=== PATIENT | male | born 1975 | race Caucasian/White ===

== ENCOUNTER → 2016-05-25 | Outpatient (CLI) | payer OTHER ==
[~2016-05-25] MED LIST: ACET500T37 PO; ALBU17IN INH; ALBU17IN2 INH; ALBU83IN INH; AMLO25TA PO; Acetaminophen/Hydrocodone PO; CALC500T36 PO; IBUP200C PO; LOPR1TAB6 PO; MULTCAP PO; PRED20TAB PO; PROBCAP4 PO; SENO8.6T10 PO
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
== END ==
LOC: M PAIN 11:20
PROVIDERS: ATTEND Nurse Practitioner Family
DX: Z09 Encounter for follow-up examination after completed treatment for conditions other than malignant neoplasm (principal); G89.29 Other chronic pain; M51.36 Other intervertebral disc degeneration, lumbar region; M54.42 Lumbago with sciatica, left side; M25.551 Pain in right hip; N18.6 End stage renal disease; J45.909 Unspecified asthma, uncomplicated; Z88.5 Allergy status to narcotic agent; Z88.8 Allergy status to other drugs, medicaments and biological substances; Z79.899 Other long term (current) drug therapy

== ENCOUNTER → 2016-05-27 | Outpatient (REF) | payer OTHER ==
[~2016-05-27] MED LIST changes: -LOPR1TAB6 PO; +LOPR50TA PO
== END ==
LOC: M LAB REF 16:53
PROVIDERS: ATTEND Internal Medicine Nephrology
DX: N18.5 Chronic kidney disease, stage 5 (principal)

== ENCOUNTER → 2016-08-01 | Outpatient (CLI) | payer OTHER ==
[~2016-08-01] MED LIST changes: +LOPR1TAB6 PO; -LOPR50TA PO
--- NOTE | 2016-08-01 12:48 | REP ---
Right hip series: Two views. History: Sciatica. Right hip pain. Findings: AP and frog-leg views of the right hip show smooth rounded femoral head and intact hip joint space. Periarticular soft tissues are unremarkable. The right hemipelvis is intact. Impression: Negative right hip series. Signed by Brendan Shah MD 08/01/2016 01:45 P
--- NOTE | 2016-08-03 09:24 | REP ---
MRI LUMBAR SPINE WITHOUT CONTRAST: HISTORY: Back pain. Decreased signal intensity on T2-weighted images is present in the L2-3 and L4-5 intervertebral discs. The discs are decreased in height. These findings are consistent with disc degeneration. There is no disc bulge or herniation at the L1-2 and L3-4 levels. The nerves exit the neural foramina without compression. A diffuse disc bulge is present at the L2-3 level. There is minimal compression of the thecal sac. The L2 nerves exit the neural foramina without compression. A diffuse disc bulge is present at the L4-5 level. There is hypertrophy of the ligamenta flava and posterior articulating facets. There are 3 mm of grade 1 spondylolisthesis of L4 on L5. These findings produce moderate central canal stenosis. The L4 nerves exit the neural foramina without compression. A diffuse disc bulge is present at the L5-S1 level. There is minimal compression of the thecal sac. There is hypertrophy of the posterior articulating facets. The L5 nerves exit the neural foramina without compression. The conus medullaris is normal in appearance terminating at the level of the L1-2 intervertebral disc. Increased signal intensity on T2-weighted images is present in the superior endplate of the L5 vertebral body. This represents degenerative change. IMPRESSION: 1. Diffuse disc bulges at the L2-3 and L5-S1 levels with minimal thecal sac compression. 2. Moderate central canal stenosis at the L4-5 level secondary to disc bulge ligamentous and facet hypertrophy and grade 1 spondylolisthesis. Signed by Lico Ellis MD 08/03/2016 09:28 A
== END ==
LOC: M RAD 11:03
PROVIDERS: ATTEND Nurse Practitioner Family
DX: M51.26 Other intervertebral disc displacement, lumbar region (principal); M51.27 Other intervertebral disc displacement, lumbosacral region; M48.06 Spinal stenosis, lumbar region; M43.16 Spondylolisthesis, lumbar region; M54.42 Lumbago with sciatica, left side; M25.551 Pain in right hip

== ENCOUNTER → 2016-08-31 | Outpatient (CLI) | payer OTHER ==
--- NOTE | 2016-09-12 00:20 | ECWPNPC ---
PATIENT NAME: MICHAEL PISANO : 1975 GENDER: MALE VISIT DATE: 08/31/2016 DISCHARGE DATE: 08/31/16 1443 VISIT LOCKED DATE TIME: PHYSICIAN: SHEYLA CUNNINGHAM RESOURCE: SHEYLA CUNNINGHAM HISTORY OF PRESENT ILLNESS HISTORY OF PRESENT ILLNESS: PAIN THE PATIENT DESCRIBES THE PAIN... FALL RISK SCREENING: SCREENING :NO FALLS IN THE PAST YEAR TODAY'S VISIT: NOTES: NOT A GOOD DAY BECAUSE OF DIALYSIS. STATES PAIN IS MUCH MORE MANAGBLE WITH COMBINATION OF TIZANIDINE AND OXYCODONE. ABLE TO WALK WITH COMBINATION OF MEDS. DENIES ANY ADVERSE EFFECTS. RATES PAIN TODAY 7-8/10. LOW BACK PAIN IS ACHING, THROBBING AND SORE.. CURRENT MEDICATIONS TAKING ALBUTEROL SULFATE (2.5 MG/3ML) 0.083% NEBULIZATION SOLUTION 3 ML INHALATION THREE TIMES A DAY TAKING ALBUTEROL SULFATE HFA 108 (90 BASE) MCG/ACT AEROSOL SOLUTION 2 PUFFS NEEDED INHALATION EVERY 4 HRS TAKING AEROCHAMBER PLUS _ 1 DIRECTED INHALATION BID AND WITH ALBUTEROL Q 4HRS PRN SOB TAKING AMLODIPINE BESYLATE 10 MG TABLET 1 TABLET ORALLY ONCE A DAY TAKING ALLOPURINOL 100 MG TABLET 1 1/2 TABLET ORALLY ONCE A DAY TAKING BUMETANIDE 2 MG TABLET 1 TABLET ORALLY ONCE A DAY TAKING NASAL SALINE 0.65 % SOLUTION 2 DROPS IN EACH NOSTRIL NEEDED NASALLY EVERY 2 HRS TAKING TYLENOL 325 MG TABLET 2 TABLET NEEDED ORALLY EVERY 4 HRS TAKING TIZANIDINE HCL 2 MG TABLET 1 TABLET NEEDED ORALLY BID TAKING OXYCODONE HCL 5 MG CAPSULE 1 CAPSULE NEEDED ORALLY EVERY 6 HRS PRN PAIN MDD=2 NOT-TAKING CALCITRIOL 0.25 MCG CAPSULE 1 CAPSULE ORALLY DAILY NOT-TAKING VITAMIN B COMPLEX-C - CAPSULE ORALLY NOT-TAKING ACIDOPHILUS PROBIOTIC COMPLEX 1 TABLET DIRECTED ORALLY WITH MEALS AND BEFORE BED NOT-TAKING NEPHRO-DANICA 0.8 MG TABLET 1 TABLET ORALLY ONCE A DAY (NEPHRO) NOT-TAKING CARAFATE 1 GM TABLET 1 TABLET ON AN EMPTY STOMACH ORALLY TWICE A DAY NOT-TAKING OMEPRAZOLE 40 MG CAPSULE DELAYED RELEASE 1 CAPSULE ORALLY TWICE DAILY NOT-TAKING CLARITIN 10 MG TABLET 1 TABLET ORALLY ONCE A DAY MEDICATION LIST REVIEWED AND RECONCILED WITH THE PATIENT PAST MEDICAL HISTORY ESRD RENAL FAILURE, ON DIALYSIS, 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 REVIEW OF SYSTEMS CONSTITUTIONAL: ANY CHANGE IN YOUR MEDICAL CONDITION? NO . CHILLS NO . FEVER NO . INFECTION: DO YOU HAVE NEW INFECTIONS? NO . DO YOU HAVE HISTORY OF MRSA? NO . MUSCULOSKELETAL: ANY NEW PATTERNS OF PAIN OR NUMBNESS? NO . GASTROENTEROLOGY: ANY NEW CHANGE IN BOWEL CONTROL? NO NO . GENITOURINARY: ANY NEW CHANGE IN BLADDER CONTROL? NO . IS THERE A CHANCE YOU COULD BE ? NO . HEMATOLOGY/LYMPH: DO YOU TAKE ANY BLOOD THINNERS? (FOR EXAMPLE- COUMADIN, PLAVIX, AGGRENOX, PLATEL, PRADAXA, OR XARELTO) HEPARIN DURING DIALYSIS . WHEN WAS YOUR LAST DOSE? DATE: TIME: 08/31/16 0800 . NEUROLOGY: HAVE YOU FALLEN IN THE PAST 6 MONTHS? YES, APPROX. 1 MONTH AGO X 2 DUE TO INTENSE PAIN--NO INJURIES . ANY NEW EXTREMITY NUMBNESS OR WEAKNESS? NO . CARDIOLOGY: DO YOU HAVE A PACEMAKER OR DEFIBRILLATOR? NO . RESPIRATORY: HAVE YOU BEEN SICK IN THE PAST WEEK? NO . FEVER NO . FLU LIKE SYMPTOMS? NO . COUGH NO . INTEGUMENTARY: DO YOU HAVE ANY RASHES OR OPEN SORES? NO . ALLERGIC/IMMUNO: ARE YOU ALLERGIC TO SHELLFISH OR IV DYE? NO . ANY NEW ALLERGIES? NO . PSYCHIATRIC: DO YOU HAVE THOUGHTS OF HURTING YOURSELF OR SOMEONE ELSE? NO . ARE YOU ABUSED, NEGLECTED, OR IN AN UNSAFE ENVIRONMENT? NO . ENDOCRINOLOGY: ARE YOU DIABETIC? NO . OTHER: DO YOU NEED ANY PRESCRIPTIONS? YES . IF YES, PLEASE LIST: OXYCODONE, TIZANIDINE . ANY NEW PROBLEMS WITH YOUR MEDICATIONS? NO . WHEN DID YOU LAST EAT? ____ . WHEN DID YOU LAST DRINK? ____ . WHAT DID YOU LAST DRINK? ____ . NAME OF PERSON DRIVING YOU HOME? ____ . DO YOU HAVE ANY OTHER QUESTIONS OR CONCERNS NO . UROLOGY: GENERAL HAS NOW BEEN PLACED ON THE TRANSPLANT LIST FOR KIDNEY. ON DIALYSIS 3 TIMES PER WEEK - QUITE NAUSEATED ON DIALYSIS DYS . REVIEWED BY: PROVIDER: SHEYLA BARNES . VITAL SIGNS WT 203 LBS, HT 67", BMI 31.79 INDEX, BP 144/82 MM HG, HR 95 /MIN, RR 18 /MIN, TEMP 99.4 F, OXYGEN SAT % 96%, NA INITIALS AW 1401, REVIEWED BY: AD. EXAMINATION GENERAL EXAMINATION: PSYCHALERT , ORIENTED X 3 , TALKATIVE, APPROPRIATE MOOD AND AFFECT . HEENT:NORMOCEPHALIC, NO LYMPADENOPATHY, NO THYROMEGLY. LUNGS:CLEAR TO AUSCULTATION BILATERALLY, NO WHEEZES, RALES OR RHONCHI. HEART:NORMAL S1S2, NO MURMURS, CLICK OR RUBS. MUSCULOSKELETAL:GENERALIZED TENDERNESS OVER LUMBAR SPINOUS PROCESSES AND ACROSS SACRUM. ALL MUSCLES ARE HYPERSENSITIVE TODAY TO LIGHT TOUCH. NEUROLOGIC EXAM:DECREASED SENSATION LEFT LAT THIGH, CALF AND FOOT. STUTTER/VERBAL TIC WHEN STRESSED.. ASSESSMENTS LUMBAGO WITH SCIATICA, LEFT SIDE - M54.42 (PRIMARY) OTHER CHRONIC PAIN - G89.29 DEGENERATIVE DISC DISEASE AT L5-S1 LEVEL - M51.36 RIGHT HIP PAIN - M25.551 TREATMENT LUMBAGO WITH SCIATICA, LEFT SIDE REFILL TIZANIDINE HCL TABLET, 2 MG, 1 TABLET NEEDED, ORALLY, BID, 30 DAY(S), 60 TABLET, REFILLS 1 REFILL OXYCODONE HCL CAPSULE, 5 MG, 1 CAPSULE NEEDED, ORALLY, EVERY 6 HRS PRN PAIN MDD=2, 30 DAY(S), 60, REFILLS 0 NOTES: EXERCISES, WALK AND SWIM TOLERATED. PROCEDURE CODES FA211 ESTABILISHED PATIENT [facility] FACILITY CHARGE DISPOSITION & COMMUNICATION FOLLOW UP ON WED OR ONLY. 26-28 DAYS ELECTRONICALLY SIGNED BY PIERRE COLEY ON 09/11/2016 AT 04:45 PM EDT DISCLAIMER : THIS IS A VISIT SUMMARY EXTRACTED FROM THE [employer] CHART. IT IS NOT A COPY OF THE [facility] PROGRESS NOTE. DAVIDE
== END ==
LOC: M PAIN 13:40
PROVIDERS: ATTEND Nurse Practitioner Family
DX: M54.42 Lumbago with sciatica, left side (principal); G89.29 Other chronic pain; M51.36 Other intervertebral disc degeneration, lumbar region; M25.551 Pain in right hip; I15.0 Renovascular hypertension; N18.6 End stage renal disease; J45.909 Unspecified asthma, uncomplicated; Z88.5 Allergy status to narcotic agent; Z88.6 Allergy status to analgesic agent; Z79.899 Other long term (current) drug therapy; Z99.2 Dependence on renal dialysis

== ENCOUNTER → 2016-09-24 | Outpatient (CLI) | payer OTHER ==
--- NOTE | 2016-10-07 02:40 | ECWPNPC ---
PATIENT NAME: MICHAEL PISANO : 1975 GENDER: MALE VISIT DATE: 09/24/2016 DISCHARGE DATE: 09/24/16 1409 VISIT LOCKED DATE TIME: PHYSICIAN: SHEYLA CUNNINGHAM RESOURCE: SHEYLA CUNNINGHAM REASON FOR APPOINTMENT 1. CHRONIC PAIN HISTORY OF PRESENT ILLNESS HISTORY OF PRESENT ILLNESS: PAIN THE PATIENT DESCRIBES THE PAIN... FALL RISK SCREENING: SCREENING :NO FALLS IN THE PAST YEAR TODAY'S VISIT: NOTES: RATES PAIN TODAY 6/10. NOTES WORST AREA PAIN IN LOW BACK WITH PAIN RADIATING TO BOTH SCIATIC REGIONS. IS BEING PLACED ON [employer] TRANSPLANT LIST. NOTES OXYCODONE CAUSES SEVERE FATIGUE. NAUSEA AND HEAACHES ARE PROBLEMATICIS LOOKING INTO MEDICAL MARIJUANA PROGRAM. CURRENT MEDICATIONS TAKING ALBUTEROL SULFATE (2.5 MG/3ML) 0.083% NEBULIZATION SOLUTION 3 ML INHALATION THREE TIMES A DAY TAKING ALBUTEROL SULFATE HFA 108 (90 BASE) MCG/ACT AEROSOL SOLUTION 2 PUFFS NEEDED INHALATION EVERY 4 HRS TAKING AEROCHAMBER PLUS _ 1 DIRECTED INHALATION BID AND WITH ALBUTEROL Q 4HRS PRN SOB TAKING AMLODIPINE BESYLATE 10 MG TABLET 1 TABLET ORALLY ONCE A DAY TAKING ALLOPURINOL 100 MG TABLET 1 1/2 TABLET ORALLY ONCE A DAY TAKING BUMETANIDE 2 MG TABLET 1 TABLET ORALLY ONCE A DAY TAKING NASAL SALINE 0.65 % SOLUTION 2 DROPS IN EACH NOSTRIL NEEDED NASALLY EVERY 2 HRS TAKING TYLENOL 325 MG TABLET 2 TABLET NEEDED ORALLY EVERY 4 HRS TAKING TIZANIDINE HCL 2 MG TABLET 1 TABLET NEEDED ORALLY BID TAKING OXYCODONE HCL 5 MG CAPSULE 1 CAPSULE NEEDED ORALLY EVERY 6 HRS PRN PAIN MDD=2 NOT-TAKING CALCITRIOL 0.25 MCG CAPSULE 1 CAPSULE ORALLY DAILY NOT-TAKING VITAMIN B COMPLEX-C - CAPSULE ORALLY NOT-TAKING ACIDOPHILUS PROBIOTIC COMPLEX 1 TABLET DIRECTED ORALLY WITH MEALS AND BEFORE BED NOT-TAKING NEPHRO-DANICA 0.8 MG TABLET 1 TABLET ORALLY ONCE A DAY (NEPHRO) NOT-TAKING CARAFATE 1 GM TABLET 1 TABLET ON AN EMPTY STOMACH ORALLY TWICE A DAY NOT-TAKING OMEPRAZOLE 40 MG CAPSULE DELAYED RELEASE 1 CAPSULE ORALLY TWICE DAILY NOT-TAKING CLARITIN 10 MG TABLET 1 TABLET ORALLY ONCE A DAY MEDICATION LIST REVIEWED AND RECONCILED WITH THE PATIENT PAST MEDICAL HISTORY ESRD RENAL FAILURE, ON DIALYSIS, 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 NO . CHILLS NO . FEVER NO . INFECTION: DO YOU HAVE NEW INFECTIONS? NO . DO YOU HAVE HISTORY OF MRSA? NO . MUSCULOSKELETAL: ANY NEW PATTERNS OF PAIN OR NUMBNESS? NO . GASTROENTEROLOGY: ANY NEW CHANGE IN BOWEL CONTROL? NO . GENITOURINARY: ANY NEW CHANGE IN BLADDER CONTROL? NO . IS THERE A CHANCE YOU COULD BE ? NO . HEMATOLOGY/LYMPH: DO YOU TAKE ANY BLOOD THINNERS? (FOR EXAMPLE- COUMADIN, PLAVIX, AGGRENOX, PLATEL, PRADAXA, OR XARELTO) NO . WHEN WAS YOUR LAST DOSE? DATE: TIME: . NEUROLOGY: HAVE YOU FALLEN IN THE PAST 6 MONTHS? NO . ANY NEW EXTREMITY NUMBNESS OR WEAKNESS? NO . CARDIOLOGY: DO YOU HAVE A PACEMAKER OR DEFIBRILLATOR? NO . RESPIRATORY: HAVE YOU BEEN SICK IN THE PAST WEEK? NO . FEVER NO . FLU LIKE SYMPTOMS? NO . COUGH NO . INTEGUMENTARY: DO YOU HAVE ANY RASHES OR OPEN SORES? NO . ALLERGIC/IMMUNO: ARE YOU ALLERGIC TO SHELLFISH OR IV DYE? NO . ANY NEW ALLERGIES? NO . PSYCHIATRIC: DO YOU HAVE THOUGHTS OF HURTING YOURSELF OR SOMEONE ELSE? NO . ARE YOU ABUSED, NEGLECTED, OR IN AN UNSAFE ENVIRONMENT? NO . ENDOCRINOLOGY: ARE YOU DIABETIC? NO . OTHER: DO YOU NEED ANY PRESCRIPTIONS? YES . IF YES, PLEASE LIST: ____OXYCODONE . ANY NEW PROBLEMS WITH YOUR MEDICATIONS? NO . WHEN DID YOU LAST EAT? ____ . WHEN DID YOU LAST DRINK? ____ . WHAT DID YOU LAST DRINK? ____ . NAME OF PERSON DRIVING YOU HOME? ____ . DO YOU HAVE ANY OTHER QUESTIONS OR CONCERNS NO . PSYCHOLOGY: SLEEP DISTURBANCES INSOMNIA X SEVERAL MONTHS - SINCE DIALYSIS STARTED . REVIEWED BY: PROVIDER: SHEYLA BARNES . VITAL SIGNS WT 207.8 LBS, HT 67", BMI 32.54 INDEX, BP 137/74 MM HG, HR 93 /MIN, RR 18 /MIN, TEMP 97.8 F, OXYGEN SAT % 99%, NA INITIALS SC 13:32, REVIEWED BY: VD. EXAMINATION GENERAL EXAMINATION: PSYCHALERT , ORIENTED X 3 , TALKATIVE, APPROPRIATE MOOD AND AFFECT . HEENT:NORMOCEPHALIC, NO LYMPADENOPATHY, NO THYROMEGLY. LUNGS:CLEAR TO AUSCULTATION BILATERALLY, NO WHEEZES, RALES OR RHONCHI. HEART:NORMAL S1S2, NO MURMURS, CLICK OR RUBS. MUSCULOSKELETAL:GENERALIZED TENDERNESS OVER LUMBAR SPINOUS PROCESSES AND ACROSS SACRUM.ABLE TO RISE EASILY TO STANDING POSITION. POSTURE UPRIGHT. GAIT WIDEBASED, MILDLY ANTALGIC. NEUROLOGIC EXAM:DECREASED SENSATION LEFT LATERAL THIGH, CALF AND FOOT. STUTTER/VERBAL TIC WHEN STRESSED.. ASSESSMENTS LUMBAGO WITH SCIATICA, LEFT SIDE - M54.42 (PRIMARY) OTHER CHRONIC PAIN - G89.29 DEGENERATIVE DISC DISEASE AT L5-S1 LEVEL - M51.36 RIGHT HIP PAIN - M25.551 TREATMENT LUMBAGO WITH SCIATICA, LEFT SIDE START MARINOL CAPSULE, 5 MG, 1 CAPSULE BEFORE LUNCH AND SUPPER, ORALLY, TWICE A DAY MDD=2, 30 DAY(S), 60, REFILLS 0 NOTES: CONTINUE EXERCISES AND SWIMMING. USE OXYCODONE LITTLE POSSIBLE AFTER STARTING MARINOL. CLINICAL NOTES: ISTOP REGISTRY REVIEWED AND DEMNOSTRATES COMPLLIANCE. BRINGS IN MEDICATIONS WHICH IS APPROPRIATE FOR WHAT WAS DISPENSED. RECENT URINE TOXICOLOGY REVIEWED. NO UNAUTHORIZED MEDICATIONS. NO ILLICIT SUBSTANCES AND PRESCRIBED MEDICATIONS WERE PRESENT. PROCEDURE CODES FA211 ESTABILISHED PATIENT MERGED WITH [facility] CHARGE DISPOSITION & COMMUNICATION FOLLOW UP 1 MONTH ELECTRONICALLY SIGNED BY PIERRE COLEY ON 10/06/2016 AT 08:53 AM EDT DISCLAIMER : THIS IS A VISIT SUMMARY EXTRACTED FROM THE [email or web address] CHART. IT IS NOT A COPY OF THE [email or web address] PROGRESS NOTE. DAVIDE
== END ==
LOC: M PAIN 14:00
PROVIDERS: ATTEND Nurse Practitioner Family
DX: G89.29 Other chronic pain (principal); M54.42 Lumbago with sciatica, left side; M51.36 Other intervertebral disc degeneration, lumbar region; M25.551 Pain in right hip; I15.0 Renovascular hypertension; N18.6 End stage renal disease; J45.909 Unspecified asthma, uncomplicated; Z99.2 Dependence on renal dialysis; Z88.5 Allergy status to narcotic agent; Z88.6 Allergy status to analgesic agent; Z79.899 Other long term (current) drug therapy

== ENCOUNTER → 2016-11-06 | Outpatient (CLI) | payer OTHER ==
[~2016-11-06] MED LIST changes: +ACET-683 PO; -ACET500T37 PO; +ALLO100T; +AMLO10TA2; +BUME2TAB; +CALC1CAP; +FEBU40TA; -IBUP200C PO; +IBUP200C10 PO; +OXYC-517; +RENV2TAB; +TIZA2TA; +VITA1CAP40
--- NOTE | 2016-11-25 00:56 | ECWPNPC ---
PATIENT NAME: MICHAEL PISANO : 1975 GENDER: MALE VISIT DATE: 11/06/2016 DISCHARGE DATE: 11/06/16 1509 VISIT LOCKED DATE TIME: PHYSICIAN: SHEYLA CUNNINGHAM RESOURCE: SHEYLA CUNNINGHAM HISTORY OF PRESENT ILLNESS HISTORY OF PRESENT ILLNESS: PAIN THE PATIENT DESCRIBES THE PAIN... FALL RISK SCREENING: SCREENING :NO FALLS IN THE PAST YEAR TODAY'S VISIT: NOTES: RATES PAIN TODAY 6/1O. HAD RECENT ACTIVITY WHCH PRODUCED SOME INCREASED DISCOMFORT HAS HAD TRANSPLANT TEAM EVAL AND IS WAITING FOR APPROVAL. . CURRENT MEDICATIONS TAKING ALBUTEROL SULFATE (2.5 MG/3ML) 0.083% NEBULIZATION SOLUTION 3 ML INHALATION THREE TIMES A DAY TAKING ALBUTEROL SULFATE HFA 108 (90 BASE) MCG/ACT AEROSOL SOLUTION 2 PUFFS NEEDED INHALATION EVERY 4 HRS TAKING AEROCHAMBER PLUS _ 1 DIRECTED INHALATION BID AND WITH ALBUTEROL Q 4HRS PRN SOB TAKING AMLODIPINE BESYLATE 10 MG TABLET 1 TABLET ORALLY ONCE A DAY TAKING ALLOPURINOL 100 MG TABLET 1 1/2 TABLET ORALLY ONCE A DAY TAKING BUMETANIDE 2 MG TABLET 1 TABLET ORALLY ONCE A DAY TAKING NASAL SALINE 0.65 % SOLUTION 2 DROPS IN EACH NOSTRIL NEEDED NASALLY EVERY 2 HRS TAKING TYLENOL 325 MG TABLET 2 TABLET NEEDED ORALLY EVERY 4 HRS TAKING OXYCODONE HCL 5 MG TABLET 1 CAPSULE NEEDED ORALLY EVERY 6 HRS PRN PAIN MDD=2 TAKING TIZANIDINE HCL 2 MG TABLET 1 TABLET NEEDED ORALLY BID NOT-TAKING MARINOL 5 MG CAPSULE 1 CAPSULE BEFORE LUNCH AND SUPPER ORALLY TWICE A DAY MDD=2, NOTES: INSURANCE WONT COVER NOT-TAKING CALCITRIOL 0.25 MCG CAPSULE 1 CAPSULE ORALLY DAILY NOT-TAKING VITAMIN B COMPLEX-C - CAPSULE ORALLY NOT-TAKING ACIDOPHILUS PROBIOTIC COMPLEX 1 TABLET DIRECTED ORALLY WITH MEALS AND BEFORE BED NOT-TAKING NEPHRO-DANICA 0.8 MG TABLET 1 TABLET ORALLY ONCE A DAY (NEPHRO) NOT-TAKING CARAFATE 1 GM TABLET 1 TABLET ON AN EMPTY STOMACH ORALLY TWICE A DAY NOT-TAKING OMEPRAZOLE 40 MG CAPSULE DELAYED RELEASE 1 CAPSULE ORALLY TWICE DAILY NOT-TAKING CLARITIN 10 MG TABLET 1 TABLET ORALLY ONCE A DAY MEDICATION LIST REVIEWED AND RECONCILED WITH THE PATIENT PAST MEDICAL HISTORY ESRD RENAL FAILURE, ON DIALYSIS, 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 CONSTITUTIONAL: ANY CHANGE IN YOUR MEDICAL CONDITION? NO . CHILLS NO . FEVER NO . INFECTION: DO YOU HAVE NEW INFECTIONS? NO . DO YOU HAVE HISTORY OF MRSA? NO . MUSCULOSKELETAL: ANY NEW PATTERNS OF PAIN OR NUMBNESS? NO . GASTROENTEROLOGY: ANY NEW CHANGE IN BOWEL CONTROL? NO . GENITOURINARY: ANY NEW CHANGE IN BLADDER CONTROL? NO . IS THERE A CHANCE YOU COULD BE ? NO . HEMATOLOGY/LYMPH: DO YOU TAKE ANY BLOOD THINNERS? (FOR EXAMPLE- COUMADIN, PLAVIX, AGGRENOX, PLATEL, PRADAXA, OR XARELTO) NO . WHEN WAS YOUR LAST DOSE? DATE: TIME: . NEUROLOGY: HAVE YOU FALLEN IN THE PAST 6 MONTHS? NO . ANY NEW EXTREMITY NUMBNESS OR WEAKNESS? NO . CARDIOLOGY: DO YOU HAVE A PACEMAKER OR DEFIBRILLATOR? NO . RESPIRATORY: HAVE YOU BEEN SICK IN THE PAST WEEK? NO . FEVER NO . FLU LIKE SYMPTOMS? NO . COUGH NO . INTEGUMENTARY: DO YOU HAVE ANY RASHES OR OPEN SORES? NO . ALLERGIC/IMMUNO: ARE YOU ALLERGIC TO SHELLFISH OR IV DYE? NO . ANY NEW ALLERGIES? NO . PSYCHIATRIC: DO YOU HAVE THOUGHTS OF HURTING YOURSELF OR SOMEONE ELSE? NO . ARE YOU ABUSED, NEGLECTED, OR IN AN UNSAFE ENVIRONMENT? NO . ENDOCRINOLOGY: ARE YOU DIABETIC? NO . OTHER: DO YOU NEED ANY PRESCRIPTIONS? NO . IF YES, PLEASE LIST: ____ . ANY NEW PROBLEMS WITH YOUR MEDICATIONS? NO . WHEN DID YOU LAST EAT? ____ . WHEN DID YOU LAST DRINK? ____ . WHAT DID YOU LAST DRINK? ____ . NAME OF PERSON DRIVING YOU HOME? ____ . DO YOU HAVE ANY OTHER QUESTIONS OR CONCERNS NO . VITAL SIGNS WT 208.4 LBS, HT 67", BMI 32.64 INDEX, BP 133/88 MM HG, HR 83 /MIN, RR 18 /MIN, TEMP 99.1 F, OXYGEN SAT % 97%, NA INITIALS TR 1446, REVIEWED BY: NL. EXAMINATION GENERAL EXAMINATION: PSYCHALERT , ORIENTED X 3 , TALKATIVE, APPROPRIATE MOOD AND AFFECT . LUNGS:CLEAR TO AUSCULTATION BILATERALLY, NO WHEEZES, RALES OR RHONCHI. HEART:NORMAL S1S2, NO MURMURS, CLICK OR RUBS. MUSCULOSKELETAL:GENERALIZED TENDERNESS OVER LUMBAR SPINOUS PROCESSES AND ACROSS SACRUM.ABLE TO RISE EASILY TO STANDING POSITION. POSTURE UPRIGHT. GAIT WIDEBASED, MILDLY ANTALGIC. NEUROLOGIC EXAM:DECREASED SENSATION LEFT LATERAL THIGH, CALF AND FOOT. STUTTER/VERBAL TIC WHEN STRESSED.. ASSESSMENTS LUMBAGO WITH SCIATICA, LEFT SIDE - M54.42 (PRIMARY) OTHER CHRONIC PAIN - G89.29 DEGENERATIVE DISC DISEASE AT L5-S1 LEVEL - M51.36 RIGHT HIP PAIN - M25.551 TREATMENT LUMBAGO WITH SCIATICA, LEFT SIDE NOTES: CALL WHEN SCRIPTS DUE. CONTINUE EXERCISES AND STRETCHES. CLINICAL NOTES: ISTOP REGISTRY REVIEWED AND DEMNOSTRATES COMPLLIANCE. BRINGS IN MEDICATIONS WHICH IS APPROPRIATE FOR WHAT WAS DISPENSED. RECENT URINE TOXICOLOGY REVIEWED. NO UNAUTHORIZED MEDICATIONS. NO ILLICIT SUBSTANCES AND PRESCRIBED MEDICATIONS WERE PRESENT. IS EXPLORING OPTION OF MEDICAL MARIJUANA CARD. PROCEDURE CODES FA211 ESTABILISHED PATIENT [facility] CHARGE DISPOSITION & COMMUNICATION FOLLOW UP ABOUT 12/24 (REASON: BACK PAIN) ELECTRONICALLY SIGNED BY PIERRE COLEY ON 11/24/2016 AT 07:05 PM EDT DISCLAIMER : THIS IS A VISIT SUMMARY EXTRACTED FROM THE [employer] CHART. IT IS NOT A COPY OF THE [employer] PROGRESS NOTE. DAVIDE
== END ==
LOC: M PAIN 14:20
PROVIDERS: ATTEND Nurse Practitioner Family
DX: M54.42 Lumbago with sciatica, left side (principal); G89.29 Other chronic pain; M51.36 Other intervertebral disc degeneration, lumbar region; M25.551 Pain in right hip; Z79.891 Long term (current) use of opiate analgesic; Z79.899 Other long term (current) drug therapy; Z88.5 Allergy status to narcotic agent; Z88.8 Allergy status to other drugs, medicaments and biological substances; N18.4 Chronic kidney disease, stage 4 (severe); J45.41 Moderate persistent asthma with (acute) exacerbation; I15.0 Renovascular hypertension

== ENCOUNTER → 2016-12-24 | Outpatient (CLI) | payer OTHER ==
--- NOTE | 2017-01-13 01:34 | ECWPNPC ---
PATIENT NAME: MICHAEL PISANO : 1975 GENDER: MALE VISIT DATE: 12/24/2016 DISCHARGE DATE: 12/24/16 1442 VISIT LOCKED DATE TIME: PHYSICIAN: SHEYLA CUNNINGHAM RESOURCE: SHEYLA CUNNINGHAM REASON FOR APPOINTMENT 1. BACK PAIN HISTORY OF PRESENT ILLNESS HISTORY OF PRESENT ILLNESS: PAIN THE PATIENT DESCRIBES THE PAIN... FALL RISK SCREENING: SCREENING :NO FALLS IN THE PAST YEAR TODAY'S VISIT: NOTES: RATES PAIN TODAY 5/10. DESCRIBES PAIN CONSTANT, ACHING, SHARP AND THROBBING. IS WORKING ON GETTING TO APPOINTMENT FOR MEDICAL MARIJUANA. CURRENT MEDICATIONS TAKING ALBUTEROL SULFATE (2.5 MG/3ML) 0.083% NEBULIZATION SOLUTION 3 ML INHALATION THREE TIMES A DAY TAKING ALBUTEROL SULFATE HFA 108 (90 BASE) MCG/ACT AEROSOL SOLUTION 2 PUFFS NEEDED INHALATION EVERY 4 HRS TAKING AEROCHAMBER PLUS _ 1 DIRECTED INHALATION BID AND WITH ALBUTEROL Q 4HRS PRN SOB TAKING AMLODIPINE BESYLATE 10 MG TABLET 1 TABLET ORALLY ONCE A DAY TAKING ALLOPURINOL 100 MG TABLET 1 1/2 TABLET ORALLY ONCE A DAY TAKING BUMETANIDE 2 MG TABLET 1 TABLET ORALLY ONCE A DAY TAKING NASAL SALINE 0.65 % SOLUTION 2 DROPS IN EACH NOSTRIL NEEDED NASALLY EVERY 2 HRS TAKING TYLENOL 325 MG TABLET 2 TABLET NEEDED ORALLY EVERY 4 HRS TAKING OXYCODONE HCL 5 MG TABLET 1 CAPSULE NEEDED ORALLY EVERY 6 HRS PRN PAIN MDD=2 TAKING TIZANIDINE HCL 2 MG TABLET 1 TABLET NEEDED ORALLY BID TAKING RENVELA 800 MG TABLET 1 TABLET WITH MEALS ORALLY DAILY TAKING ULORIC 40 MG TABLET 1 TABLET ORALLY ONCE A DAY NOT-TAKING MARINOL 5 MG CAPSULE 1 CAPSULE BEFORE LUNCH AND SUPPER ORALLY TWICE A DAY MDD=2, NOTES: INSURANCE WONT COVER NOT-TAKING CALCITRIOL 0.25 MCG CAPSULE 1 CAPSULE ORALLY DAILY NOT-TAKING VITAMIN B COMPLEX-C - CAPSULE ORALLY NOT-TAKING ACIDOPHILUS PROBIOTIC COMPLEX 1 TABLET DIRECTED ORALLY WITH MEALS AND BEFORE BED NOT-TAKING NEPHRO-DANICA 0.8 MG TABLET 1 TABLET ORALLY ONCE A DAY (NEPHRO) NOT-TAKING CARAFATE 1 GM TABLET 1 TABLET ON AN EMPTY STOMACH ORALLY TWICE A DAY NOT-TAKING OMEPRAZOLE 40 MG CAPSULE DELAYED RELEASE 1 CAPSULE ORALLY TWICE DAILY NOT-TAKING CLARITIN 10 MG TABLET 1 TABLET ORALLY ONCE A DAY MEDICATION LIST REVIEWED AND RECONCILED WITH THE PATIENT PAST MEDICAL HISTORY ESRD RENAL FAILURE, ON DIALYSIS, 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 OCCASIONAL USE OF MARIJUANA ANABAPTISM [id number] NONE LANGUAGE LANGUAGES SPOKEN:MALAYSIAN LEARNING BARRIERS / SPECIAL NEEDS CHANGE FROM LAST VISIT?NO BARRIERS TO LEARNING?NO HEARING IMPAIRED?NO VISION IMPAIRED?YES :CORRECTIVE LENSES COGNITIVELY IMPAIRED?NO READINESS TO LEARN?YES LEARNING PREFERENCES?NO LEARNING CAPABILITIES PRESENT?YES EMOTIONAL BARRIERS?NO SPECIAL DEVICES?NO POLICE SUPERINTENDENT NEEDED?NO PAIN CLINIC PFS, CLERGY, PUBLIC HEALTH REFERRALS PFS REFERRAL NEEDED?NO CLERGY REFERRAL NEEDED?NO PUBLIC HEALTH REFERRAL NEEDED?NO WAS THE PROVIDER NOTIFIED OF ANY PERTINENT INFO?NO HAS THE PATIENT BEEN EDUCATED REGARDING HIS/HER PLAN OF CARE?YES HAS THE PATIENT BEEN EDUCATED REGARDING PAIN, THE RISK FOR PAIN, THE IMPORTANCE OF EFFECTIVE PAIN MANAGEMENT, AND THE PAIN ASSESSMENT PROCESS?YES PATIENT: ____. ADVANCE DIRECTIVES HEALTH CARE PROXY?NO WOULD YOU LIKE MORE INFORMATION?NO DO YOU HAVE A DNR?NO WOULD YOU LIKE MORE INFORMATION?NO LIVING WILL?NO WOULD YOU LIKE MORE INFORMATION?NO POWER OF FEED MILLER?NO WOULD YOU LIKE MORE INFORMATION?NO REVIEW OF SYSTEMS REVIEWED BY: PROVIDER: SHEYLA BARNES . CONSTITUTIONAL: ANY CHANGE IN YOUR MEDICAL CONDITION? NO . CHILLS NO . FEVER NO . INFECTION: DO YOU HAVE NEW INFECTIONS? NO . DO YOU HAVE HISTORY OF MRSA? NO . MUSCULOSKELETAL: ANY NEW PATTERNS OF PAIN OR NUMBNESS? NO . GASTROENTEROLOGY: ANY NEW CHANGE IN BOWEL CONTROL? NO . GENITOURINARY: ANY NEW CHANGE IN BLADDER CONTROL? NO . IS THERE A CHANCE YOU COULD BE ? NO . HEMATOLOGY/LYMPH: DO YOU TAKE ANY BLOOD THINNERS? (FOR EXAMPLE- COUMADIN, PLAVIX, AGGRENOX, PLATEL, PRADAXA, OR XARELTO) NO . WHEN WAS YOUR LAST DOSE? DATE: TIME: . NEUROLOGY: HAVE YOU FALLEN IN THE PAST 6 MONTHS? NO . ANY NEW EXTREMITY NUMBNESS OR WEAKNESS? NO . CARDIOLOGY: DO YOU HAVE A PACEMAKER OR DEFIBRILLATOR? NO . RESPIRATORY: HAVE YOU BEEN SICK IN THE PAST WEEK? NO . FEVER NO . FLU LIKE SYMPTOMS? NO . COUGH NO . INTEGUMENTARY: DO YOU HAVE ANY RASHES OR OPEN SORES? NO . ALLERGIC/IMMUNO: ARE YOU ALLERGIC TO SHELLFISH OR IV DYE? NO . ANY NEW ALLERGIES? NO . PSYCHIATRIC: DO YOU HAVE THOUGHTS OF HURTING YOURSELF OR SOMEONE ELSE? NO . ARE YOU ABUSED, NEGLECTED, OR IN AN UNSAFE ENVIRONMENT? NO . ENDOCRINOLOGY: ARE YOU DIABETIC? NO . OTHER: DO YOU NEED ANY PRESCRIPTIONS? YES . IF YES, PLEASE LIST: OXYCODONE AND TIZANIDINE . ANY NEW PROBLEMS WITH YOUR MEDICATIONS? NO . WHEN DID YOU LAST EAT? ____ . WHEN DID YOU LAST DRINK? ____ . WHAT DID YOU LAST DRINK? ____ . NAME OF PERSON DRIVING YOU HOME? ____ . DO YOU HAVE ANY OTHER QUESTIONS OR CONCERNS NO . VITAL SIGNS WT 200 LBS, HT 67", BMI 31.32 INDEX, BP 142/79 MM HG, HR 86 /MIN, RR 18 /MIN, TEMP 98.6 F, OXYGEN SAT % 97%, NA INITIALS [id number], REVIEWED BY: CS. EXAMINATION GENERAL EXAMINATION: PSYCHALERT , ORIENTED X 3 , TALKATIVE, APPROPRIATE MOOD AND AFFECT . LUNGS:CLEAR TO AUSCULTATION BILATERALLY, NO WHEEZES, RALES OR RHONCHI. HEART:NORMAL S1S2, NO MURMURS, CLICK OR RUBS. MUSCULOSKELETAL:GENERALIZED TENDERNESS OVER LUMBAR SPINOUS PROCESSES AND ACROSS SACRUM.ABLE TO RISE EASILY TO STANDING POSITION. POSTURE UPRIGHT. GAIT WIDEBASED, MILDLY ANTALGIC. NEUROLOGIC EXAM: STUTTER/VERBAL TIC WHEN STRESSED.. ASSESSMENTS LUMBAGO WITH SCIATICA, LEFT SIDE - M54.42 (PRIMARY) OTHER CHRONIC PAIN - G89.29 DEGENERATIVE DISC DISEASE AT L5-S1 LEVEL - M51.36 RIGHT HIP PAIN - M25.551 TREATMENT LUMBAGO WITH SCIATICA, LEFT SIDE REFILL OXYCODONE HCL TABLET, 5 MG, 1 CAPSULE NEEDED, ORALLY, EVERY 6 HRS PRN PAIN MDD=2, 30 DAY(S), 60, REFILLS 0 REFILL TIZANIDINE HCL TABLET, 2 MG, 1 TABLET NEEDED, ORALLY, BID, 30 DAY(S), 60 TABLET, REFILLS 1 NOTES: CONTINUE CURRENT MEDS. ALT/ICE AND HEAT. PROCEDURE CODES FA211 ESTABILISHED PATIENT [facility] CHARGE DISPOSITION & COMMUNICATION FOLLOW UP 2 MONTHS (REASON: BACK PAIN) ELECTRONICALLY SIGNED BY PIERRE COLEY ON 01/11/2017 AT 08:38 AM EDT DISCLAIMER : THIS IS A VISIT SUMMARY EXTRACTED FROM THE [employer] CHART. IT IS NOT A COPY OF THE [employer] PROGRESS NOTE. DAVIDE
== END ==
LOC: M PAIN 14:00
PROVIDERS: ATTEND Nurse Practitioner Family
DX: G89.29 Other chronic pain (principal); M54.42 Lumbago with sciatica, left side; M51.36 Other intervertebral disc degeneration, lumbar region; M25.551 Pain in right hip; N18.9 Chronic kidney disease, unspecified; Z88.5 Allergy status to narcotic agent; Z88.6 Allergy status to analgesic agent; Z79.899 Other long term (current) drug therapy

== ENCOUNTER → 2017-03-02 | Outpatient (CLI) | payer OTHER ==
--- NOTE | 2017-03-05 18:07 | ECHO ---
DATE OF PROCEDURE: 03/02/2017 REFERRING PHYSICIAN: Alva Diaz NP INDICATION: Kidney transplant. HEIGHT: 173 cm WEIGHT: 95.3 kg 2D MEASUREMENTS: Left atrium: 3.7 cm Aortic root: 3.1 cm Ventricular septum: 1.29 cm Posterior wall: 1.29 cm Left ventricle diastole: 4.1 cm Aortic annulus 2.5 cm Inferior vena cava: 1.8 cm DOPPLER MEASUREMENTS: Aortic valve velocity: 132 cm/s LVOT velocity: 69.9 cm/s Very mild mitral regurgitation. Mitral E velocity: 77.0 cm/s Mitral A velocity: 56.8 cm/s Mitral deceleration time: 229 ms Pulmonary artery systolic pressure 24 mmHg by pulmonary acceleration time method. MITRAL ANNULAR TISSUE DOPPLER: E prime septal: 9.2 cm/s E prime lateral: 11.8 cm/s DESCRIPTION: Rhythm was sinus. This was a moderately technically difficult echocardiogram. This is a 2D, M-mode, color flow Doppler and pulse wave Doppler examination that included mitral annular tissue Doppler. CONCLUSIONS: 1. Mild concentric left ventricle hypertrophy. Normal regional left ventricle (LV) wall motion and wall thickening. Normal LV systolic function. Left ventricular ejection fraction (LVEF) 65% by visual estimate. Normal LV diastolic function. 2. No pericardial effusion. 3. Moderately technically difficult echocardiogram. 4. Otherwise normal appearing echocardiogram Doppler.
== END ==
LOC: M CARPUL 09:00 → M LAB 09:00
PROVIDERS: ATTEND Nurse Practitioner Family
DX: Z01.818 Encounter for other preprocedural examination (principal)

== ENCOUNTER 2017-03-07 12:25 | Emergency (ER) | payer OTHER ==
[~2017-03-07] VITALS: Ht 172.7 cm; Wt 93.2 kg
[~2017-03-07 12:25] MED LIST changes: -ALLO100T; -AMLO10TA2; -BUME2TAB; -CALC1CAP; -FEBU40TA; -OXYC-517; -RENV2TAB; -TIZA2TA; -VITA1CAP40
[2017-03-07] MEDS ORDERED: BUME2TAB (12:36)
[2017-03-07] MEDS ORDERED: VITA1CAP40 (12:36)
[2017-03-07] MEDS ORDERED: FEBU40TA (12:36)
[2017-03-07] MEDS ORDERED: AMLO10TA2 (12:36)
[2017-03-07] MEDS ORDERED: ALLO100T (12:36)
[2017-03-07] MEDS ORDERED: RENV2TAB (12:36)
[2017-03-07] MEDS ORDERED: OXYC-517 (12:36)
[2017-03-07] MEDS ORDERED: TIZA2TA (12:36)
[2017-03-07] MEDS ORDERED: CALC1CAP (12:36)
[2017-03-07] MEDS ORDERED: SUCRALFATE SUSP 1GM/10ML UD PO ONE (13:15)
[2017-03-07 13:26] LABS: BASO % 0.5 % (0.0-1.0); EOS # 0.5 10^3/uL (0.0-0.50); EOS % 5.9 % (0.0-3.0); IMMATURE GRANULOCYTE % 0.3 % (0-0); LYMPH # 1.3 10^3/uL (1.5-4.5); LYMPH % 17.2 % (24.0-44.0); MEAN CORPUSCULAR HEMOGLOBIN 30.9 pg (27.0-33.0); MEAN CORPUSCULAR HGB CONC 32.8 g/dl (32.0-36.5); MEAN CORPUSCULAR VOLUME 94.1 fl (80.0-96.0); MONO # 0.7 10^3/uL (0.0-0.8); MONO % 8.7 % (0.0-5.0); NEUTROPHILS # 5.1 10^3/uL (1.8-7.7); NEUTROPHILS % 67.4 % (36.0-66.0); PLATELET COUNT, AUTOMATED 231 10^3/uL (150-450); RED CELL DISTRIBUTION WIDTH 13.3 % (11.5-14.5); WHITE BLOOD COUNT 7.6 10^3/uL (4.0-10.0)
[2017-03-07 13:49] LABS: ALBUMIN 3.7 GM/DL (3.2-5.2); ALBUMIN/GLOBULIN RATIO 1.23 (1.00-1.93); ALKALINE PHOSPHATASE 89 U/L (45-117); ANION GAP 11 MEQ/L (8-16); AST/SGOT 12 U/L (15-37); BILIRUBIN,DIRECT < 0.1 MG/DL (0.0-0.2); BILIRUBIN,TOTAL 0.4 MG/DL (0.2-1.0); BLOOD UREA NITROGEN 73 MG/DL (7-18); CALCIUM LEVEL 8.5 MG/DL (8.5-10.1); CARBON DIOXIDE LEVEL 25 MEQ/L (21-32); CHLORIDE LEVEL 105 MEQ/L (98-107); CREATININE FOR GFR 7.63 MG/DL (0.70-1.30); GLOMERULAR FILTRATION RATE 8.4 (>60); GLUCOSE, FASTING 112 MG/DL (70-105); POTASSIUM SERUM 3.6 MEQ/L (3.5-5.1); SODIUM LEVEL 141 MEQ/L (136-145); TOTAL PROTEIN 6.7 GM/DL (6.4-8.2)
[2017-03-07 13:54] LABS: ALT/SGPT 30 U/L (12-78)
[2017-03-07] MEDS ORDERED: ISOVUE-370 76% 100ML VIAL (Q9967) As Ordered ONE (14:21)
--- NOTE | 2017-03-07 14:49 | REP ---
Portable chest, 01:17 p.m., single AP view the patient semi upright: Comparison 01/27/2014. Cardiac size is upper normal, unchanged. There is mild interstitial coarsening, artifact from portable technique verses vascular engorgement. No pleural effusions. The krystian, mediastinum, and bony thorax are unremarkable. Impression: Interstitial infiltrates versus artifact from portable technique. Signed by Godwin Ames MD 03/07/2017 01:38 P
--- NOTE | 2017-03-07 14:54 | REP ---
CT of the chest with IV contrast, CT pulmonary angiography: There are no emboli in the pulmonary trunk or central pulmonary arteries. There are no emboli in the pulmonary lobe or segment branches. There are no infiltrates or effusions. No masses. There is no mediastinal, hilar or axillary adenopathy. Thoracic aorta is unremarkable. Cardiac size normal. The visualized upper abdominal contents are unremarkable. Impression: There are no pulmonary emboli. Otherwise, negative CT study of the chest. Signed by Godwin Ames MD 03/07/2017 02:45 P
[2017-03-07] MEDS ORDERED: PERCOCET 5MG/325MG TAB PO ONE (15:00)
[2017-03-07 16:05] VITALS: BP 124/67
--- NOTE | 2017-03-08 20:56 | ECGEPIP ---
Stationary ECG Study [facility] - ED Test Date: 2017-03-07 Pat Name: MICHAEL PISANO Department: Room: - Gender: M Director Print: : 1975 Requested By: Flor Huntley Order Number: [id number] Reading MD: Flor Huntley Measurements Intervals [place] Rate: 78 P: 57 SD: 156 QRS: -1 QRSD: 116 T: 14 QT: 398 QTc: 453 Interpretive Statements SINUS RHYTHM POSSIBLE RIGHT VENTRICULAR CONDUCTION DELAY VOLTAGE CRITERIA FOR LVH DECREASED RATE 04/30/14 Electronically Signed On 03-08-2017 20:56:44 EDT by Flor Huntley
== END 2017-03-07 16:19 | disposition home or self-care (01) ==
LOC: M ED 12:25
DX: R07.9 Chest pain, unspecified (principal); F12.10 Cannabis abuse, uncomplicated
CPT/HCPCS: 71010; 71275; 80048; 80076; 82550; 82553; 83690; 84443; 85025; 93000; 93041; 94760; 99285; Q9967

== ENCOUNTER → 2017-03-11 | Outpatient (CLI) | payer OTHER ==
[~2017-03-11] MED LIST changes: +ALLO100T; +AMLO10TA2; +BUME2TAB; +CALC1CAP; +FEBU40TA; +OXYC-517; +RENV2TAB; +TIZA2TA; +VITA1CAP40
--- NOTE | 2017-04-12 00:44 | ECWPNPC ---
PATIENT NAME: MICHAEL PISANO : 1975 GENDER: MALE VISIT DATE: 03/11/2017 DISCHARGE DATE: 03/11/17 1203 VISIT LOCKED DATE TIME: PHYSICIAN: SHEYLA CUNNINGHAM RESOURCE: SHEYLA CUNNINGHAM REASON FOR APPOINTMENT 1. MEDS HISTORY OF PRESENT ILLNESS HISTORY OF PRESENT ILLNESS: PAIN THE PATIENT DESCRIBES THE PAIN... FALL RISK SCREENING: SCREENING :NO FALLS IN THE PAST YEAR TODAY'S VISIT: NOTES: RATES PAIN TODAY 6/10. DESCRIBES PAIN INTERMITTANT AND ACHING. PAIN CENTERED ACROSS THE LOW BACK AND INTO RIGHT LEG. CURRENT MEDICATIONS TAKING ALBUTEROL SULFATE (2.5 MG/3ML) 0.083% NEBULIZATION SOLUTION 3 ML INHALATION THREE TIMES A DAY TAKING ALBUTEROL SULFATE HFA 108 (90 BASE) MCG/ACT AEROSOL SOLUTION 2 PUFFS NEEDED INHALATION EVERY 4 HRS TAKING AEROCHAMBER PLUS _ 1 DIRECTED INHALATION BID AND WITH ALBUTEROL Q 4HRS PRN SOB TAKING AMLODIPINE BESYLATE 10 MG TABLET 1 TABLET ORALLY ONCE A DAY TAKING ALLOPURINOL 100 MG TABLET 1 1/2 TABLET ORALLY ONCE A DAY TAKING BUMETANIDE 2 MG TABLET 1 TABLET ORALLY ONCE A DAY TAKING NASAL SALINE 0.65 % SOLUTION 2 DROPS IN EACH NOSTRIL NEEDED NASALLY EVERY 2 HRS TAKING TYLENOL 325 MG TABLET 2 TABLET NEEDED ORALLY EVERY 4 HRS TAKING RENVELA 800 MG TABLET 1 TABLET WITH MEALS ORALLY DAILY TAKING ULORIC 40 MG TABLET 1 TABLET ORALLY ONCE A DAY TAKING TIZANIDINE HCL 2 MG TABLET 1 TABLET NEEDED ORALLY BID TAKING OXYCODONE HCL 5 MG TABLET 1 CAPSULE NEEDED ORALLY EVERY 6 HRS PRN PAIN MDD=2 TAKING VITAMIN B COMPLEX-C - CAPSULE 1 TAB ORALLY ONCE A WEEK TAKING NEPHRO-DANICA 0.8 MG TABLET 1 TABLET ORALLY ONCE A DAY (NEPHRO) TAKING CLARITIN 10 MG TABLET 1 TABLET ORALLY ONCE A DAY NEEDED NOT-TAKING MARINOL 5 MG CAPSULE 1 CAPSULE BEFORE LUNCH AND SUPPER ORALLY TWICE A DAY MDD=2, NOTES: INSURANCE WONT COVER NOT-TAKING CALCITRIOL 0.25 MCG CAPSULE 1 CAPSULE ORALLY DAILY NOT-TAKING ACIDOPHILUS PROBIOTIC COMPLEX 1 TABLET DIRECTED ORALLY WITH MEALS AND BEFORE BED NOT-TAKING CARAFATE 1 GM TABLET 1 TABLET ON AN EMPTY STOMACH ORALLY TWICE A DAY NOT-TAKING OMEPRAZOLE 40 MG CAPSULE DELAYED RELEASE 1 CAPSULE ORALLY TWICE DAILY MEDICATION LIST REVIEWED AND RECONCILED WITH THE PATIENT PAST MEDICAL HISTORY ESRD RENAL FAILURE, ON DIALYSIS, 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 OCCASIONAL USE OF MARIJUANA ALEVISM [id number] NONE LANGUAGE LANGUAGES SPOKEN:CZECH LEARNING BARRIERS / SPECIAL NEEDS CHANGE FROM LAST VISIT?NO BARRIERS TO LEARNING?NO HEARING IMPAIRED?NO VISION IMPAIRED?YES :CORRECTIVE LENSES COGNITIVELY IMPAIRED?NO READINESS TO LEARN?YES LEARNING PREFERENCES?NO LEARNING CAPABILITIES PRESENT?YES EMOTIONAL BARRIERS?NO SPECIAL DEVICES?NO LIBRARY CLERK TALKING BOOKS NEEDED?NO PAIN CLINIC PFS, CLERGY, PUBLIC HEALTH REFERRALS PFS REFERRAL NEEDED?NO CLERGY REFERRAL NEEDED?NO PUBLIC HEALTH REFERRAL NEEDED?NO WAS THE PROVIDER NOTIFIED OF ANY PERTINENT INFO?NO HAS THE PATIENT BEEN EDUCATED REGARDING HIS/HER PLAN OF CARE?YES HAS THE PATIENT BEEN EDUCATED REGARDING PAIN, THE RISK FOR PAIN, THE IMPORTANCE OF EFFECTIVE PAIN MANAGEMENT, AND THE PAIN ASSESSMENT PROCESS?YES PATIENT: ____. ADVANCE DIRECTIVES HEALTH CARE PROXY?NO WOULD YOU LIKE MORE INFORMATION?NO DO YOU HAVE A DNR?NO WOULD YOU LIKE MORE INFORMATION?NO LIVING WILL?NO WOULD YOU LIKE MORE INFORMATION?NO POWER OF DIVISION COMMANDER?NO WOULD YOU LIKE MORE INFORMATION?NO REVIEW OF SYSTEMS REVIEWED BY: PROVIDER: SHEYLA BARNES . CONSTITUTIONAL: ANY CHANGE IN YOUR MEDICAL CONDITION? NO . CHILLS NO . FEVER NO . INFECTION: DO YOU HAVE NEW INFECTIONS? NO . DO YOU HAVE HISTORY OF MRSA? NO . MUSCULOSKELETAL: ANY NEW PATTERNS OF PAIN OR NUMBNESS? NO . GASTROENTEROLOGY: ANY NEW CHANGE IN BOWEL CONTROL? NO . GENITOURINARY: ANY NEW CHANGE IN BLADDER CONTROL? NO . IS THERE A CHANCE YOU COULD BE ? NO . HEMATOLOGY/LYMPH: DO YOU TAKE ANY BLOOD THINNERS? (FOR EXAMPLE- COUMADIN, PLAVIX, AGGRENOX, PLATEL, PRADAXA, OR XARELTO) NO . WHEN WAS YOUR LAST DOSE? DATE: TIME: . NEUROLOGY: HAVE YOU FALLEN IN THE PAST 6 MONTHS? NO . ANY NEW EXTREMITY NUMBNESS OR WEAKNESS? NO . CARDIOLOGY: DO YOU HAVE A PACEMAKER OR DEFIBRILLATOR? NO . RESPIRATORY: HAVE YOU BEEN SICK IN THE PAST WEEK? YES, DIAGNOSED WITH PLEURISY ON WEDNESDAY AT THE ER, PAIN IS BETTER SINCE WEDNESDAY IN LEFT CHEST WALL . FEVER NO . FLU LIKE SYMPTOMS? NO . COUGH YES . INTEGUMENTARY: DO YOU HAVE ANY RASHES OR OPEN SORES? NO . ALLERGIC/IMMUNO: ARE YOU ALLERGIC TO SHELLFISH OR IV DYE? NO . ANY NEW ALLERGIES? NO . PSYCHIATRIC: DO YOU HAVE THOUGHTS OF HURTING YOURSELF OR SOMEONE ELSE? NO . ARE YOU ABUSED, NEGLECTED, OR IN AN UNSAFE ENVIRONMENT? NO . ENDOCRINOLOGY: ARE YOU DIABETIC? NO . OTHER: DO YOU NEED ANY PRESCRIPTIONS? NO . IF YES, PLEASE LIST: ____ . ANY NEW PROBLEMS WITH YOUR MEDICATIONS? NO . WHEN DID YOU LAST EAT? ____ . WHEN DID YOU LAST DRINK? ____ . WHAT DID YOU LAST DRINK? ____ . NAME OF PERSON DRIVING YOU HOME? ____ . DO YOU HAVE ANY OTHER QUESTIONS OR CONCERNS NO . VITAL SIGNS WT 205 LBS, HT 67", BMI 32.10 INDEX, BP 132/93 MM HG, HR 105 /MIN, RR 20 /MIN, TEMP 98.7 F, OXYGEN SAT % 97%, SAFE IN ENV? (Y/N) YES, NA INITIALS SC 11:39, REVIEWED BY: DANE. EXAMINATION GENERAL EXAMINATION: PSYCHALERT , ORIENTED X 3 , TALKATIVE, APPROPRIATE MOOD AND AFFECT . LUNGS:CLEAR TO AUSCULTATION BILATERALLY, NO WHEEZES, RALES OR RHONCHI. HEART:NORMAL S1S2, NO MURMURS, CLICK OR RUBS. MUSCULOSKELETAL:GENERALIZED TENDERNESS OVER LUMBAR SPINOUS PROCESSES AND ACROSS SACRUM.ABLE TO RISE EASILY TO STANDING POSITION. POSTURE UPRIGHT. GAIT WIDEBASED, MILDLY ANTALGIC. NEUROLOGIC EXAM: STUTTER/VERBAL TIC WHEN STRESSED.. ASSESSMENTS LUMBAGO WITH SCIATICA, LEFT SIDE - M54.42 (PRIMARY) OTHER CHRONIC PAIN - G89.29 DEGENERATIVE DISC DISEASE AT L5-S1 LEVEL - M51.36 RIGHT HIP PAIN - M25.551 TREATMENT LUMBAGO WITH SCIATICA, LEFT SIDE NOTES: CONTINUE CURRENT MEDS. WALK AND BE ACTIVE POSSIBLECALL WHEN SCRIPTS DUE. PROCEDURE CODES FA211 ESTABILISHED PATIENT [facility] CHARGE DISPOSITION & COMMUNICATION FOLLOW UP 7 WEEKS (REASON: BACK PAIN) ELECTRONICALLY SIGNED BY PIERRE COLEY ON 04/11/2017 AT 12:04 PM EST DISCLAIMER : THIS IS A VISIT SUMMARY EXTRACTED FROM THE [employer] CHART. IT IS NOT A COPY OF THE [employer] PROGRESS NOTE. DAVIDE
== END ==
LOC: M PAIN 10:45
PROVIDERS: ATTEND Nurse Practitioner Family
DX: M54.42 Lumbago with sciatica, left side (principal); G89.29 Other chronic pain; M51.36 Other intervertebral disc degeneration, lumbar region; M25.551 Pain in right hip; N18.6 End stage renal disease; Z99.2 Dependence on renal dialysis; J45.909 Unspecified asthma, uncomplicated; Z79.891 Long term (current) use of opiate analgesic; Z79.899 Other long term (current) drug therapy; Z88.5 Allergy status to narcotic agent; Z88.8 Allergy status to other drugs, medicaments and biological substances

== ENCOUNTER → 2017-06-08 | Outpatient (CLI) | payer OTHER | LOC: M PAIN 15:00 | DX: M54.42 Lumbago with sciatica, left side (principal); G89.29 Other chronic pain; M51.36 Other intervertebral disc degeneration, lumbar region; M25.551 Pain in right hip; Z79.891 Long term (current) use of opiate analgesic; Z79.899 Other long term (current) drug therapy; Z88.5 Allergy status to narcotic agent; Z88.8 Allergy status to other drugs, medicaments and biological substances | CPT/HCPCS: G0463 ==

== ENCOUNTER → 2017-08-10 | Outpatient (CLI) | payer OTHER | LOC: M PAIN 13:30 | DX: M54.42 Lumbago with sciatica, left side (principal); G89.29 Other chronic pain; M51.36 Other intervertebral disc degeneration, lumbar region; M25.551 Pain in right hip; N18.6 End stage renal disease; J45.909 Unspecified asthma, uncomplicated; Z79.891 Long term (current) use of opiate analgesic; Z79.899 Other long term (current) drug therapy; Z88.8 Allergy status to other drugs, medicaments and biological substances | CPT/HCPCS: G0463 ==

== ENCOUNTER 2017-11-03 10:52 | Emergency (ER) | payer OTHER ==
[2017-11-03] MEDS: ONDANSETRON 4MG/2ML VIAL (J2405) IV (11:48)
[2017-11-03 11:58] LABS: BASO # 0.1 10^3/uL (0.0-0.2); BASO % 0.4 % (0.0-1.0); EOS # 0.2 10^3/uL (0.0-0.50); EOS % 1.5 % (0.0-3.0); HEMATOCRIT 46.8 % (42.0-52.0); IMMATURE GRANULOCYTE % 0.4 % (0-3.0); MEAN CORPUSCULAR HEMOGLOBIN 30.7 pg (27.0-33.0); MEAN CORPUSCULAR HGB CONC 34.2 g/dl (32.0-36.5); MEAN CORPUSCULAR VOLUME 89.8 fl (80.0-96.0); MONO # 0.7 10^3/uL (0.0-0.8); MONO % 6.6 % (0.0-5.0); NEUTROPHILS # 9.3 10^3/uL (1.8-7.7); NEUTROPHILS % 82.1 % (36.0-66.0); PLATELET COUNT, AUTOMATED 280 10^3/uL (150-450); RED BLOOD COUNT 5.21 10^6/uL (4.30-6.10); RED CELL DISTRIBUTION WIDTH 13.8 % (11.5-14.5); WHITE BLOOD COUNT 11.3 10^3/uL (4.0-10.0)
[2017-11-03 12:12] LABS: ALBUMIN 4.8 GM/DL (3.2-5.2); ALKALINE PHOSPHATASE 108 U/L (45-117); ALT/SGPT 29 U/L (12-78); ANION GAP 10 MEQ/L (8-16); AST/SGOT 16 U/L (7-37); BILIRUBIN,DIRECT 0.2 MG/DL (0.0-0.2); BILIRUBIN,TOTAL 0.8 MG/DL (0.2-1.0); BLOOD UREA NITROGEN 31 MG/DL (7-18); CALCIUM LEVEL 9.4 MG/DL (8.5-10.1); CARBON DIOXIDE LEVEL 29 MEQ/L (21-32); CHLORIDE LEVEL 97 MEQ/L (98-107); CREATININE FOR GFR 4.52 MG/DL (0.70-1.30); GLOMERULAR FILTRATION RATE 15.3 (>60); GLUCOSE, FASTING 101 MG/DL (70-100); LIPASE 334 U/L (73-393); MAGNESIUM LEVEL 2.2 MG/DL (1.8-2.4); PHOSPHORUS LEVEL 3.1 MG/DL (2.5-4.9); POTASSIUM SERUM 3.8 MEQ/L (3.5-5.1); SODIUM LEVEL 136 MEQ/L (136-145); TOTAL PROTEIN 9.6 GM/DL (6.4-8.2)
[2017-11-03] MEDS: IPRATROPIUM 0.5MG/ALBUTEROL 2.5MG INH SOL UD 3ML (DUONEB)(J7620) NEB (12:31)
[2017-11-03 12:40] LABS: CK-MB VALUE MASS 1.4 NG/ML (<3.6); CPK CREATINE PHOSPHOKINASE 125 U/L (39-308); MB/CK RELATIVE INDEX 1.12 (< OR =4); TROPONIN I < 0.02 NG/ML (< 0.10)
== END 2017-11-03 14:14 | disposition home or self-care (01) ==
LOC: M ED 10:52
DX: J45.909 Unspecified asthma, uncomplicated (principal); R11.10 Vomiting, unspecified; R06.02 Shortness of breath; N18.6 End stage renal disease; Z99.2 Dependence on renal dialysis; N05.9 Unspecified nephritic syndrome with unspecified morphologic changes; Z88.0 Allergy status to penicillin; Z79.899 Other long term (current) drug therapy
CPT/HCPCS: 71046

== ENCOUNTER → 2017-11-04 | Outpatient (CLI) | payer OTHER | LOC: M PAIN 14:00 | DX: M54.42 Lumbago with sciatica, left side (principal); J45.909 Unspecified asthma, uncomplicated; Z79.899 Other long term (current) drug therapy; Z88.5 Allergy status to narcotic agent; Z88.6 Allergy status to analgesic agent; Z88.8 Allergy status to other drugs, medicaments and biological substances; Z87.448 Personal history of other diseases of urinary system | CPT/HCPCS: G0463 ==

== ENCOUNTER 2018-01-11 09:00 | Emergency (ER) | payer OTHER ==
[2018-01-11 09:55] LABS: BEDSIDE GLUCOSE 114 MG/DL (70-105)
[2018-01-11] MEDS: LORazepam 1 MG TAB PO (09:55)
[2018-01-11 10:02] LABS: BASO % 0.3 % (0.0-1.0); EOS # 0.1 10^3/uL (0.0-0.50); EOS % 1.5 % (0.0-3.0); HEMATOCRIT 45.6 % (42.0-52.0); HEMOGLOBIN 15.4 g/dl (13.5-17.5); IMMATURE GRANULOCYTE % 0.3 % (0-3.0); LYMPH # 1.1 10^3/uL (1.5-4.5); LYMPH % 12.5 % (24.0-44.0); MEAN CORPUSCULAR HEMOGLOBIN 30.8 pg (27.0-33.0); MEAN CORPUSCULAR HGB CONC 33.8 g/dl (32.0-36.5); MEAN CORPUSCULAR VOLUME 91.2 fl (80.0-96.0); MONO # 0.7 10^3/uL (0.0-0.8); NEUTROPHILS % 77.4 % (36.0-66.0); PLATELET COUNT, AUTOMATED 266 10^3/uL (150-450); RED CELL DISTRIBUTION WIDTH 13.9 % (11.5-14.5); WHITE BLOOD COUNT 9.1 10^3/uL (4.0-10.0)
[2018-01-11 10:37] LABS: ANION GAP 10 MEQ/L (8-16); BLOOD UREA NITROGEN 40 MG/DL (7-18); CALCIUM LEVEL 9.4 MG/DL (8.5-10.1); CARBON DIOXIDE LEVEL 29 MEQ/L (21-32); CHLORIDE LEVEL 102 MEQ/L (98-107); CREATININE FOR GFR 6.26 MG/DL (0.70-1.30); GLOMERULAR FILTRATION RATE 10.5 (>60); GLUCOSE, FASTING 104 MG/DL (70-100); MAGNESIUM LEVEL 2.6 MG/DL (1.8-2.4); SODIUM LEVEL 141 MEQ/L (136-145)
== END 2018-01-11 12:21 | disposition home or self-care (01) ==
LOC: M ED 09:00
DX: R11.2 Nausea with vomiting, unspecified (principal); I45.19 Other right bundle-branch block; I10 Essential (primary) hypertension; J45.909 Unspecified asthma, uncomplicated; F90.9 Attention-deficit hyperactivity disorder, unspecified type; G89.29 Other chronic pain; Z79.899 Other long term (current) drug therapy; Z88.0 Allergy status to penicillin
CPT/HCPCS: 93005

== ENCOUNTER 2018-01-12 13:23 | Emergency (ER) | payer OTHER ==
[2018-01-12 14:23] LABS: BASO # 0.1 10^3/uL (0.0-0.2); BASO % 0.6 % (0.0-1.0); EOS # 0.2 10^3/uL (0.0-0.50); EOS % 2.8 % (0.0-3.0); HEMATOCRIT 44.9 % (42.0-52.0); HEMOGLOBIN 15.1 g/dl (13.5-17.5); IMMATURE GRANULOCYTE % 0.3 % (0-3.0); LYMPH # 1.4 10^3/uL (1.5-4.5); LYMPH % 15.6 % (24.0-44.0); MEAN CORPUSCULAR HEMOGLOBIN 30.5 pg (27.0-33.0); MEAN CORPUSCULAR HGB CONC 33.6 g/dl (32.0-36.5); MEAN CORPUSCULAR VOLUME 90.7 fl (80.0-96.0); MONO # 0.9 10^3/uL (0.0-0.8); MONO % 10.3 % (0.0-5.0); NEUTROPHILS # 6.1 10^3/uL (1.8-7.7); NEUTROPHILS % 70.4 % (36.0-66.0); PLATELET COUNT, AUTOMATED 249 10^3/uL (150-450); RED BLOOD COUNT 4.95 10^6/uL (4.30-6.10); WHITE BLOOD COUNT 8.6 10^3/uL (4.0-10.0)
[2018-01-12] MEDS: LORazepam 2 MG/ML VIAL (J2060) IV (14:23)
[2018-01-12 14:42] LABS: ALBUMIN/GLOBULIN RATIO 0.91 (1.00-1.93); ALKALINE PHOSPHATASE 109 U/L (45-117); ALT/SGPT 30 U/L (12-78); ANION GAP 10 MEQ/L (8-16); AST/SGOT 18 U/L (7-37); BILIRUBIN,DIRECT 0.1 MG/DL (0.0-0.2); BILIRUBIN,TOTAL 0.7 MG/DL (0.2-1.0); BLOOD UREA NITROGEN 22 MG/DL (7-18); CALCIUM LEVEL 9.8 MG/DL (8.5-10.1); CARBON DIOXIDE LEVEL 27 MEQ/L (21-32); CHLORIDE LEVEL 103 MEQ/L (98-107); CREATININE FOR GFR 4.28 MG/DL (0.70-1.30); ETHYL ALCOHOL (ETHANOL) 0.003 % (0.000-0.010); GLOMERULAR FILTRATION RATE 16.3 (>60); GLUCOSE, FASTING 89 MG/DL (70-100); POTASSIUM SERUM 3.6 MEQ/L (3.5-5.1); SALICYLATE LEVEL < 1.7 MG/DL (5.0-30.0); SODIUM LEVEL 140 MEQ/L (136-145); TOTAL PROTEIN 8.4 GM/DL (6.4-8.2)
[2018-01-12 14:43] LABS: ACETAMINOPHEN LEVEL < 2.0 UG/ML (10.0-30.0)
[2018-01-12 17:10] LABS: AMPHETAMINES LEVEL URINE NEGATIVE (NEGATIVE); BARBITURATES URINE NEGATIVE (NEGATIVE); BENZODIAZEPINES URINE NEGATIVE (NEGATIVE); CANNABINOIDS URINE POSITIVE (NEGATIVE); COCAINE METABOLITE URINE NEGATIVE (NEGATIVE); METHADONE URINE NEGATIVE (NEGATIVE); OPIATES URINE NEGATIVE (NEGATIVE); PHENCYCLIDINE URINE NEGATIVE (NEGATIVE)
[2018-01-12] MEDS: ONDANSETRON 4 MG ORAL DISINTEGRATING TAB (Q0162 PER 1MG) PO (17:38)
== END 2018-01-12 17:46 | disposition home or self-care (01) ==
LOC: M ED 13:23
DX: F41.0 Panic disorder [episodic paroxysmal anxiety] (principal); F12.10 Cannabis abuse, uncomplicated; N18.6 End stage renal disease; F32.9 Major depressive disorder, single episode, unspecified; Z88.0 Allergy status to penicillin; Z99.2 Dependence on renal dialysis; Z79.899 Other long term (current) drug therapy
CPT/HCPCS: Q0162

== ENCOUNTER 2018-01-13 07:37 | Emergency (ER) | payer OTHER ==
[2018-01-13 09:08] LABS: BASO % 0.4 % (0.0-1.0); EOS # 0.2 10^3/uL (0.0-0.50); EOS % 2.1 % (0.0-3.0); HEMATOCRIT 44.3 % (42.0-52.0); HEMOGLOBIN 14.9 g/dl (13.5-17.5); IMMATURE GRANULOCYTE % 0.2 % (0-3.0); LYMPH # 1.3 10^3/uL (1.5-4.5); LYMPH % 14.8 % (24.0-44.0); MEAN CORPUSCULAR HEMOGLOBIN 30.5 pg (27.0-33.0); MEAN CORPUSCULAR HGB CONC 33.6 g/dl (32.0-36.5); MEAN CORPUSCULAR VOLUME 90.8 fl (80.0-96.0); MONO # 0.7 10^3/uL (0.0-0.8); MONO % 7.8 % (0.0-5.0); NEUTROPHILS # 6.8 10^3/uL (1.8-7.7); NEUTROPHILS % 74.7 % (36.0-66.0); PLATELET COUNT, AUTOMATED 251 10^3/uL (150-450); RED BLOOD COUNT 4.88 10^6/uL (4.30-6.10); RED CELL DISTRIBUTION WIDTH 13.8 % (11.5-14.5); WHITE BLOOD COUNT 9.1 10^3/uL (4.0-10.0)
[2018-01-13] MEDS: LORazepam 1 MG TAB PO (09:20)
[2018-01-13 09:35] LABS: ANION GAP 9 MEQ/L (8-16); BLOOD UREA NITROGEN 34 MG/DL (7-18); CARBON DIOXIDE LEVEL 30 MEQ/L (21-32); CHLORIDE LEVEL 103 MEQ/L (98-107); CPK CREATINE PHOSPHOKINASE 153 U/L (39-308); CREATININE FOR GFR 6.11 MG/DL (0.70-1.30); FREE T4 1.02 NG/DL (0.76-1.46); GLOMERULAR FILTRATION RATE 10.8 (>60); GLUCOSE, FASTING 97 MG/DL (70-100); POTASSIUM SERUM 3.8 MEQ/L (3.5-5.1); SODIUM LEVEL 142 MEQ/L (136-145); TROPONIN I < 0.02 NG/ML (< 0.10)
[2018-01-13 09:41] LABS: CK-MB VALUE MASS < 1.0 NG/ML (<3.6); MB/CK RELATIVE INDEX 0.65 (< OR =4)
== END 2018-01-13 11:00 | disposition home or self-care (01) ==
LOC: M ED 07:37
DX: F41.1 Generalized anxiety disorder (principal); N18.6 End stage renal disease; M10.9 Gout, unspecified; F90.9 Attention-deficit hyperactivity disorder, unspecified type; M54.30 Sciatica, unspecified side; Z91.5 Personal history of self-harm; Z79.899 Other long term (current) drug therapy; Z88.0 Allergy status to penicillin
CPT/HCPCS: 71046

== ENCOUNTER 2018-01-24 13:11 | Outpatient (CLI) | payer MEDICARE, OTHER ==
[2018-01-25] MEDS ORDERED: ISOVUE-370 76% 100ML VIAL (Q9967) As Ordered ×2 (16:52)
== END 2018-01-25 ==
LOC: M RAD 01-25 16:40
DX: H90.5 Unspecified sensorineural hearing loss (principal)
CPT/HCPCS: Q9967

== ENCOUNTER 2018-02-09 18:14 | Emergency (ER) | payer MEDICARE, OTHER ==
[2018-02-09] MEDS: AZITHROMYCIN 250 MG TAB PO ×2 (21:24)
[2018-02-09] MEDS: predniSONE 20 MG TAB PO ×2 (21:24)
[2018-02-09] MEDS: BENZONATATE 100 MG CAP PO ×2 (21:24)
== END 2018-02-09 21:37 | disposition home or self-care (01) ==
LOC: M ED 18:14
DX: J06.9 Acute upper respiratory infection, unspecified (principal); N17.9 Acute kidney failure, unspecified; Z99.2 Dependence on renal dialysis; R05 Cough; I10 Essential (primary) hypertension; E78.5 Hyperlipidemia, unspecified; J45.909 Unspecified asthma, uncomplicated; R51 Headache; Z88.0 Allergy status to penicillin; Z79.899 Other long term (current) drug therapy
CPT/HCPCS: 71046

== ENCOUNTER → 2018-03-11 | Outpatient (CLI) | payer MEDICARE | LOC: M PAIN 11:15 | DX: M54.42 Lumbago with sciatica, left side (principal); M51.36 Other intervertebral disc degeneration, lumbar region; N18.5 Chronic kidney disease, stage 5; J45.909 Unspecified asthma, uncomplicated; Z79.891 Long term (current) use of opiate analgesic; Z79.899 Other long term (current) drug therapy; Z88.5 Allergy status to narcotic agent; Z88.6 Allergy status to analgesic agent | CPT/HCPCS: G0463 ==

== ENCOUNTER 2018-06-30 11:00 | Emergency (ER) | payer MEDICARE ==
[~2018-06-30] VITALS: Ht 170.2 cm; Wt 98.6 kg
[~2018-06-30 11:00] MED LIST changes: +ALBU2TA PO; -ALLO100T; +ALLO100T PO; -AMLO10TA2; +AMLO10TA5 PO; +ATIV1TAB7; +AZIT-12 PO; -BUME2TAB; +BUME2TAB3 PO; -IBUP200C10 PO; +IBUP200C25 PO; +LORA1TAB12; -OXYC-517; +OXYC-517 PO; +PRED20TA PO; +TESS100C PO; -TIZA2TA; +TIZA2TA PO; -VITA1CAP40; +VITA50005; +ZOFR4TAB14 PO
[2018-06-30] MEDS ORDERED: VELP5CHW PO (11:09)
[2018-06-30] MEDS ORDERED: RENV2TAB PO (11:09)
[2018-06-30] MEDS ORDERED: LORazepam 2 MG TAB PO STA (11:18)
[2018-06-30] MEDS ORDERED: ATIV1TAB7 PO (13:03)
[2018-06-30 13:27] VITALS: BP 127/78
== END 2018-06-30 13:29 | disposition home or self-care (01) ==
LOC: M ED 11:00
DX: F41.9 Anxiety disorder, unspecified (principal); Z79.899 Other long term (current) drug therapy

== ENCOUNTER 2018-07-04 09:53 | Emergency (ER) | payer MEDICARE ==
[~2018-07-04] VITALS: Ht 170.2 cm; Wt 96.3 kg
[~2018-07-04 09:53] MED LIST changes: +ATIV1TAB7 PO; +RENV2TAB PO; +VELP5CHW PO
[2018-07-04] MEDS ORDERED: LORazepam 2 MG/ML VIAL (J2060) IV STA (10:09)
[2018-07-04] MEDS ORDERED: ONDANSETRON 4MG/2ML VIAL (J2405) IV ONE (10:15)
[2018-07-04 10:24] LABS: BASO # 0.1 10^3/uL (0.0-0.2); BASO % 0.7 % (0.0-1.0); EOS # 0.5 10^3/uL (0.0-0.50); HEMATOCRIT 41.9 % (42.0-52.0); HEMOGLOBIN 14.3 g/dl (13.5-17.5); LYMPH # 1.1 10^3/uL (1.5-4.5); LYMPH % 13.4 % (24.0-44.0); MEAN CORPUSCULAR HEMOGLOBIN 31.1 pg (27.0-33.0); MEAN CORPUSCULAR HGB CONC 34.1 g/dl (32.0-36.5); MEAN CORPUSCULAR VOLUME 91.1 fl (80.0-96.0); MONO # 0.7 10^3/uL (0.0-0.8); MONO % 8.9 % (0.0-5.0); NEUTROPHILS # 5.9 10^3/uL (1.8-7.7); NEUTROPHILS % 70.8 % (36.0-66.0); PLATELET COUNT, AUTOMATED 247 10^3/uL (150-450); WHITE BLOOD COUNT 8.3 10^3/uL (4.0-10.0)
[2018-07-04] MEDS ORDERED: ZOFR4TAB16 PO (10:24)
[2018-07-04] MEDS ORDERED: ATIV1TAB7 PO (10:24)
[2018-07-04] MEDS ORDERED: ATIV1TAB10 PO (10:24)
--- NOTE | 2018-07-04 10:38 | REP ---
Chest one-view HISTORY: Chest pain Comparison: 02/09/2018 The lungs are clear. There is blunting of the left costophrenic angle due to pleural thickening or small pleural effusion. The heart is normal in size. The pulmonary vasculature is normal in appearance. Impression: There is blunting of the left costophrenic angle due to pleural thickening or small pleural effusion. Electronically Signed by Lico Ellis MD 07/04/2018 10:30 A
[2018-07-04] MEDS ORDERED: METAL LOCK LOOP XX ONE (10:42)
[2018-07-04 11:04] LABS: ALBUMIN 3.7 GM/DL (3.2-5.2); ALT/SGPT 27 U/L (12-78); BILIRUBIN,DIRECT 0.2 MG/DL (0.0-0.2); BILIRUBIN,TOTAL 0.7 MG/DL (0.2-1.0); BLOOD UREA NITROGEN 23 MG/DL (7-18); CALCIUM LEVEL 9.4 MG/DL (8.5-10.1); CARBON DIOXIDE LEVEL 32 MEQ/L (21-32); CHLORIDE LEVEL 100 MEQ/L (98-107); CPK CREATINE PHOSPHOKINASE 147 U/L (39-308); CREATININE FOR GFR 4.73 MG/DL (0.70-1.30); GLOMERULAR FILTRATION RATE 14.5 (>60); GLUCOSE, FASTING 95 MG/DL (70-100); LIPASE 410 U/L (73-393); MB/CK RELATIVE INDEX 0.75 (< OR =4); POTASSIUM SERUM 3.5 MEQ/L (3.5-5.1); SODIUM LEVEL 140 MEQ/L (136-145); TOTAL PROTEIN 7.9 GM/DL (6.4-8.2); TROPONIN I < 0.02 NG/ML (< 0.10)
[2018-07-04 13:09] LABS: CPK CREATINE PHOSPHOKINASE 132 U/L (39-308); MB/CK RELATIVE INDEX 0.91 (< OR =4); TROPONIN I < 0.02 NG/ML (< 0.10)
[2018-07-04] MEDS ORDERED: HYDR-3363 PO (13:28)
[2018-07-04] MEDS ORDERED: LORazepam 1 MG TAB PO STA (13:41)
[2018-07-04 13:44] VITALS: BP 115/80
--- NOTE | 2018-07-04 20:58 | ECGEPIP ---
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
[2018-07-05] MEDS ORDERED: HYDR-3363 PO (20:10)
[2018-07-05] MEDS ORDERED: CITA-230 PO (20:10)
== END 2018-07-04 14:04 | disposition home or self-care (01) ==
LOC: M ED 09:53 → EDBD 09:53 → M ED 14:04
DX: F41.0 Panic disorder [episodic paroxysmal anxiety] (principal); N18.6 End stage renal disease; Z99.2 Dependence on renal dialysis; I12.0 Hypertensive chronic kidney disease with stage 5 chronic kidney disease or end stage renal disease; F32.9 Major depressive disorder, single episode, unspecified; J45.909 Unspecified asthma, uncomplicated; Z88.5 Allergy status to narcotic agent; Z88.8 Allergy status to other drugs, medicaments and biological substances; Z88.0 Allergy status to penicillin; Z79.899 Other long term (current) drug therapy
CPT/HCPCS: 96374; 96375; 99285; J2060; J2405

== ENCOUNTER 2018-07-05 16:49 | Inpatient (IN) | payer MEDICARE ==
[~2018-07-05] VITALS: Ht 170.2 cm; Wt 96.2 kg
[~2018-07-05 16:49] MED LIST changes: +ATIV1TAB10 PO; +HYDR-3363 PO; +ZOFR4TAB16 PO
[2018-07-05 19:24] LABS: HEMATOCRIT 42.8 % (42.0-52.0); MEAN CORPUSCULAR HEMOGLOBIN 30.4 pg (27.0-33.0); MEAN CORPUSCULAR HGB CONC 32.7 g/dl (32.0-36.5); MEAN CORPUSCULAR VOLUME 92.8 fl (80.0-96.0); PLATELET COUNT, AUTOMATED 252 10^3/uL (150-450); RED BLOOD COUNT 4.61 10^6/uL (4.30-6.10); WHITE BLOOD COUNT 9.8 10^3/uL (4.0-10.0)
[2018-07-05 19:40] LABS: AMPHETAMINES LEVEL URINE NEGATIVE (NEGATIVE); BARBITURATES URINE NEGATIVE (NEGATIVE); BENZODIAZEPINES URINE NEGATIVE (NEGATIVE); CANNABINOIDS URINE POSITIVE (NEGATIVE); COCAINE METABOLITE URINE NEGATIVE (NEGATIVE); METHADONE URINE NEGATIVE (NEGATIVE); OPIATES URINE NEGATIVE (NEGATIVE); PHENCYCLIDINE URINE NEGATIVE (NEGATIVE)
[2018-07-05] MEDS ORDERED: ONDANSETRON 4 MG TAB (S0181) As Ordered ONE (19:41)
[2018-07-05 19:59] LABS: ACETAMINOPHEN LEVEL < 2.0 UG/ML (10.0-30.0); ALBUMIN 3.9 GM/DL (3.2-5.2); ALT/SGPT 26 U/L (12-78); BILIRUBIN,DIRECT 0.1 MG/DL (0.0-0.2); BILIRUBIN,TOTAL 0.5 MG/DL (0.2-1.0); BLOOD UREA NITROGEN 39 MG/DL (7-18); CALCIUM LEVEL 8.5 MG/DL (8.5-10.1); CARBON DIOXIDE LEVEL 27 MEQ/L (21-32); CHLORIDE LEVEL 102 MEQ/L (98-107); CREATININE FOR GFR 8.07 MG/DL (0.70-1.30); ETHYL ALCOHOL (ETHANOL) < 0.003 % (0.000-0.010); GLOMERULAR FILTRATION RATE 7.8 (>60); GLUCOSE, FASTING 116 MG/DL (70-100); POTASSIUM SERUM 3.7 MEQ/L (3.5-5.1); SALICYLATE LEVEL < 1.7 MG/DL (5.0-30.0); SODIUM LEVEL 139 MEQ/L (136-145); TOTAL PROTEIN 7.3 GM/DL (6.4-8.2)
[2018-07-05] MEDS ORDERED: ONDANSETRON 4 MG TAB (S0181) PO ONE (20:00)
[2018-07-05] MEDS ORDERED: HYDR-3363 PO (20:10)
[2018-07-05] MEDS ORDERED: CITA-230 PO (20:10)
[2018-07-05] MEDS ORDERED: chlorproMAZINE INJ 50MG/2ML AMP (J3230) IM STA (22:18)
[2018-07-05] MEDS ORDERED: MOM 30ML SUSPENSION UDC PO PRN (22:45)
[2018-07-05] MEDS ORDERED: MAALOX 30 ML SUSP *UDC PO PRN (22:45)
[2018-07-05 23:41] VITALS: BP 140/90
[2018-07-06] MEDS ORDERED: LORazepam 1 MG TAB PO PRN (01:00)
[2018-07-06] MEDS ORDERED: ALBUTEROL SULFATE 2.5 MG/0.5 ML INH NEB SOLN INH PRN (01:00)
[2018-07-06 06:00] VITALS: BP 140/80
[2018-07-06] MEDS ORDERED: (RENVELA) SEVELAMER **CARBONate** 800 MG TAB PO SCH (08:00)
[2018-07-06 08:09] VITALS: BP 152/98
[2018-07-06] MEDS ORDERED: ONDANSETRON 4 MG TAB (S0181) PO STA (08:35)
[2018-07-06] MEDS ORDERED: LORazepam 1 MG TAB PO STA (08:35)
[2018-07-06] MEDS ORDERED: SUCROFERRIC OXYHYDROXIDE 500MG CHEW TAB (VELPHORO) PO SCH (09:00)
[2018-07-06] MEDS: MULTIVITAMINS/MINERALS THERAP 1 TAB PO SCH ×2 (09:00→13:35)
[2018-07-06] MEDS ORDERED: CitaloPRAM (CeleXA) 20 MG TAB PO SCH (09:00)
[2018-07-06] MEDS ORDERED: ONDANSETRON 4 MG TAB (S0181) PO SCH (09:00)
[2018-07-06] MEDS: NICOTINE 21MG/24HR 1 EA TRANSDERMAL TD SCH (09:00)
[2018-07-06] MEDS: BUMETANIDE 1 MG TAB PO SCH ×2 (09:00→13:35)
[2018-07-06] MEDS ORDERED: hydrOXYzine 25 MG TAB PO SCH (09:00)
[2018-07-06] MEDS: ALLOPURINOL 100 MG TAB PO SCH ×2 (09:00→13:36)
[2018-07-06] MEDS: amLODIPine 10 MG TAB PO SCH ×2 (09:00→13:34)
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
[2018-07-06] MEDS ORDERED: HEPARIN 1,000 UNITS/ML 10ML VIAL (FOR RADIOLOGY& DIALYSIS ONLY) IV ONE (11:30)
[2018-07-06] MEDS ORDERED: LIDOCAINE 1% SDV 5 ML VIAL SQ ONE (11:30)
[2018-07-06] MEDS ORDERED: VENLAFAXINE **XR** 37.5 MG CAPSULE PO ONE (12:00)
[2018-07-06] MEDS: (RENVELA) SEVELAMER **CARBONate** 800 MG TAB PO SCH ×2 (13:39→17:30)
[2018-07-06 18:00] VITALS: BP 140/79
[2018-07-06 22:15] VITALS: BP 135/96
[2018-07-06] MEDS: diphenhydrAMINE 25 MG CAP PO PRN (22:24)
[2018-07-06] MEDS: traZODone 50 MG TAB PO PRN (22:24)
[2018-07-07 06:37] VITALS: BP 138/82
[2018-07-07] MEDS ORDERED: ONDANSETRON 4 MG ORAL DISINTEGRATING TAB (Q0162 PER 1MG) PO PRN (07:15)
[2018-07-07] MEDS: (RENVELA) SEVELAMER **CARBONate** 800 MG TAB PO SCH ×4 (08:00→17:31)
[2018-07-07] MEDS: NICOTINE 21MG/24HR 1 EA TRANSDERMAL TD SCH (09:00)
--- NOTE | 2018-07-07 09:53 | CR ---
DATE OF CONSULTATION: 07/06/2018 CONSULTATION FOR : Dr. Afua Mojica REASON FOR CONSULTATION: To assist in the management of end-stage renal disease. HISTORY OF PRESENT ILLNESS: Mr. Tracy is a 42-year-old gentleman with history of hypertension, end-stage renal disease, anxiety and depression and Post-traumatic stress disorder (PTSD). He is regularly dialyzed on Wednesday, Wednesday and Wednesday schedule. He was last dialyzed on Wednesday and is due for dialysis today. He is admitted to inpatient mental health due to worsening depressive disorder. He has long history of anxiety and depression and has been going through some stressful domestic and social issues. He is due for dialysis today and nephrology consultation was requested. The patient is seen this morning. PAST MEDICAL AND SURGICAL HISTORY: Significant for: 1. Longstanding history of hypertension. 2. History of substance abuse in the past and most recently using marijuana and cannabis. 3. History of Post-traumatic stress disorder (PTSD), history of depression and anxiety. 4. History of secondary hyperparathyroidism. 5. History of gout. 6. Past surgical history is significant for left forearm AV fistula creation. PERSONAL AND SOCIAL HISTORY: The patient is disabled and denies any alcohol or tobacco use. He does use marijuana and cannabis. FAMILY HISTORY: Is negative for end-stage renal disease. This father is and mother is alive. REVIEW OF SYSTEMS: He denies any fever or chills. He does get frequent vomiting and nausea, particularly when he is stressed and anxious. Denies any ears, nose and throat problems. Cardiovascular system is significant for history of hypertension. Respiratory system is negative for cough or hemoptysis. GI system is significant for recurrent nausea and vomiting. There is no history of diarrhea or abdominal pain. system negative for dysuria or hematuria. Hematological system significant for anemia of chronic kidney disease. Endocrine system negative for diabetes or thyroid problems. Psychosocial system is as per history of present illness. Skin is negative for rash or ulcers. Musculoskeletal system negative for leg edema or arthritis. Neurological system is negative for seizures or stroke. MEDICATIONS: His home medications include allopurinol 100 mg daily, amlodipine 10 mg daily, bumetanide 2 mg daily, citalopram 20 mg daily, hydroxyzine 25 mg three times a day, Zofran 4 mg as needed for nausea and Velphoro 500 mg three times a day with meals. ALLERGIES: The patient has allergy to AMOXICILLIN and OXYCODONE. PHYSICAL EXAMINATION: Temperature 99.7 degrees Fahrenheit, heart rate 88 per minute and respiratory rate 18 per minute. Blood pressure 140/80 mmHg and oxygen saturation 98% on room air. Head is atraumatic. Neck is supple and without jugular venous distention (JVD) or thyroid enlargement. Nose and throat are unremarkable. Heart sounds are regular and lungs clear to auscultation. Abdomen soft and nontender and without any palpable organomegaly. Bowel sounds are normal. Extremities have no cyanosis or clubbing. Left forearm AV fistula is patent. Neurologically he is without a focal deficit. LABORATORY DATA: His WBC count is 9.8, hemoglobin 14.0, hematocrit 42.8. Sodium 139, potassium 3.7, CO2 27, BUN 39 and creatinine 8.07. Glucose 116 and calcium 8.5. LFTs are all within normal range. Salicylate level was less than 1.7 and acetaminophen level less than 2.0. Ethyl alcohol less than 0.003. Cannabinoids screen was positive and all other toxicology screen was negative. PROBLEMS: 1. End-stage renal disease. The patient is due for dialysis today as he is regularly dialyzed for Wednesday, Wednesday and Wednesday schedule. He is going to be dialyzed this morning. 2. Hypertension. Blood pressure seems very well controlled and I would suggest to continue with his chronic antihypertensive medications. His volume status is well-compensated as he has not been eating or drinking well for last several days and also reports recurrent nausea and vomiting. 3. Anemia. His anemia is mild and stable and does not need any intervention at this point. 4. Depression. The patient is admitted to inpatient mental [facility] and his meds will be adjusted there. Thank you for involving me in the care of Mr. Tracy. We will continue to follow him and provide dialysis care during his stay here at [facility].
[2018-07-07] MEDS: ALLOPURINOL 100 MG TAB PO SCH (10:03)
[2018-07-07] MEDS: amLODIPine 10 MG TAB PO SCH (10:04)
[2018-07-07] MEDS: VENLAFAXINE **XR** 37.5 MG CAPSULE PO SCH (10:04)
[2018-07-07] MEDS: MULTIVITAMINS/MINERALS THERAP 1 TAB PO SCH (10:05)
[2018-07-07] MEDS: BUMETANIDE 1 MG TAB PO SCH (10:05)
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
[2018-07-07] MEDS: ONDANSETRON 4 MG ORAL DISINTEGRATING TAB (Q0162 PER 1MG) PO PRN ×2 (12:44→17:31)
[2018-07-07 14:31] VITALS: BP 136/90
[2018-07-07 18:00] VITALS: BP 158/96
[2018-07-07] MEDS: diphenhydrAMINE 25 MG CAP PO PRN (18:25)
[2018-07-07 19:42] VITALS: BP 160/110
[2018-07-07] MEDS: LORazepam 2 MG TAB PO PRN (20:00)
[2018-07-07] MEDS: traZODone 50 MG TAB PO PRN (21:50)
[2018-07-08 00:36] VITALS: BP 134/80
[2018-07-08 06:47] VITALS: BP 144/78
[2018-07-08 07:33] VITALS: BP 140/90
[2018-07-08] MEDS: LORazepam 2 MG TAB PO PRN (07:41)
[2018-07-08] MEDS: NICOTINE 21MG/24HR 1 EA TRANSDERMAL TD SCH (07:43)
[2018-07-08] MEDS: (RENVELA) SEVELAMER **CARBONate** 800 MG TAB PO SCH (07:44)
[2018-07-08] MEDS: BUMETANIDE 1 MG TAB PO SCH ×2 (08:35→13:15)
[2018-07-08] MEDS: amLODIPine 10 MG TAB PO SCH ×2 (08:35→13:18)
[2018-07-08] MEDS: VENLAFAXINE **XR** 37.5 MG CAPSULE PO SCH ×2 (08:35→13:15)
[2018-07-08] MEDS: ALLOPURINOL 100 MG TAB PO SCH ×2 (08:35→13:15)
[2018-07-08] MEDS: MULTIVITAMINS/MINERALS THERAP 1 TAB PO SCH ×2 (08:35→13:15)
[2018-07-08 09:40] LABS: ALBUMIN 3.9 GM/DL (3.2-5.2); CALCIUM LEVEL 8.8 MG/DL (8.5-10.1); CREATININE FOR GFR 8.07 MG/DL (0.70-1.30); GLOMERULAR FILTRATION RATE 7.8 (>60); PHOSPHORUS LEVEL 3.4 MG/DL (2.5-4.9); POTASSIUM SERUM 3.7 MEQ/L (3.5-5.1)
[2018-07-08 09:51] LABS: HEMATOCRIT 42.1 % (42.0-52.0); HEMOGLOBIN 14.1 g/dl (13.5-17.5); MEAN CORPUSCULAR HEMOGLOBIN 30.8 pg (27.0-33.0); MEAN CORPUSCULAR HGB CONC 33.5 g/dl (32.0-36.5); MEAN CORPUSCULAR VOLUME 91.9 fl (80.0-96.0); PLATELET COUNT, AUTOMATED 275 10^3/uL (150-450); RED BLOOD COUNT 4.58 10^6/uL (4.30-6.10); WHITE BLOOD COUNT 8.4 10^3/uL (4.0-10.0)
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
[2018-07-08] MEDS ORDERED: HEPARIN 1,000 UNITS/ML 10ML VIAL (FOR RADIOLOGY& DIALYSIS ONLY) IV ONE (12:00)
[2018-07-08] MEDS ORDERED: LIDOCAINE 1% SDV 5 ML VIAL SQ ONE (12:00)
--- NOTE | 2018-07-08 15:10 | IPN ---
DATE: 07/08/2018 Mr. Tracy is seen this morning during hemodialysis. He is feeling better and reports that his anxiety is improving. He has history of severe depression, anxiety and posttraumatic stress disorder (PTSD). He denies any chest pain or shortness of breath but does report nausea and vomiting. He is able to keep some of his food down now. PHYSICAL EXAMINATION: Temperature 98.3 degrees Fahrenheit, heart rate 87 per minute and respiratory rate 18 per minute. Blood pressure 140/90 mmHg and oxygen saturation 100%. His head is atraumatic. Neck is supple and without jugular venous distention (JVD) or thyroid enlargement. Heart sounds are regular and lungs clear to auscultation. Abdomen is soft and nontender and bowel sounds are normal. Extremities have no cyanosis or clubbing. His left arm AV fistula is working very well. Neurologically, he is awake, alert and oriented times three. LABORATORIES: Today's labs show WBC count 8.4, hemoglobin 14.1 and hematocrit 42.1. Sodium 139, potassium 3.7, BUN 42 and creatinine 8.07. PROBLEMS: 1. End-stage renal disease. The patient is being dialyzed again today and he is tolerating dialysis treatment very well. His electrolytes are within normal range and volume status is well-compensated. We are removing minimal amount of fluid, as he has not been eating or drinking much. 2. Hypertension. Blood pressure is reasonably well-controlled and no changes are needed at this point. 3. Hyperparathyroidism. The patient has been on Renvela 800 mg with meals. His phosphorus level is low normal at 3.4. I am going to stop his Renvela for now and we will resume when needed.
[2018-07-08] MEDS ORDERED: hydrOXYzine 50 MG TAB PO PRN (16:15)
[2018-07-08 18:00] VITALS: BP 136/87
[2018-07-08] MEDS: ONDANSETRON 4 MG ORAL DISINTEGRATING TAB (Q0162 PER 1MG) PO PRN (20:34)
[2018-07-08] MEDS: traZODone 50 MG TAB PO PRN (21:07)
[2018-07-08 21:12] VITALS: BP 134/84
[2018-07-09] MEDS: ONDANSETRON 4 MG ORAL DISINTEGRATING TAB (Q0162 PER 1MG) PO PRN (06:31)
[2018-07-09 06:38] VITALS: BP 106/60
[2018-07-09] MEDS: VENLAFAXINE **XR** 37.5 MG CAPSULE PO SCH ×2 (09:00→13:11)
[2018-07-09] MEDS: ALLOPURINOL 100 MG TAB PO SCH ×2 (09:00→13:11)
[2018-07-09] MEDS: BUMETANIDE 1 MG TAB PO SCH ×2 (09:00→13:11)
[2018-07-09] MEDS: MULTIVITAMINS/MINERALS THERAP 1 TAB PO SCH ×2 (09:00→13:10)
[2018-07-09] MEDS: amLODIPine 10 MG TAB PO SCH ×2 (09:00→13:11)
[2018-07-09 09:35] VITALS: BP 106/60
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
[2018-07-09] MEDS ORDERED: OLANZapine ORAL DISINTEGRATING TAB 5MG PO PRN (10:00)
[2018-07-09] MEDS: OLANZapine ORAL DISINTEGRATING TAB 5MG PO SCH ×2 (10:13→20:54)
[2018-07-09 18:11] VITALS: BP 123/68
[2018-07-09] MEDS ORDERED: ACETAMINOPHEN TAB 650MG DOSE (2X325MG) PO PRN (20:30)
[2018-07-09] MEDS: tiZANidine 4 MG TAB PO PRN (20:53)
[2018-07-10 06:08] VITALS: BP 92/64
[2018-07-10] MEDS: OLANZapine ORAL DISINTEGRATING TAB 5MG PO SCH ×2 (08:45→22:05)
[2018-07-10] MEDS: tiZANidine 4 MG TAB PO PRN ×2 (08:46→18:22)
[2018-07-10] MEDS: MULTIVITAMINS/MINERALS THERAP 1 TAB PO SCH (12:04)
[2018-07-10] MEDS: VENLAFAXINE **XR** 37.5 MG CAPSULE PO SCH (12:04)
[2018-07-10] MEDS: BUMETANIDE 1 MG TAB PO SCH (12:05)
[2018-07-10] MEDS: ALLOPURINOL 100 MG TAB PO SCH (12:05)
[2018-07-10] MEDS: amLODIPine 10 MG TAB PO SCH (12:10)
[2018-07-10 18:00] VITALS: BP 130/69
[2018-07-10] MEDS: traZODone 50 MG TAB PO PRN (22:06)
[2018-07-11 06:48] VITALS: BP 118/62
[2018-07-11] MEDS: OLANZapine ORAL DISINTEGRATING TAB 5MG PO SCH ×2 (08:10→21:34)
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
[2018-07-11 09:57] LABS: BASO % 0.5 % (0.0-1.0); EOS # 0.6 10^3/uL (0.0-0.50); EOS % 7.1 % (0.0-3.0); HEMATOCRIT 40.9 % (42.0-52.0); HEMOGLOBIN 13.9 g/dl (13.5-17.5); LYMPH # 1.2 10^3/uL (1.5-4.5); LYMPH % 15.1 % (24.0-44.0); MEAN CORPUSCULAR HEMOGLOBIN 30.9 pg (27.0-33.0); MEAN CORPUSCULAR VOLUME 90.9 fl (80.0-96.0); MONO # 0.5 10^3/uL (0.0-0.8); MONO % 6.1 % (0.0-5.0); NEUTROPHILS # 5.6 10^3/uL (1.8-7.7); NEUTROPHILS % 70.9 % (36.0-66.0); PLATELET COUNT, AUTOMATED 258 10^3/uL (150-450); WHITE BLOOD COUNT 7.9 10^3/uL (4.0-10.0)
[2018-07-11 10:43] LABS: ALBUMIN 3.8 GM/DL (3.2-5.2); CALCIUM LEVEL 8.7 MG/DL (8.5-10.1); CREATININE FOR GFR 8.95 MG/DL (0.70-1.30); PHOSPHORUS LEVEL 3.8 MG/DL (2.5-4.9); POTASSIUM SERUM 3.4 MEQ/L (3.5-5.1)
[2018-07-11] MEDS ORDERED: HEPARIN 1,000 UNITS/ML 10ML VIAL (FOR RADIOLOGY& DIALYSIS ONLY) IV ONE (11:00)
[2018-07-11] MEDS ORDERED: LIDOCAINE 1% SDV 5 ML VIAL SQ ONE (11:00)
[2018-07-11] MEDS: ALLOPURINOL 100 MG TAB PO SCH (12:43)
[2018-07-11] MEDS: MULTIVITAMINS/MINERALS THERAP 1 TAB PO SCH (12:43)
[2018-07-11] MEDS: BUMETANIDE 1 MG TAB PO SCH (12:44)
[2018-07-11] MEDS: VENLAFAXINE **XR** 37.5 MG CAPSULE PO SCH (12:44)
[2018-07-11 12:50] VITALS: BP 128/86
[2018-07-11] MEDS: amLODIPine 10 MG TAB PO SCH (12:50)
[2018-07-11 18:04] VITALS: BP 134/84
[2018-07-11] MEDS: tiZANidine 4 MG TAB PO PRN (20:12)
[2018-07-11] MEDS: traZODone 50 MG TAB PO PRN (21:34)
--- NOTE | 2018-07-12 07:30 | IPN ---
DATE OF SERVICE: 07/11/2018 SUBJECTIVE: The patient was seen and examined at the bedside today morning during hemodialysis. He was tolerating the hemodialysis procedure well. He reports that he is feeling better and he will probably be discharged tomorrow morning. OBJECTIVE: Vital Signs: Temperature 98.2 degrees Fahrenheit. Blood pressure 128/86. Pulse 92. Respiratory rate 12. Saturating 99% on room air. Intake and Output: Urine output is not recorded. Weight on the bed scale is 96.2 kg. PHYSICAL EXAMINATION: General: Patient is awake, alert and oriented times three, laying in bed getting hemodialysis done in no apparent distress. Head and Neck Exam: Extraocular muscles intact. Pupils equally round and reactive to light. Mucous membranes are moist. Neck is supple. There is no jugular venous distention (JVD). Cardiovascular: S1 and S2, regular rate. No murmur, rub or gallop. No edema of the bilateral lower extremities. Respiratory: Chest is clear to auscultation bilaterally. Bilateral equal air entry. No rales or rhonchi. Abdomen soft. Positive bowel sounds. Nontender. No organomegaly. Musculoskeletal: No clubbing or cyanosis. Pulses are 2+. Central Nervous System (LINE DANCER): No focal deficit. Power is 5/5 in all extremities. AV Access: He has a left forearm AV fistula which is being used for dialysis. LAB REVIEW: CBC showed a WBC of 7.9, hemoglobin 13.9 and platelets are 258. BMP showed sodium 138, potassium 3.4, chloride 102, bicarbonate 23, BUN 64, creatinine 8.9, calcium 8.7, phosphorus 3.8. CURRENT INPATIENT MEDICATIONS: Patient's medications were all reviewed by me. There is no change in the medications today as compared with yesterday. ASSESSMENT AND PLAN: 1. End stage renal disease with hemodialysis. Patient is being dialyzed today according to his regular Wednesday, Wednesday, Wednesday schedule. Ultrafiltration goal will be about 2 liters as tolerated by his blood pressure. 2. Hypertension with end stage renal disease. Blood pressure is optimized at this time. Continue current dose of amlodipine 10 mg daily. 3. Chronic gout secondary to end stage renal disease. Continue current dose of allopurinol 100 mg by mouth daily. 4. Hypokalemia. The patient is being dialyzed with a 3 K bath. Potassium level is expected to improve. His diet has been liberalized.
[2018-07-12] MEDS: OLANZapine ORAL DISINTEGRATING TAB 5MG PO SCH (08:50)
[2018-07-12] MEDS ORDERED: ZYPR10TA PO ×2 (08:58)
[2018-07-12] MEDS ORDERED: TRAZO50TA PO (08:58)
[2018-07-12] MEDS ORDERED: VENL37.598 PO (08:58)
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
== END 2018-07-12 09:50 | disposition home or self-care (01) | DRG 881 ==
LOC: M ED 16:49 → M ED INP 22:36 → M PSY 23:10
PROVIDERS: ADMIT Psychiatry & Neurology Psychiatry; ATTEND Psychiatry & Neurology Psychiatry
PROC: 5A1D70Z Performance of Urinary Filtration, Intermittent, Less than 6 Hours Per Day (ICD-10-PCS; principal; 2018-07-06)
DX: F32.9 Major depressive disorder, single episode, unspecified (principal); N18.6 End stage renal disease; R45.851 Suicidal ideations; N25.81 Secondary hyperparathyroidism of renal origin; I12.0 Hypertensive chronic kidney disease with stage 5 chronic kidney disease or end stage renal disease; F40.01 Agoraphobia with panic disorder; F43.10 Post-traumatic stress disorder, unspecified; F12.90 Cannabis use, unspecified, uncomplicated; Z62.810 Personal history of physical and sexual abuse in childhood; Z79.899 Other long term (current) drug therapy; Z88.5 Allergy status to narcotic agent; Z88.0 Allergy status to penicillin; Z88.6 Allergy status to analgesic agent; M10.9 Gout, unspecified; J45.909 Unspecified asthma, uncomplicated; M54.5 Low back pain

== ENCOUNTER 2018-08-07 13:08 | Emergency (ER) | payer MEDICARE ==
[~2018-08-07] VITALS: Ht 170.2 cm; Wt 106.6 kg
[~2018-08-07 13:08] MED LIST changes: +CALC12504 PO; -CALC500T36 PO; +CITA20TA7 PO; +TRAZO50TA PO; +VENL37.598 PO; +ZYPR10TA PO
[2018-08-07] MEDS ORDERED: NS 500 ML IV ONE (13:30)
[2018-08-07 13:48] LABS: BASO % 0.4 % (0.0-1.0); EOS # 0.8 10^3/uL (0.0-0.50); EOS % 9.6 % (0.0-3.0); HEMATOCRIT 35.2 % (42.0-52.0); HEMOGLOBIN 11.5 g/dl (13.5-17.5); LYMPH # 1.4 10^3/uL (1.5-4.5); LYMPH % 17.2 % (24.0-44.0); MEAN CORPUSCULAR HEMOGLOBIN 31.3 pg (27.0-33.0); MEAN CORPUSCULAR HGB CONC 32.7 g/dl (32.0-36.5); MEAN CORPUSCULAR VOLUME 95.7 fl (80.0-96.0); MONO # 0.6 10^3/uL (0.0-0.8); MONO % 7.2 % (0.0-5.0); NEUTROPHILS # 5.4 10^3/uL (1.8-7.7); NEUTROPHILS % 65.2 % (36.0-66.0); PLATELET COUNT, AUTOMATED 230 10^3/uL (150-450); RED BLOOD COUNT 3.68 10^6/uL (4.30-6.10); WHITE BLOOD COUNT 8.3 10^3/uL (4.0-10.0)
[2018-08-07 14:18] LABS: INFLUENZA A AMPLIFICATION NEGATIVE (NEGATIVE); INFLUENZA B AMPLIFICATION NEGATIVE (NEGATIVE)
[2018-08-07 14:32] LABS: BLOOD UREA NITROGEN 67 MG/DL (7-18); CALCIUM LEVEL 8.4 MG/DL (8.5-10.1); CARBON DIOXIDE LEVEL 24 MEQ/L (21-32); CHLORIDE LEVEL 107 MEQ/L (98-107); CPK CREATINE PHOSPHOKINASE 274 U/L (39-308); FREE T4 0.66 NG/DL (0.76-1.46); GLOMERULAR FILTRATION RATE 8.5 (>60); GLUCOSE, FASTING 121 MG/DL (70-100); MAGNESIUM LEVEL 2.3 MG/DL (1.8-2.4); MB/CK RELATIVE INDEX 0.91 (< OR =4); POTASSIUM SERUM 4.1 MEQ/L (3.5-5.1); SODIUM LEVEL 143 MEQ/L (136-145); TROPONIN I < 0.02 NG/ML (< 0.10)
--- NOTE | 2018-08-07 14:49 | REP ---
CHEST, TWO VIEWS: There is no evidence of acute infiltrate. No pleural effusion is seen. The heart is normal in size. The mediastinal silhouette is unremarkable. The visualized osseous structures are intact. IMPRESSION: No acute pulmonary disease. Electronically Signed by Godwin Tipton MD 08/07/2018 06:18 P
--- NOTE | 2018-08-07 14:50 | REP ---
Left upper extremity duplex Doppler venous ultrasound. Real time compression and duplex Doppler evaluation of the left upper extremity deep venous system is performed. The left subclavian, jugular, axillary, brachial, basilic and cephalic veins are fully compressible where accessible with transducer pressure, and demonstrate no intraluminal thrombus and normal venous waveforms. There is no evidence of deep venous thrombosis. Impression: No evidence of deep venous thrombosis of the left upper extremity deep vein system. Electronically Signed by Godwin Tipton MD 08/07/2018 02:42 P
[2018-08-07 15:39] VITALS: BP 137/68
--- NOTE | 2018-08-07 20:06 | ECGEPIP ---
Stationary ECG Study [facility] - ED Test Date: 2018-08-07 Pat Name: MICHAEL PISANO Department: Room: - Gender: M Bobj Developer: JT : 1975 Requested By: WILIAM Rodrigues Order Number: [id number] Reading MD: Adiel Scott Measurements Intervals [place] Rate: 87 P: 72 AL: 146 QRS: 24 QRSD: 114 T: 49 QT: 388 QTc: 468 Interpretive Statements SINUS RHYTHM INCOMPLETE RIGHT BUNDLE BRANCH BLOCK SIMILAR TO 07/04/18 Electronically Signed On 08-07-2018 20:06:29 EDT by Adiel Scott
== END 2018-08-07 15:44 | disposition home or self-care (01) ==
LOC: M ED 13:08
DX: R42 Dizziness and giddiness (principal); R53.81 Other malaise; R53.83 Other fatigue; J45.909 Unspecified asthma, uncomplicated; N18.6 End stage renal disease; Z99.2 Dependence on renal dialysis; M51.36 Other intervertebral disc degeneration, lumbar region; Z79.899 Other long term (current) drug therapy; Z88.5 Allergy status to narcotic agent; Z88.0 Allergy status to penicillin

== ENCOUNTER 2018-08-18 16:34 | Emergency (ER) | payer MEDICARE ==
[~2018-08-18] VITALS: Ht 162.6 cm; Wt 101.5 kg
[2018-08-18] MEDS ORDERED: ONDANSETRON 4MG/2ML VIAL (J2405) IV ONE (17:15)
[2018-08-18] MEDS ORDERED: NS 1,000 ML IV ONE (17:15)
[2018-08-18 17:33] LABS: BASO # 0.1 10^3/uL (0.0-0.2); BASO % 0.5 % (0.0-1.0); EOS # 0.5 10^3/uL (0.0-0.50); EOS % 4.5 % (0.0-3.0); HEMATOCRIT 41.7 % (42.0-52.0); HEMOGLOBIN 14.1 g/dl (13.5-17.5); LYMPH # 1.2 10^3/uL (1.5-4.5); LYMPH % 10.5 % (24.0-44.0); MEAN CORPUSCULAR HEMOGLOBIN 31.5 pg (27.0-33.0); MEAN CORPUSCULAR HGB CONC 33.8 g/dl (32.0-36.5); MEAN CORPUSCULAR VOLUME 93.3 fl (80.0-96.0); MONO # 0.8 10^3/uL (0.0-0.8); MONO % 6.9 % (0.0-5.0); NEUTROPHILS # 8.6 10^3/uL (1.8-7.7); PLATELET COUNT, AUTOMATED 305 10^3/uL (150-450); RED BLOOD COUNT 4.47 10^6/uL (4.30-6.10); WHITE BLOOD COUNT 11.2 10^3/uL (4.0-10.0)
[2018-08-18 18:00] LABS: ALBUMIN 4.3 GM/DL (3.2-5.2); ALT/SGPT 28 U/L (12-78); BILIRUBIN,TOTAL 0.4 MG/DL (0.2-1.0); BLOOD UREA NITROGEN 39 MG/DL (7-18); CALCIUM LEVEL 8.6 MG/DL (8.5-10.1); CARBON DIOXIDE LEVEL 29 MEQ/L (21-32); CHLORIDE LEVEL 101 MEQ/L (98-107); CPK CREATINE PHOSPHOKINASE 202 U/L (39-308); CREATININE FOR GFR 5.41 MG/DL (0.70-1.30); GLOMERULAR FILTRATION RATE 12.4 (>60); GLUCOSE, FASTING 108 MG/DL (70-100); MAGNESIUM LEVEL 2.4 MG/DL (1.8-2.4); MB/CK RELATIVE INDEX 1.14 (< OR =4); POTASSIUM SERUM 4.1 MEQ/L (3.5-5.1); SODIUM LEVEL 138 MEQ/L (136-145); TROPONIN I < 0.02 NG/ML (< 0.10)
[2018-08-18] MEDS ORDERED: ACETAMINOPHEN 500 MG TAB PO ONE (18:45)
[2018-08-18] MEDS ORDERED: diphenhydrAMINE 25 MG CAP PO ONE (18:45)
[2018-08-18 19:10] VITALS: BP 135/86
[2018-08-18] MEDS ORDERED: IBUPROFEN 600 MG TAB PO ONE (19:15)
--- NOTE | 2018-08-19 20:11 | ECGEPIP ---
Stationary ECG Study [facility] - ED Test Date: 2018-08-18 Pat Name: MICHAEL PISANO Department: Room: - Gender: M Hospitality Associate: : 1975 Requested By: ALANIS Santiago PA-C Order Number: [id number] Reading MD: Reji Ford Measurements Intervals [place] Rate: 80 P: 63 [place]: 149 QRS: 6 QRSD: 115 T: 33 QT: 404 QTc: 469 Interpretive Statements SINUS RHYTHM INCOMPLETE RIGHT BUNDLE BRANCH BLOCK Left ventricular hypertrophy by aVL criteria - new since tracing done 08-07-18 Electronically Signed On 08-19-2018 20:11:04 EDT by Reji Ford
== END 2018-08-18 19:20 | disposition home or self-care (01) ==
LOC: M ED 16:34
DX: R11.2 Nausea with vomiting, unspecified (principal); Z99.2 Dependence on renal dialysis; I12.9 Hypertensive chronic kidney disease with stage 1 through stage 4 chronic kidney disease, or unspecified chronic kidney disease; J45.909 Unspecified asthma, uncomplicated; N18.9 Chronic kidney disease, unspecified; K21.9 Gastro-esophageal reflux disease without esophagitis; F90.9 Attention-deficit hyperactivity disorder, unspecified type; F33.9 Major depressive disorder, recurrent, unspecified; F41.9 Anxiety disorder, unspecified; Z79.899 Other long term (current) drug therapy; Z88.0 Allergy status to penicillin; Z88.5 Allergy status to narcotic agent
CPT/HCPCS: 80053; 82550; 82553; 83735; 84484; 85025; 93005; 93041; 96374; 99284; J2405

== ENCOUNTER 2018-10-26 18:31 | Emergency (ER) | payer MEDICAID, MEDICARE ==
[~2018-10-26] VITALS: Ht 170.2 cm; Wt 100.5 kg
[~2018-10-26 18:31] MED LIST changes: +TRAZ1TAB10 PO; -TRAZO50TA PO
[2018-10-26 18:32] VITALS: BP 170/100
[2018-10-26] MEDS ORDERED: ONDANSETRON 4 MG ORAL DISINTEGRATING TAB (Q0162 PER 1MG) As Ordered ONE (18:54)
[2018-10-26] MEDS ORDERED: ONDANSETRON 4 MG ORAL DISINTEGRATING TAB (Q0162 PER 1MG) PO ONE (19:00)
[2018-10-26] MEDS ORDERED: CLEO300C2 PO (19:54)
[2018-10-26] MEDS ORDERED: LIDO1SOL8 PO (19:55)
[2018-10-26] MEDS ORDERED: LIDOCAINE VISCOUS 2% SOLN 15ML UDC TOP ONE (20:00)
[2018-10-26] MEDS ORDERED: CLINDAMYCIN 150 MG CAP PO ONE (20:00)
== END 2018-10-26 20:34 | disposition home or self-care (01) ==
LOC: M ED 18:31
DX: S02.5XXA Fracture of tooth (traumatic), initial encounter for closed fracture (principal); K04.7 Periapical abscess without sinus; X58.XXXA Exposure to other specified factors, initial encounter; Y92.9 Unspecified place or not applicable; Y93.9 Activity, unspecified; Y99.9 Unspecified external cause status; N18.6 End stage renal disease; Z99.2 Dependence on renal dialysis; I10 Essential (primary) hypertension; E78.5 Hyperlipidemia, unspecified; F41.9 Anxiety disorder, unspecified; F32.9 Major depressive disorder, single episode, unspecified; M54.9 Dorsalgia, unspecified; R51 Headache; J45.909 Unspecified asthma, uncomplicated; K21.9 Gastro-esophageal reflux disease without esophagitis; Z86.59 Personal history of other mental and behavioral disorders; Z79.899 Other long term (current) drug therapy; Z88.0 Allergy status to penicillin; Z88.5 Allergy status to narcotic agent
CPT/HCPCS: 99283; Q0162

== ENCOUNTER 2018-10-27 06:52 | Emergency (ER) | payer MEDICARE ==
[~2018-10-27] VITALS: Ht 170.2 cm; Wt 103.6 kg
[~2018-10-27 06:52] MED LIST changes: +CLEO300C2 PO; +LIDO1SOL8 PO
[2018-10-27] MEDS ORDERED: PERCOCET 5MG/325MG TAB PO ONE (07:30)
[2018-10-27] MEDS ORDERED: ONDANSETRON 4 MG ORAL DISINTEGRATING TAB (Q0162 PER 1MG) PO ONE (07:30)
[2018-10-27 09:59] VITALS: BP 150/90
== END 2018-10-27 10:00 | disposition home or self-care (01) ==
LOC: M ED 06:52
DX: K02.9 Dental caries, unspecified (principal); I10 Essential (primary) hypertension; J45.909 Unspecified asthma, uncomplicated; E78.9 Disorder of lipoprotein metabolism, unspecified; G47.30 Sleep apnea, unspecified; Z79.899 Other long term (current) drug therapy; Z88.0 Allergy status to penicillin; F12.20 Cannabis dependence, uncomplicated
CPT/HCPCS: 99283; Q0162

== ENCOUNTER 2019-03-21 20:46 | Emergency (ER) | payer MEDICARE, MEDICAID ==
[~2019-03-21] VITALS: Ht 175.3 cm; Wt 95.5 kg
[~2019-03-21 20:46] MED LIST changes: -CALC12504 PO; +CALC500T61 PO; -FEBU40TA; +FEBU40TA4
[2019-03-21] MEDS ORDERED: FEBU40TA2 PO (20:56)
[2019-03-21] MEDS ORDERED: LORazepam 2 MG/ML VIAL (J2060) IM STA (21:32)
[2019-03-21] MEDS ORDERED: LORazepam 2 MG/ML VIAL (J2060) As Ordered ONE (21:33)
[2019-03-21 22:26] LABS: BASO # 0.1 10^3/uL (0.0-0.2); BASO % 0.6 % (0.0-1.0); EOS # 0.6 10^3/uL (0.0-0.5); EOS % 5.9 % (0.0-3.0); HEMATOCRIT 39.7 % (42.0-52.0); HEMOGLOBIN 13.2 g/dl (13.5-17.5); LYMPH # 1.5 10^3/uL (1.5-5.0); MEAN CORPUSCULAR HEMOGLOBIN 31.4 pg (27.0-33.0); MEAN CORPUSCULAR HGB CONC 33.2 g/dl (32.0-36.5); MEAN CORPUSCULAR VOLUME 94.3 fl (80.0-96.0); MONO # 1.2 10^3/uL (0.0-0.8); MONO % 12.5 % (0.0-5.0); NEUTROPHILS # 6.3 10^3/uL (1.5-8.5); NEUTROPHILS % 65.5 % (36.0-66.0); PLATELET COUNT, AUTOMATED 247 10^3/uL (150-450); RED BLOOD COUNT 4.21 10^6/uL (4.30-6.10); WHITE BLOOD COUNT 9.7 10^3/uL (4.0-10.0)
[2019-03-21] MEDS ORDERED: ONDANSETRON 4MG/2ML VIAL (J2405) IV ONE (22:30)
[2019-03-21 22:41] LABS: INR 1.01
[2019-03-21 22:48] LABS: ALBUMIN 3.8 GM/DL (3.2-5.2); ALT/SGPT 32 U/L (12-78); BILIRUBIN,DIRECT < 0.1 MG/DL (0.0-0.2); BILIRUBIN,TOTAL 0.4 MG/DL (0.2-1.0); BLOOD UREA NITROGEN 60 MG/DL (7-18); CALCIUM LEVEL 9.2 MG/DL (8.5-10.1); CARBON DIOXIDE LEVEL 27 MEQ/L (21-32); CHLORIDE LEVEL 103 MEQ/L (98-107); CK-MB VALUE MASS 2.4 NG/ML (<3.6); CPK CREATINE PHOSPHOKINASE 600 U/L (39-308); CREATININE FOR GFR 8.14 MG/DL (0.70-1.30); GLOMERULAR FILTRATION RATE 7.7 (>60); GLUCOSE, FASTING 101 MG/DL (70-100); NT-PRO BNP 350 PG/ML (<125); POTASSIUM SERUM 3.4 MEQ/L (3.5-5.1); SODIUM LEVEL 142 MEQ/L (136-145); THYROXINE (T4) 7.2 UG/DL (4.5-12.0); TOTAL PROTEIN 7.4 GM/DL (6.4-8.2); TROPONIN I 0.02 NG/ML (< 0.10)
[2019-03-21] MEDS ORDERED: PRED20TA PO (23:40)
[2019-03-21] MEDS ORDERED: dexameTHASONE 20 MG/5 ML VIAL (J1100) IV ONE (23:45)
[2019-03-21 23:56] VITALS: BP 132/72
--- NOTE | 2019-03-22 07:50 | REP ---
Single view chest: 03/21/2019. Indication: Dyspnea. Cough. Comparison: 08/07/2018. Findings: The lungs are clear. There is no significant pleural effusion or pneumothorax. The cardiac silhouette is at the upper limits of normal. Impression: Clear lungs. Electronically Signed by Mello De Luna DO 03/22/2019 07:41 A
--- NOTE | 2019-03-22 20:14 | ECGEPIP ---
[facility] - ED Test Date: 2019-03-21 Pat Name: MICHAEL PISANO Department: Room: - Gender: Male Tanning Consultant: sb : 1975 Requested By: LORIE Jay Order Number: [id number] Reading MD: Adiel Scott Measurements Intervals [place] Rate: 95 P: 61 [place]: 145 QRS: 2 QRSD: 117 T: 18 QT: 386 QTc: 487 Interpretive Statements SINUS RHYTHM INCOMPLETE RIGHT BUNDLE BRANCH BLOCK MODERATE VOLTAGE CRITERIA FOR LVH, CONSIDER NORMAL VARIANT SIMILAR TO 08/18/18 Electronically Signed on 03-22-2019 20:14:08 EST by Adiel Scott
== END 2019-03-22 00:06 | disposition home or self-care (01) ==
LOC: M ED 20:46
DX: J06.9 Acute upper respiratory infection, unspecified (principal); I45.19 Other right bundle-branch block; F41.0 Panic disorder [episodic paroxysmal anxiety]; B34.8 Other viral infections of unspecified site; I10 Essential (primary) hypertension; J45.909 Unspecified asthma, uncomplicated; M10.9 Gout, unspecified; N18.6 End stage renal disease; Z99.2 Dependence on renal dialysis; Z79.899 Other long term (current) drug therapy; Z88.0 Allergy status to penicillin
CPT/HCPCS: 71045; 80048; 80076; 82550; 82553; 83605; 83880; 84436; 84443; 84484; 85025; 85610; 87040; 87486; 87581; 87633; 87798; 93005; 93041; 94760; 96372; 96374; 96375; 99284; J1100; J2060; J2405

== ENCOUNTER 2019-10-15 08:52 | Emergency (ER) | payer MEDICARE, MEDICAID ==
[~2019-10-15] VITALS: Ht 172.7 cm; Wt 106.6 kg
[~2019-10-15 08:52] MED LIST changes: -AMLO10TA5 PO; +AMLO1TAB25 PO; +FEBU40TA2 PO; -LIDO1SOL8 PO; +LIDO2SOL17 PO; -LORA1TAB12; +LORA1TAB4
[2019-10-15] MEDS ORDERED: FLUO10CA16 (09:00)
[2019-10-15] MEDS ORDERED: HYDR-643 PO (09:00)
[2019-10-15] MEDS ORDERED: FLUO10CA16 PO (09:00)
[2019-10-15] MEDS ORDERED: ONDA4TAB6 (09:00)
[2019-10-15 09:30] LABS: BASO # 0.1 10^3/uL (0.0-0.2); BASO % 0.6 % (0.0-1.0); EOS # 0.7 10^3/uL (0.0-0.5); EOS % 7.7 % (0.0-3.0); HEMATOCRIT 41.1 % (42.0-52.0); HEMOGLOBIN 13.6 g/dl (13.5-17.5); LYMPH # 1.4 10^3/uL (1.5-5.0); LYMPH % 14.9 % (24.0-44.0); MEAN CORPUSCULAR HEMOGLOBIN 30.3 pg (27.0-33.0); MEAN CORPUSCULAR HGB CONC 33.1 g/dl (32.0-36.5); MEAN CORPUSCULAR VOLUME 91.5 fl (80.0-96.0); MONO # 0.8 10^3/uL (0.0-0.8); MONO % 7.9 % (0.0-5.0); NEUTROPHILS # 6.5 10^3/uL (1.5-8.5); NEUTROPHILS % 68.4 % (36.0-66.0); PLATELET COUNT, AUTOMATED 266 10^3/uL (150-450); RED BLOOD COUNT 4.49 10^6/uL (4.30-6.10); WHITE BLOOD COUNT 9.5 10^3/uL (4.0-10.0)
[2019-10-15] MEDS ORDERED: NS 1,000 ML IV ONE (09:45)
[2019-10-15 09:55] LABS: ALBUMIN 3.9 GM/DL (3.2-5.2); ALT/SGPT 32 U/L (12-78); BILIRUBIN,DIRECT < 0.1 MG/DL (0.0-0.2); BILIRUBIN,TOTAL 0.4 MG/DL (0.2-1.0); BLOOD UREA NITROGEN 61 MG/DL (7-18); CALCIUM LEVEL 8.7 MG/DL (8.5-10.1); CARBON DIOXIDE LEVEL 24 MEQ/L (21-32); CHLORIDE LEVEL 104 MEQ/L (98-107); CREATININE FOR GFR 8.36 MG/DL (0.70-1.30); GLOMERULAR FILTRATION RATE 7.5 (>60); GLUCOSE, FASTING 104 MG/DL (70-100); LIPASE 324 U/L (73-393); POTASSIUM SERUM 4.1 MEQ/L (3.5-5.1); SODIUM LEVEL 141 MEQ/L (136-145); TOTAL PROTEIN 7.6 GM/DL (6.4-8.2)
--- NOTE | 2019-10-15 10:25 | REP ---
CT ABDOMEN/PELVIS WITHOUT CONTRAST: CT abdomen/pelvis performed without oral or IV contrast. Sagittal and coronal reconstruction images are performed. Visualized lung bases are clear. Liver, spleen, adrenals, and pancreas are grossly unremarkable. There is moderate bilateral renal atrophy. There is no evidence of renal, ureteral, or bladder calculus and no hydroureteronephrosis. There is no abdominal aortic aneurysm. There is no adenopathy, free air or free fluid. No bowel thickening is seen. The appendix is normal. There are multiple diverticula of the sigmoid and left colon with no acute diverticulitis. Urinary bladder is mildly distended and grossly unremarkable. There are small bilateral inguinal hernias containing noninflamed fat. IMPRESSION: Moderate bilateral renal atrophy. No renal, ureteral, or bladder calculus and no hydroureteronephrosis. Sigmoid and left colonic diverticulosis without acute diverticulitis. Small bilateral inguinal hernias contain noninflamed fat. Electronically Signed by Godwin Tipton MD 10/15/2019 11:16 A
[2019-10-15] MEDS ORDERED: CYCLOBENZAPRINE 10MG TABLET PO ONE (11:15)
[2019-10-15] MEDS ORDERED: LIDOCAINE 5% (LIDODERM) PATCH TD ONE (11:15)
[2019-10-15] MEDS ORDERED: BACL10TA2 PO (12:20)
[2019-10-15] MEDS ORDERED: LIDO5DIS41 TOP (12:21)
[2019-10-15 12:29] VITALS: BP 127/81
[2019-10-15] MEDS ORDERED: ACETAMINOPH W/CODEINE #3 TAB UD PO ONE (12:30)
[2019-10-15] MEDS ORDERED: **NOTE PATIENT COMMENT** MISC XX SCH (21:00)
[2019-11-13] MEDS ORDERED: CLIN150C15 PO (00:44)
== END 2019-10-15 12:30 | disposition home or self-care (01) ==
LOC: M ED 08:52
DX: N18.6 End stage renal disease (principal); M62.830 Muscle spasm of back; I10 Essential (primary) hypertension; J45.909 Unspecified asthma, uncomplicated; Z99.2 Dependence on renal dialysis; F33.9 Major depressive disorder, recurrent, unspecified; F41.9 Anxiety disorder, unspecified; F90.9 Attention-deficit hyperactivity disorder, unspecified type; Z79.899 Other long term (current) drug therapy; Z88.0 Allergy status to penicillin

== ENCOUNTER 2019-11-12 22:24 | Emergency (ER) | payer MEDICARE, MEDICAID ==
[~2019-11-12] VITALS: Ht 170.2 cm; Wt 100.0 kg
[~2019-11-12 22:24] MED LIST changes: +AMLO10TA5 PO; -AMLO1TAB25 PO; +BACL10TA2 PO; +FLUO10CA15; +FLUO10CA15 PO; +HYDR-643; +LIDO5DIS41 TOP; +ONDA4TAB6
[2019-11-12] MEDS ORDERED: MORPHINE 4 MG/ML 1ML VIAL/SYRINGE (J2270) IV ONE (23:30)
[2019-11-12] MEDS ORDERED: CLINDAMYCIN 600 MG in IV 1 EA IV ONE (23:30)
[2019-11-12 23:34] LABS: BASO # 0.1 10^3/uL (0.0-0.2); BASO % 0.5 % (0.0-1.0); EOS # 0.9 10^3/uL (0.0-0.5); EOS % 8.3 % (0.0-3.0); HEMOGLOBIN 11.9 g/dl (13.5-17.5); LYMPH % 18.7 % (24.0-44.0); MEAN CORPUSCULAR HEMOGLOBIN 30.6 pg (27.0-33.0); MEAN CORPUSCULAR HGB CONC 33.1 g/dl (32.0-36.5); MEAN CORPUSCULAR VOLUME 92.5 fl (80.0-96.0); MONO # 0.9 10^3/uL (0.0-0.8); MONO % 8.1 % (0.0-5.0); NEUTROPHILS # 6.7 10^3/uL (1.5-8.5); NEUTROPHILS % 63.9 % (36.0-66.0); PLATELET COUNT, AUTOMATED 258 10^3/uL (150-450); RED BLOOD COUNT 3.89 10^6/uL (4.30-6.10); WHITE BLOOD COUNT 10.5 10^3/uL (4.0-10.0)
[2019-11-12] MEDS ORDERED: ISOVUE-370 76% 100ML VIAL As Ordered ONE (23:37)
[2019-11-12] MEDS ORDERED: ONDANSETRON 4MG/2ML VIAL IV ONE (23:45)
[2019-11-12 23:53] LABS: ERYTHROCYTE SEDIMENTATION RATE 52 mm/hr (0-15)
--- NOTE | 2019-11-13 | REPVR ---
PROCEDURE INFORMATION: Exam: CT Maxillofacial With Contrast Exam date and time: 11/12/2019 11:48 PM Age: 44 years old Clinical indication: Maxilla pain; Additional info: Swelling to L face R/O abscess TECHNIQUE: Imaging protocol: Computed tomography images of the face with intravenous contrast. Radiation optimization: All CT scans at this facility use at least one of these dose optimization techniques: automated exposure control; mA and/or kV adjustment per patient size (includes targeted exams where dose is matched to clinical indication); or iterative reconstruction. Contrast material: ISO 370; Contrast volume: 75 ml; Contrast route: INTRAVENOUS (IV); COMPARISON: No relevant prior studies available. FINDINGS: Orbits: Orbits are normal. Globes are unremarkable. Bones/joints: No acute fracture. Sinuses: Mild mucosal thickening of the left maxillary sinus. Soft tissues: Approximately 2.1 x 0.7 cm periodontal phlegmon anterior to the left maxillary sinus, suspected to be secondary to a periapical lucency surrounding the left maxillary premolar root. Prominent subcutaneous fat stranding within the left face and nasal labial fold, likely cellulitis. IMPRESSION: Findings concerning for approximately 2.1 cm periodontal phlegmon and adjacent cellulitic changes along the anterior left maxilla, suspected to be secondary to a periapical lucency surrounding the left maxillary premolar root. Electronically signed by: Michael Hilliard On 11/12/2019 23:59:31 PM
[2019-11-13 00:34] VITALS: BP 114/72
[2019-11-13] MEDS ORDERED: CLIN150C14 PO (00:44)
== END 2019-11-13 00:53 | disposition home or self-care (01) ==
LOC: M ED 22:24
DX: K04.7 Periapical abscess without sinus (principal); S02.5XXA Fracture of tooth (traumatic), initial encounter for closed fracture; X58.XXXA Exposure to other specified factors, initial encounter; Y92.9 Unspecified place or not applicable; Y93.9 Activity, unspecified; Y99.9 Unspecified external cause status; I12.0 Hypertensive chronic kidney disease with stage 5 chronic kidney disease or end stage renal disease; N18.6 End stage renal disease; Z99.2 Dependence on renal dialysis; Z79.899 Other long term (current) drug therapy; Z88.0 Allergy status to penicillin
CPT/HCPCS: 70487; 80047; 85025; 85652; 86140; 96365; 96375; 99283; J2270; J2405; Q9967

== ENCOUNTER 2019-11-13 16:22 | Emergency (ER) | payer MEDICARE, MEDICAID ==
[~2019-11-13] VITALS: Ht 170.2 cm; Wt 105.7 kg
[~2019-11-13 16:22] MED LIST changes: +CLIN150C14 PO
[2019-11-13] MEDS ORDERED: NS 1,000 ML IV ONE (17:00)
[2019-11-13] MEDS ORDERED: PROMETHAZINE INJ 25 MG/ML VIAL (J2550) IV ONE (17:00)
[2019-11-13 17:26] LABS: BASO % 0.4 % (0.0-1.0); EOS # 0.4 10^3/uL (0.0-0.5); EOS % 3.2 % (0.0-3.0); HEMATOCRIT 40.5 % (42.0-52.0); HEMOGLOBIN 13.5 g/dl (13.5-17.5); LYMPH % 8.9 % (24.0-44.0); MEAN CORPUSCULAR HEMOGLOBIN 30.4 pg (27.0-33.0); MEAN CORPUSCULAR HGB CONC 33.3 g/dl (32.0-36.5); MEAN CORPUSCULAR VOLUME 91.2 fl (80.0-96.0); MONO # 0.9 10^3/uL (0.0-0.8); NEUTROPHILS # 8.9 10^3/uL (1.5-8.5); NEUTROPHILS % 79.1 % (36.0-66.0); PLATELET COUNT, AUTOMATED 271 10^3/uL (150-450); RED BLOOD COUNT 4.44 10^6/uL (4.30-6.10); WHITE BLOOD COUNT 11.2 10^3/uL (4.0-10.0)
[2019-11-13] MEDS ORDERED: CLINDAMYCIN 900 MG in IV 1 EA IV ONE (18:00)
[2019-11-13] MEDS ORDERED: dexameTHASONE 20MG/5ML VIAL (J1100 PER 1MG) IV ONE (18:00)
[2019-11-13 18:18] LABS: ERYTHROCYTE SEDIMENTATION RATE 43 mm/hr (0-15)
[2019-11-13 19:12] VITALS: BP 135/79
[2019-11-13] MEDS ORDERED: PERCOCET 5MG/325MG TAB PO ONE (19:45)
[2019-11-13] MEDS ORDERED: OXYCODONE/APAP 5MG/325MG(BULK FOR ED) 1 TABLET PO ONE (19:45)
== END 2019-11-13 19:52 | disposition home or self-care (01) ==
LOC: M ED 16:22
DX: K04.7 Periapical abscess without sinus (principal); R11.2 Nausea with vomiting, unspecified; S02.5XXA Fracture of tooth (traumatic), initial encounter for closed fracture; X58.XXXA Exposure to other specified factors, initial encounter; Y92.9 Unspecified place or not applicable; Y93.9 Activity, unspecified; Y99.9 Unspecified external cause status; J45.909 Unspecified asthma, uncomplicated; G47.30 Sleep apnea, unspecified; I10 Essential (primary) hypertension; E78.5 Hyperlipidemia, unspecified; F41.9 Anxiety disorder, unspecified; F32.9 Major depressive disorder, single episode, unspecified; N18.6 End stage renal disease; Z99.2 Dependence on renal dialysis; Z79.899 Other long term (current) drug therapy; Z88.0 Allergy status to penicillin
CPT/HCPCS: 85025; 85652; 86140; 87040; 96365; 96374; 96375; 99284; J1100

== ENCOUNTER 2020-02-05 10:44 | Emergency (ER) | payer MEDICARE, MEDICAID ==
[~2020-02-05] VITALS: Ht 170.2 cm; Wt 106.4 kg
[~2020-02-05 10:44] MED LIST changes: -AMLO10TA5 PO; +AMLO1TAB25 PO; -FLUO10CA15; -FLUO10CA15 PO; +FLUO10CA16; +FLUO10CA16 PO; -HYDR-643; +HYDR-643 PO
[2020-02-05] MEDS ORDERED: methylPREDNISolone 125MG 2ML VIAL IV ONE (12:15)
[2020-02-05] MEDS ORDERED: ALBUTEROL SULFATE 2.5 MG/0.5 ML INH NEB SOLN INH ONE (12:15)
[2020-02-05] MEDS ORDERED: IPRATROPIUM 0.5MG/ALBUTEROL 2.5MG INH SOL UD 3ML (DUONEB) NEB ONE (12:15)
[2020-02-05 13:10] LABS: BASO % 0.3 % (0.0-1.0); EOS # 0.2 10^3/uL (0.0-0.5); EOS % 2.6 % (0.0-3.0); HEMOGLOBIN 13.5 g/dl (13.5-17.5); LYMPH % 23.2 % (24.0-44.0); MEAN CORPUSCULAR HEMOGLOBIN 30.6 pg (27.0-33.0); MEAN CORPUSCULAR HGB CONC 32.9 g/dl (32.0-36.5); MONO # 0.7 10^3/uL (0.0-0.8); MONO % 8.1 % (0.0-5.0); NEUTROPHILS # 5.7 10^3/uL (1.5-8.5); NEUTROPHILS % 64.8 % (36.0-66.0); PLATELET COUNT, AUTOMATED 275 10^3/uL (150-450); RED BLOOD COUNT 4.41 10^6/uL (4.30-6.10); WHITE BLOOD COUNT 8.8 10^3/uL (4.0-10.0)
--- NOTE | 2020-02-05 13:41 | REPVR ---
PROCEDURE INFORMATION: Exam: XR Chest, 1 View Exam date and time: 02/05/2020 11:48 AM Age: 44 years old Clinical indication: Shortness of breath; Additional info: Dyspnea/cough TECHNIQUE: Imaging protocol: XR of the chest Views: 1 view. COMPARISON: DC PORTABLE CHEST X-RAY 03/21/2019 9:45 PM FINDINGS: Lungs: Unremarkable. No consolidation. Pleural space: Unremarkable. No pleural effusion. No pneumothorax. Heart/Mediastinum: Cardiac silhouette is upper normal in size. Bones/joints: Unremarkable. IMPRESSION: No acute cardiopulmonary abnormality. Electronically signed by: Angelita Deluca On 02/05/2020 13:41:03 PM
[2020-02-05 13:49] LABS: CK-MB VALUE MASS 4.7 NG/ML (<3.6); MB/CK RELATIVE INDEX 0.87 (< OR =4); THYROID STIMULATING HORMONE 6.24 uIU/ML (0.358-3.740); THYROXINE (T4) 8.7 UG/DL (4.5-12.0); TROPONIN I 0.03 NG/ML (< 0.10)
[2020-02-05] MEDS ORDERED: ONDANSETRON 4MG/2ML VIAL As Ordered ONE (14:34)
[2020-02-05] MEDS ORDERED: ONDANSETRON 4MG/2ML VIAL IV ONE (14:45)
[2020-02-05 14:47] LABS: ALBUMIN 4.1 GM/DL (3.2-5.2); BILIRUBIN,DIRECT 0.2 MG/DL (0.0-0.2); BILIRUBIN,TOTAL 0.7 MG/DL (0.2-1.0); CALCIUM LEVEL 9.8 MG/DL (8.5-10.1); CREATININE FOR GFR 6.07 MG/DL (0.70-1.30); GLOMERULAR FILTRATION RATE 10.8 (>60); POTASSIUM SERUM 3.9 MEQ/L (3.5-5.1); TOTAL PROTEIN 7.8 GM/DL (6.4-8.2)
[2020-02-05 16:14] VITALS: BP 144/87
[2020-02-05] MEDS ORDERED: NS 250 ML IV SCH (16:30)
[2020-02-05] MEDS ORDERED: PRED20TA PO (17:08)
--- NOTE | 2020-02-05 20:30 | ECGEPIP ---
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
[2020-02-06] MEDS ORDERED: VITMTA PO (11:49)
[2020-02-06] MEDS ORDERED: ONDA4TAB6 SL (11:49)
[2020-02-06] MEDS ORDERED: LIDO2.5C15 TOP (11:49)
== END 2020-02-05 17:45 | disposition home or self-care (01) ==
LOC: M ED 10:44
DX: B34.8 Other viral infections of unspecified site (principal); I45.10 Unspecified right bundle-branch block; J45.901 Unspecified asthma with (acute) exacerbation; I10 Essential (primary) hypertension; N18.6 End stage renal disease; Z99.2 Dependence on renal dialysis; Z86.73 Personal history of transient ischemic attack (TIA), and cerebral infarction without residual deficits; F41.9 Anxiety disorder, unspecified; Z79.899 Other long term (current) drug therapy; Z88.0 Allergy status to penicillin
CPT/HCPCS: 36415; 71045; 80048; 80076; 82550; 82553; 83605; 84436; 84443; 84484; 85025; 87040; 87486; 87581; 87633; 87798; 93005; 93041; 94640; 94760; 96361; 96374; 96375; 99285; J2405; J2930

== ENCOUNTER 2020-02-06 06:49 | Observation (INO) | payer MEDICARE, MEDICAID ==
[~2020-02-06] VITALS: Ht 170.2 cm; Wt 105.5 kg
[2020-02-06] MEDS ORDERED: ONDANSETRON 4MG/2ML VIAL IV ONE (07:30)
[2020-02-06] MEDS ORDERED: MORPHINE 4 MG/ML 1ML VIAL/SYRINGE (J2270) IV PRN (07:30)
[2020-02-06 07:57] LABS: BASO % 0.1 % (0.0-1.0); HEMATOCRIT 38.5 % (42.0-52.0); HEMOGLOBIN 12.8 g/dl (13.5-17.5); LYMPH # 0.9 10^3/uL (1.5-5.0); LYMPH % 4.3 % (24.0-44.0); MEAN CORPUSCULAR HGB CONC 33.2 g/dl (32.0-36.5); MEAN CORPUSCULAR VOLUME 93.2 fl (80.0-96.0); MONO # 1.2 10^3/uL (0.0-0.8); MONO % 5.8 % (0.0-5.0); NEUTROPHILS # 18.1 10^3/uL (1.5-8.5); NEUTROPHILS % 88.6 % (36.0-66.0); PLATELET COUNT, AUTOMATED 304 10^3/uL (150-450); RED BLOOD COUNT 4.13 10^6/uL (4.30-6.10); WHITE BLOOD COUNT 20.5 10^3/uL (4.0-10.0)
[2020-02-06 08:09] LABS: INR 0.91; PROTHROMBIN TIME 12.5 SECONDS (12.5-14.3)
[2020-02-06 08:38] LABS: ALBUMIN 3.7 GM/DL (3.2-5.2); ALT/SGPT 57 U/L (12-78); BILIRUBIN,DIRECT 0.2 MG/DL (0.0-0.2); BILIRUBIN,TOTAL 0.5 MG/DL (0.2-1.0); CK-MB VALUE MASS 3.3 NG/ML (<3.6); CPK CREATINE PHOSPHOKINASE 358 U/L (39-308); LIPASE 181 U/L (73-393); MB/CK RELATIVE INDEX 0.92 (< OR =4); TROPONIN I < 0.02 NG/ML (< 0.10)
[2020-02-06] MEDS ORDERED: METOCLOPRAMIDE INJ 10MG/2ML VIAL (J2765 PER 1) IV ONE (09:00)
[2020-02-06] MEDS ORDERED: ISOVUE-370 76% 100ML VIAL As Ordered ONE (09:23)
--- NOTE | 2020-02-06 10:08 | REPVR ---
PROCEDURE INFORMATION: Exam: CT Abdomen and Pelvis with Contrast Exam date and time: 02/06/20 (9:32am) Age: 44 years old Clinical indication: Generalized abdominal pain. Dialysis will be done. TECHNIQUE: Imaging protocol: Computed tomography of the abdomen and pelvis with intravenous contrast. Radiation optimization: All CT scans at this facility use at least one of these dose optimization techniques: automated exposure control; mA and/or kV adjustment per patient size (includes targeted exams where dose is matched to clinical indication); or iterative reconstruction. Contrast material: Isovue 370 Contrast volume: 100 ml Contrast route: IV COMPARISON: CT ABDOMEN PELVIS of 10/15/19 FINDINGS: Lower lung nguyen: Mild bibasilar atelectatic changes. No pleural effusions. Liver: No solid mass. Mild diffuse fatty infiltration. Gallbladder and bile ducts: Normal. No calcified stones. No ductal dilatation. Pancreas: Normal. No ductal dilatation. Spleen: Normal. No splenomegaly. Adrenals: Normal. No mass. Kidneys and ureters: No hydronephrosis. Bilateral renal atrophy again seen. A few small renal cysts. Stomach and bowel: No bowel obstruction. No mucosal thickening. Left colon and sigmoid diverticulosis changes. Appendix: A normal appendix is visualized. Intraperitoneal space: Unremarkable. No free air. No significant fluid collection. Vasculature: Unremarkable. No abdominal aortic aneurysm. Lymph nodes: Unremarkable. No enlarged lymph nodes. Bladder: Unremarkable as visualized. Reproductive: Unremarkable as visualized. Other findings: Bilateral uncomplicated fat-containing inguinal hernias. Bones/joints: Unremarkable. No acute fracture. Soft tissues: Unremarkable. IMPRESSION: No acute findings. Bilateral renal atrophy again seen. Sigmoid and left colon diverticuli, without acute inflammation. Electronically signed by: Annalee Fleming On 02/06/2020 10:08:05 AM
[2020-02-06] MEDS ORDERED: traMADol 50 MG TAB PO PRN (11:30)
[2020-02-06] MEDS ORDERED: PILL CUTTER 1 EACH XX PRN (11:45)
[2020-02-06] MEDS ORDERED: LIDO2.5C15 TOP (11:49)
[2020-02-06] MEDS ORDERED: ONDA4TAB6 SL (11:49)
[2020-02-06] MEDS ORDERED: VITMTA PO (11:49)
[2020-02-06] MEDS ORDERED: EMLA CREAM 5GM TUBE (LIDOCAINE/PRILOCAINE) TOP PRN (12:30)
[2020-02-06] MEDS ORDERED: hydrOXYzine 10 MG TAB PO PRN (12:30)
[2020-02-06] MEDS ORDERED: ONDANSETRON 4 MG ORAL DISINTEGRATING TAB SL PRN (12:30)
--- NOTE | 2020-02-06 12:52 | ECGEPIP ---
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
--- NOTE | 2020-02-06 13:23 | REPVR ---
PROCEDURE INFORMATION: Exam: XR Chest, 2 Views Exam date and time: 02/06/2020 1:17 PM Age: 44 years old Clinical indication: Other: Abdominal pain, leukocytosis; Additional info: Leukocytosis, vomiting earlier in the day TECHNIQUE: Imaging protocol: XR of the chest Views: 2 views. COMPARISON: CR PORTABLE CHEST X-RAY 02/05/2020 1:21 PM FINDINGS: Lungs: There is mild bibasilar atelectasis. The lungs are otherwise clear. Pleural space: Unremarkable. No pleural effusion. No pneumothorax. Heart/Mediastinum: The cardiomediastinal silhouette is fairly stable in appearance. Bones/joints: Unremarkable. IMPRESSION: No evidence for acute pulmonary disease. Electronically signed by: Kvng Sethi On 02/06/2020 13:22:54 PM
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
[2020-02-06 16:21] VITALS: BP 139/88
[2020-02-06] MEDS: BENZONATATE 100 MG CAP PO SCH ×3 (16:36→20:47)
[2020-02-06] MEDS: ACETAMINOPHEN 500 MG TAB PO SCH ×3 (16:36→20:46)
[2020-02-06] MEDS: ALBUTEROL SULFATE 2.5 MG/0.5 ML INH NEB SOLN INH PRN (16:58)
[2020-02-06] MEDS: oxyCODONE 5MG TAB PO PRN (17:26)
[2020-02-06] MEDS: FEBUXOSTAT 40 MG TABLET (ULORIC) PO SCH (20:46)
[2020-02-06] MEDS: amLODIPine 10 MG TAB PO SCH (20:47)
[2020-02-06] MEDS: BUMETANIDE 1 MG TAB PO SCH (20:47)
[2020-02-06 22:00] VITALS: BP 128/86
[2020-02-07] MEDS: oxyCODONE 5MG TAB PO PRN ×3 (00:39→20:24)
[2020-02-07 06:00] VITALS: BP 142/90
[2020-02-07] MEDS: BENZONATATE 100 MG CAP PO SCH ×3 (06:52→20:25)
[2020-02-07] MEDS: ACETAMINOPHEN 500 MG TAB PO SCH ×3 (06:52→21:40)
[2020-02-07 07:08] LABS: BASO % 0.2 % (0.0-1.0); EOS # 0.2 10^3/uL (0.0-0.5); EOS % 1.7 % (0.0-3.0); HEMATOCRIT 40.4 % (42.0-52.0); LYMPH # 2.7 10^3/uL (1.5-5.0); LYMPH % 20.7 % (24.0-44.0); MEAN CORPUSCULAR HEMOGLOBIN 30.8 pg (27.0-33.0); MEAN CORPUSCULAR HGB CONC 32.2 g/dl (32.0-36.5); MEAN CORPUSCULAR VOLUME 95.7 fl (80.0-96.0); MONO # 0.8 10^3/uL (0.0-0.8); MONO % 6.2 % (0.0-5.0); NEUTROPHILS # 9.1 10^3/uL (1.5-8.5); NEUTROPHILS % 69.9 % (36.0-66.0); PLATELET COUNT, AUTOMATED 281 10^3/uL (150-450); RED BLOOD COUNT 4.22 10^6/uL (4.30-6.10)
[2020-02-07 07:41] LABS: CREATININE FOR GFR 10.1 MG/DL (0.70-1.30); POTASSIUM SERUM 4.9 MEQ/L (3.5-5.1)
[2020-02-07] MEDS: MULTIVITAMINS/MINERALS THERAP 1 TAB PO SCH (08:30)
[2020-02-07] MEDS ORDERED: ACET-683 PO (09:17)
[2020-02-07] MEDS ORDERED: BENZ-18 PO (09:17)
[2020-02-07 12:30] VITALS: BP 121/79
[2020-02-07] MEDS ORDERED: methylPREDNISolone 40MG 1ML VIAL IV ONE (12:45)
[2020-02-07] MEDS ORDERED: oxyCODONE 5MG TAB PO ONE (12:45)
[2020-02-07 14:00] VITALS: BP 150/97
[2020-02-07] MEDS: LIDOCAINE 5% (LIDODERM) PATCH TD SCH (18:02)
--- NOTE | 2020-02-07 20:13 | IPNPDOC ---
Subjective Date Seen The patient was seen on 02/07/20. Subjective Chief Complaint/HPI Mr. Tracy is a 44 year old male with anxiety, PTSD, ESRD on dialysis MWF, and gout here with cough, nausea, vomiting, abdominal pain. He was seen in the morning. Pain was more controlled, and he felt that he could function at home. He was going to be discharged after dialysis. During dialysis, he fell asleep for the first part of it. Close to the end of dialysis (1 hour left), he woke up feeling short of breath. They gave him oxygen and a nebulizer treatment. Then he started having severe abdominal pain and dry heaves. They gave him an oxyIR and zofran. I came up to evaluate. He was having severe abdominal pain, but no more dry heaving. Abdomen tender, but soft with normal bowel sounds. His lungs were wheezy. He was returned to the room. I gave him a dose of IV steroids for the wheezing. Increased his pain medication and added lidocaine patch for abdominal wall tenderness. Constitutional: Denies: Chills, Fever Eyes: Denies: Vision change ENT: Denies: Head Aches Pulmonary: Reports: Dyspnea, Cough Cardiovascular: Denies: Chest Pain Gastrointestinal: Reports: Abdominal Pain Genitourinary: Denies: Dysuria Objective Physical Examination General Exam: Positive: Alert, Cooperative, Mild Distress Eye Exam: Positive: EOMI; Negative: Sclera icteric ENT Exam: Positive: Atraumatic, Mucous membr. moist/pink Neck Exam: Positive: Supple Chest Exam: Positive: Clear to auscultation Heart Exam: Positive: Tachycardic, Regular Rhythm Abdomen Exam: Positive: Normal bowel sounds, Soft, Tenderness Extremity Exam: Negative: Edema Neuro Exam: Positive: Normal Speech, Cranial Nerves 3-12 NL Psych Exam: Positive: Mental status NL, Mood NL Assessment /Plan Assessment Mr. Tracy is a 44 year old male with anxiety, PTSD, and recent rhinovirus/enterovirus infection here with leukocytosis and abdominal pain. Leukocytosis improved today. Most-likely a leukomoid reaction. During dialysis he had severe pain, most likely from his coughing and dyspnea. He was wheezy, thus added a dose of IV steroid today. Will convert to PO steroid tomorrow. Increased pain regimen as well. Plan/VTE VTE Prophylaxis Ordered?: Yes Plan 1. Leukocytosis - Viral respiratory infection vs leukomoid reaction from emesis vs aspiration PNA - CXR unremarkable. Most likely leukomoid reaction 2. Rhinovirus/enterovirus respiratory infection - Supportive care - Tessalon Perles to control pain - Wheezy today, will give IV steroid today and convert to PO tomorrow 3. Abdominal pain - Negative CT abd/pelvis - Observe and pain control with scheduled Tylenol and PRN oxyIR - Added lidocaine patch 4. Anxiety - History of anxiety and IMHU admission - Continue with PRN hydroxyzine 5. Hypertension - Blood pressure stable - Continue amlodipine 6. Gout - No flare - Continue Uloric 7. ESRD on dialysis - Continue dialysis MWF - Nephrology following 8. DVT ppx - SCD and TEDs VS, I&O, 24H, Fishbone Vital Signs/I&O Vital Signs Date Time Temp Pulse Resp B/P (MAP) Pulse Ox O2 Delivery O2 Flow Rate FiO2 02/07/20 14:05 18 02/07/20 14:00 98.4 97 150/97 (114) 94 Room Air 02/07/20 11:55 2.0 I&O- Last 24 Hours up to 6 AM 02/07/20 06:00 Intake Total 760 ml Output Total 1250 ml Balance -490 ml Laboratory Data 24H LABS Laboratory Tests 2 02/07/20 06:46: Immature Granulocyte % (Auto) 1.3, Neutrophils (%) (Auto) 69.9H, Lymphocytes (%) (Auto) 20.7L, Monocytes (%) (Auto) 6.2H, Eosinophils (%) (Auto) 1.7, Basophils (%) (Auto) 0.2, Neutrophils # (Auto) 9.1H, Lymphocytes # (Auto) 2.7, Monocytes # (Auto) 0.8, Eosinophils # (Auto) 0.2, Basophils # (Auto) 0.0, Nucleated Red Blood Cells % (auto) 0.0, Anion Gap 11, Glomerular Filtration Rate 6.0L, Calcium Level 9.0 02/07/20 15:29: Lab Scanned Report Miscellaneous Lab CBC/BMP Laboratory Tests 02/07/20 06:46 BORIS BAILEY DO Feb 07, 2020 20:13
[2020-02-07] MEDS: FEBUXOSTAT 40 MG TABLET (ULORIC) PO SCH (20:24)
[2020-02-07] MEDS: BUMETANIDE 1 MG TAB PO SCH (20:25)
[2020-02-07 20:26] VITALS: BP 139/85
[2020-02-07] MEDS: amLODIPine 10 MG TAB PO SCH (20:26)
[2020-02-07] MEDS ORDERED: **NOTE PATIENT COMMENT** MISC XX SCH (21:00)
[2020-02-07 22:00] VITALS: BP 139/85
[2020-02-08] MEDS: ALBUTEROL SULFATE 2.5 MG/0.5 ML INH NEB SOLN INH PRN (00:28)
[2020-02-08] MEDS: oxyCODONE 5MG TAB PO PRN ×2 (05:49→11:15)
[2020-02-08 06:00] VITALS: BP 165/100
[2020-02-08 06:56] LABS: BASO % 0.1 % (0.0-1.0); EOS % 0.1 % (0.0-3.0); HEMATOCRIT 39.5 % (42.0-52.0); HEMOGLOBIN 12.8 g/dl (13.5-17.5); LYMPH # 1.1 10^3/uL (1.5-5.0); LYMPH % 7.4 % (24.0-44.0); MEAN CORPUSCULAR HEMOGLOBIN 30.5 pg (27.0-33.0); MEAN CORPUSCULAR HGB CONC 32.4 g/dl (32.0-36.5); MEAN CORPUSCULAR VOLUME 94.3 fl (80.0-96.0); MONO # 0.7 10^3/uL (0.0-0.8); MONO % 4.9 % (0.0-5.0); NEUTROPHILS # 12.7 10^3/uL (1.5-8.5); NEUTROPHILS % 85.3 % (36.0-66.0); PLATELET COUNT, AUTOMATED 277 10^3/uL (150-450); RED BLOOD COUNT 4.19 10^6/uL (4.30-6.10); WHITE BLOOD COUNT 14.9 10^3/uL (4.0-10.0)
[2020-02-08 07:21] LABS: CALCIUM LEVEL 9.3 MG/DL (8.5-10.1); CREATININE FOR GFR 8.53 MG/DL (0.70-1.30); GLOMERULAR FILTRATION RATE 7.3 (>60); POTASSIUM SERUM 4.7 MEQ/L (3.5-5.1)
[2020-02-08] MEDS: MULTIVITAMINS/MINERALS THERAP 1 TAB PO SCH (08:41)
[2020-02-08] MEDS: ACETAMINOPHEN 500 MG TAB PO SCH (08:42)
[2020-02-08] MEDS: BENZONATATE 100 MG CAP PO SCH (08:42)
[2020-02-08] MEDS: LIDOCAINE 5% (LIDODERM) PATCH TD SCH (08:43)
[2020-02-08] MEDS ORDERED: OXYC-517 PO (10:02)
[2020-02-08] MEDS ORDERED: Pill Cutter XX (10:02)
[2020-02-08] MEDS ORDERED: LIDO5TD TD (10:02)
[2020-02-08] MEDS ORDERED: PRED20TA PO (10:07)
[2020-02-08] MEDS ORDERED: predniSONE 20 MG TAB PO ONE (10:15)
--- NOTE | 2020-02-08 19:59 | DS.PDOC ---
Discharge Summary General Date of Admission Feb 06, 2020 at 11:19 Date of Discharge 02/08/2020 Attending Physician: BORIS BAILEY DO Specialist/Consultants [facility] Nephrology Discharge Summary PROCEDURES PERFORMED DURING STAY: None. ADMITTING DIAGNOSES: 1. Leukocytosis 2. Rhinovirus/enterovirus respiratory infection 3. Muscle skeletal abdominal wall pain secondary to coughing 4. Anxiety. 5. Hypertension 6. Gout 7. End-stage renal disease on dialysis DISCHARGE DIAGNOSES: 1. Leukocytosis 2. Rhinovirus/enterovirus respiratory infection 3. Muscle skeletal abdominal wall pain (muscle strain/sprain) secondary to coughing 4. Anxiety. 5. Hypertension 6. Gout 7. End-stage renal disease on dialysis COMPLICATIONS/CHIEF COMPLAINT: Abdominal Pain, Leukocytosis, Rhinovirus Infection. HISTORY OF PRESENT ILLNESS: Mr. Tracy is a 44-year-old male with anxiety, PTSD, end-stage renal disease on dialysis Wednesday, Wednesday, Wednesday, and gout who comes to [facility] for cough, nausea, vomiting, abdominal pain. For the past 2 weeks, he's been having dyspnea and cough. He feels that he has chest congestion, but that time he had not been able to cough anything up. Since it was not getting any better,liana tai came into the ED yesterday. Chest x-ray was ne gative for any acute processes. No leukocytosis. Respiratory panel was negative for COVID 19, but was positive for rhinovirus/enterovirus. This morning he ate breakfast, but while showering, he had a coughing spell and then vomited. He suddenly had abdominal pain and collapsed to the ground. His taken to the ED, where they did a CT of his abdomen and pelvis. Imaging was negative, but his white blood count went up to 20. The call for admission for leukocytosis. HOSPITAL COURSE: The following day the leukocytosis dropped. Chest x-ray was unremarkable. It is felt that his leukocytosis was secondary to leukemoid reaction from vomiting. He is planned to be discharged today. During dialysis, initially slept. But then he woke up feeling short of breath around the 3 hours. He was given a breathing treatment. Then his abdominal wall muscle spasm causing great pain. It also caused him to dry heave and have cramps in his legs. Examination at that time showed that he is wheezing. Started IV steroids that day, and increased the pain regimen. I added on a lidocaine patch and increased his OxyIR from 2.5 to 5. Also continued his Tessalon Perles to reduce the coughing. The following day he is feeling better. He understands that he will need to rest. Denies any fever or chills, lightheadedness, chest pain, dyspnea, diarrhea, or dysuria. His abdomen was batch or continuous still operator but it will take time for it to heal. DISCHARGE MEDICATIONS: Please see below. ALLERGIES: Please see below. PHYSICAL EXAMINATION ON DISCHARGE: VITAL SIGNS: Please see below. GENERAL: Comfortable, in no apparent distress. HEENT: Head normocephalic/atraumatic, EOMI, sclera clear. NECK: Supple, no JVD. RESPIRATORY: Lungs clear to auscultation bilaterally, no rales, wheeze or rhonchi. CARDIOVASCULAR: Regular rate and rhythm. ABDOMEN: Obese, but tender. Normal bowel sounds MUSCLE SKELETAL: Muscle strength 5/5 in all extremities. NEUROLOGICAL: CN 312 grossly intact, no focal deficits noted. PSYCHOLOGICAL: Normal mood and affect LABORATORY DATA: Please see below. IMAGING: CT abdomen and pelvis:No acute findings. Bilateral renal atrophy again seen. Sigmoid and left colon diverticuli, without acute inflammation PROGNOSIS: Stable ACTIVITY: As tolerated. DIET: As tolerated DISCHARGE PLAN: Home DISPOSITION: 01 Home, Self-Care. DISCHARGE INSTRUCTIONS: 1. Follow-up with the PCP within a week. DISCHARGE CONDITION: Stable. Total time spent on discharge planning, discharge summary, and med reconciliation 35 minutes. Vital Signs/I&Os Vital Signs Date Time Temp Pulse Resp B/P (MAP) Pulse Ox O2 Delivery O2 Flow Rate FiO2 02/08/20 11:15 18 02/08/20 06:00 97.9 126 165/100 (121) 98 Room Air 02/07/20 11:55 2.0 I&O- Last 24 Hours up to 6 AM 02/08/20 06:00 Intake Total 1230 ml Output Total 1000 ml Balance 230 ml Laboratory Data Labs 24H Laboratory Tests 2 02/08/20 06:18: Immature Granulocyte % (Auto) 2.2, Neutrophils (%) (Auto) 85.3H, Lymphocytes (%) (Auto) 7.4L, Monocytes (%) (Auto) 4.9, Eosinophils (%) (Auto) 0.1, Basophils (%) (Auto) 0.1, Neutrophils # (Auto) 12.7H, Lymphocytes # (Auto) 1.1L, Monocytes # (Auto) 0.7, Eosinophils # (Auto) 0.0, Basophils # (Auto) 0.0, Nucleated Red Blood Cells % (auto) 0.0, Anion Gap 12, Glomerular Filtration Rate 7.3L, Calcium Level 9.3 CBC/BMP Laboratory Tests 02/08/20 06:18 Discharge Medications Scheduled Acetaminophen (Acetaminophen) 500 Mg Tablet, 1,000 MG PO TID Amlodipine Besylate (Amlodipine Besylate) 10 Mg Tab, 10 MG PO QHS, (Reported) Benzonatate (Benzonatate) 100 Mg Capsule, 100 MG PO TID Bumetanide (Bumetanide) 2 Mg Tab, 2 MG PO QHS, (Reported) Febuxostat (Febuxostat) 40 Mg Tablet, 40 MG PO QHS, (Reported) Lidocaine (Lidocaine) 5% Adh..patch, 1 PATCH TD DAILY Lidocaine/Prilocaine (Lidocaine-Prilocaine Cream) 2.5%/2.5% Cream..g., 1 DOSE TOP 3XW, (Reported) APPLY TO PORT PRIOR TO DIALYSIS ON MON, WED, WED Multivitamins (Thera M Plus Tablet) 1 Each Tablet, 1 TAB PO DAILY, (Reported) Prednisone (Prednisone) 20 Mg Tablet, 20 MG PO ASDIRECTED Take 3 tab by mouth days 1-3, then 2 tab by mouth days 4-7, then 1 tab by mouth days 8-10 Scheduled PRN Albuterol Sulf (Albuterol Sulfate) 2.5 Mg/3 Ml Nebu, 3 ML INH Q6H PRN for S HORTNESS OF BREATH, (Reported) Hydroxyzine HCl (Hydroxyzine HCl) 10 Mg Tablet, 10 MG PO BID PRN for ANXIETY, (Reported) Ondansetron (Ondansetron Odt) 4 Mg Tab.rapdis, 4 MG SL TID PRN for NAUSEA OR VOMITING, (Reported) Oxycodone HCl (Oxycodone HCl) 5 Mg Tablet, 5 MG PO Q6HP PRN for Severe pain [Pill Cutter] 1 EACH EA, 1 EACH XX ASDIRECTED PRN for TO SPLIT MEDICATION Allergies Coded Allergies: amoxicillin (Verified Adverse Reaction, Mild, Nausea, diarrhea, 10/27/18) BORIS BAILEY DO Feb 08, 2020 19:59
[2020-02-09] MEDS ORDERED: RENV2TAB PO (09:08)
[2020-02-09] MEDS ORDERED: VELP5CHW PO (09:08)
--- NOTE | 2020-02-15 16:45 | IPN ---
DATE: 02/07/2020 SUBJECTIVE: Mr. Tracy is seen this morning during hemodialysis. He is feeling better, though still has some abdominal pain. He denies any vomiting and did eat his breakfast. He denies any dyspnea or chest pain. PHYSICAL EXAMINATION: VITAL SIGNS: Temperature 97.6 degrees Fahrenheit, heart rate 102 per minute, respiratory rate 20 per minute, blood pressure 142/90 mmHg, and oxygen saturation 95% on room air. HEENT: Head is atraumatic. NECK: Supple without JVD or thyroid enlargement. LUNGS: Clear to auscultation. HEART: Heart sounds are tachycardic. ABDOMEN: Generalized mild tenderness. Bowel sounds are normal. EXTREMITIES: Without any cyanosis or clubbing. NEUROLOGIC: He is awake, alert and oriented x3. LABORATORY DATA: Todays labs show WBC down to 13.0, hemoglobin 13.0, hematocrit 40.4. Sodium 137, potassium 4.9, CO2 24, BUN 82 and creatinine 10.1. PROBLEMS: 1. End-stage renal disease: Patient is due for dialysis today and is currently being dialyzed. He will complete his full treatment today. 2. Hypertension: Blood pressure is very well controlled on current antihypertensive medications. No changes are being made today. 3. Abdominal pain: Most likely he has abdominal wall issue due to recurrent cough. He has sore abdominal wall muscles. CAT scan of abdomen and pelvis was unremarkable. DISPOSITION: From a renal standpoint, patient can be discharged to home after dialysis today. [facility]
--- NOTE | 2020-02-16 10:01 | CR ---
DATE OF CONSULTATION: CONSULTATION REQUESTED BY: Aydin Rawls D.O. REASON FOR CONSULTATION: To assist in the management of end-stage renal disease. HISTORY OF PRESENT ILLNESS: Mr. Tracy is a 44-year-old gentleman with known history of longstanding diabetes, hypertension, PTSD and end-stage renal disease. Apparently he was recently diagnosed with rhinovirus respiratory infection about a week ago when he was in the Emergency Room. He reports that he had a severe episode of cough today and then he developed abdominal pain, due to which he presented to the Emergency Room. He was found to have leukocytosis with white blood cell count up to 20,000 and there was a concern about possible intraabdominal problem. He underwent a CAT scan of the abdomen and pelvis with I.V. contrast, which was reported negative for any acute pathology. Due to persistent abdominal pain and tenderness, he is admitted. Patient received only partial dialysis yesterday due to abdominal pain and could not complete his dialysis treatment. He will be due for next dialysis tomorrow, due to which a nephrology consultation is requested and patient is seen in the Emergency Room. Note; I also discussed the case with the Emergency Room physician earlier and gave permission to perform CAT scan of the abdomen and pelvis with I.V. contrast. PAST MEDICAL HISTORY: Significant for: 1. History of hypertension. 2. History of end-stage renal disease. 3. History of PTSD. 4. History of anxiety and depression. 5. History of gout. 6. History of asthma. SURGICAL HISTORY: Significant for AV fistula in left forearm. FAMILY HISTORY: Negative for end-stage renal disease. His father is and had history of alcoholism. Mother is alive with history of diabetes and obesity. PERSONAL AND SOCIAL HISTORY: Patient has no history of alcohol, drug or tobacco use. REVIEW OF SYSTEMS: Denies any headache or fever at present. Eyes, ears, nose and throat are unremarkable. CARDIOVASCULAR: Negative for dyspnea and chest pain. He denies any leg edema. RESPIRATORY: Negative for cough or hemoptysis. GI: Significant for abdominal pain. He denies any vomiting or diarrhea. He does have a history of chronic recurrent nausea. : Negative for dysuria or hematuria. ENDOCRINE: Negative for diabetes or thyroid problems. HEMATOLOGIC: Significant for anemia of chronic kidney disease. NEUROLOGIC: Negative for seizures. PSYCHOSOCIAL: Significant for PTSD, panic attacks, depression and anxiety. PHYSICAL EXAMINATION: Temperature 97.7 degrees Fahrenheit, heart rate 110 per minute, respiratory rate 16 per minute, blood pressure 140/88 mmHg and oxygen saturation 96% on room air. Head is atraumatic. Pupils equal and reactive to light and sclerae anicteric. Neck is supple and without JVD or thyroid enlargement. Heart sounds are tachycardic and lungs sound clear to auscultation. Abdomen is tender and bowel sounds are present. I could not feel any organomegaly. Extremities without any cyanosis or clubbing. Left arm AV fistula is patent. Neurologically, he is awake, alert and at his baseline mentation. IMAGING STUDIES: CAT scan of abdomen and pelvis done in the Emergency Room today showed no acute findings, bilateral renal atrophy and sigmoid and left colon diverticulosis without any acute inflammation. LABORATORY DATA: WBC 20.5, hemoglobin 12.8, hematocrit 38.5. Troponin less than 0.02. Lactic acid 1.4, total bilirubin 0.5, total protein 7.0 and albumin 3.7. Sodium 140, potassium 5.1, chloride 101, CO2 24, BUN 64, creatinine 9.0. PROBLEMS: 1. End-stage renal disease: Patient received partial dialysis treatment yesterday. He will be due for dialysis tomorrow and we can dialyze him tomorrow if he is still here in the hospital. At present, there is no emergent indication for dialysis today. 2. Abdominal pain and tenderness: Etiology is uncertain. Probably musculoskeletal discomfort due to recurrent cough. He already had a CAT scan of the abdomen and pelvis done with I.V. contrast, which did not show any acute intraabdominal pathology. At present, we will continue to monitor him closely. 3. Hypertension and blood pressure: Very well controlled, however, he is slightly tachycardic. I will recommend to resume his chronic medications including Metoprolol. Thank you for involving me in the care of Mr. Tracy. I will follow him along with you. DAVIDE
== END 2020-02-08 11:37 | disposition home or self-care (01) ==
LOC: M ED 06:49 → M ED INP 11:19 → ENRESERV 14:52 → M MSPAV 16:15
PROVIDERS: ADMIT Internal Medicine; ATTEND Internal Medicine
DX: D72.829 Elevated white blood cell count, unspecified (principal); B34.1 Enterovirus infection, unspecified; J06.9 Acute upper respiratory infection, unspecified; R10.9 Unspecified abdominal pain; R05 Cough; F32.9 Major depressive disorder, single episode, unspecified; F41.9 Anxiety disorder, unspecified; I12.0 Hypertensive chronic kidney disease with stage 5 chronic kidney disease or end stage renal disease; M10.9 Gout, unspecified; N18.6 End stage renal disease; Z79.899 Other long term (current) drug therapy; F43.10 Post-traumatic stress disorder, unspecified; Z79.52 Long term (current) use of systemic steroids; Z88.0 Allergy status to penicillin; Z62.810 Personal history of physical and sexual abuse in childhood
CPT/HCPCS: 36415; 71046; 74177; 80047; 80048; 80076; 82550; 82553; 83605; 83690; 84484; 85025; 85610; 86850; 86900; 86901; 93005; 93041; 94640; 96374; 96375; 99285; G0257; G0378; J2270; J2405; J2765; J2920; Q0162; Q9967

== ENCOUNTER 2020-02-09 08:35 | Emergency (ER) | payer MEDICARE, MEDICAID ==
[~2020-02-09] VITALS: Ht 170.2 cm; Wt 107.7 kg
[~2020-02-09 08:35] MED LIST changes: +BENZ-18 PO; +LIDO2.5C15 TOP; +LIDO5TD TD; +ONDA4TAB6 SL; +Pill Cutter XX; +VITMTA PO
[2020-02-09] MEDS ORDERED: RENV2TAB PO (09:08)
[2020-02-09] MEDS ORDERED: VELP5CHW PO (09:08)
[2020-02-09] MEDS ORDERED: NS 250 ML IV ONE (09:15)
--- NOTE | 2020-02-09 09:32 | REPVR ---
PROCEDURE INFORMATION: Exam: XR Chest, 1 View Exam date and time: 02/09/2020 9:12 AM Age: 44 years old Clinical indication: Other: Abdominal pain TECHNIQUE: Imaging protocol: XR of the chest Views: 1 view. COMPARISON: 1. CR Chest, 2 view PA, Lat 02/06/2020 1:[address] ABD/PEL W/IV CONTRAST ONLY 02/06/2020 9:29:22 AM FINDINGS: Lungs: Improved aeration of the lung bases. No consolidation. Pleural space: No significant pleural effusions. No pneumothorax. Heart/Mediastinum: Cardiac size is normal and mediastinal contour stable. Bones/joints: Unremarkable. IMPRESSION: No acute abnormalities are identified. Electronically signed by: Ace Jamil On 02/09/2020 09:32:03 AM
[2020-02-09 09:49] LABS: BASO % 0.2 % (0.0-1.0); EOS % 0.2 % (0.0-3.0); HEMATOCRIT 38.4 % (42.0-52.0); HEMOGLOBIN 12.6 g/dl (13.5-17.5); LYMPH % 11.7 % (24.0-44.0); MEAN CORPUSCULAR HEMOGLOBIN 30.5 pg (27.0-33.0); MEAN CORPUSCULAR HGB CONC 32.8 g/dl (32.0-36.5); MONO # 1.3 10^3/uL (0.0-0.8); MONO % 7.7 % (0.0-5.0); NEUTROPHILS # 13.5 10^3/uL (1.5-8.5); NEUTROPHILS % 77.7 % (36.0-66.0); PLATELET COUNT, AUTOMATED 286 10^3/uL (150-450); RED BLOOD COUNT 4.13 10^6/uL (4.30-6.10); WHITE BLOOD COUNT 17.4 10^3/uL (4.0-10.0)
[2020-02-09 10:04] LABS: INR 0.9; PROTHROMBIN TIME 12.3 SECONDS (12.5-14.3)
[2020-02-09 10:15] LABS: ALBUMIN 3.7 GM/DL (3.2-5.2); BILIRUBIN,DIRECT 0.1 MG/DL (0.0-0.2); BILIRUBIN,TOTAL 0.4 MG/DL (0.2-1.0); TOTAL PROTEIN 6.9 GM/DL (6.4-8.2)
[2020-02-09 10:19] LABS: CK-MB VALUE MASS 3.3 NG/ML (<3.6); MB/CK RELATIVE INDEX 1.61 (< OR =4); TROPONIN I 0.04 NG/ML (< 0.10)
[2020-02-09] MEDS ORDERED: ISOVUE-370 76% 100ML VIAL As Ordered ONE (12:34)
[2020-02-09] MEDS ORDERED: PERCOCET 5MG/325MG TAB PO ONE (13:15)
--- NOTE | 2020-02-09 13:35 | REPVR ---
PROCEDURE INFORMATION: Exam: CT Abdomen And Pelvis With Contrast Exam date and time: 02/09/2020 12:57 PM Age: 44 years old Clinical indication: Abdominal pain; Additional info: Abdl pain w elev wbc TECHNIQUE: Imaging protocol: Computed tomography of the abdomen and pelvis with intravenous contrast. Radiation optimization: All CT scans at this facility use at least one of these dose optimization techniques: automated exposure control; mA and/or kV adjustment per patient size (includes targeted exams where dose is matched to clinical indication); or iterative reconstruction. Contrast material: ISOVUE 370; Contrast volume: 100 ml; Contrast route: INTRAVENOUS (IV); COMPARISON: CT ABD/PEL W/IV CONTRAST ONLY 02/06/2020 9:29 AM FINDINGS: Lungs: Bibasilar mild pulmonary subsegmental atelectasis is present. Liver: Mild diffuse hypoattenuation of the liver is present consistent with hepatic steatosis. Gallbladder and bile ducts: Dependent intraluminal mild density is present in the nondistended gallbladder. No biliary ductal dilatation or ductal calculus identified. Pancreas: Normal. No ductal dilation. Spleen: Normal. No splenomegaly. Adrenals: Normal. No mass. Kidneys and ureters: Bilateral renal atrophy. Left renal 12.2 mm benign simple cyst. Stomach and bowel: Sigmoid and distal descending colonic diverticula are present without evidence of diverticulitis. Appendix: The vermiform appendix is normal. Intraperitoneal space: Unremarkable. No free air. No significant fluid collection. Vasculature: Calcified phleboliths are present in the lower pelvis bilaterally. The iliac arteries show mild bilateral atherosclerotic calcifications without evidence of aneurysm. Lymph nodes: Portacaval lymph node measuring 7.4 mm short axis. Urinary bladder: Unremarkable as visualized. Reproductive: Unremarkable as visualized. Bones/joints: Bilateral lower lumbar facet primary osteoarthritis. Severe L4-L5 spinal stenosis. Grade 1 L4-5 degenerative type anterolisthesis. Soft tissues: Bilateral inguinal hernias are present containing only intra-abdominal fat. IMPRESSION: 1. Mild fatty infiltration of the liver. 2. Gallbladder sludge. 3. Bilateral renal atrophy. 4. Diverticulosis. 5. Left renal benign simple cyst. COMMENTS: Consistent with the [employer]'s Incidental Findings Committee white paper (J Am Bakari Radiol 2018): Any incidental renal lesion less than 1 cm or classified as too small to characterize, or any incidental cystic renal lesion characterized as simple-appearing, is likely benign. No follow-up imaging is recommended for these lesions per consensus recommendations based on imaging criteria. Electronically signed by: Haroon Page On 02/09/2020 13:35:24 PM
[2020-02-09 15:14] VITALS: BP 172/98
--- NOTE | 2020-02-09 18:06 | ECGEPIP ---
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
== END 2020-02-09 15:24 | disposition home or self-care (01) ==
LOC: M ED 08:35
DX: R10.9 Unspecified abdominal pain (principal); N18.6 End stage renal disease; D72.829 Elevated white blood cell count, unspecified; R00.0 Tachycardia, unspecified; K76.0 Fatty (change of) liver, not elsewhere classified; K57.30 Diverticulosis of large intestine without perforation or abscess without bleeding; I10 Essential (primary) hypertension; Z79.899 Other long term (current) drug therapy; Z79.51 Long term (current) use of inhaled steroids; Z79.52 Long term (current) use of systemic steroids; Z88.1 Allergy status to other antibiotic agents; Z99.2 Dependence on renal dialysis
CPT/HCPCS: 36415; 71045; 74177; 80047; 80076; 81001; 82550; 82553; 83605; 83690; 84484; 85025; 85610; 85730; 86850; 86900; 86901; 87040; 93005; 93041; 96360; 96361; 99285; Q9967

== ENCOUNTER 2020-09-13 13:33 | Emergency (ER) | payer MEDICARE, MEDICAID ==
[~2020-09-13] VITALS: Ht 175.3 cm; Wt 112.0 kg
[~2020-09-13 13:33] MED LIST changes: -CLIN150C14 PO; +CLIN150C15 PO
[2020-09-13] MEDS ORDERED: METO1TAB7 (13:51)
[2020-09-13] MEDS ORDERED: ATOR1TAB19 (13:51)
[2020-09-13] MEDS ORDERED: LIDOCAINE VISCOUS 2% SOLN 15ML UDC SSP ONE (14:15)
[2020-09-13] MEDS ORDERED: ZITHTAB PO (14:40)
[2020-09-13] MEDS ORDERED: LIDO2SOL17 PO (14:45)
[2020-09-13 14:52] VITALS: BP 156/96
== END 2020-09-13 14:54 | disposition home or self-care (01) ==
LOC: M ED 13:33
DX: S02.5XXA Fracture of tooth (traumatic), initial encounter for closed fracture (principal); K04.7 Periapical abscess without sinus; K02.9 Dental caries, unspecified; K05.30 Chronic periodontitis, unspecified; X58.XXXA Exposure to other specified factors, initial encounter; Y92.89 Other specified places as the place of occurrence of the external cause; Y93.9 Activity, unspecified; Y99.9 Unspecified external cause status; K21.9 Gastro-esophageal reflux disease without esophagitis; I10 Essential (primary) hypertension; E78.5 Hyperlipidemia, unspecified; G89.29 Other chronic pain; M54.9 Dorsalgia, unspecified; F17.200 Nicotine dependence, unspecified, uncomplicated; F12.10 Cannabis abuse, uncomplicated; F41.9 Anxiety disorder, unspecified; F32.9 Major depressive disorder, single episode, unspecified; Z79.899 Other long term (current) drug therapy; Z88.0 Allergy status to penicillin

== ENCOUNTER 2020-11-25 14:28 | Emergency (ER) | payer MEDICAID, MEDICARE ==
[~2020-11-25] VITALS: Ht 170.2 cm; Wt 107.5 kg
[2020-11-25 14:28] VITALS: BP 147/83
[~2020-11-25 14:28] MED LIST changes: +ATOR1TAB19 PO; -CLIN150C15 PO; +CLIN150C17 PO; +LIDO1CRE42 TOP; -LIDO2.5C15 TOP; +METO1TAB7; +ZITHTAB PO
== END 2020-11-25 15:00 | disposition left against medical advice (07) ==
LOC: M ED 14:28
DX: Z53.21 Procedure and treatment not carried out due to patient leaving prior to being seen by health care provider (principal)

== ENCOUNTER 2020-12-11 06:33 | Inpatient (IN) | payer MEDICARE, MEDICAID ==
[~2020-12-11] VITALS: Ht 172.7 cm; Wt 105.5 kg
[~2020-12-11 06:33] MED LIST changes: -FLUO10CA16; -FLUO10CA16 PO; +FLUO10CA18; +FLUO10CA18 PO
[2020-12-11] MEDS ORDERED: DOCU100C16 PO (06:44)
[2020-12-11 07:47] LABS: BASO # 0.1 10^3/uL (0.0-0.2); BASO % 0.4 % (0.0-1.0); EOS % 7.4 % (0.0-3.0); HEMATOCRIT 37.6 % (42.0-52.0); HEMOGLOBIN 11.9 g/dl (13.5-17.5); LYMPH # 1.4 10^3/uL (1.5-5.0); LYMPH % 10.2 % (24.0-44.0); MEAN CORPUSCULAR HEMOGLOBIN 30.7 pg (27.0-33.0); MEAN CORPUSCULAR HGB CONC 31.6 g/dl (32.0-36.5); MEAN CORPUSCULAR VOLUME 96.9 fl (80.0-96.0); MONO # 1.1 10^3/uL (0.0-0.8); MONO % 8.1 % (2.0-8.0); NEUTROPHILS # 9.9 10^3/uL (1.5-8.5); NEUTROPHILS % 73.5 % (36.0-66.0); PLATELET COUNT, AUTOMATED 258 10^3/uL (150-450); RED BLOOD COUNT 3.88 10^6/uL (4.30-6.10); WHITE BLOOD COUNT 13.4 10^3/uL (4.0-10.0)
[2020-12-11] MEDS ORDERED: PERCOCET 5MG/325MG TAB PO ONE (07:55)
[2020-12-11 08:28] LABS: ALBUMIN 3.8 GM/DL (3.2-5.2); BILIRUBIN,DIRECT 0.1 MG/DL (0.0-0.2); BILIRUBIN,TOTAL 0.3 MG/DL (0.2-1.0); CALCIUM LEVEL 9.6 MG/DL (8.5-10.1); CREATININE FOR GFR 9.47 MG/DL (0.70-1.30); GLOMERULAR FILTRATION RATE 6.4 (>60); POTASSIUM SERUM 4.3 MEQ/L (3.5-5.1); TOTAL PROTEIN 6.9 GM/DL (6.4-8.2)
[2020-12-11] MEDS ORDERED: ISOVUE-370 76% 100ML VIAL As Ordered ONE (09:05)
[2020-12-11] MEDS ORDERED: HYDROMORPHONE HCL 0.5 MG/ 0.5 ML SYRINGE (J1170 PER 1) IV ONE (09:10)
[2020-12-11] MEDS ORDERED: ONDANSETRON 4MG/2ML VIAL IV ONE (09:10)
[2020-12-11] MEDS ORDERED: LIDO2SOL17 SSP (11:49)
[2020-12-11] MEDS ORDERED: TESS100C PO (11:49)
[2020-12-11 11:58] LABS: RSV AMPLIFICATION NEGATIVE (NEGATIVE)
[2020-12-11] MEDS ORDERED: ACETAMINOPHEN TAB 650MG DOSE (2X325MG) PO PRN (12:00)
[2020-12-11] MEDS ORDERED: MEROPENEM INJ 1 GM in IV 1 EA IV SCH ×4 (12:00)
[2020-12-11] MEDS ORDERED: METO1TAB7 PO (12:01)
[2020-12-11] MEDS ORDERED: hydrOXYzine 10 MG TAB PO PRN (12:05)
[2020-12-11] MEDS ORDERED: HOME MED LIST COMPLETE! XX SCH (12:05)
[2020-12-11] MEDS ORDERED: EMLA CREAM 5GM TUBE (LIDOCAINE/PRILOCAINE) TOP SCH (12:05)
[2020-12-11] MEDS ORDERED: BENZONATATE 100MG CAPSULE PO PRN (12:05)
[2020-12-11] MEDS ORDERED: ALBUTEROL SULFATE 2.5 MG/0.5 ML INH NEB SOLN INH PRN (12:05)
[2020-12-11] MEDS ORDERED: hydrALAZINE 20MG/ML 1ML VIAL (J0360 PER 20MG) IV PRN (12:05)
[2020-12-11] MEDS ORDERED: MORPHINE 2 MG/ML 1ML VIAL (J2270) IV PRN (12:10)
[2020-12-11] MEDS ORDERED: SODIUM CHLORIDE 0.9% 1000ML IV PRN (12:15)
[2020-12-11] MEDS ORDERED: LIDOCAINE 1% SDV 5ML VIAL SC PRN (12:15)
[2020-12-11] MEDS: (RENVELA) SEVELAMER **CARBONate** 800 MG TAB PO SCH ×2 (12:30→18:00)
[2020-12-11] MEDS: SUCROFERRIC OXYHYDROXIDE 500MG CHEW TAB (VELPHORO) PO SCH ×2 (12:30→18:00)
[2020-12-11] MEDS ORDERED: LIDOCAINE VISCOUS 2% SOLN 15ML UDC SSP PRN (13:00)
[2020-12-11] MEDS: ONDANSETRON 4 MG ORAL DISINTEGRATING TAB SL PRN ×2 (13:53→20:34)
[2020-12-11] MEDS ORDERED: MEROPENEM INJ 500 MG in IV 1 EA IV SCH ×2 (16:00→20:00)
[2020-12-11] MEDS: DOCUSATE SODIUM 100MG CAPSULE PO SCH (17:44)
[2020-12-11] MEDS: FEBUXOSTAT 40 MG TABLET (ULORIC) PO SCH (17:44)
[2020-12-11] MEDS: ATORVASTATIN 10 MG TAB PO SCH (17:45)
[2020-12-11 18:00] VITALS: BP 131/70
[2020-12-11] MEDS: HYDROmorphone 2 MG TAB PO PRN (18:21)
[2020-12-11] MEDS ORDERED: HYDROMORPHONE HCL 0.5 MG/ 0.5 ML SYRINGE (J1170 PER 1) IV PRN (19:45)
[2020-12-11] MEDS: BUMETANIDE 1 MG TAB PO SCH (20:29)
[2020-12-11] MEDS: HEPARIN SOD (PORCINE) 5000UNITS/ML 1ML VIAL/SYRINGE SC SCH (20:34)
[2020-12-12] MEDS: HYDROmorphone 2 MG TAB PO PRN ×5 (02:15→20:03)
[2020-12-12 05:50] LABS: HEMATOCRIT 38.6 % (42.0-52.0); HEMOGLOBIN 12.4 g/dl (13.5-17.5); MEAN CORPUSCULAR HEMOGLOBIN 30.5 pg (27.0-33.0); MEAN CORPUSCULAR HGB CONC 32.1 g/dl (32.0-36.5); MEAN CORPUSCULAR VOLUME 95.1 fl (80.0-96.0); PLATELET COUNT, AUTOMATED 231 10^3/uL (150-450); RED BLOOD COUNT 4.06 10^6/uL (4.30-6.10); WHITE BLOOD COUNT 17.2 10^3/uL (4.0-10.0)
[2020-12-12 06:00] VITALS: BP 140/89
[2020-12-12 06:13] LABS: ALBUMIN 3.7 GM/DL (3.2-5.2); BILIRUBIN,TOTAL 0.5 MG/DL (0.2-1.0); CALCIUM LEVEL 9.9 MG/DL (8.5-10.1); CREATININE FOR GFR 6.69 MG/DL (0.70-1.30); GLOMERULAR FILTRATION RATE 9.6 (>60); MAGNESIUM LEVEL 2.2 MG/DL (1.8-2.4); TOTAL PROTEIN 7.7 GM/DL (6.4-8.2)
[2020-12-12] MEDS: ONDANSETRON 4 MG ORAL DISINTEGRATING TAB SL PRN (06:23)
[2020-12-12] MEDS ORDERED: CIPROFLOXACIN 400 MG in IV 1 EA IV SCH (07:55)
[2020-12-12] MEDS ORDERED: metroNIDAZOLE 500 MG in IV 1 EA IV SCH (07:55)
[2020-12-12] MEDS: SUCROFERRIC OXYHYDROXIDE 500MG CHEW TAB (VELPHORO) PO SCH ×2 (08:00→11:56)
[2020-12-12] MEDS: (RENVELA) SEVELAMER **CARBONate** 800 MG TAB PO SCH ×2 (08:00→11:56)
[2020-12-12] MEDS: ATORVASTATIN 10 MG TAB PO SCH (09:34)
[2020-12-12] MEDS: DOCUSATE SODIUM 100MG CAPSULE PO SCH (09:34)
[2020-12-12] MEDS: HEPARIN SOD (PORCINE) 5000UNITS/ML 1ML VIAL/SYRINGE SC SCH ×2 (09:35→20:02)
[2020-12-12] MEDS: FEBUXOSTAT 40 MG TABLET (ULORIC) PO SCH (09:35)
[2020-12-12] MEDS: BUMETANIDE 1 MG TAB PO SCH (09:35)
[2020-12-12] MEDS: PIPERACILLIN/TAZOBACTAM SOD 2.25 GM in D5W MINI-BAG PLUS 50 ML IV SCH ×2 (10:23→18:18)
[2020-12-12 14:00] VITALS: BP 143/93
[2020-12-12] MEDS: NS 1,000 ML IV SCH (17:34)
[2020-12-12 19:31] VITALS: BP 90/46
[2020-12-12] MEDS: METOCLOPRAMIDE INJ 10MG/2ML VIAL (J2765 PER 1) IV PRN (20:02)
[2020-12-12 22:00] VITALS: BP 139/90
[2020-12-13] MEDS: HYDROmorphone 2 MG TAB PO PRN ×5 (01:29→19:28)
[2020-12-13] MEDS: PIPERACILLIN/TAZOBACTAM SOD 2.25 GM in D5W MINI-BAG PLUS 50 ML IV SCH ×3 (01:31→17:24)
[2020-12-13 06:00] VITALS: BP 138/98
[2020-12-13] MEDS: ATORVASTATIN 10 MG TAB PO SCH (06:16)
[2020-12-13] MEDS: DOCUSATE SODIUM 100MG CAPSULE PO SCH (06:16)
[2020-12-13] MEDS: FEBUXOSTAT 40 MG TABLET (ULORIC) PO SCH (06:17)
[2020-12-13] MEDS: HEPARIN SOD (PORCINE) 5000UNITS/ML 1ML VIAL/SYRINGE SC SCH ×2 (06:18→20:12)
[2020-12-13] MEDS: BUMETANIDE 1 MG TAB PO SCH (06:20)
[2020-12-13] MEDS ORDERED: SODIUM CHLORIDE 0.9% 1000ML IV PRN (08:40)
[2020-12-13] MEDS ORDERED: LIDOCAINE 1% SDV 5ML VIAL SC PRN (08:40)
[2020-12-13 08:55] LABS: BASO % 0.2 % (0.0-1.0); EOS # 0.4 10^3/uL (0.0-0.5); EOS % 2.2 % (0.0-3.0); HEMATOCRIT 37.5 % (42.0-52.0); HEMOGLOBIN 12.2 g/dl (13.5-17.5); LYMPH % 11.3 % (24.0-44.0); MEAN CORPUSCULAR HEMOGLOBIN 30.5 pg (27.0-33.0); MEAN CORPUSCULAR HGB CONC 32.5 g/dl (32.0-36.5); MEAN CORPUSCULAR VOLUME 93.8 fl (80.0-96.0); MONO # 1.6 10^3/uL (0.0-0.8); MONO % 9.2 % (2.0-8.0); NEUTROPHILS # 13.5 10^3/uL (1.5-8.5); NEUTROPHILS % 76.6 % (36.0-66.0); PLATELET COUNT, AUTOMATED 260 10^3/uL (150-450); WHITE BLOOD COUNT 17.7 10^3/uL (4.0-10.0)
[2020-12-13 09:41] LABS: ALBUMIN 3.5 GM/DL (3.2-5.2); BILIRUBIN,TOTAL 0.7 MG/DL (0.2-1.0); CREATININE FOR GFR 9.64 MG/DL (0.70-1.30); GLOMERULAR FILTRATION RATE 6.3 (>60); MAGNESIUM LEVEL 2.2 MG/DL (1.8-2.4)
[2020-12-13 14:00] VITALS: BP 130/76
[2020-12-13] MEDS: NS 1,000 ML IV SCH (14:18)
[2020-12-13] MEDS: NS 0.45% 1,000 ML IV SCH (17:25)
[2020-12-13] MEDS: METOCLOPRAMIDE INJ 10MG/2ML VIAL (J2765 PER 1) IV PRN (17:30)
[2020-12-13 22:00] VITALS: BP 154/84
[2020-12-14] MEDS: PIPERACILLIN/TAZOBACTAM SOD 2.25 GM in D5W MINI-BAG PLUS 50 ML IV SCH ×3 (02:46→18:00)
[2020-12-14] MEDS: HYDROmorphone 2 MG TAB PO PRN (02:49)
[2020-12-14 06:00] VITALS: BP 152/84
[2020-12-14 07:00] LABS: BASO # 0.1 10^3/uL (0.0-0.2); BASO % 0.4 % (0.0-1.0); EOS # 0.7 10^3/uL (0.0-0.5); EOS % 4.9 % (0.0-3.0); HEMATOCRIT 34.6 % (42.0-52.0); HEMOGLOBIN 11.5 g/dl (13.5-17.5); LYMPH # 1.4 10^3/uL (1.5-5.0); LYMPH % 10.7 % (24.0-44.0); MEAN CORPUSCULAR HEMOGLOBIN 30.8 pg (27.0-33.0); MEAN CORPUSCULAR HGB CONC 33.2 g/dl (32.0-36.5); MEAN CORPUSCULAR VOLUME 92.8 fl (80.0-96.0); MONO # 1.3 10^3/uL (0.0-0.8); MONO % 9.7 % (2.0-8.0); NEUTROPHILS # 9.9 10^3/uL (1.5-8.5); NEUTROPHILS % 73.8 % (36.0-66.0); PLATELET COUNT, AUTOMATED 229 10^3/uL (150-450); RED BLOOD COUNT 3.73 10^6/uL (4.30-6.10); WHITE BLOOD COUNT 13.4 10^3/uL (4.0-10.0)
[2020-12-14 07:32] LABS: ALBUMIN 3.3 GM/DL (3.2-5.2); BILIRUBIN,TOTAL 0.8 MG/DL (0.2-1.0); CALCIUM LEVEL 9.9 MG/DL (8.5-10.1); CREATININE FOR GFR 7.48 MG/DL (0.70-1.30); GLOMERULAR FILTRATION RATE 8.4 (>60); MAGNESIUM LEVEL 2.3 MG/DL (1.8-2.4); POTASSIUM SERUM 3.6 MEQ/L (3.5-5.1); TOTAL PROTEIN 6.8 GM/DL (6.4-8.2)
[2020-12-14] MEDS: ATORVASTATIN 10 MG TAB PO SCH (09:17)
[2020-12-14] MEDS: FEBUXOSTAT 40 MG TABLET (ULORIC) PO SCH (09:17)
[2020-12-14] MEDS: DOCUSATE SODIUM 100MG CAPSULE PO SCH (09:21)
[2020-12-14] MEDS: HEPARIN SOD (PORCINE) 5000UNITS/ML 1ML VIAL/SYRINGE SC SCH ×2 (09:21→20:34)
[2020-12-14] MEDS: BUMETANIDE 1 MG TAB PO SCH (09:29)
[2020-12-14] MEDS: METOCLOPRAMIDE INJ 10MG/2ML VIAL (J2765 PER 1) IV PRN (10:05)
[2020-12-14] MEDS: METOPROLOL SUCC (TopROL XL) 50MG **XL** TAB PO SCH (13:16)
[2020-12-14 14:00] VITALS: BP 126/80
[2020-12-14] MEDS: NS 0.45% 1,000 ML IV SCH (17:53)
[2020-12-14 22:00] VITALS: BP 149/96
[2020-12-15] MEDS: PIPERACILLIN/TAZOBACTAM SOD 2.25 GM in D5W MINI-BAG PLUS 50 ML IV SCH ×2 (01:15→09:30)
[2020-12-15 06:00] VITALS: BP 152/84
[2020-12-15 06:54] LABS: BASO # 0.1 10^3/uL (0.0-0.2); BASO % 0.6 % (0.0-1.0); EOS % 9.8 % (0.0-3.0); HEMATOCRIT 34.9 % (42.0-52.0); HEMOGLOBIN 11.5 g/dl (13.5-17.5); LYMPH # 1.1 10^3/uL (1.5-5.0); LYMPH % 10.9 % (24.0-44.0); MEAN CORPUSCULAR HEMOGLOBIN 30.5 pg (27.0-33.0); MEAN CORPUSCULAR VOLUME 92.6 fl (80.0-96.0); MONO % 9.7 % (2.0-8.0); NEUTROPHILS % 68.6 % (36.0-66.0); PLATELET COUNT, AUTOMATED 252 10^3/uL (150-450); RED BLOOD COUNT 3.77 10^6/uL (4.30-6.10); WHITE BLOOD COUNT 10.2 10^3/uL (4.0-10.0)
[2020-12-15 07:27] LABS: ALBUMIN 3.3 GM/DL (3.2-5.2); BILIRUBIN,TOTAL 0.7 MG/DL (0.2-1.0); CALCIUM LEVEL 9.6 MG/DL (8.5-10.1); CREATININE FOR GFR 9.86 MG/DL (0.70-1.30); GLOMERULAR FILTRATION RATE 6.1 (>60); MAGNESIUM LEVEL 2.6 MG/DL (1.8-2.4); POTASSIUM SERUM 4.1 MEQ/L (3.5-5.1); TOTAL PROTEIN 6.7 GM/DL (6.4-8.2)
[2020-12-15] MEDS: DOCUSATE SODIUM 100MG CAPSULE PO SCH (09:00)
[2020-12-15] MEDS: BUMETANIDE 1 MG TAB PO SCH (09:28)
[2020-12-15] MEDS: FEBUXOSTAT 40 MG TABLET (ULORIC) PO SCH (09:28)
[2020-12-15] MEDS: ATORVASTATIN 10 MG TAB PO SCH (09:29)
[2020-12-15] MEDS: METOPROLOL SUCC (TopROL XL) 50MG **XL** TAB PO SCH (09:30)
[2020-12-15] MEDS: HEPARIN SOD (PORCINE) 5000UNITS/ML 1ML VIAL/SYRINGE SC SCH ×2 (09:30→20:25)
[2020-12-15] MEDS: (RENVELA) SEVELAMER **CARBONate** 800 MG TAB PO SCH ×2 (12:28→17:37)
[2020-12-15 14:00] VITALS: BP 123/82
[2020-12-15] MEDS: SUCROFERRIC OXYHYDROXIDE 500MG CHEW TAB (VELPHORO) PO SCH ×2 (15:05→17:38)
[2020-12-15] MEDS: CIPROFLOXACIN 500MG TABLET PO SCH (17:38)
[2020-12-15] MEDS: METOCLOPRAMIDE INJ 10MG/2ML VIAL (J2765 PER 1) IV PRN (20:25)
[2020-12-15 22:00] VITALS: BP 126/77
[2020-12-16 06:00] VITALS: BP 126/89
[2020-12-16 06:05] LABS: BASO # 0.1 10^3/uL (0.0-0.2); BASO % 0.6 % (0.0-1.0); EOS # 1.1 10^3/uL (0.0-0.5); EOS % 10.5 % (0.0-3.0); HEMATOCRIT 36.9 % (42.0-52.0); HEMOGLOBIN 12.4 g/dl (13.5-17.5); LYMPH # 1.5 10^3/uL (1.5-5.0); MEAN CORPUSCULAR HGB CONC 33.6 g/dl (32.0-36.5); MEAN CORPUSCULAR VOLUME 92.3 fl (80.0-96.0); MONO % 9.9 % (2.0-8.0); NEUTROPHILS # 6.5 10^3/uL (1.5-8.5); NEUTROPHILS % 63.6 % (36.0-66.0); PLATELET COUNT, AUTOMATED 293 10^3/uL (150-450); WHITE BLOOD COUNT 10.3 10^3/uL (4.0-10.0)
[2020-12-16] MEDS: FEBUXOSTAT 40 MG TABLET (ULORIC) PO SCH (06:21)
[2020-12-16] MEDS: ATORVASTATIN 10 MG TAB PO SCH (06:21)
[2020-12-16 06:22] VITALS: BP 172/118
[2020-12-16] MEDS: METOPROLOL SUCC (TopROL XL) 50MG **XL** TAB PO SCH (06:22)
[2020-12-16] MEDS: DOCUSATE SODIUM 100MG CAPSULE PO SCH (06:22)
[2020-12-16] MEDS: CIPROFLOXACIN 500MG TABLET PO SCH (06:22)
[2020-12-16] MEDS: BUMETANIDE 1 MG TAB PO SCH (06:22)
[2020-12-16] MEDS: HEPARIN SOD (PORCINE) 5000UNITS/ML 1ML VIAL/SYRINGE SC SCH (06:23)
[2020-12-16 06:30] LABS: ALBUMIN 3.1 GM/DL (3.2-5.2); BILIRUBIN,TOTAL 0.4 MG/DL (0.2-1.0); CALCIUM LEVEL 9.8 MG/DL (8.5-10.1); CREATININE FOR GFR 11.4 MG/DL (0.70-1.30); GLOMERULAR FILTRATION RATE 5.2 (>60); MAGNESIUM LEVEL 2.5 MG/DL (1.8-2.4); POTASSIUM SERUM 3.8 MEQ/L (3.5-5.1); TOTAL PROTEIN 7.6 GM/DL (6.4-8.2)
[2020-12-16] MEDS: SUCROFERRIC OXYHYDROXIDE 500MG CHEW TAB (VELPHORO) PO SCH (07:54)
[2020-12-16] MEDS: (RENVELA) SEVELAMER **CARBONate** 800 MG TAB PO SCH (07:54)
[2020-12-16] MEDS ORDERED: CIPR-249 PO (08:14)
== END 2020-12-16 10:59 | disposition home or self-care (01) | DRG 391 ==
LOC: M ED 06:33 → M ED INP 12:02 → ENRESERV 12:25 → M MSPAV 17:33
PROVIDERS: ADMIT Internal Medicine; ATTEND Neuromusculoskeletal Medicine & OMM
PROC: 5A1D70Z Performance of Urinary Filtration, Intermittent, Less than 6 Hours Per Day (ICD-10-PCS; principal; 2020-12-11)
DX: K57.92 Diverticulitis of intestine, part unspecified, without perforation or abscess without bleeding (principal); N18.6 End stage renal disease; I12.0 Hypertensive chronic kidney disease with stage 5 chronic kidney disease or end stage renal disease; N25.81 Secondary hyperparathyroidism of renal origin; Z99.2 Dependence on renal dialysis; E78.5 Hyperlipidemia, unspecified; Z79.899 Other long term (current) drug therapy; Z20.822 Contact with and (suspected) exposure to COVID-19; Z88.1 Allergy status to other antibiotic agents; F41.9 Anxiety disorder, unspecified; F32.9 Major depressive disorder, single episode, unspecified; F43.10 Post-traumatic stress disorder, unspecified; M54.9 Dorsalgia, unspecified; M10.9 Gout, unspecified; J45.909 Unspecified asthma, uncomplicated; Z62.810 Personal history of physical and sexual abuse in childhood; D63.1 Anemia in chronic kidney disease; R11.2 Nausea with vomiting, unspecified; M51.36 Other intervertebral disc degeneration, lumbar region

== ENCOUNTER 2021-01-06 17:53 | Emergency (ER) | payer MEDICARE, MEDICAID ==
[~2021-01-06] VITALS: Ht 170.2 cm; Wt 104.0 kg
[~2021-01-06 17:53] MED LIST changes: +CIPR-249 PO; +DOCU100C16 PO; +FLUO10CA16; +FLUO10CA16 PO; -FLUO10CA18; -FLUO10CA18 PO; +LIDO2SOL17 SSP; +METO1TAB7 PO
[2021-01-06 17:54] VITALS: BP 140/76
== END 2021-01-06 21:09 | disposition left against medical advice (07) ==
LOC: M ED 17:53
DX: R10.32 Left lower quadrant pain (principal); Z53.9 Procedure and treatment not carried out, unspecified reason; I10 Essential (primary) hypertension; K21.9 Gastro-esophageal reflux disease without esophagitis; F41.9 Anxiety disorder, unspecified; F32.9 Major depressive disorder, single episode, unspecified; F90.9 Attention-deficit hyperactivity disorder, unspecified type; F43.10 Post-traumatic stress disorder, unspecified; Z87.19 Personal history of other diseases of the digestive system; N18.6 End stage renal disease; Z99.2 Dependence on renal dialysis; R51.9 Headache, unspecified; J45.909 Unspecified asthma, uncomplicated; M54.9 Dorsalgia, unspecified; F12.10 Cannabis abuse, uncomplicated; Z79.899 Other long term (current) drug therapy; Z88.0 Allergy status to penicillin

== ENCOUNTER → 2021-02-11 | Outpatient (CLI) | payer MEDICARE, MEDICAID ==
[2021-02-11 13:39] LABS: HEMATOCRIT 33.3 % (42.0-52.0); HEMOGLOBIN 10.7 g/dl (13.5-17.5); MEAN CORPUSCULAR HEMOGLOBIN 30.9 pg (27.0-33.0); MEAN CORPUSCULAR HGB CONC 32.1 g/dl (32.0-36.5); MEAN CORPUSCULAR VOLUME 96.2 fl (80.0-96.0); PLATELET COUNT, AUTOMATED 219 10^3/uL (150-450); RED BLOOD COUNT 3.46 10^6/uL (4.30-6.10)
[2021-02-11 14:29] LABS: ALBUMIN 3.8 GM/DL (3.2-5.2); BILIRUBIN,DIRECT 0.1 MG/DL (0.0-0.2); BILIRUBIN,TOTAL 0.4 MG/DL (0.2-1.0); CALCIUM LEVEL 9.2 MG/DL (8.5-10.1); CREATININE FOR GFR 8.88 MG/DL (0.70-1.30); GLOMERULAR FILTRATION RATE 6.9 (>60); TOTAL PROTEIN 7.1 GM/DL (6.4-8.2)
== END ==
LOC: M LAB 12:25
PROVIDERS: ATTEND Student in an Organized Health Care Education/Training Program
DX: R10.32 Left lower quadrant pain (principal)

== ENCOUNTER → 2021-03-06 | Outpatient (REF) | payer MEDICARE, MEDICAID | LOC: M SFHCPLAZ 10:06 | PROVIDERS: ATTEND Student in an Organized Health Care Education/Training Program | DX: J02.9 Acute pharyngitis, unspecified (principal); R05.9 Cough, unspecified | CPT/HCPCS: 87081; U0003 ==

== ENCOUNTER → 2021-03-07 | Outpatient (CLI) | payer MEDICARE, MEDICAID ==
--- NOTE | 2021-03-07 14:08 | REP ---
INDICATION: LLQ PAIN. COMPARISON: Multiple the latest 12/11/2020 contrast enhanced exam TECHNIQUE: Standard helical technique without contrast FINDINGS: The lung bases are clear and unchanged. There are tiny choleliths. The liver, spleen, pancreas, adrenal glands, and kidneys are essentially unchanged. Once again, the kidneys are tiny. The abdominal aorta and para-aortic regions are unchanged. The bowel loops and the mesenteries are unchanged. No mass or adenopathy has developed. There is no evidence of free fluid or free air. There are bilateral pelvic phleboliths status quo. There is sigmoid colon diverticulosis status quo. There is no change in the osseous structures. IMPRESSION: 1. Significant renal atrophy status quo. 2. Evidence of tiny choleliths which appear to have developed since the last exam. 3. 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 4. Other findings as described above. <Electronically signed by Gary Francis > 03/07/21 [id number]
== END ==
LOC: M RAD 13:32
PROVIDERS: ATTEND Student in an Organized Health Care Education/Training Program
DX: R10.32 Left lower quadrant pain (principal); K57.30 Diverticulosis of large intestine without perforation or abscess without bleeding; K80.20 Calculus of gallbladder without cholecystitis without obstruction

== ENCOUNTER 2021-04-30 11:57 | Emergency (ER) | payer MEDICARE, MEDICAID ==
[~2021-04-30] VITALS: Ht 177.8 cm; Wt 106.5 kg
[2021-04-30 11:58] VITALS: BP 174/92
== END 2021-04-30 15:55 | disposition left against medical advice (07) ==
LOC: M ED 11:57
DX: Z53.21 Procedure and treatment not carried out due to patient leaving prior to being seen by health care provider (principal)

== ENCOUNTER 2021-09-05 16:52 | Emergency (ER) | payer MEDICARE, MEDICAID ==
[~2021-09-05] VITALS: Ht 172.7 cm; Wt 97.0 kg
[~2021-09-05 16:52] MED LIST changes: -FLUO10CA16; -FLUO10CA16 PO; +FLUO10CA18; +FLUO10CA18 PO
[2021-09-05] MEDS ORDERED: LIDOCAINE VISCOUS 2% SOLN 15ML UDC SSP ONE (18:30)
[2021-09-05] MEDS ORDERED: CLINDAMYCIN 150MG CAPSULE PO ONE ×2 (20:10→20:15)
[2021-09-05] MEDS ORDERED: CLEO300C2 PO (20:11)
[2021-09-05] MEDS ORDERED: LIDO2SOL17 PO (20:12)
[2021-09-05 20:24] VITALS: BP 155/102
== END 2021-09-05 20:35 | disposition home or self-care (01) ==
LOC: M ED 16:52
DX: K08.89 Other specified disorders of teeth and supporting structures (principal); K02.9 Dental caries, unspecified; N18.6 End stage renal disease; Z99.2 Dependence on renal dialysis; Z79.899 Other long term (current) drug therapy; Z88.0 Allergy status to penicillin

== ENCOUNTER 2021-10-03 07:21 | Emergency (ER) | payer MEDICARE, MEDICAID ==
[~2021-10-03] VITALS: Ht 175.3 cm; Wt 96.0 kg
[2021-10-03] MEDS ORDERED: TRAZ-252 (07:34)
[2021-10-03] MEDS ORDERED: BUSP5TA (07:34)
[2021-10-03] MEDS ORDERED: LORA1TAB4 (07:34)
[2021-10-03] MEDS ORDERED: COMBIVENT RESPIMAT 100-20MCG INHALER 4GM INH SCH (08:05)
[2021-10-03] MEDS ORDERED: methylPREDNISolone 125MG 2ML VIAL IV ONE (08:05)
[2021-10-03 08:42] LABS: BASO % 0.4 % (0.0-1.0); EOS # 0.6 10^3/uL (0.0-0.5); EOS % 11.5 % (0.0-3.0); HEMATOCRIT 29.7 % (42.0-52.0); HEMOGLOBIN 9.4 g/dl (13.5-17.5); LYMPH % 20.8 % (24.0-44.0); MEAN CORPUSCULAR HEMOGLOBIN 30.6 pg (27.0-33.0); MEAN CORPUSCULAR HGB CONC 31.6 g/dl (32.0-36.5); MEAN CORPUSCULAR VOLUME 96.7 fl (80.0-96.0); MONO # 0.6 10^3/uL (0.0-0.8); MONO % 11.5 % (2.0-8.0); NEUTROPHILS # 2.7 10^3/uL (1.5-8.5); NEUTROPHILS % 55.6 % (36.0-66.0); PLATELET COUNT, AUTOMATED 173 10^3/uL (150-450); RED BLOOD COUNT 3.07 10^6/uL (4.30-6.10); WHITE BLOOD COUNT 4.8 10^3/uL (4.0-10.0)
[2021-10-03 09:02] LABS: CALCIUM LEVEL 8.7 MG/DL (8.5-10.1); CREATININE FOR GFR 10.2 MG/DL (0.70-1.30); GLOMERULAR FILTRATION RATE 5.9 (>60); POTASSIUM SERUM 3.7 MEQ/L (3.5-5.1)
[2021-10-03] MEDS ORDERED: PRED20TA PO (09:51)
[2021-10-03 09:56] VITALS: BP 156/96
== END 2021-10-03 10:02 | disposition home or self-care (01) ==
LOC: M ED 07:21
DX: J09.X2 Influenza due to identified novel influenza A virus with other respiratory manifestations (principal); N18.6 End stage renal disease; Z99.2 Dependence on renal dialysis; I10 Essential (primary) hypertension; J45.909 Unspecified asthma, uncomplicated; Z79.899 Other long term (current) drug therapy; Z88.0 Allergy status to penicillin
CPT/HCPCS: 71045; 80048; 85025; 87486; 87581; 87633; 87798; 94640; 96374; 99284; J2930

== ENCOUNTER 2021-10-07 08:35 | Emergency (ER) | payer MEDICARE, MEDICAID ==
[~2021-10-07] VITALS: Ht 172.7 cm; Wt 96.9 kg
[~2021-10-07 08:35] MED LIST changes: +BUSP5TA; +TRAZ-252
[2021-10-07 08:36] VITALS: BP 165/94
== END 2021-10-07 14:55 | disposition left against medical advice (07) ==
LOC: M ED 08:35
DX: Z53.21 Procedure and treatment not carried out due to patient leaving prior to being seen by health care provider (principal)

== ENCOUNTER 2021-11-29 18:59 | Inpatient (IN) | payer MEDICARE, MEDICAID ==
[~2021-11-29] VITALS: Ht 175.3 cm; Wt 92.0 kg
[~2021-11-29 18:59] MED LIST changes: +ALBU2.5V10 INH; -ALBU83IN INH; -BUSP5TA; +BUSP5TA PO; +LORA1TAB4 PO
[2021-11-29] MEDS ORDERED: ONDANSETRON 4MG ORAL DISINTEGRATING TAB PO ONE (20:50)
[2021-11-29] MEDS ORDERED: ALPRAZolam 0.5 MG TAB PO ONE (20:50)
[2021-11-29] MEDS ORDERED: ACETAMINOPHEN TAB 650MG DOSE (2X325MG) PO ONE (20:50)
[2021-11-29 21:37] LABS: HEMATOCRIT 32.5 % (42.0-52.0); HEMOGLOBIN 10.4 g/dl (13.5-17.5); MEAN CORPUSCULAR HEMOGLOBIN 30.7 pg (27.0-33.0); MEAN CORPUSCULAR VOLUME 95.9 fl (80.0-96.0); PLATELET COUNT, AUTOMATED 188 10^3/uL (150-450); RED BLOOD COUNT 3.39 10^6/uL (4.30-6.10); WHITE BLOOD COUNT 11.3 10^3/uL (4.0-10.0)
[2021-11-29 22:00] LABS: CK-MB VALUE MASS 1.3 NG/ML (<3.6); MB/CK RELATIVE INDEX 1.03 (< OR =4)
[2021-11-29 22:13] LABS: RSV AMPLIFICATION NEGATIVE (NEGATIVE)
[2021-11-29 22:15] LABS: ACETAMINOPHEN LEVEL < 2.0 UG/ML (10.0-30.0); ALT/SGPT 27 U/L (12-78); BILIRUBIN,DIRECT 0.1 MG/DL (0.0-0.2); BILIRUBIN,TOTAL 0.6 MG/DL (0.2-1.0); BLOOD UREA NITROGEN 63 MG/DL (7-18); CALCIUM LEVEL 8.6 MG/DL (8.5-10.1); CARBON DIOXIDE LEVEL 24 MEQ/L (21-32); CHLORIDE LEVEL 103 MEQ/L (98-107); ETHYL ALCOHOL (ETHANOL) < 0.003 % (0.000-0.010); GLOMERULAR FILTRATION RATE 5.9 (>60); GLUCOSE, FASTING 117 MG/DL (70-100); POTASSIUM SERUM 4.9 MEQ/L (3.5-5.1); SALICYLATE LEVEL < 1.7 MG/DL (5.0-30.0); SODIUM LEVEL 140 MEQ/L (136-145); TOTAL PROTEIN 7.1 GM/DL (6.4-8.2)
[2021-11-29] MEDS ORDERED: hydrALAZINE 20MG/ML 1ML VIAL (J0360 PER 20MG) IV ONE (22:35)
[2021-11-29 22:49] LABS: AMPHETAMINES LEVEL URINE NEGATIVE (NEGATIVE); BARBITURATES URINE NEGATIVE (NEGATIVE); BENZODIAZEPINES URINE NEGATIVE (NEGATIVE); CANNABINOIDS URINE POSITIVE (NEGATIVE); COCAINE METABOLITE URINE NEGATIVE (NEGATIVE); METHADONE URINE NEGATIVE (NEGATIVE); OPIATES URINE NEGATIVE (NEGATIVE); PHENCYCLIDINE URINE NEGATIVE (NEGATIVE)
[2021-11-30] VITALS (9 sets, daily range): BP systolic 145–170; BP diastolic 80–95
[2021-11-30] MEDS ORDERED: hydrALAZINE 20MG/ML 1ML VIAL (J0360 PER 20MG) IV ONE (00:15)
[2021-11-30] MEDS ORDERED: HOME MED LIST COMPLETE! XX SCH (00:45)
[2021-11-30] MEDS ORDERED: cloNIDine 0.1MG TABLET PO ONE (03:00)
[2021-11-30] MEDS ORDERED: ALBUTEROL SULFATE 2.5 MG/0.5 ML INH NEB SOLN NEB PRN (03:45)
[2021-11-30] MEDS ORDERED: LIDOCAINE 5% (LIDODERM) PATCH TD ONE (04:00)
[2021-11-30] MEDS ORDERED: ACETAMINOPHEN 1000MG 100ML IV BTL (OFIRMEV) (J0131 PER 10MG) IV ONE (04:00)
[2021-11-30] MEDS: hydrALAZINE 20MG/ML 1ML VIAL (J0360 PER 20MG) IV PRN ×2 (06:13→11:20)
[2021-11-30] MEDS ORDERED: ATORVASTATIN 10 MG TAB PO SCH (09:00)
[2021-11-30] MEDS ORDERED: FEBUXOSTAT 40 MG TABLET (ULORIC) PO SCH (09:00)
[2021-11-30] MEDS ORDERED: LIDOCAINE VISCOUS 2% SOLN 15ML UDC SSP PRN (10:35)
[2021-11-30] MEDS ORDERED: LORazepam 1 MG TAB PO PRN ×2 (10:40→11:05)
[2021-11-30] MEDS ORDERED: LOSA50TA28 PO (11:10)
[2021-11-30 11:12] LABS: HEMATOCRIT 31.9 % (42.0-52.0); HEMOGLOBIN 10.2 g/dl (13.5-17.5); MEAN CORPUSCULAR HEMOGLOBIN 31.4 pg (27.0-33.0); MEAN CORPUSCULAR VOLUME 98.2 fl (80.0-96.0); PLATELET COUNT, AUTOMATED 180 10^3/uL (150-450); RED BLOOD COUNT 3.25 10^6/uL (4.30-6.10); WHITE BLOOD COUNT 11.1 10^3/uL (4.0-10.0)
[2021-11-30] MEDS: FEBUXOSTAT 40 MG TABLET (ULORIC) PO SCH (11:21)
[2021-11-30] MEDS: DOCUSATE SODIUM 100MG CAPSULE PO SCH (11:21)
[2021-11-30] MEDS: ONDANSETRON 4MG ORAL DISINTEGRATING TAB SL PRN (11:21)
[2021-11-30] MEDS: BUMETANIDE 1 MG TAB PO SCH (11:21)
[2021-11-30] MEDS: ATORVASTATIN 10 MG TAB PO SCH (11:21)
[2021-11-30] MEDS: busPIRone 5 MG TAB PO SCH ×2 (11:21→20:08)
[2021-11-30] MEDS: MULTIVITAMINS/MINERALS THERAP 1 TAB PO SCH (11:21)
[2021-11-30] MEDS: ACETAMINOPHEN TAB 650MG DOSE (2X325MG) PO PRN (11:35)
[2021-11-30 11:46] LABS: CALCIUM LEVEL 8.4 MG/DL (8.5-10.1); CREATININE FOR GFR 11.4 MG/DL (0.70-1.30); GLOMERULAR FILTRATION RATE 5.2 (>60); MAGNESIUM LEVEL 2.2 MG/DL (1.8-2.4); POTASSIUM SERUM 5.2 MEQ/L (3.5-5.1)
[2021-11-30] MEDS: (RENVELA) SEVELAMER **CARBONate** 800 MG TAB PO SCH ×2 (14:05→17:46)
[2021-11-30] MEDS: SUCROFERRIC OXYHYDROXIDE 500MG CHEW TAB (VELPHORO) PO SCH ×2 (14:06→17:46)
[2021-11-30] MEDS ORDERED: LORazepam 0.5 MG TAB PO PRN (14:50)
[2021-11-30] MEDS ORDERED: **NOTE PATIENT COMMENT** MISC XX ONE (16:00)
[2021-11-30] MEDS ORDERED: ANALGESIC BALM CRM 3OZ TOP PRN (17:00)
[2021-11-30] MEDS ORDERED: PATIROMER SORBITEX CALCIUM 8.4 GM POWDER PACKET (VELTASSA) PO ONE (18:00)
[2021-11-30] MEDS ORDERED: ISOVUE-370 76% 100ML VIAL As Ordered ONE (18:01)
[2021-11-30] MEDS: BENZONATATE 100MG CAPSULE PO SCH (20:08)
[2021-11-30] MEDS: PARoxetine 10MG TABLET PO SCH (20:08)
[2021-12-01] VITALS: BP 152/83
[2021-12-01 04:00] VITALS: BP_SYST 172; BP_SYST 180; BP_DIAS 102; BP_DIAS 84
[2021-12-01] MEDS: hydrALAZINE 20MG/ML 1ML VIAL (J0360 PER 20MG) IV PRN (04:42)
[2021-12-01] MEDS ORDERED: LIDOCAINE 1% SDV 5ML VIAL SC PRN (05:50)
[2021-12-01] MEDS ORDERED: SODIUM CHLORIDE 0.9% 1000ML IV PRN (05:50)
[2021-12-01 06:12] LABS: HEMATOCRIT 32.3 % (42.0-52.0); HEMOGLOBIN 10.6 g/dl (13.5-17.5); MEAN CORPUSCULAR HEMOGLOBIN 30.9 pg (27.0-33.0); MEAN CORPUSCULAR HGB CONC 32.8 g/dl (32.0-36.5); MEAN CORPUSCULAR VOLUME 94.2 fl (80.0-96.0); PLATELET COUNT, AUTOMATED 174 10^3/uL (150-450); RED BLOOD COUNT 3.43 10^6/uL (4.30-6.10); WHITE BLOOD COUNT 12.7 10^3/uL (4.0-10.0)
[2021-12-01 06:42] LABS: BLOOD UREA NITROGEN 81 MG/DL (7-18); CALCIUM LEVEL 9.3 MG/DL (8.5-10.1); CARBON DIOXIDE LEVEL 20 MEQ/L (21-32); CHLORIDE LEVEL 102 MEQ/L (98-107); GLOMERULAR FILTRATION RATE 4.6 (>60); GLUCOSE, FASTING 108 MG/DL (70-100); POTASSIUM SERUM 5.3 MEQ/L (3.5-5.1); SODIUM LEVEL 132 MEQ/L (136-145)
[2021-12-01 07:34] VITALS: BP 172/88
[2021-12-01] MEDS: LOSARTAN 50MG TABLET PO SCH (08:00)
[2021-12-01] MEDS: SUCROFERRIC OXYHYDROXIDE 500MG CHEW TAB (VELPHORO) PO SCH ×3 (08:00→17:48)
[2021-12-01] MEDS: ONDANSETRON 4MG ORAL DISINTEGRATING TAB SL PRN ×2 (08:00→23:22)
[2021-12-01] MEDS: LORazepam 0.5 MG TAB PO PRN ×3 (08:00→23:13)
[2021-12-01] MEDS: (RENVELA) SEVELAMER **CARBONate** 800 MG TAB PO SCH (08:00)
[2021-12-01] MEDS: ACETAMINOPHEN TAB 650MG DOSE (2X325MG) PO PRN ×2 (08:01→15:28)
[2021-12-01] MEDS ORDERED: GENTAMICIN 120 MG in D5W 50 ML IV ONE ×2 (08:35→13:00)
[2021-12-01] MEDS ORDERED: LORazepam 1 MG TAB PO SCH (09:00)
[2021-12-01 09:54] LABS: ERYTHROCYTE SEDIMENTATION RATE 47 mm/hr (0-15)
[2021-12-01 10:03] LABS: RHEUMATOID FACTOR QUANT < 10.0 IU/ML (<15.0)
[2021-12-01] MEDS: METOPROLOL SUCC (TopROL XL) 50MG **XL** TAB PO SCH (10:28)
[2021-12-01] MEDS: busPIRone 5 MG TAB PO SCH ×2 (10:28→21:02)
[2021-12-01] MEDS: BENZONATATE 100MG CAPSULE PO SCH ×3 (10:28→21:02)
[2021-12-01] MEDS: PIPERACILLIN/TAZOBACTAM SOD 2.25 GM in D5W MINI-BAG PLUS 50 ML IV SCH ×2 (10:29→18:39)
[2021-12-01 11:53] VITALS: BP 138/74
[2021-12-01] MEDS: MULTIVITAMINS/MINERALS THERAP 1 TAB PO SCH (11:53)
[2021-12-01] MEDS: BUMETANIDE 1 MG TAB PO SCH (11:53)
[2021-12-01] MEDS: DOCUSATE SODIUM 100MG CAPSULE PO SCH (11:53)
[2021-12-01] MEDS: FEBUXOSTAT 40 MG TABLET (ULORIC) PO SCH (11:53)
[2021-12-01] MEDS: ATORVASTATIN 10 MG TAB PO SCH (11:53)
[2021-12-01] MEDS ORDERED: VANCOMYCIN HCL 1,000 MG, VIAL MATE ADAPTER 1 EACH in NS 250 ML IV ONE (12:00)
[2021-12-01] MEDS ORDERED: VANCOMYCIN HCL 1,000 MG, VIAL MATE ADAPTER 1 EACH in NS 250 ML IV SCH (16:00)
[2021-12-01 17:00] VITALS: BP 140/80
[2021-12-01 20:00] VITALS: BP 169/89
[2021-12-01] MEDS: PARoxetine 10MG TABLET PO SCH (21:02)
[2021-12-02] VITALS: BP 153/86
[2021-12-02] MEDS: PIPERACILLIN/TAZOBACTAM SOD 2.25 GM in D5W MINI-BAG PLUS 50 ML IV SCH ×2 (01:24→12:55)
[2021-12-02 04:00] VITALS: BP 149/81
[2021-12-02 05:36] LABS: BASO % 0.2 % (0.0-1.0); EOS # 0.2 10^3/uL (0.0-0.5); EOS % 1.4 % (0.0-3.0); HEMATOCRIT 31.9 % (42.0-52.0); HEMOGLOBIN 10.3 g/dl (13.5-17.5); LYMPH # 0.9 10^3/uL (1.5-5.0); LYMPH % 7.5 % (24.0-44.0); MEAN CORPUSCULAR HGB CONC 32.3 g/dl (32.0-36.5); MEAN CORPUSCULAR VOLUME 96.1 fl (80.0-96.0); MONO # 1.4 10^3/uL (0.0-0.8); MONO % 11.5 % (2.0-8.0); NEUTROPHILS # 9.9 10^3/uL (1.5-8.5); NEUTROPHILS % 78.9 % (36.0-66.0); PLATELET COUNT, AUTOMATED 182 10^3/uL (150-450); RED BLOOD COUNT 3.32 10^6/uL (4.30-6.10); WHITE BLOOD COUNT 12.6 10^3/uL (4.0-10.0)
[2021-12-02 05:59] LABS: CALCIUM LEVEL 9.1 MG/DL (8.5-10.1); CREATININE FOR GFR 8.85 MG/DL (0.70-1.30); GLOMERULAR FILTRATION RATE 6.9 (>60); POTASSIUM SERUM 4.9 MEQ/L (3.5-5.1); VANCOMYCIN RANDOM 10.1 UG/ML
[2021-12-02 07:47] VITALS: BP 129/69
[2021-12-02] MEDS ORDERED: VANCOMYCIN HCL 1,000 MG, VIAL MATE ADAPTER 1 EACH in D5W 250 ML IV ONE (08:00)
[2021-12-02] MEDS: busPIRone 5 MG TAB PO SCH ×2 (08:55→21:36)
[2021-12-02] MEDS: BENZONATATE 100MG CAPSULE PO SCH ×3 (08:55→21:35)
[2021-12-02] MEDS: SUCROFERRIC OXYHYDROXIDE 500MG CHEW TAB (VELPHORO) PO SCH ×4 (08:55→17:53)
[2021-12-02] MEDS: LOSARTAN 50MG TABLET PO SCH (08:56)
[2021-12-02] MEDS: METOPROLOL SUCC (TopROL XL) 50MG **XL** TAB PO SCH (08:56)
[2021-12-02 12:09] LABS: ANTINUCLEAR ANTIBODIES DIRECT Negative (Negative)
[2021-12-02 12:13] VITALS: BP 130/90
[2021-12-02] MEDS: ACETAMINOPHEN TAB 650MG DOSE (2X325MG) PO PRN (12:52)
[2021-12-02] MEDS: MULTIVITAMINS/MINERALS THERAP 1 TAB PO SCH (12:53)
[2021-12-02] MEDS: FEBUXOSTAT 40 MG TABLET (ULORIC) PO SCH (12:54)
[2021-12-02] MEDS: BUMETANIDE 1 MG TAB PO SCH (12:54)
[2021-12-02] MEDS: DOCUSATE SODIUM 100MG CAPSULE PO SCH (12:54)
[2021-12-02] MEDS: ATORVASTATIN 10 MG TAB PO SCH (12:55)
[2021-12-02] MEDS: HEPARIN SOD (PORCINE) 5000UNITS/ML 1ML VIAL/SYRINGE SQ SCH ×2 (15:09→21:36)
[2021-12-02 20:00] VITALS: BP 140/71
[2021-12-02] MEDS: PARoxetine 10MG TABLET PO SCH (21:36)
[2021-12-03 04:00] VITALS: BP 134/72
[2021-12-03] MEDS ORDERED: LIDOCAINE 1% SDV 5ML VIAL SC PRN (05:30)
[2021-12-03] MEDS ORDERED: SODIUM CHLORIDE 0.9% 1000ML IV PRN (05:30)
[2021-12-03 05:59] LABS: HEMATOCRIT 32.2 % (42.0-52.0); HEMOGLOBIN 10.5 g/dl (13.5-17.5); MEAN CORPUSCULAR HEMOGLOBIN 31.3 pg (27.0-33.0); MEAN CORPUSCULAR HGB CONC 32.6 g/dl (32.0-36.5); MEAN CORPUSCULAR VOLUME 96.1 fl (80.0-96.0); PLATELET COUNT, AUTOMATED 205 10^3/uL (150-450); RED BLOOD COUNT 3.35 10^6/uL (4.30-6.10); WHITE BLOOD COUNT 10.1 10^3/uL (4.0-10.0)
[2021-12-03] MEDS: HEPARIN SOD (PORCINE) 5000UNITS/ML 1ML VIAL/SYRINGE SQ SCH ×3 (06:03→21:28)
[2021-12-03] MEDS: busPIRone 5 MG TAB PO SCH ×2 (06:06→21:11)
[2021-12-03] MEDS: SUCROFERRIC OXYHYDROXIDE 500MG CHEW TAB (VELPHORO) PO SCH ×4 (06:06→17:39)
[2021-12-03] MEDS: BENZONATATE 100MG CAPSULE PO SCH ×3 (06:06→21:11)
[2021-12-03 06:55] LABS: CALCIUM LEVEL 9.5 MG/DL (8.5-10.1); CREATININE FOR GFR 11.3 MG/DL (0.70-1.30); GLOMERULAR FILTRATION RATE 5.2 (>60); POTASSIUM SERUM 4.9 MEQ/L (3.5-5.1); VANCOMYCIN RANDOM 22.9 UG/ML
[2021-12-03] MEDS: LORazepam 0.5 MG TAB PO PRN ×2 (07:45→17:39)
[2021-12-03 08:00] VITALS: BP 147/81
[2021-12-03] MEDS: LOSARTAN 50MG TABLET PO SCH (08:52)
[2021-12-03] MEDS: METOPROLOL SUCC (TopROL XL) 50MG **XL** TAB PO SCH (08:52)
[2021-12-03 12:00] VITALS: BP 138/77
[2021-12-03] MEDS: DOCUSATE SODIUM 100MG CAPSULE PO SCH (12:00)
[2021-12-03] MEDS: ATORVASTATIN 10 MG TAB PO SCH (12:55)
[2021-12-03] MEDS: MULTIVITAMINS/MINERALS THERAP 1 TAB PO SCH (12:55)
[2021-12-03] MEDS: FEBUXOSTAT 40 MG TABLET (ULORIC) PO SCH (12:56)
[2021-12-03] MEDS: BUMETANIDE 1 MG TAB PO SCH (12:56)
[2021-12-03 16:00] VITALS: BP 137/75
[2021-12-03] MEDS ORDERED: VANCOMYCIN HCL 750 MG, VIAL MATE ADAPTER 1 EACH in D5W 250 ML IV SCH (16:00)
[2021-12-03] MEDS: ONDANSETRON 4MG 2ML VIAL IV SCH ×2 (17:38→21:11)
[2021-12-03 20:00] VITALS: BP 155/84
[2021-12-03] MEDS: PARoxetine 10MG TABLET PO SCH (21:11)
[2021-12-04 04:00] VITALS: BP 137/74
[2021-12-04] MEDS: ONDANSETRON 4MG 2ML VIAL IV SCH ×4 (04:00→11:08)
[2021-12-04] MEDS: HEPARIN SOD (PORCINE) 5000UNITS/ML 1ML VIAL/SYRINGE SQ SCH ×3 (05:28→21:07)
[2021-12-04 05:55] LABS: HEMATOCRIT 35.6 % (42.0-52.0); HEMOGLOBIN 11.5 g/dl (13.5-17.5); MEAN CORPUSCULAR HEMOGLOBIN 31.1 pg (27.0-33.0); MEAN CORPUSCULAR HGB CONC 32.3 g/dl (32.0-36.5); MEAN CORPUSCULAR VOLUME 96.2 fl (80.0-96.0); PLATELET COUNT, AUTOMATED 245 10^3/uL (150-450); WHITE BLOOD COUNT 9.3 10^3/uL (4.0-10.0)
[2021-12-04 06:31] LABS: CALCIUM LEVEL 9.8 MG/DL (8.5-10.1); CREATININE FOR GFR 7.97 MG/DL (0.70-1.30); GLOMERULAR FILTRATION RATE 7.8 (>60); POTASSIUM SERUM 4.4 MEQ/L (3.5-5.1); VANCOMYCIN RANDOM 27.6 UG/ML
[2021-12-04 07:33] VITALS: BP 159/88
[2021-12-04] MEDS: SUCROFERRIC OXYHYDROXIDE 500MG CHEW TAB (VELPHORO) PO SCH ×4 (08:00→17:26)
[2021-12-04] MEDS: LOSARTAN 50MG TABLET PO SCH (09:02)
[2021-12-04] MEDS: BENZONATATE 100MG CAPSULE PO SCH ×3 (09:02→21:00)
[2021-12-04] MEDS: METOPROLOL SUCC (TopROL XL) 50MG **XL** TAB PO SCH (09:03)
[2021-12-04] MEDS: busPIRone 5 MG TAB PO SCH ×2 (09:03→21:00)
[2021-12-04] MEDS: LORazepam 0.5 MG TAB PO PRN ×2 (09:11→23:46)
[2021-12-04] MEDS: DOCUSATE SODIUM 100MG CAPSULE PO SCH (11:08)
[2021-12-04] MEDS: MULTIVITAMINS/MINERALS THERAP 1 TAB PO SCH (11:11)
[2021-12-04] MEDS: FEBUXOSTAT 40 MG TABLET (ULORIC) PO SCH (11:12)
[2021-12-04] MEDS: BUMETANIDE 1 MG TAB PO SCH (11:12)
[2021-12-04] MEDS: ATORVASTATIN 10 MG TAB PO SCH (11:12)
[2021-12-04] MEDS ORDERED: ONDANSETRON 4MG 2ML VIAL IV PRN (16:00)
[2021-12-04 16:20] VITALS: BP 138/81
[2021-12-04 20:00] VITALS: BP 135/83
[2021-12-04] MEDS: PARoxetine 10MG TABLET PO SCH (21:00)
[2021-12-05 04:00] VITALS: BP 166/103
[2021-12-05] MEDS ORDERED: SODIUM CHLORIDE 0.9% 1000ML IV PRN (05:25)
[2021-12-05] MEDS ORDERED: LIDOCAINE 1% SDV 5ML VIAL SC PRN (05:25)
[2021-12-05 05:43] LABS: HEMATOCRIT 34.2 % (42.0-52.0); MEAN CORPUSCULAR HEMOGLOBIN 30.6 pg (27.0-33.0); MEAN CORPUSCULAR HGB CONC 32.2 g/dl (32.0-36.5); MEAN CORPUSCULAR VOLUME 95.3 fl (80.0-96.0); PLATELET COUNT, AUTOMATED 281 10^3/uL (150-450); RED BLOOD COUNT 3.59 10^6/uL (4.30-6.10); WHITE BLOOD COUNT 9.6 10^3/uL (4.0-10.0)
[2021-12-05] MEDS: HEPARIN SOD (PORCINE) 5000UNITS/ML 1ML VIAL/SYRINGE SQ SCH ×2 (06:07→14:00)
[2021-12-05 06:37] LABS: C REACTIVE PROTEIN QUANTITATIV 5.37 MG/DL (0.00-0.30); CALCIUM LEVEL 9.7 MG/DL (8.5-10.1); CREATININE FOR GFR 10.7 MG/DL (0.70-1.30); GLOMERULAR FILTRATION RATE 5.6 (>60); POTASSIUM SERUM 5.1 MEQ/L (3.5-5.1)
[2021-12-05] MEDS: LORazepam 0.5 MG TAB PO PRN (07:23)
[2021-12-05] MEDS: SUCROFERRIC OXYHYDROXIDE 500MG CHEW TAB (VELPHORO) PO SCH ×2 (08:00→12:30)
[2021-12-05] MEDS: LOSARTAN 50MG TABLET PO SCH (08:44)
[2021-12-05] MEDS: busPIRone 5 MG TAB PO SCH (08:44)
[2021-12-05] MEDS: BENZONATATE 100MG CAPSULE PO SCH ×2 (08:45→16:00)
[2021-12-05] MEDS: METOPROLOL SUCC (TopROL XL) 50MG **XL** TAB PO SCH (08:45)
[2021-12-05] MEDS ORDERED: LIDOCAINE VISCOUS 2% SOLN 15ML UDC As Ordered ONE (11:20)
[2021-12-05] MEDS ORDERED: CETACAINE SPRAY 5GM As Ordered ONE (11:20)
[2021-12-05] MEDS ORDERED: LIDOCAINE 2% 100MG/5ML SDV (FOR ANES.) As Ordered ONE (11:22)
[2021-12-05] MEDS ORDERED: propofoL 200 MG/20 ML VIAL As Ordered ONE (11:22)
[2021-12-05] MEDS ORDERED: MIDAZOLAM INJ 2MG/2ML VIAL (J2250 PER 1MG) As Ordered ONE (11:22)
[2021-12-05] MEDS ORDERED: fentaNYL 100 MCG/2 ML INJECTION As Ordered ONE (11:22)
[2021-12-05 12:00] VITALS: BP 121/73
[2021-12-05] MEDS: BUMETANIDE 1 MG TAB PO SCH (12:00)
[2021-12-05] MEDS: FEBUXOSTAT 40 MG TABLET (ULORIC) PO SCH (12:00)
[2021-12-05] MEDS: ATORVASTATIN 10 MG TAB PO SCH (12:00)
[2021-12-05] MEDS: DOCUSATE SODIUM 100MG CAPSULE PO SCH (12:00)
[2021-12-05] MEDS: MULTIVITAMINS/MINERALS THERAP 1 TAB PO SCH (12:00)
[2021-12-05] MEDS ORDERED: NS 1,000 ML IV SCH (12:10)
[2021-12-05] MEDS ORDERED: ONDANSETRON 4MG 2ML VIAL IV PRN (12:10)
[2021-12-05 12:53] VITALS: BP 121/73
[2021-12-05 13:23] VITALS: BP 133/83
[2021-12-05 14:32] VITALS: BP 149/88
[2021-12-05] MEDS ORDERED: Vancomycin Hcl IV (16:19)
== END 2021-12-05 17:16 | disposition home or self-care (01) | DRG 871 ==
LOC: M ED 18:59 → EDBD 18:59 → M ED INP 11-30 01:50 → ENRESERV 11-30 03:00 → M PCU 11-30 03:40
PROVIDERS: ADMIT Internal Medicine; ATTEND Student in an Organized Health Care Education/Training Program
PROC: B246ZZZ Ultrasonography of Right and Left Heart (ICD-10-PCS; principal; 2021-12-02)
DX: R78.81 Bacteremia (principal); N18.6 End stage renal disease; G92.8 Other toxic encephalopathy; I16.1 Hypertensive emergency; I67.4 Hypertensive encephalopathy; I12.0 Hypertensive chronic kidney disease with stage 5 chronic kidney disease or end stage renal disease; Z99.2 Dependence on renal dialysis; E78.5 Hyperlipidemia, unspecified; F32.A Depression, unspecified; F43.10 Post-traumatic stress disorder, unspecified; M10.9 Gout, unspecified; J45.909 Unspecified asthma, uncomplicated; F41.0 Panic disorder [episodic paroxysmal anxiety]; R78.89 Finding of other specified substances, not normally found in blood; Z20.822 Contact with and (suspected) exposure to COVID-19; Z79.899 Other long term (current) drug therapy; Z88.1 Allergy status to other antibiotic agents; R07.89 Other chest pain

== ENCOUNTER 2022-01-07 13:24 | Emergency (ER) | payer MEDICARE, MEDICAID ==
[~2022-01-07] VITALS: Ht 172.7 cm; Wt 95.7 kg
[~2022-01-07 13:24] MED LIST changes: +LOSA50TA28 PO; +Vancomycin Hcl IV
[2022-01-07 14:22] LABS: BASO % 0.7 % (0.0-1.0); EOS # 0.9 10^3/uL (0.0-0.5); EOS % 16.5 % (0.0-3.0); HEMATOCRIT 31.5 % (42.0-52.0); HEMOGLOBIN 9.8 g/dl (13.5-17.5); LYMPH # 0.7 10^3/uL (1.5-5.0); LYMPH % 12.1 % (24.0-44.0); MEAN CORPUSCULAR HGB CONC 31.1 g/dl (32.0-36.5); MEAN CORPUSCULAR VOLUME 96.3 fl (80.0-96.0); MONO # 0.6 10^3/uL (0.0-0.8); MONO % 10.5 % (2.0-8.0); NEUTROPHILS # 3.4 10^3/uL (1.5-8.5); NEUTROPHILS % 59.8 % (36.0-66.0); PLATELET COUNT, AUTOMATED 200 10^3/uL (150-450); RED BLOOD COUNT 3.27 10^6/uL (4.30-6.10); WHITE BLOOD COUNT 5.7 10^3/uL (4.0-10.0)
[2022-01-07 15:00] LABS: CK-MB VALUE MASS 1.8 NG/ML (<3.6); MB/CK RELATIVE INDEX 1.86 (< OR =4)
[2022-01-07 15:01] LABS: ACETAMINOPHEN LEVEL 2.3 UG/ML (10.0-30.0); ALBUMIN 3.6 GM/DL (3.2-5.2); ALT/SGPT 19 U/L (12-78); BILIRUBIN,DIRECT 0.2 MG/DL (0.0-0.2); BILIRUBIN,TOTAL 0.5 MG/DL (0.2-1.0); BLOOD UREA NITROGEN 15 MG/DL (7-18); CALCIUM LEVEL 8.8 MG/DL (8.5-10.1); CARBON DIOXIDE LEVEL 27 MEQ/L (21-32); CHLORIDE LEVEL 106 MEQ/L (98-107); CREATININE FOR GFR 4.03 MG/DL (0.70-1.30); ETHYL ALCOHOL (ETHANOL) < 0.003 % (0.000-0.010); GLOMERULAR FILTRATION RATE 17.1 (>60); GLUCOSE, FASTING 93 MG/DL (70-100); LIPASE 166 U/L (73-393); POTASSIUM SERUM 4.1 MEQ/L (3.5-5.1); SALICYLATE LEVEL < 1.7 MG/DL (5.0-30.0); SODIUM LEVEL 141 MEQ/L (136-145); TOTAL PROTEIN 6.1 GM/DL (6.4-8.2)
[2022-01-07 15:53] LABS: RSV AMPLIFICATION NEGATIVE (NEGATIVE)
[2022-01-07 17:05] LABS: AMPHETAMINES LEVEL URINE NEGATIVE (NEGATIVE); BARBITURATES URINE NEGATIVE (NEGATIVE); BENZODIAZEPINES URINE NEGATIVE (NEGATIVE); CANNABINOIDS URINE POSITIVE (NEGATIVE); COCAINE METABOLITE URINE NEGATIVE (NEGATIVE); METHADONE URINE NEGATIVE (NEGATIVE); OPIATES URINE NEGATIVE (NEGATIVE); PHENCYCLIDINE URINE NEGATIVE (NEGATIVE)
[2022-01-07] MEDS ORDERED: ATIV1TAB7 PO (18:53)
[2022-01-07] MEDS ORDERED: BUSP5TA PO (18:53)
[2022-01-07 20:18] VITALS: BP 165/89
== END 2022-01-07 20:20 | disposition home or self-care (01) ==
LOC: EDBD 13:24 → M ED 13:24
DX: F41.9 Anxiety disorder, unspecified (principal); T36.95XA Adverse effect of unspecified systemic antibiotic, initial encounter; Z86.14 Personal history of Methicillin resistant Staphylococcus aureus infection; I10 Essential (primary) hypertension; K21.9 Gastro-esophageal reflux disease without esophagitis; E78.5 Hyperlipidemia, unspecified; F32.9 Major depressive disorder, single episode, unspecified; F43.10 Post-traumatic stress disorder, unspecified; F12.10 Cannabis abuse, uncomplicated; Z79.899 Other long term (current) drug therapy; Z88.0 Allergy status to penicillin

== ENCOUNTER 2022-01-14 10:59 | Emergency (ER) | payer MEDICARE, MEDICAID ==
[2022-01-14] MEDS ORDERED: ACETAMINOPHEN 500 MG TAB PO ONE (11:20)
[2022-01-14] MEDS ORDERED: ONDANSETRON 4MG ORAL DISINTEGRATING TAB PO ONE (11:20)
[2022-01-14 11:44] LABS: BASO % 0.5 % (0.0-1.0); EOS # 0.7 10^3/uL (0.0-0.5); EOS % 11.3 % (0.0-3.0); HEMOGLOBIN 9.7 g/dl (13.5-17.5); LYMPH % 14.9 % (24.0-44.0); MEAN CORPUSCULAR HEMOGLOBIN 30.4 pg (27.0-33.0); MEAN CORPUSCULAR HGB CONC 33.4 g/dl (32.0-36.5); MEAN CORPUSCULAR VOLUME 90.9 fl (80.0-96.0); MONO # 0.5 10^3/uL (0.0-0.8); MONO % 8.5 % (2.0-8.0); NEUTROPHILS # 4.1 10^3/uL (1.5-8.5); NEUTROPHILS % 64.5 % (36.0-66.0); PLATELET COUNT, AUTOMATED 187 10^3/uL (150-450); RED BLOOD COUNT 3.19 10^6/uL (4.30-6.10); WHITE BLOOD COUNT 6.4 10^3/uL (4.0-10.0)
[2022-01-14 12:16] LABS: ALBUMIN 3.7 GM/DL (3.2-5.2); BILIRUBIN,TOTAL 0.6 MG/DL (0.2-1.0); CALCIUM LEVEL 9.3 MG/DL (8.5-10.1); CREATININE FOR GFR 6.24 MG/DL (0.70-1.30); GLOMERULAR FILTRATION RATE 10.4 (>60); POTASSIUM SERUM 3.2 MEQ/L (3.5-5.1); TOTAL PROTEIN 6.3 GM/DL (6.4-8.2)
[2022-01-14 12:19] LABS: RSV AMPLIFICATION NEGATIVE (NEGATIVE)
[2022-01-14 13:17] LABS: AMPHETAMINES LEVEL URINE NEGATIVE (NEGATIVE); BARBITURATES URINE NEGATIVE (NEGATIVE); BENZODIAZEPINES URINE NEGATIVE (NEGATIVE); CANNABINOIDS URINE NEGATIVE (NEGATIVE); COCAINE METABOLITE URINE NEGATIVE (NEGATIVE); METHADONE URINE NEGATIVE (NEGATIVE); OPIATES URINE NEGATIVE (NEGATIVE); PHENCYCLIDINE URINE NEGATIVE (NEGATIVE)
[2022-01-14] MEDS ORDERED: BUMETANIDE 1 MG TAB PO STA (14:23)
[2022-01-14] MEDS ORDERED: FEBUXOSTAT 40 MG TABLET (ULORIC) PO STA (14:23)
[2022-01-14 15:16] VITALS: BP 156/82
[2022-01-14 15:31] VITALS: BP 159/98
== END 2022-01-14 15:40 | disposition home or self-care (01) ==
LOC: M ED 10:59 → EDBD 10:59 → M ED 15:40
DX: R11.2 Nausea with vomiting, unspecified (principal); I45.10 Unspecified right bundle-branch block; Z99.2 Dependence on renal dialysis; N18.6 End stage renal disease; I10 Essential (primary) hypertension; E78.5 Hyperlipidemia, unspecified; J45.909 Unspecified asthma, uncomplicated; F41.9 Anxiety disorder, unspecified; F32.9 Major depressive disorder, single episode, unspecified; F43.10 Post-traumatic stress disorder, unspecified; Z79.899 Other long term (current) drug therapy; Z88.0 Allergy status to penicillin

== ENCOUNTER → 2022-02-26 | Outpatient (CLI) | payer MEDICARE, MEDICAID ==
[2022-02-26 13:18] LABS: HEMATOCRIT 36.7 % (42.0-52.0); HEMOGLOBIN 11.7 g/dl (13.5-17.5); MEAN CORPUSCULAR HEMOGLOBIN 30.3 pg (27.0-33.0); MEAN CORPUSCULAR HGB CONC 31.9 g/dl (32.0-36.5); MEAN CORPUSCULAR VOLUME 95.1 fl (80.0-96.0); PLATELET COUNT, AUTOMATED 214 10^3/uL (150-450); RED BLOOD COUNT 3.86 10^6/uL (4.30-6.10); WHITE BLOOD COUNT 7.7 10^3/uL (4.0-10.0)
[2022-02-26 13:48] LABS: HEMOGLOBIN A1c 4.8 %
[2022-02-26 14:46] LABS: ALBUMIN 3.8 GM/DL (3.2-5.2); ALT/SGPT 16 U/L (12-78); BILIRUBIN,TOTAL 0.4 MG/DL (0.2-1.0); BLOOD UREA NITROGEN 85 MG/DL (7-18); C REACTIVE PROTEIN QUANTITATIV 0.35 MG/DL (0.00-0.30); CALCIUM LEVEL 9.3 MG/DL (8.5-10.1); CARBON DIOXIDE LEVEL 23 MEQ/L (21-32); CHLORIDE LEVEL 103 MEQ/L (98-107); CHOLESTEROL LEVEL 152 MG/DL (<200); CHOLESTEROL RISK RATIO 4.903 (<5); FERRITIN 1302 NG/ML (26-388); GLUCOSE, FASTING 112 MG/DL (70-100); HDL CHOLESTEROL 31 MG/DL (>40); LDL CHOLESTEROL 89 MG/DL (<100); NON-HDL-C 121 MG/DL; POTASSIUM SERUM 5.6 MEQ/L (3.5-5.1); SODIUM LEVEL 135 MEQ/L (136-145); TRIGLYCERIDES LEVEL 161 MG/DL (<150)
[2022-02-26 15:17] LABS: HEPATITIS C VIRUS ABY INDEX < 0.0 INDEX (<0.8)
== END ==
LOC: M PLALAB 10:27
PROVIDERS: ATTEND Family Medicine
DX: I12.0 Hypertensive chronic kidney disease with stage 5 chronic kidney disease or end stage renal disease (principal); N18.6 End stage renal disease; Z86.14 Personal history of Methicillin resistant Staphylococcus aureus infection; K76.0 Fatty (change of) liver, not elsewhere classified; I13.11 Hypertensive heart and chronic kidney disease without heart failure, with stage 5 chronic kidney disease, or end stage renal disease; Z11.9 Encounter for screening for infectious and parasitic diseases, unspecified; Z76.89 Persons encountering health services in other specified circumstances; R91.8 Other nonspecific abnormal finding of lung field

== ENCOUNTER 2022-03-16 20:23 | Inpatient (IN) | payer MEDICARE, MEDICAID ==
[~2022-03-16] VITALS: Ht 172.7 cm; Wt 95.8 kg
[2022-03-16] MEDS ORDERED: ASPIRIN 81 MG CHEW TABLET PO ONE (20:40)
[2022-03-16] MEDS ORDERED: NITROGLYCERIN 0.4 MG SUBL TABLET SL PRN (21:00)
[2022-03-16] MEDS ORDERED: ONDANSETRON 4MG 2ML VIAL IV ONE (21:00)
[2022-03-16] MEDS: busPIRone 5 MG TAB PO SCH (21:00)
[2022-03-16 21:22] LABS: BASO % 0.1 % (0.0-1.0); EOS # 0.2 10^3/uL (0.0-0.5); EOS % 2.3 % (0.0-3.0); HEMATOCRIT 32.1 % (42.0-52.0); HEMOGLOBIN 10.4 g/dl (13.5-17.5); LYMPH # 0.3 10^3/uL (1.5-5.0); LYMPH % 2.7 % (24.0-44.0); MEAN CORPUSCULAR HGB CONC 32.4 g/dl (32.0-36.5); MEAN CORPUSCULAR VOLUME 92.5 fl (80.0-96.0); MONO # 0.7 10^3/uL (0.0-0.8); MONO % 6.5 % (2.0-8.0); NEUTROPHILS % 87.9 % (36.0-66.0); PLATELET COUNT, AUTOMATED 170 10^3/uL (150-450); RED BLOOD COUNT 3.47 10^6/uL (4.30-6.10); WHITE BLOOD COUNT 10.3 10^3/uL (4.0-10.0)
[2022-03-16] MEDS ORDERED: ACETAMINOPHEN TAB 650MG DOSE (2X325MG) PO ONE (21:35)
[2022-03-16] MEDS ORDERED: hydrALAZINE 20MG/ML 1ML VIAL (J0360 PER 20MG) IV STA (22:01)
[2022-03-16 22:09] LABS: CK-MB VALUE MASS 1.1 NG/ML (<3.6); MB/CK RELATIVE INDEX 0.91 (< OR =4)
[2022-03-16 22:16] LABS: ALBUMIN 3.1 GM/DL (3.2-5.2); BILIRUBIN,DIRECT 0.2 MG/DL (0.0-0.2); BILIRUBIN,TOTAL 0.5 MG/DL (0.2-1.0); CALCIUM LEVEL 7.9 MG/DL (8.5-10.1); CREATININE FOR GFR 7.39 MG/DL (0.70-1.30); FREE T4 0.98 NG/DL (0.76-1.46); GLOMERULAR FILTRATION RATE 8.5 (>60); POTASSIUM SERUM 4.4 MEQ/L (3.5-5.1); THYROID STIMULATING HORMONE 1.84 uIU/ML (0.358-3.740); TOTAL PROTEIN 6.4 GM/DL (6.4-8.2)
[2022-03-16] MEDS ORDERED: atenoloL 25 MG TAB PO ONE (22:35)
[2022-03-16] MEDS ORDERED: hydrALAZINE 20MG/ML 1ML VIAL (J0360 PER 20MG) IV ONE (22:35)
[2022-03-16 23:40] LABS: CK-MB VALUE MASS < 1.0 NG/ML (<3.6); CPK CREATINE PHOSPHOKINASE 114 U/L (39-308); MB/CK RELATIVE INDEX 0.88 (< OR =4)
[2022-03-17] VITALS (10 sets, daily range): BP systolic 152–170; BP diastolic 77–98; O2SAT 93–95
[2022-03-17] MEDS ORDERED: PIPERACILLIN/TAZOBACTAM SOD 3.375 GM in D5W MINI-BAG PLUS 50 ML IV SCH (01:35)
[2022-03-17] MEDS ORDERED: VANCOMYCIN HCL 500 MG in D5W MINI-BAG PLUS 100 ML IV SCH (01:35)
[2022-03-17] MEDS ORDERED: ONDANSETRON 4MG 2ML VIAL IV PRN (02:00)
[2022-03-17] MEDS ORDERED: cefTRIAXone SOD 2 GM in D5W MINI-BAG PLUS 50 ML IV SCH (02:00)
[2022-03-17] MEDS ORDERED: hydrALAZINE 20MG/ML 1ML VIAL (J0360 PER 20MG) IV PRN (03:00)
[2022-03-17] MEDS ORDERED: FLOV250A INH (03:25)
[2022-03-17] MEDS ORDERED: ALBU8.5H INH (03:25)
[2022-03-17] MEDS ORDERED: HOME MED LIST COMPLETE! XX SCH (03:25)
[2022-03-17] MEDS: ACETAMINOPHEN TAB 650MG DOSE (2X325MG) PO PRN ×2 (04:38→23:38)
[2022-03-17] MEDS ORDERED: VANCOMYCIN HCL 1,000 MG, VIAL MATE ADAPTER 1 EACH in D5W 250 ML IV ONE (05:00)
[2022-03-17] MEDS: HEPARIN SOD (PORCINE) 5000UNITS/ML 1ML VIAL/SYRINGE SC SCH ×4 (05:13→21:31)
[2022-03-17] MEDS ORDERED: DOCUSATE SODIUM 100MG CAPSULE PO SCH (09:00)
[2022-03-17] MEDS: IPRATROPIUM 0.5MG/ALBUTEROL 2.5MG INH SOL UD 3ML (DUONEB) NEB SCH ×4 (09:39→21:12)
[2022-03-17] MEDS: LORazepam 1 MG TAB PO PRN (10:07)
[2022-03-17] MEDS: busPIRone 5 MG TAB PO SCH ×2 (10:07→20:03)
[2022-03-17] MEDS: LOSARTAN 50MG TABLET PO SCH (12:52)
[2022-03-17] MEDS ORDERED: VANCOMYCIN HCL 1,000 MG, VIAL MATE ADAPTER 1 EACH in D5W 250 ML IV SCH (13:00)
[2022-03-17] MEDS ORDERED: FLUID PLACE HOLDER IV SCH (14:50)
[2022-03-17] MEDS ORDERED: VANCOMYCIN HCL IV SCH (14:50)
[2022-03-17] MEDS: DOCUSATE SODIUM 100MG CAPSULE PO SCH (15:16)
[2022-03-17] MEDS: MULTIVITAMINS/MINERALS THERAP 1 TAB PO SCH (15:16)
[2022-03-17] MEDS: METOPROLOL SUCC (TopROL XL) 50MG **XL** TAB PO SCH (15:17)
[2022-03-17] MEDS: BUMETANIDE 1 MG TAB PO SCH (16:34)
[2022-03-17] MEDS: (RENVELA) SEVELAMER **CARBONate** 800 MG TAB PO SCH (16:34)
[2022-03-17] MEDS: SUCROFERRIC OXYHYDROXIDE 500MG CHEW TAB (VELPHORO) PO SCH (16:34)
[2022-03-18] VITALS (11 sets, daily range): BP systolic 146–176; BP diastolic 84–98; O2SAT 94–99
[2022-03-18] MEDS ORDERED: SODIUM CHLORIDE 0.9% 1000ML IV PRN (06:00)
[2022-03-18] MEDS ORDERED: LIDOCAINE 1% SDV 5ML VIAL SC PRN (06:00)
[2022-03-18] MEDS: LOSARTAN 50MG TABLET PO SCH (06:28)
[2022-03-18] MEDS: METOPROLOL SUCC (TopROL XL) 50MG **XL** TAB PO SCH (06:30)
[2022-03-18] MEDS: (RENVELA) SEVELAMER **CARBONate** 800 MG TAB PO SCH ×3 (06:31→17:48)
[2022-03-18] MEDS: HEPARIN SOD (PORCINE) 5000UNITS/ML 1ML VIAL/SYRINGE SC SCH ×3 (06:31→21:35)
[2022-03-18] MEDS: SUCROFERRIC OXYHYDROXIDE 500MG CHEW TAB (VELPHORO) PO SCH ×3 (06:32→17:48)
[2022-03-18] MEDS: busPIRone 5 MG TAB PO SCH ×2 (06:32→21:34)
[2022-03-18 07:17] LABS: CALCIUM LEVEL 8.4 MG/DL (8.5-10.1); CREATININE FOR GFR 11.3 MG/DL (0.70-1.30); GLOMERULAR FILTRATION RATE 5.2 (>60); POTASSIUM SERUM 4.9 MEQ/L (3.5-5.1); VANCOMYCIN RANDOM 14.4 UG/ML
[2022-03-18] MEDS ORDERED: VANCOMYCIN HCL 500 MG in D5W MINI-BAG PLUS 100 ML IV ONE (08:00)
[2022-03-18 08:16] LABS: HEMOGLOBIN 10.4 g/dl (13.5-17.5); MEAN CORPUSCULAR HEMOGLOBIN 29.6 pg (27.0-33.0); MEAN CORPUSCULAR HGB CONC 31.5 g/dl (32.0-36.5); PLATELET COUNT, AUTOMATED 157 10^3/uL (150-450); RED BLOOD COUNT 3.51 10^6/uL (4.30-6.10); WHITE BLOOD COUNT 9.5 10^3/uL (4.0-10.0)
[2022-03-18] MEDS: IPRATROPIUM 0.5MG/ALBUTEROL 2.5MG INH SOL UD 3ML (DUONEB) NEB SCH ×4 (08:48→19:55)
[2022-03-18] MEDS: DOCUSATE SODIUM 100MG CAPSULE PO SCH ×2 (10:58→11:17)
[2022-03-18] MEDS: MULTIVITAMINS/MINERALS THERAP 1 TAB PO SCH (11:15)
[2022-03-18] MEDS: BUMETANIDE 1 MG TAB PO SCH (11:16)
[2022-03-18] MEDS: LORazepam 1 MG TAB PO PRN ×2 (11:18→21:38)
[2022-03-18] MEDS: ACETAMINOPHEN TAB 650MG DOSE (2X325MG) PO PRN (16:00)
[2022-03-18] MEDS: VANCOMYCIN HCL 500 MG in D5W MINI-BAG PLUS 100 ML IV SCH (17:49)
[2022-03-18] MEDS ORDERED: IPRATROPIUM 0.5MG/ALBUTEROL 2.5MG INH SOL UD 3ML (DUONEB) NEB ONE (23:35)
[2022-03-18] MEDS ORDERED: CEPACOL LOZENGE PO PRN (23:35)
[2022-03-19] MEDS: ACETAMINOPHEN TAB 650MG DOSE (2X325MG) PO PRN (00:04)
[2022-03-19 04:00] VITALS: BP 178/102
[2022-03-19] MEDS: HEPARIN SOD (PORCINE) 5000UNITS/ML 1ML VIAL/SYRINGE SC SCH ×3 (05:54→21:16)
[2022-03-19] MEDS: IPRATROPIUM 0.5MG/ALBUTEROL 2.5MG INH SOL UD 3ML (DUONEB) NEB SCH ×5 (07:40→20:40)
[2022-03-19 08:00] VITALS: BP_SYST 124; BP_SYST 176; BP_DIAS 101; BP_DIAS 68
[2022-03-19] MEDS: SUCROFERRIC OXYHYDROXIDE 500MG CHEW TAB (VELPHORO) PO SCH ×3 (08:10→17:39)
[2022-03-19] MEDS: LOSARTAN 50MG TABLET PO SCH (08:10)
[2022-03-19] MEDS: (RENVELA) SEVELAMER **CARBONate** 800 MG TAB PO SCH ×3 (08:10→17:39)
[2022-03-19] MEDS: LORazepam 1 MG TAB PO PRN (08:11)
[2022-03-19] MEDS: busPIRone 5 MG TAB PO SCH ×2 (08:11→21:17)
[2022-03-19] MEDS: METOPROLOL SUCC (TopROL XL) 50MG **XL** TAB PO SCH (08:11)
[2022-03-19] MEDS ORDERED: SODIUM CHLORIDE 0.9% 1000ML IV PRN (11:20)
[2022-03-19] MEDS ORDERED: LIDOCAINE 1% SDV 5ML VIAL SC PRN (11:20)
[2022-03-19] MEDS: DOCUSATE SODIUM 100MG CAPSULE PO SCH (12:08)
[2022-03-19] MEDS: MULTIVITAMINS/MINERALS THERAP 1 TAB PO SCH (12:09)
[2022-03-19] MEDS: BUMETANIDE 1 MG TAB PO SCH (12:09)
[2022-03-19 15:32] VITALS: BP 170/80
[2022-03-19] MEDS: MUPIROCIN 2% OINT 22 GM TUBE TOP SCH (17:38)
[2022-03-19] MEDS: **hydrALAZINE HCL** 25 MG TAB PO SCH (17:38)
[2022-03-19 20:22] VITALS: BP 163/102
[2022-03-19] MEDS ORDERED: IPRATROPIUM 0.5MG/ALBUTEROL 2.5MG INH SOL UD 3ML (DUONEB) NEB PRN (20:30)
[2022-03-20] MEDS: **hydrALAZINE HCL** 25 MG TAB PO SCH ×2 (00:09→05:58)
[2022-03-20 01:49] VITALS: BP 157/88
[2022-03-20 05:48] VITALS: BP 171/107
[2022-03-20] MEDS: HEPARIN SOD (PORCINE) 5000UNITS/ML 1ML VIAL/SYRINGE SC SCH ×2 (05:54→16:04)
[2022-03-20] MEDS: busPIRone 5 MG TAB PO SCH (05:55)
[2022-03-20] MEDS: MUPIROCIN 2% OINT 22 GM TUBE TOP SCH (05:55)
[2022-03-20] MEDS: LOSARTAN 50MG TABLET PO SCH (05:58)
[2022-03-20] MEDS: METOPROLOL SUCC (TopROL XL) 50MG **XL** TAB PO SCH (05:59)
[2022-03-20] MEDS ORDERED: LIDOCAINE 1% SDV 5ML VIAL SC PRN (06:00)
[2022-03-20] MEDS ORDERED: SODIUM CHLORIDE 0.9% 1000ML IV PRN (06:00)
[2022-03-20 07:13] LABS: BASO % 0.4 % (0.0-1.0); EOS # 0.9 10^3/uL (0.0-0.5); EOS % 9.3 % (0.0-3.0); LYMPH # 1.6 10^3/uL (1.5-5.0); LYMPH % 17.1 % (24.0-44.0); MEAN CORPUSCULAR HEMOGLOBIN 29.8 pg (27.0-33.0); MEAN CORPUSCULAR HGB CONC 32.4 g/dl (32.0-36.5); MEAN CORPUSCULAR VOLUME 92.1 fl (80.0-96.0); MONO # 0.7 10^3/uL (0.0-0.8); MONO % 7.7 % (2.0-8.0); NEUTROPHILS # 5.9 10^3/uL (1.5-8.5); NEUTROPHILS % 64.8 % (36.0-66.0); PLATELET COUNT, AUTOMATED 233 10^3/uL (150-450); RED BLOOD COUNT 3.69 10^6/uL (4.30-6.10); WHITE BLOOD COUNT 9.1 10^3/uL (4.0-10.0)
[2022-03-20] MEDS: IPRATROPIUM 0.5MG/ALBUTEROL 2.5MG INH SOL UD 3ML (DUONEB) NEB SCH ×3 (07:21→16:34)
[2022-03-20 07:35] VITALS: BP 156/98
[2022-03-20 07:46] LABS: C REACTIVE PROTEIN QUANTITATIV 7.81 MG/DL (0.00-0.30); CALCIUM LEVEL 9.5 MG/DL (8.5-10.1); GLOMERULAR FILTRATION RATE 5.4 (>60); MAGNESIUM LEVEL 2.6 MG/DL (1.8-2.4); VANCOMYCIN RANDOM 22.9 UG/ML
[2022-03-20 09:01] LABS: ERYTHROCYTE SEDIMENTATION RATE 60 mm/hr (0-15)
[2022-03-20] MEDS: SUCROFERRIC OXYHYDROXIDE 500MG CHEW TAB (VELPHORO) PO SCH ×3 (10:09→17:00)
[2022-03-20] MEDS: (RENVELA) SEVELAMER **CARBONate** 800 MG TAB PO SCH ×3 (10:09→17:00)
[2022-03-20] MEDS: LORazepam 1 MG TAB PO PRN (10:27)
[2022-03-20] MEDS ORDERED: HIBI4LIQ EX (10:32)
[2022-03-20] MEDS ORDERED: HYDR50TA PO (10:32)
[2022-03-20] MEDS ORDERED: MUPI2OI TOP (10:32)
[2022-03-20] MEDS ORDERED: VANC500P IV (10:32)
[2022-03-20] MEDS ORDERED: **hydrALAZINE** 50 MG TAB PO SCH (12:00)
[2022-03-20] MEDS: VANCOMYCIN HCL 500 MG in D5W MINI-BAG PLUS 100 ML IV SCH (15:59)
[2022-03-20 16:01] VITALS: BP 160/100
[2022-03-20] MEDS: DOCUSATE SODIUM 100MG CAPSULE PO SCH (16:01)
[2022-03-20] MEDS: MULTIVITAMINS/MINERALS THERAP 1 TAB PO SCH (16:01)
[2022-03-20] MEDS: BUMETANIDE 1 MG TAB PO SCH (16:01)
== END 2022-03-20 18:42 | disposition home or self-care (01) | DRG 871 ==
LOC: M ED 20:23 → EDBD 20:23 → M ED INP 03-17 00:51 → ENRESERV 03-17 03:04 → M PCU 03-17 04:01 → M MSPAV 03-19 15:34
PROVIDERS: ADMIT Family Medicine; ATTEND Internal Medicine
PROC: B246ZZZ Ultrasonography of Right and Left Heart (ICD-10-PCS; principal; 2022-03-17)
DX: A41.02 Sepsis due to Methicillin resistant Staphylococcus aureus (principal); N18.6 End stage renal disease; I26.90 Septic pulmonary embolism without acute cor pulmonale; I33.0 Acute and subacute infective endocarditis; I16.9 Hypertensive crisis, unspecified; I12.0 Hypertensive chronic kidney disease with stage 5 chronic kidney disease or end stage renal disease; Z99.2 Dependence on renal dialysis; F41.0 Panic disorder [episodic paroxysmal anxiety]; E78.5 Hyperlipidemia, unspecified; F32.A Depression, unspecified; F43.10 Post-traumatic stress disorder, unspecified; M10.9 Gout, unspecified; J45.909 Unspecified asthma, uncomplicated; R07.89 Other chest pain; Z20.822 Contact with and (suspected) exposure to COVID-19; Z79.899 Other long term (current) drug therapy; Z88.1 Allergy status to other antibiotic agents; Z88.8 Allergy status to other drugs, medicaments and biological substances; K52.9 Noninfective gastroenteritis and colitis, unspecified; D64.9 Anemia, unspecified

== ENCOUNTER → 2022-06-23 | Outpatient (REF) | payer MEDICARE, MEDICAID ==
[~2022-06-23] MED LIST changes: +ALBU8.5H INH; +FLOV250A INH; +HIBI4LIQ EX; +HYDR50TA PO; +LIDO15SO4 PO; +LIDO15SO4 SSP; -LIDO2SOL17 PO; -LIDO2SOL17 SSP; +MUPI2OI TOP; +VANC500P IV
== END ==
LOC: M SFHCPLAZ 16:49
PROVIDERS: ATTEND Internal Medicine Infectious Disease
DX: A49.02 Methicillin resistant Staphylococcus aureus infection, unspecified site (principal)

== ENCOUNTER 2022-08-01 12:00 | Inpatient (IN) | payer MEDICARE, MEDICAID ==
[~2022-08-01] VITALS: Ht 175.3 cm; Wt 99.7 kg
[~2022-08-01 12:00] MED LIST changes: -ALBU2TA PO; +ALBU2TAB13 PO
[2022-08-01 13:15] LABS: VENOUS BASE EXCESS 0.8 (-2.0-2.0); VENOUS HCO3 26.3 MEQ/L (23.0-27.0); VENOUS PARTIAL PRESSURE CO2 46.2 mmHg (38.0-50.0); VENOUS PARTIAL PRESSURE O2 81.8 mmHg (30.0-50.0); VENOUS PH 7.373 UNITS (7.330-7.430); VENOUS STANDARD HCO3 25.1 MEQ/L; VENOUS TOTAL CO2 27.7 MEQ/L (24.0-28.0)
[2022-08-01 13:24] LABS: BASO # 0.1 10^3/uL (0.0-0.2); BASO % 0.5 % (0.0-1.0); EOS # 1.2 10^3/uL (0.0-0.5); HEMATOCRIT 28.6 % (42.0-52.0); HEMOGLOBIN 8.9 g/dl (13.5-17.5); LYMPH # 1.3 10^3/uL (1.5-5.0); LYMPH % 12.7 % (24.0-44.0); MEAN CORPUSCULAR HEMOGLOBIN 29.8 pg (27.0-33.0); MEAN CORPUSCULAR HGB CONC 31.1 g/dl (32.0-36.5); MEAN CORPUSCULAR VOLUME 95.7 fl (80.0-96.0); MONO # 0.9 10^3/uL (0.0-0.8); MONO % 8.3 % (2.0-8.0); NEUTROPHILS # 6.9 10^3/uL (1.5-8.5); NEUTROPHILS % 66.3 % (36.0-66.0); PLATELET COUNT, AUTOMATED 208 10^3/uL (150-450); RED BLOOD COUNT 2.99 10^6/uL (4.30-6.10); WHITE BLOOD COUNT 10.4 10^3/uL (4.0-10.0)
[2022-08-01 13:45] LABS: CK-MB VALUE MASS 2.4 NG/ML (<3.6)
[2022-08-01 13:46] LABS: MB/CK RELATIVE INDEX 0.8 (< OR =4)
[2022-08-01 13:49] LABS: THYROID STIMULATING HORMONE 4.266 uIU/ML (0.55-4.78)
[2022-08-01 14:00] LABS: ALBUMIN 3.8 G/DL (3.2-5.2); BILIRUBIN,DIRECT 0.2 MG/DL (<0.4); BILIRUBIN,TOTAL 0.3 MG/DL (0.3-1.2); CALCIUM LEVEL 8.1 MG/DL (8.5-10.1); CREATININE FOR GFR 8.16 MG/DL (0.70-1.30); GLOMERULAR FILTRATION RATE 7.6 (>60); POTASSIUM SERUM 5.4 MMOL/L (3.5-5.1); TOTAL PROTEIN 6.4 G/DL (5.7-8.2)
[2022-08-01 14:03] LABS: RSV AMPLIFICATION NEGATIVE (NEGATIVE)
[2022-08-01] MEDS ORDERED: PATIROMER SORBITEX CALCIUM 8.4 GM POWDER PACKET (VELTASSA) PO ONE (15:00)
[2022-08-01] MEDS ORDERED: CALCIUM GLUCONATE 1,000 MG in D5W MINI-BAG PLUS 100 ML IV ONE (15:00)
[2022-08-01] MEDS ORDERED: BUMETANIDE 1 MG TAB PO ONE (15:30)
[2022-08-01] MEDS ORDERED: HOME MED LIST COMPLETE! XX SCH (16:00)
[2022-08-01] MEDS: **hydrALAZINE** 50 MG TAB PO SCH ×2 (16:31→21:55)
[2022-08-01] MEDS ORDERED: NITROGLYCERIN 2% OINT 1 GM *U/D* PKT TOP ONE (17:10)
[2022-08-01] MEDS ORDERED: LABETALOL 100MG/20ML VIAL IV STA (17:10)
[2022-08-01] MEDS ORDERED: LORazepam 2 MG/ML 1ML VIAL IV STA (17:10)
[2022-08-01] MEDS ORDERED: LIDOCAINE VISCOUS 2% SOLN 15ML UDC SSP PRN (17:15)
[2022-08-01] MEDS ORDERED: ONDANSETRON 4MG ORAL DISINTEGRATING TAB SL PRN (17:15)
[2022-08-01] MEDS ORDERED: ALBUTEROL 90 MCG/ACT 8GM HFA INHALER INH PRN (17:15)
[2022-08-01] MEDS: (RENVELA) SEVELAMER **CARBONate** 800 MG TAB PO SCH (18:00)
[2022-08-01] MEDS ORDERED: methylPREDNISolone 125MG 2ML VIAL IV ONE (18:00)
[2022-08-01] MEDS: IPRATROPIUM 0.02% SOLN 0.5MG 2.5ML NEB INH SCH ×2 (18:13→18:14)
[2022-08-01] MEDS: LEVALBUTEROL 1.25MG 0.5ML CONCENTRATE NEB NEB SCH ×2 (18:13→18:14)
[2022-08-01] MEDS: cloNIDine 0.1MG TABLET PO SCH ×2 (19:07→23:21)
[2022-08-01] MEDS: IPRATROPIUM 0.02% SOLN 0.5MG 2.5ML NEB INH PRN ×2 (19:08→23:34)
[2022-08-01 19:48] VITALS: BP 170/108
[2022-08-01] MEDS: busPIRone 5 MG TAB PO SCH (21:55)
[2022-08-01] MEDS: SUCROFERRIC OXYHYDROXIDE 500MG CHEW TAB (VELPHORO) PO SCH ×2 (21:56→22:33)
[2022-08-01] MEDS: HEPARIN SOD (PORCINE) 5000UNITS/ML 1ML VIAL/SYRINGE SQ SCH (21:57)
[2022-08-01] MEDS: LORazepam 1 MG TAB PO PRN (23:21)
[2022-08-01 23:55] VITALS: BP 136/100
[2022-08-02] VITALS (8 sets, daily range): BP systolic 140–180; BP diastolic 81–102
[2022-08-02] MEDS: **hydrALAZINE** 50 MG TAB PO SCH ×4 (03:50→21:29)
[2022-08-02] MEDS: HEPARIN SOD (PORCINE) 5000UNITS/ML 1ML VIAL/SYRINGE SQ SCH ×3 (05:52→21:29)
[2022-08-02] MEDS: cloNIDine 0.1MG TABLET PO SCH ×3 (05:52→17:11)
[2022-08-02] MEDS: LEVALBUTEROL 1.25MG 0.5ML CONCENTRATE NEB INH PRN ×2 (06:12→23:48)
[2022-08-02 07:58] LABS: HEMATOCRIT 25.1 % (42.0-52.0); HEMOGLOBIN 8.2 g/dl (13.5-17.5); MEAN CORPUSCULAR HEMOGLOBIN 30.7 pg (27.0-33.0); MEAN CORPUSCULAR HGB CONC 32.7 g/dl (32.0-36.5); PLATELET COUNT, AUTOMATED 199 10^3/uL (150-450); RED BLOOD COUNT 2.67 10^6/uL (4.30-6.10); WHITE BLOOD COUNT 9.4 10^3/uL (4.0-10.0)
[2022-08-02] MEDS: SUCROFERRIC OXYHYDROXIDE 500MG CHEW TAB (VELPHORO) PO SCH ×3 (08:08→18:17)
[2022-08-02] MEDS: LOSARTAN 50MG TABLET PO SCH (08:08)
[2022-08-02] MEDS: FEBUXOSTAT 40 MG TABLET (ULORIC) PO SCH (08:08)
[2022-08-02] MEDS: BUMETANIDE 1 MG TAB PO SCH (08:08)
[2022-08-02] MEDS: MULTIVITAMINS/MINERALS THERAP 1 TAB PO SCH (08:09)
[2022-08-02] MEDS: busPIRone 5 MG TAB PO SCH ×2 (08:09→21:29)
[2022-08-02] MEDS: DOCUSATE SODIUM 100MG CAPSULE PO SCH (08:09)
[2022-08-02] MEDS: (RENVELA) SEVELAMER **CARBONate** 800 MG TAB PO SCH (08:09)
[2022-08-02] MEDS: METOPROLOL SUCC (TopROL XL) 50MG **XL** TAB PO SCH (08:09)
[2022-08-02 08:33] LABS: CALCIUM LEVEL 8.9 MG/DL (8.5-10.1); CREATININE FOR GFR 10.47 MG/DL (0.70-1.30); GLOMERULAR FILTRATION RATE 5.7 (>60); POTASSIUM SERUM 6.2 MMOL/L (3.5-5.1)
[2022-08-02] MEDS ORDERED: CALCIUM GLUCONATE 1,000 MG in D5W MINI-BAG PLUS 100 ML IV ONE (09:00)
[2022-08-02] MEDS ORDERED: PATIROMER SORBITEX CALCIUM 8.4 GM POWDER PACKET (VELTASSA) PO ONE (10:00)
[2022-08-02] MEDS ORDERED: HEPARIN 1,000UNITS/ML 10ML VIAL (FOR RADIOLOGY & DIALYSIS ONLY) XX SCH (10:05)
[2022-08-02] MEDS ORDERED: HEPARIN 1,000UNITS/ML 10ML VIAL (FOR RADIOLOGY & DIALYSIS ONLY) IV PRN (10:05)
[2022-08-02] MEDS ORDERED: LIDOCAINE 1% SDV 5ML VIAL SC PRN (10:05)
[2022-08-02] MEDS ORDERED: SODIUM CHLORIDE 0.9% 1000ML IV PRN (10:05)
[2022-08-02] MEDS: LORazepam 1 MG TAB PO PRN (12:01)
[2022-08-03] VITALS (7 sets, daily range): BP systolic 137–164; BP diastolic 80–92
[2022-08-03] MEDS: **hydrALAZINE** 50 MG TAB PO SCH ×4 (04:25→21:56)
[2022-08-03] MEDS: LEVALBUTEROL 1.25MG 0.5ML CONCENTRATE NEB INH PRN ×2 (04:28→07:50)
[2022-08-03 05:17] LABS: HEMATOCRIT 25.6 % (42.0-52.0); HEMOGLOBIN 8.2 g/dl (13.5-17.5); MEAN CORPUSCULAR HEMOGLOBIN 30.4 pg (27.0-33.0); MEAN CORPUSCULAR VOLUME 94.8 fl (80.0-96.0); PLATELET COUNT, AUTOMATED 191 10^3/uL (150-450); WHITE BLOOD COUNT 9.7 10^3/uL (4.0-10.0)
[2022-08-03 05:45] LABS: CALCIUM LEVEL 8.2 MG/DL (8.5-10.1); CREATININE FOR GFR 7.95 MG/DL (0.70-1.30); GLOMERULAR FILTRATION RATE 7.8 (>60)
[2022-08-03] MEDS: HEPARIN SOD (PORCINE) 5000UNITS/ML 1ML VIAL/SYRINGE SQ SCH ×3 (05:46→21:54)
[2022-08-03] MEDS: cloNIDine 0.1MG TABLET PO SCH ×6 (05:46→23:29)
[2022-08-03] MEDS ORDERED: methylPREDNISolone 125MG 2ML VIAL IV ONE (08:20)
[2022-08-03] MEDS: SUCROFERRIC OXYHYDROXIDE 500MG CHEW TAB (VELPHORO) PO SCH ×4 (08:40→18:46)
[2022-08-03] MEDS: LORazepam 1 MG TAB PO PRN (08:40)
[2022-08-03] MEDS: BUMETANIDE 1 MG TAB PO SCH (08:40)
[2022-08-03] MEDS: METOPROLOL SUCC (TopROL XL) 50MG **XL** TAB PO SCH (08:41)
[2022-08-03] MEDS: FEBUXOSTAT 40 MG TABLET (ULORIC) PO SCH (08:41)
[2022-08-03] MEDS: LOSARTAN 50MG TABLET PO SCH (08:41)
[2022-08-03] MEDS: DOCUSATE SODIUM 100MG CAPSULE PO SCH (08:42)
[2022-08-03] MEDS: MULTIVITAMINS/MINERALS THERAP 1 TAB PO SCH (08:42)
[2022-08-03] MEDS: busPIRone 5 MG TAB PO SCH ×2 (08:42→21:53)
[2022-08-03] MEDS ORDERED: SODIUM CHLORIDE 0.9% 1000ML IV PRN (08:55)
[2022-08-03] MEDS ORDERED: LIDOCAINE 1% SDV 5ML VIAL SC PRN (08:55)
[2022-08-03] MEDS: methylPREDNISolone 125MG 2ML VIAL IV SCH ×2 (14:17→21:56)
[2022-08-03] MEDS ORDERED: SALIVA SUBSTITUTE(MOUTHKOTE) BTL MT PRN (22:10)
[2022-08-04] MEDS: LEVALBUTEROL 1.25MG 0.5ML CONCENTRATE NEB INH PRN (00:32)
[2022-08-04] MEDS: IPRATROPIUM 0.02% SOLN 0.5MG 2.5ML NEB INH PRN (00:32)
[2022-08-04] MEDS: LORazepam 1 MG TAB PO PRN (03:18)
[2022-08-04] MEDS: methylPREDNISolone 125MG 2ML VIAL IV SCH ×2 (03:20→08:19)
[2022-08-04 03:25] VITALS: BP 146/86
[2022-08-04] MEDS: **hydrALAZINE** 50 MG TAB PO SCH ×2 (03:33→10:09)
[2022-08-04] MEDS: cloNIDine 0.1MG TABLET PO SCH (06:00)
[2022-08-04 06:37] VITALS: BP 147/88
[2022-08-04] MEDS: HEPARIN SOD (PORCINE) 5000UNITS/ML 1ML VIAL/SYRINGE SQ SCH (06:39)
[2022-08-04 06:58] LABS: HEMATOCRIT 28.1 % (42.0-52.0); HEMOGLOBIN 9.1 g/dl (13.5-17.5); MEAN CORPUSCULAR HEMOGLOBIN 30.2 pg (27.0-33.0); MEAN CORPUSCULAR HGB CONC 32.4 g/dl (32.0-36.5); MEAN CORPUSCULAR VOLUME 93.4 fl (80.0-96.0); PLATELET COUNT, AUTOMATED 231 10^3/uL (150-450); RED BLOOD COUNT 3.01 10^6/uL (4.30-6.10); WHITE BLOOD COUNT 15.8 10^3/uL (4.0-10.0)
[2022-08-04 07:25] LABS: CREATININE FOR GFR 6.98 MG/DL (0.70-1.30); GLOMERULAR FILTRATION RATE 9.1 (>60); POTASSIUM SERUM 5.2 MMOL/L (3.5-5.1)
[2022-08-04] MEDS: SUCROFERRIC OXYHYDROXIDE 500MG CHEW TAB (VELPHORO) PO SCH (07:45)
[2022-08-04] MEDS: BUMETANIDE 1 MG TAB PO SCH (08:20)
[2022-08-04] MEDS: busPIRone 5 MG TAB PO SCH (08:20)
[2022-08-04] MEDS: METOPROLOL SUCC (TopROL XL) 50MG **XL** TAB PO SCH (08:21)
[2022-08-04] MEDS: DOCUSATE SODIUM 100MG CAPSULE PO SCH (08:21)
[2022-08-04] MEDS: MULTIVITAMINS/MINERALS THERAP 1 TAB PO SCH (08:21)
[2022-08-04] MEDS ORDERED: LOSARTAN 50MG TABLET PO SCH (09:00)
[2022-08-04 09:04] VITALS: BP 140/68
[2022-08-04] MEDS: FEBUXOSTAT 40 MG TABLET (ULORIC) PO SCH (10:07)
[2022-08-04 10:09] VITALS: BP 156/93
[2022-08-04] MEDS ORDERED: COZA50TA PO (11:29)
== END 2022-08-04 13:40 | disposition home or self-care (01) | DRG 291 ==
LOC: M ED 12:00 → M ED INP 14:43 → M PCU 19:48 → M MS5PR 08-03 16:15
PROVIDERS: ADMIT General Practice; ATTEND Internal Medicine
PROC: 5A1D70Z Performance of Urinary Filtration, Intermittent, Less than 6 Hours Per Day (ICD-10-PCS; principal; 2022-08-03)
DX: I13.2 Hypertensive heart and chronic kidney disease with heart failure and with stage 5 chronic kidney disease, or end stage renal disease (principal); N18.6 End stage renal disease; J45.901 Unspecified asthma with (acute) exacerbation; I50.32 Chronic diastolic (congestive) heart failure; Z99.2 Dependence on renal dialysis; D64.9 Anemia, unspecified; E78.5 Hyperlipidemia, unspecified; E87.5 Hyperkalemia; F41.9 Anxiety disorder, unspecified; M10.9 Gout, unspecified; F43.10 Post-traumatic stress disorder, unspecified; I16.0 Hypertensive urgency; Z88.0 Allergy status to penicillin; Z79.899 Other long term (current) drug therapy; Z88.8 Allergy status to other drugs, medicaments and biological substances; F12.90 Cannabis use, unspecified, uncomplicated

== ENCOUNTER 2022-08-04 15:44 | Emergency (ER) | payer MEDICARE, MEDICAID ==
[~2022-08-04 15:44] MED LIST changes: +COZA50TA PO
== END 2022-08-04 15:59 | disposition left against medical advice (07) ==
LOC: EDBD 15:44 → M ED 15:44
DX: Z53.21 Procedure and treatment not carried out due to patient leaving prior to being seen by health care provider (principal)

== ENCOUNTER 2022-08-16 12:29 | Inpatient (IN) | payer MEDICARE, MEDICAID ==
[~2022-08-16] VITALS: Ht 172.7 cm; Wt 96.7 kg
[~2022-08-16 12:29] MED LIST changes: +LIDO15SO PO; +LIDO15SO SSP; -LIDO15SO4 PO; -LIDO15SO4 SSP
[2022-08-16] MEDS ORDERED: methylPREDNISolone 125MG 2ML VIAL IV ONE (13:00)
[2022-08-16] MEDS ORDERED: ACETAMINOPHEN 500 MG TAB PO ONE (13:00)
[2022-08-16] MEDS ORDERED: LEVALBUTEROL 1.25MG 0.5ML CONCENTRATE NEB NEB ONE (13:00)
[2022-08-16 13:05] LABS: BASO % 0.3 % (0.0-1.0); EOS # 1.1 10^3/uL (0.0-0.5); EOS % 7.1 % (0.0-3.0); HEMATOCRIT 25.1 % (42.0-52.0); HEMOGLOBIN 7.9 g/dl (13.5-17.5); LYMPH % 6.6 % (24.0-44.0); MEAN CORPUSCULAR HEMOGLOBIN 30.6 pg (27.0-33.0); MEAN CORPUSCULAR HGB CONC 31.5 g/dl (32.0-36.5); MEAN CORPUSCULAR VOLUME 97.3 fl (80.0-96.0); MONO % 6.8 % (2.0-8.0); NEUTROPHILS # 11.6 10^3/uL (1.5-8.5); NEUTROPHILS % 78.6 % (36.0-66.0); PLATELET COUNT, AUTOMATED 201 10^3/uL (150-450); RED BLOOD COUNT 2.58 10^6/uL (4.30-6.10); WHITE BLOOD COUNT 14.8 10^3/uL (4.0-10.0)
[2022-08-16 13:26] LABS: RSV AMPLIFICATION NEGATIVE (NEGATIVE)
[2022-08-16 13:43] LABS: ALBUMIN 3.8 G/DL (3.2-5.2); ALKALINE PHOSPHATASE 84 U/L (46-116); ALT/SGPT 25 U/L (7.0-40); AST/SGOT 19 U/L (<34); BILIRUBIN,DIRECT 0.1 MG/DL (<0.4); BILIRUBIN,TOTAL 0.3 MG/DL (0.3-1.2); BLOOD UREA NITROGEN 67 MG/DL (9-23); CALCIUM LEVEL 8.7 MG/DL (8.5-10.1); CARBON DIOXIDE LEVEL 28 MMOL/L (20-31); CHLORIDE LEVEL 103 MMOL/L (98-107); CREATININE FOR GFR 11.05 MG/DL (0.70-1.30); GLOMERULAR FILTRATION RATE 5.4 (>60); GLUCOSE, FASTING 104 MG/DL (60-100); POTASSIUM SERUM 5.6 MMOL/L (3.5-5.1); SODIUM LEVEL 141 MMOL/L (136-145); TOTAL PROTEIN 6.3 G/DL (5.7-8.2)
[2022-08-16] MEDS ORDERED: LORazepam 2 MG/ML 1ML VIAL IV STA (14:11)
[2022-08-16] MEDS ORDERED: FUROSEMIDE 40MG/4ML VIAL IV ONE (16:00)
[2022-08-16] MEDS ORDERED: HOME MED LIST COMPLETE! XX SCH (16:30)
[2022-08-16 16:43] LABS: IRON (FE) 21 UG/DL (65-175); PERCENT SATURATION 8.3 % (19.7-50.0); TOTAL IRON BINDING CAPACITY 254 UG/DL (250-425)
[2022-08-16 16:46] LABS: FERRITIN 798.6 NG/ML (10.5-307.3)
[2022-08-16] MEDS ORDERED: PATIROMER SORBITEX CALCIUM 8.4 GM POWDER PACKET (VELTASSA) PO ONE (17:00)
[2022-08-16] MEDS ORDERED: IPRATROPIUM 0.5MG/ALBUTEROL 2.5MG INH SOL UD 3ML (DUONEB) NEB SCH (17:00)
[2022-08-16 17:16] LABS: HIV 1&2 SCREEN CENTAUR NEGATIVE (NEGATIVE)
[2022-08-16 17:50] VITALS: BP 202/100
[2022-08-16] MEDS: **hydrALAZINE** 50 MG TAB PO SCH (18:48)
[2022-08-16] MEDS: (RENVELA) SEVELAMER **CARBONate** 800 MG TAB PO SCH (18:48)
[2022-08-16] MEDS: ALBUTEROL SULFATE 2.5MG/0.5ML INH NEB SOLN INH SCH (19:09)
[2022-08-16] MEDS: IPRATROPIUM 0.02% SOLN 0.5MG 2.5ML NEB INH SCH (19:09)
[2022-08-16 20:00] VITALS: BP_SYST 180; BP_SYST 194; BP_DIAS 68; BP_DIAS 93
[2022-08-16] MEDS ORDERED: RAMELTEON 8 MG TAB (ROZEREM) PO PRN (20:15)
[2022-08-16] MEDS ORDERED: cloNIDine 0.1MG TABLET PO ONE (20:30)
[2022-08-16] MEDS: HEPARIN SOD (PORCINE) 5000UNITS/ML 1ML VIAL/SYRINGE SC SCH (20:51)
[2022-08-16] MEDS: busPIRone 5 MG TAB PO SCH (20:52)
[2022-08-16] MEDS: SUCROFERRIC OXYHYDROXIDE 500MG CHEW TAB (VELPHORO) PO SCH (20:52)
[2022-08-16 22:01] VITALS: BP 177/92
[2022-08-16] MEDS: ALBUTEROL SULFATE 2.5MG/0.5ML INH NEB SOLN NEB PRN (22:04)
[2022-08-17 00:17] VITALS: BP 165/95
[2022-08-17] MEDS: ALBUTEROL SULFATE 2.5MG/0.5ML INH NEB SOLN INH SCH ×6 (02:37→23:14)
[2022-08-17] MEDS: IPRATROPIUM 0.02% SOLN 0.5MG 2.5ML NEB INH SCH ×6 (02:38→23:14)
[2022-08-17 04:36] VITALS: BP 174/97
[2022-08-17] MEDS: ALBUTEROL SULFATE 2.5MG/0.5ML INH NEB SOLN NEB PRN ×2 (04:37→09:33)
[2022-08-17] MEDS: **hydrALAZINE** 50 MG TAB PO SCH ×4 (05:53→19:49)
[2022-08-17] MEDS: (RENVELA) SEVELAMER **CARBONate** 800 MG TAB PO SCH ×3 (07:10→09:21)
[2022-08-17] MEDS: FEBUXOSTAT 40 MG TABLET (ULORIC) PO SCH ×2 (07:10→09:39)
[2022-08-17] MEDS: BUMETANIDE 1 MG TAB PO SCH ×2 (07:10→09:39)
[2022-08-17] MEDS: busPIRone 5 MG TAB PO SCH ×2 (07:11→20:15)
[2022-08-17] MEDS: DOCUSATE SODIUM 100MG CAPSULE PO SCH (07:11)
[2022-08-17] MEDS: HEPARIN SOD (PORCINE) 5000UNITS/ML 1ML VIAL/SYRINGE SC SCH ×2 (07:12→20:15)
[2022-08-17] MEDS: SUCROFERRIC OXYHYDROXIDE 500MG CHEW TAB (VELPHORO) PO SCH ×3 (07:12→19:50)
[2022-08-17] MEDS: METOPROLOL SUCC (TopROL XL) 50MG **XL** TAB PO SCH ×2 (07:12→09:41)
[2022-08-17 07:27] VITALS: BP 168/96
[2022-08-17 07:45] LABS: HEMATOCRIT 26.1 % (42.0-52.0); HEMOGLOBIN 8.2 g/dl (13.5-17.5); MEAN CORPUSCULAR HEMOGLOBIN 30.8 pg (27.0-33.0); MEAN CORPUSCULAR HGB CONC 31.4 g/dl (32.0-36.5); MEAN CORPUSCULAR VOLUME 98.1 fl (80.0-96.0); PLATELET COUNT, AUTOMATED 205 10^3/uL (150-450); RED BLOOD COUNT 2.66 10^6/uL (4.30-6.10); WHITE BLOOD COUNT 20.5 10^3/uL (4.0-10.0)
[2022-08-17 08:17] LABS: ALBUMIN 3.8 G/DL (3.2-5.2); BILIRUBIN,TOTAL 0.2 MG/DL (0.3-1.2); CALCIUM LEVEL 9.2 MG/DL (8.5-10.1); CREATININE FOR GFR 13.06 MG/DL (0.70-1.30); GLOMERULAR FILTRATION RATE 4.4 (>60); PHOSPHORUS LEVEL 6.7 MG/DL (2.5-4.9); POTASSIUM SERUM 6.7 MMOL/L (3.5-5.1); TOTAL PROTEIN 6.2 G/DL (5.7-8.2)
[2022-08-17] MEDS ORDERED: predniSONE 20 MG TAB PO SCH (09:00)
[2022-08-17] MEDS ORDERED: CALCIUM GLUCONATE 1,000 MG in D5W MINI-BAG PLUS 100 ML IV ONE (09:00)
[2022-08-17] MEDS ORDERED: HEPARIN 1,000UNITS/ML 10ML VIAL (FOR RADIOLOGY & DIALYSIS ONLY) XX SCH (09:20)
[2022-08-17] MEDS ORDERED: DARBEPOETIN 200MCG/0.4ML *DIALYSIS* SYRINGE IV SCH (09:20)
[2022-08-17] MEDS ORDERED: HEPARIN 1,000UNITS/ML 10ML VIAL (FOR RADIOLOGY & DIALYSIS ONLY) IV PRN (09:20)
[2022-08-17] MEDS ORDERED: SODIUM CHLORIDE 0.9% 1000ML IV PRN (09:20)
[2022-08-17] MEDS ORDERED: LIDOCAINE 1% SDV 5ML VIAL SC PRN (09:20)
[2022-08-17] MEDS: LOSARTAN 50MG TABLET PO SCH (09:39)
[2022-08-17 11:40] VITALS: BP 176/90
[2022-08-17] MEDS ORDERED: PATIROMER SORBITEX CALCIUM 8.4 GM POWDER PACKET (VELTASSA) PO ONE (12:00)
[2022-08-17] MEDS ORDERED: AZITHROMYCIN 250MG TABLET PO ONE (13:15)
[2022-08-17] MEDS: LORazepam 1 MG TAB PO PRN (14:12)
[2022-08-17] MEDS ORDERED: ONDANSETRON 4MG 2ML VIAL IV ONE ×2 (15:30→19:40)
[2022-08-17] MEDS: cefTRIAXone SOD 1 GM in D5W MINI-BAG PLUS 50 ML IV SCH (19:49)
[2022-08-17] MEDS: methylPREDNISolone 40MG 1ML VIAL IV SCH (19:49)
[2022-08-17 20:00] VITALS: BP 163/80
[2022-08-18] VITALS: BP 160/87
[2022-08-18] MEDS: **hydrALAZINE** 50 MG TAB PO SCH ×5 (00:10→23:10)
[2022-08-18] MEDS: IPRATROPIUM 0.02% SOLN 0.5MG 2.5ML NEB INH SCH ×5 (03:32→20:55)
[2022-08-18] MEDS: ALBUTEROL SULFATE 2.5MG/0.5ML INH NEB SOLN INH SCH ×2 (03:32→07:48)
[2022-08-18 04:00] VITALS: BP 171/89
[2022-08-18] MEDS: methylPREDNISolone 40MG 1ML VIAL IV SCH (05:04)
[2022-08-18 06:00] LABS: BASO % 0.1 % (0.0-1.0); HEMATOCRIT 25.9 % (42.0-52.0); HEMOGLOBIN 8.3 g/dl (13.5-17.5); LYMPH # 1.3 10^3/uL (1.5-5.0); LYMPH % 5.3 % (24.0-44.0); MEAN CORPUSCULAR HEMOGLOBIN 30.6 pg (27.0-33.0); MEAN CORPUSCULAR VOLUME 95.6 fl (80.0-96.0); MONO % 4.3 % (2.0-8.0); NEUTROPHILS # 21.3 10^3/uL (1.5-8.5); NEUTROPHILS % 88.6 % (36.0-66.0); PLATELET COUNT, AUTOMATED 215 10^3/uL (150-450); RED BLOOD COUNT 2.71 10^6/uL (4.30-6.10)
[2022-08-18 06:26] LABS: CALCIUM LEVEL 8.9 MG/DL (8.5-10.1); CREATININE FOR GFR 7.46 MG/DL (0.70-1.30); GLOMERULAR FILTRATION RATE 8.4 (>60); POTASSIUM SERUM 5.9 MMOL/L (3.5-5.1)
[2022-08-18 08:44] VITALS: BP 159/89
[2022-08-18] MEDS ORDERED: AZITHROMYCIN 250MG TABLET PO SCH (09:00)
[2022-08-18] MEDS ORDERED: DOXYCYCLINE HYCLATE 100MG TABLET PO SCH (09:00)
[2022-08-18] MEDS: VANICREAM MOISTURIZING SKIN CREAM 113GM TUBE TOP SCH (09:00)
[2022-08-18] MEDS ORDERED: LEVALBUTEROL HFA 45MCG/ACT 15GM INHALER INH PRN (09:05)
[2022-08-18] MEDS: HEPARIN SOD (PORCINE) 5000UNITS/ML 1ML VIAL/SYRINGE SC SCH ×2 (09:46→20:10)
[2022-08-18] MEDS: SUCROFERRIC OXYHYDROXIDE 500MG CHEW TAB (VELPHORO) PO SCH ×3 (09:46→18:00)
[2022-08-18] MEDS: BUMETANIDE 1 MG TAB PO SCH (09:47)
[2022-08-18] MEDS: LOSARTAN 50MG TABLET PO SCH (09:48)
[2022-08-18] MEDS: FEBUXOSTAT 40 MG TABLET (ULORIC) PO SCH (09:48)
[2022-08-18] MEDS: METOPROLOL SUCC (TopROL XL) 50MG **XL** TAB PO SCH (09:49)
[2022-08-18] MEDS: DOCUSATE SODIUM 100MG CAPSULE PO SCH (09:49)
[2022-08-18] MEDS: busPIRone 5 MG TAB PO SCH ×2 (09:49→20:08)
[2022-08-18] MEDS: LEVALBUTEROL 1.25MG 0.5ML CONCENTRATE NEB INH SCH ×3 (11:31→20:55)
[2022-08-18] MEDS: AZITHROMYCIN 250MG TABLET PO SCH (15:23)
[2022-08-18] MEDS: cefTRIAXone SOD 1 GM in D5W MINI-BAG PLUS 50 ML IV SCH (15:23)
[2022-08-18 15:28] VITALS: BP 149/74
[2022-08-18 15:39] LABS: C REACTIVE PROTEIN QUANTITATIV 2.6 MG/DL (<1.0)
[2022-08-18] MEDS ORDERED: VANCOMYCIN HCL 1,000 MG, VIAL MATE ADAPTER 1 EACH in D5W 250 ML IV ONE (16:00)
[2022-08-18 19:54] VITALS: BP 161/93
[2022-08-19] VITALS (7 sets, daily range): BP systolic 157–167; BP diastolic 60–96
[2022-08-19] MEDS: IPRATROPIUM 0.02% SOLN 0.5MG 2.5ML NEB INH SCH ×5 (00:01→15:15)
[2022-08-19] MEDS: LEVALBUTEROL 1.25MG 0.5ML CONCENTRATE NEB INH SCH ×5 (00:01→15:15)
[2022-08-19] MEDS: **hydrALAZINE** 50 MG TAB PO SCH ×2 (05:25→13:51)
[2022-08-19 05:53] LABS: BASO % 0.1 % (0.0-1.0); EOS % 0.1 % (0.0-3.0); HEMATOCRIT 26.8 % (42.0-52.0); HEMOGLOBIN 8.3 g/dl (13.5-17.5); LYMPH # 2.7 10^3/uL (1.5-5.0); MEAN CORPUSCULAR HEMOGLOBIN 29.6 pg (27.0-33.0); MEAN CORPUSCULAR VOLUME 95.7 fl (80.0-96.0); MONO % 10.7 % (2.0-8.0); NEUTROPHILS # 10.9 10^3/uL (1.5-8.5); NEUTROPHILS % 70.4 % (36.0-66.0); PLATELET COUNT, AUTOMATED 206 10^3/uL (150-450); WHITE BLOOD COUNT 15.6 10^3/uL (4.0-10.0)
[2022-08-19] MEDS ORDERED: LIDOCAINE 1% SDV 5ML VIAL SC PRN (06:00)
[2022-08-19] MEDS ORDERED: SODIUM CHLORIDE 0.9% 1000ML IV PRN (06:00)
[2022-08-19 06:22] LABS: VANCOMYCIN RANDOM 11.6 UG/ML
[2022-08-19 06:28] LABS: MONO # 1.7 10^3/uL (0.0-0.8)
[2022-08-19 06:31] LABS: CALCIUM LEVEL 8.5 MG/DL (8.5-10.1); CREATININE FOR GFR 10.34 MG/DL (0.70-1.30); GLOMERULAR FILTRATION RATE 5.8 (>60); POTASSIUM SERUM 4.9 MMOL/L (3.5-5.1)
[2022-08-19] MEDS: SUCROFERRIC OXYHYDROXIDE 500MG CHEW TAB (VELPHORO) PO SCH ×2 (06:50→13:47)
[2022-08-19] MEDS: LORazepam 1 MG TAB PO PRN (07:46)
[2022-08-19] MEDS ORDERED: FLUTICASONE PROP 0.05% NASAL SPRAY 16 GM (FLONASE) NARES SCH (09:00)
[2022-08-19] MEDS ORDERED: predniSONE 20 MG TAB PO ONE (09:00)
[2022-08-19] MEDS ORDERED: guaiFENesin ER 600 MG TAB PO SCH (09:25)
[2022-08-19] MEDS ORDERED: PRED10TA2 PO ×2 (12:31→15:33)
[2022-08-19] MEDS ORDERED: CEFD300C41 PO (12:31)
[2022-08-19] MEDS ORDERED: ONDANSETRON 4MG 2ML VIAL IV ONE (13:35)
[2022-08-19] MEDS: HEPARIN SOD (PORCINE) 5000UNITS/ML 1ML VIAL/SYRINGE SC SCH (13:48)
[2022-08-19] MEDS: DOCUSATE SODIUM 100MG CAPSULE PO SCH (13:49)
[2022-08-19] MEDS: AZITHROMYCIN 250MG TABLET PO SCH (13:49)
[2022-08-19] MEDS: FEBUXOSTAT 40 MG TABLET (ULORIC) PO SCH (13:49)
[2022-08-19] MEDS: BUMETANIDE 1 MG TAB PO SCH (13:50)
[2022-08-19] MEDS: busPIRone 5 MG TAB PO SCH (13:50)
[2022-08-19] MEDS: LOSARTAN 50MG TABLET PO SCH (13:51)
[2022-08-19] MEDS: METOPROLOL SUCC (TopROL XL) 50MG **XL** TAB PO SCH (13:52)
[2022-08-19] MEDS: VANICREAM MOISTURIZING SKIN CREAM 113GM TUBE TOP SCH (13:52)
[2022-08-19] MEDS: cefTRIAXone SOD 1 GM in D5W MINI-BAG PLUS 50 ML IV SCH (13:53)
[2022-08-19] MEDS ORDERED: ADV250INH INH (15:35)
[2022-08-19] MEDS ORDERED: METOPROLOL SUCC *XL* 25MG TAB (TopROL *XL*) PO ONE (15:45)
[2022-08-19] MEDS ORDERED: METO1TAB7 PO (15:45)
[2022-08-19] MEDS ORDERED: CLONI1TA PO (15:50)
[2022-08-19] MEDS ORDERED: FLON1SPR NARES (15:56)
[2022-08-19] MEDS ORDERED: MUCI600T31 PO (15:57)
[2022-08-20] MEDS ORDERED: predniSONE 20 MG TAB PO SCH (09:00)
== END 2022-08-19 16:35 | disposition home or self-care (01) | DRG 177 ==
LOC: M ED 12:29 → M ED INP 16:00 → ENRESERV 16:43 → M PCU 17:52
PROVIDERS: ADMIT Internal Medicine; ATTEND Internal Medicine
DX: J15.6 Pneumonia due to other Gram-negative bacteria (principal); N18.6 End stage renal disease; J45.901 Unspecified asthma with (acute) exacerbation; I50.32 Chronic diastolic (congestive) heart failure; I13.2 Hypertensive heart and chronic kidney disease with heart failure and with stage 5 chronic kidney disease, or end stage renal disease; J12.89 Other viral pneumonia; I16.0 Hypertensive urgency; F32.A Depression, unspecified; D63.1 Anemia in chronic kidney disease; E78.5 Hyperlipidemia, unspecified; E87.70 Fluid overload, unspecified; M10.9 Gout, unspecified; F41.9 Anxiety disorder, unspecified; E87.5 Hyperkalemia; F43.10 Post-traumatic stress disorder, unspecified; Z88.8 Allergy status to other drugs, medicaments and biological substances; Z79.899 Other long term (current) drug therapy; Z88.0 Allergy status to penicillin; D72.829 Elevated white blood cell count, unspecified; F12.90 Cannabis use, unspecified, uncomplicated

== ENCOUNTER 2022-09-08 05:55 | Observation (INO) | payer MEDICARE, MEDICAID ==
[~2022-09-08] VITALS: Ht 172.7 cm; Wt 98.0 kg
[~2022-09-08 05:55] MED LIST changes: +ADV250INH INH; +CEFD300C41 PO; +CLONI1TA PO; +FLON1SPR NARES; +MUCI600T31 PO; +PRED10TA2 PO
[2022-09-08] MEDS ORDERED: HumuLIN R (REGULAR) INSULIN (NovoLIN R) **100U/ML** PER UNIT IV STA (06:47)
[2022-09-08] MEDS ORDERED: DEXTROSE 50% 50ML SYRINGE IV STA (06:47)
[2022-09-08] MEDS ORDERED: CALCIUM GLUCONATE 1,000 MG in D5W MINI-BAG PLUS 100 ML IV ONE (06:50)
[2022-09-08] MEDS ORDERED: SOD POLYSTYRENE SULFONATE SUSP 15GM 60ML UD PO ONE (06:50)
[2022-09-08 06:56] LABS: BASO # 0.1 10^3/uL (0.0-0.2); BASO % 0.5 % (0.0-1.0); EOS # 1.1 10^3/uL (0.0-0.5); EOS % 8.8 % (0.0-3.0); HEMATOCRIT 32.8 % (42.0-52.0); HEMOGLOBIN 10.2 g/dl (13.5-17.5); LYMPH # 1.1 10^3/uL (1.5-5.0); LYMPH % 8.3 % (24.0-44.0); MEAN CORPUSCULAR HEMOGLOBIN 30.8 pg (27.0-33.0); MEAN CORPUSCULAR HGB CONC 31.1 g/dl (32.0-36.5); MEAN CORPUSCULAR VOLUME 99.1 fl (80.0-96.0); MONO # 1.2 10^3/uL (0.0-0.8); MONO % 9.5 % (2.0-8.0); NEUTROPHILS # 9.2 10^3/uL (1.5-8.5); NEUTROPHILS % 72.5 % (36.0-66.0); PLATELET COUNT, AUTOMATED 277 10^3/uL (150-450); RED BLOOD COUNT 3.31 10^6/uL (4.30-6.10); WHITE BLOOD COUNT 12.7 10^3/uL (4.0-10.0)
[2022-09-08 07:24] LABS: CK-MB VALUE MASS 2.4 NG/ML (<3.6)
[2022-09-08 07:26] LABS: ALBUMIN 3.4 G/DL (3.2-5.2); BILIRUBIN,DIRECT 0.1 MG/DL (<0.4); BILIRUBIN,TOTAL 0.2 MG/DL (0.3-1.2); MB/CK RELATIVE INDEX 1.66 (< OR =4); TOTAL PROTEIN 6.3 G/DL (5.7-8.2)
[2022-09-08 07:28] LABS: THYROID STIMULATING HORMONE 4.991 uIU/ML (0.55-4.78)
[2022-09-08] MEDS: ADVAIR HFA 115/21MCG INHALER INH SCH ×2 (08:00→20:00)
[2022-09-08 08:07] LABS: CALCIUM LEVEL 7.5 MG/DL (8.5-10.1); CREATININE FOR GFR 8.37 MG/DL (0.70-1.30); GLOMERULAR FILTRATION RATE 7.4 (>60); POTASSIUM SERUM 7.6 MMOL/L (3.5-5.1)
[2022-09-08] MEDS ORDERED: IPRATROPIUM 0.5MG/ALBUTEROL 2.5MG INH SOL UD 3ML (DUONEB) NEB ONE (08:10)
[2022-09-08 08:37] LABS: PHOSPHORUS LEVEL 7.2 MG/DL (2.5-4.9)
[2022-09-08] MEDS ORDERED: LOSA50TA28 PO (09:54)
[2022-09-08] MEDS ORDERED: CLON-412 PO (09:54)
[2022-09-08] MEDS ORDERED: LEVAINH INH (09:54)
[2022-09-08] MEDS ORDERED: BUSP15TA47 PO (09:54)
[2022-09-08] MEDS ORDERED: ADV250INH INH (09:54)
[2022-09-08] MEDS ORDERED: GUAI600T54 PO (09:59)
[2022-09-08] MEDS ORDERED: HYDR-3911 PO (09:59)
[2022-09-08] MEDS ORDERED: HYDR50TA70 PO (09:59)
[2022-09-08] MEDS ORDERED: FLON1SPR NARES (09:59)
[2022-09-08] MEDS ORDERED: METO1TAB7 PO (09:59)
[2022-09-08] MEDS ORDERED: TRAZ-186 PO (09:59)
[2022-09-08] MEDS ORDERED: HOME MED LIST COMPLETE! XX SCH (10:05)
[2022-09-08] MEDS ORDERED: HEPARIN 1,000UNITS/ML 10ML VIAL (FOR RADIOLOGY & DIALYSIS ONLY) IV PRN (10:50)
[2022-09-08] MEDS ORDERED: SODIUM CHLORIDE 0.9% 1000ML IV PRN (10:50)
[2022-09-08] MEDS ORDERED: LIDOCAINE 1% SDV 5ML VIAL SC PRN (10:50)
[2022-09-08] MEDS ORDERED: HEPARIN 1,000UNITS/ML 10ML VIAL (FOR RADIOLOGY & DIALYSIS ONLY) XX SCH (10:50)
[2022-09-08 11:00] VITALS: BP 159/101
[2022-09-08] MEDS ORDERED: LORazepam 1 MG TAB PO PRN (11:20)
[2022-09-08 11:32] LABS: POTASSIUM SERUM 6.6 MMOL/L (3.5-5.1)
[2022-09-08] MEDS: **hydrALAZINE** 50 MG TAB PO SCH ×3 (12:00→23:57)
[2022-09-08] MEDS ORDERED: DOCUSATE SODIUM 100MG CAPSULE PO PRN (12:20)
[2022-09-08] MEDS ORDERED: LEVALBUTEROL HFA 45MCG/ACT 15GM INHALER INH PRN (12:20)
[2022-09-08] MEDS ORDERED: cloNIDine 0.1MG TABLET PO PRN (12:20)
[2022-09-08 12:23] LABS: ABG BASE EXCESS 5.2 (-2.0-2.0); ABG HCO3 29.8 MEQ/L (22.0-26.0); ABG O2 SATURATION 98.3 % (95.0-99.0); ABG PARTIAL PRESSURE CO2 43.8 mmHg (35.0-45.0); ABG STANDARD HCO3 29.2 MEQ/L (22.0-26.0); ABG TOTAL CO2 31.1 MEQ/L (22.0-29.0)
[2022-09-08] MEDS: SUCROFERRIC OXYHYDROXIDE 500MG CHEW TAB (VELPHORO) PO SCH ×2 (12:30→18:00)
[2022-09-08] MEDS: ONDANSETRON 4MG 2ML VIAL IV PRN (12:48)
[2022-09-08 12:54] LABS: FREE T4 0.92 NG/DL (0.89-1.76)
[2022-09-08 16:50] VITALS: BP 156/101
[2022-09-08] MEDS: busPIRone 5 MG TAB PO SCH ×2 (17:00→20:10)
[2022-09-08] MEDS: HEPARIN SOD (PORCINE) 5000UNITS/ML 1ML VIAL/SYRINGE SQ SCH ×2 (17:14→20:10)
[2022-09-08] MEDS: FLUTICASONE PROP 0.05% NASAL SPRAY 16 GM (FLONASE) NARES SCH (17:15)
[2022-09-08] MEDS: FEBUXOSTAT 40 MG TABLET (ULORIC) PO SCH (17:59)
[2022-09-08] MEDS: METOPROLOL SUCC *XL* 25MG TAB (TopROL *XL*) PO SCH (17:59)
[2022-09-08] MEDS: BUMETANIDE 1 MG TAB PO SCH (18:00)
[2022-09-08] MEDS ORDERED: ACETAMINOPHEN TAB 650MG DOSE (2X325MG) PO PRN (19:35)
[2022-09-08 19:57] LABS: CREATININE FOR GFR 4.78 MG/DL (0.70-1.30); GLOMERULAR FILTRATION RATE 14.1 (>60); POTASSIUM SERUM 4.2 MMOL/L (3.5-5.1)
[2022-09-08 20:00] VITALS: BP 146/102
[2022-09-08] MEDS ORDERED: traZODone 50 MG TAB PO SCH (21:00)
[2022-09-09] MEDS ORDERED: LIDOCAINE 1% SDV 5ML VIAL SC PRN (05:55)
[2022-09-09] MEDS ORDERED: HEPARIN 1,000UNITS/ML 10ML VIAL (FOR RADIOLOGY & DIALYSIS ONLY) IV PRN (05:55)
[2022-09-09] MEDS ORDERED: HEPARIN 1,000UNITS/ML 10ML VIAL (FOR RADIOLOGY & DIALYSIS ONLY) XX SCH (05:55)
[2022-09-09] MEDS ORDERED: SODIUM CHLORIDE 0.9% 1000ML IV PRN (05:55)
[2022-09-09 06:00] VITALS: BP 156/97
[2022-09-09 06:25] LABS: BASO # 0.1 10^3/uL (0.0-0.2); EOS % 12.1 % (0.0-3.0); HEMATOCRIT 32.8 % (42.0-52.0); HEMOGLOBIN 10.2 g/dl (13.5-17.5); LYMPH # 1.2 10^3/uL (1.5-5.0); LYMPH % 13.7 % (24.0-44.0); MEAN CORPUSCULAR HEMOGLOBIN 30.5 pg (27.0-33.0); MEAN CORPUSCULAR HGB CONC 31.1 g/dl (32.0-36.5); MEAN CORPUSCULAR VOLUME 98.2 fl (80.0-96.0); MONO # 0.9 10^3/uL (0.0-0.8); NEUTROPHILS # 5.4 10^3/uL (1.5-8.5); PLATELET COUNT, AUTOMATED 262 10^3/uL (150-450); RED BLOOD COUNT 3.34 10^6/uL (4.30-6.10); WHITE BLOOD COUNT 8.6 10^3/uL (4.0-10.0)
[2022-09-09] MEDS: SUCROFERRIC OXYHYDROXIDE 500MG CHEW TAB (VELPHORO) PO SCH ×2 (06:26→12:30)
[2022-09-09] MEDS: FLUTICASONE PROP 0.05% NASAL SPRAY 16 GM (FLONASE) NARES SCH (06:27)
[2022-09-09] MEDS: BUMETANIDE 1 MG TAB PO SCH (06:28)
[2022-09-09] MEDS: HEPARIN SOD (PORCINE) 5000UNITS/ML 1ML VIAL/SYRINGE SQ SCH ×2 (06:28→12:44)
[2022-09-09] MEDS: busPIRone 5 MG TAB PO SCH (06:29)
[2022-09-09] MEDS: FEBUXOSTAT 40 MG TABLET (ULORIC) PO SCH (06:32)
[2022-09-09] MEDS: **hydrALAZINE** 50 MG TAB PO SCH ×2 (06:33→12:44)
[2022-09-09] MEDS: METOPROLOL SUCC *XL* 25MG TAB (TopROL *XL*) PO SCH (06:34)
[2022-09-09 06:48] LABS: CALCIUM LEVEL 8.2 MG/DL (8.5-10.1); CREATININE FOR GFR 6.59 MG/DL (0.70-1.30); GLOMERULAR FILTRATION RATE 9.7 (>60); POTASSIUM SERUM 5.6 MMOL/L (3.5-5.1)
[2022-09-09] MEDS: ADVAIR HFA 115/21MCG INHALER INH SCH (07:17)
[2022-09-09 07:52] VITALS: BP 132/83
[2022-09-09] MEDS ORDERED: LOSARTAN 50MG TABLET PO SCH (09:00)
[2022-09-09] MEDS ORDERED: METO1TAB33 PO (10:28)
[2022-09-09] MEDS: ONDANSETRON 4MG 2ML VIAL IV PRN (11:40)
[2022-09-09 12:38] VITALS: BP 150/93
[2022-09-09] MEDS ORDERED: ONDANSETRON 4MG 2ML VIAL IV STA (12:39)
[2022-09-09 12:44] VITALS: BP 150/93
[2022-09-10] MEDS ORDERED: METOPROLOL SUCC (TopROL XL) 100MG *XL* TAB PO SCH (09:00)
== END 2022-09-09 14:07 | disposition home or self-care (01) ==
LOC: M ED 05:55 → M ED INP 09:53 → ENRESERV 10:07 → M MSPAV 10:52
PROVIDERS: ADMIT Internal Medicine; ATTEND Internal Medicine
DX: N18.6 End stage renal disease (principal); E87.5 Hyperkalemia; D72.829 Elevated white blood cell count, unspecified; K52.9 Noninfective gastroenteritis and colitis, unspecified; G47.00 Insomnia, unspecified; F41.9 Anxiety disorder, unspecified; F32.A Depression, unspecified; I12.0 Hypertensive chronic kidney disease with stage 5 chronic kidney disease or end stage renal disease; M10.9 Gout, unspecified; Z88.0 Allergy status to penicillin; Z88.8 Allergy status to other drugs, medicaments and biological substances; Z79.899 Other long term (current) drug therapy
CPT/HCPCS: 36415; 71045; 74176; 80047; 80048; 80076; 82550; 82553; 82803; 83605; 83735; 84100; 84132; 84439; 84443; 84484; 85025; 87040; 87486; 87507; 87581; 87633; 87798; 93005; 94640; 96361; 96374; 96375; 96376; 97161; 99285; G0257; G0378; J0612; J1815; J2405

== ENCOUNTER 2022-11-05 22:31 | Emergency (ER) | payer MEDICARE, MEDICAID ==
[~2022-11-05] VITALS: Ht 170.2 cm; Wt 100.7 kg
[~2022-11-05 22:31] MED LIST changes: +BUSP15TA47 PO; +CLON-412 PO; -COZA50TA PO; +GUAI600T54 PO; +HYDR-3911 PO; +HYDR50TA70 PO; +LEVAINH INH; +LORA1TAB23; +LORA1TAB23 PO; -LORA1TAB4; -LORA1TAB4 PO; +LOSA-528 PO; +METO1TAB33 PO; +TRAZ-186 PO
[2022-11-06 00:44] LABS: BASO # 0.1 10^3/uL (0.0-0.2); BASO % 0.7 % (0.0-1.0); EOS # 0.8 10^3/uL (0.0-0.5); EOS % 8.5 % (0.0-3.0); HEMATOCRIT 32.3 % (42.0-52.0); HEMOGLOBIN 10.3 g/dl (13.5-17.5); LYMPH # 1.6 10^3/uL (1.5-5.0); LYMPH % 17.9 % (24.0-44.0); MEAN CORPUSCULAR HEMOGLOBIN 30.3 pg (27.0-33.0); MEAN CORPUSCULAR HGB CONC 31.9 g/dl (32.0-36.5); MONO % 10.6 % (2.0-8.0); NEUTROPHILS # 5.6 10^3/uL (1.5-8.5); NEUTROPHILS % 61.7 % (36.0-66.0); PLATELET COUNT, AUTOMATED 253 10^3/uL (150-450); WHITE BLOOD COUNT 9.1 10^3/uL (4.0-10.0)
[2022-11-06 00:49] LABS: CALCIUM LEVEL 8.4 MG/DL (8.5-10.1); CREATININE FOR GFR 9.78 MG/DL (0.70-1.30); GLOMERULAR FILTRATION RATE 6.1 (>60); POTASSIUM SERUM 4.5 MMOL/L (3.5-5.1)
[2022-11-06] MEDS ORDERED: ALBUTEROL SULFATE 2.5MG/0.5ML INH NEB SOLN NEB ONE (00:50)
[2022-11-06 03:11] VITALS: BP 127/88; TEMP 98.2; O2SAT 98
== END 2022-11-06 03:21 | disposition home or self-care (01) ==
LOC: M ED 22:31
DX: R31.9 Hematuria, unspecified (principal); I51.7 Cardiomegaly; N28.1 Cyst of kidney, acquired; N18.6 End stage renal disease; I10 Essential (primary) hypertension; E78.5 Hyperlipidemia, unspecified; J45.909 Unspecified asthma, uncomplicated; F32.A Depression, unspecified; F12.10 Cannabis abuse, uncomplicated; Z79.899 Other long term (current) drug therapy; Z88.0 Allergy status to penicillin; Z88.8 Allergy status to other drugs, medicaments and biological substances

== ENCOUNTER 2022-12-16 09:39 | Inpatient (IN) | payer MEDICARE, MEDICAID ==
[~2022-12-16] VITALS: Ht 170.2 cm; Wt 86.2 kg
[~2022-12-16 09:39] MED LIST changes: -LIDO1CRE42 TOP; +LIDO30CR18 TOP
[2022-12-16] MEDS ORDERED: LORazepam 1 MG TAB PO STA (10:03)
[2022-12-16] MEDS ORDERED: cloNIDine 0.1MG TABLET PO ONE ×2 (10:05→17:45)
[2022-12-16] MEDS ORDERED: ASPIRIN 81MG CHEW TABLET PO ONE (10:05)
[2022-12-16] MEDS ORDERED: **hydrALAZINE** 50 MG TAB PO ONE (10:05)
[2022-12-16] MEDS ORDERED: METOPROLOL SUCC (TopROL XL) 100MG *XL* TAB PO ONE (10:05)
[2022-12-16] MEDS ORDERED: LOSARTAN 50MG TABLET PO ONE (10:05)
[2022-12-16 10:51] LABS: BASO % 0.4 % (0.0-1.0); EOS # 0.8 10^3/uL (0.0-0.5); EOS % 8.6 % (0.0-3.0); HEMATOCRIT 24.5 % (42.0-52.0); HEMOGLOBIN 7.8 g/dl (13.5-17.5); LYMPH # 1.2 10^3/uL (1.5-5.0); LYMPH % 13.1 % (24.0-44.0); MEAN CORPUSCULAR HEMOGLOBIN 29.9 pg (27.0-33.0); MEAN CORPUSCULAR HGB CONC 31.8 g/dl (32.0-36.5); MEAN CORPUSCULAR VOLUME 93.9 fl (80.0-96.0); MONO # 0.9 10^3/uL (0.0-0.8); NEUTROPHILS # 6.1 10^3/uL (1.5-8.5); NEUTROPHILS % 67.3 % (36.0-66.0); PLATELET COUNT, AUTOMATED 231 10^3/uL (150-450); RED BLOOD COUNT 2.61 10^6/uL (4.30-6.10)
[2022-12-16 11:01] LABS: INR 1.03; PROTHROMBIN TIME 13.7 SECONDS (12.5-14.5)
[2022-12-16 11:12] LABS: ALBUMIN 3.4 G/DL (3.2-5.2); BILIRUBIN,DIRECT 0.2 MG/DL (<0.4); BILIRUBIN,TOTAL 0.6 MG/DL (0.3-1.2); CALCIUM LEVEL 8.6 MG/DL (8.5-10.1); CK-MB VALUE MASS 1.7 NG/ML (<3.6); CREATININE FOR GFR 6.93 MG/DL (0.70-1.30); GLOMERULAR FILTRATION RATE 9.1 (>60); MB/CK RELATIVE INDEX 0.87 (< OR =4); POTASSIUM SERUM 3.9 MMOL/L (3.5-5.1); TOTAL PROTEIN 5.8 G/DL (5.7-8.2)
[2022-12-16 11:14] LABS: FREE T4 1.22 NG/DL (0.89-1.76); THYROID STIMULATING HORMONE 4.92 uIU/ML (0.55-4.78)
[2022-12-16] MEDS ORDERED: BUMETANIDE 1 MG TAB PO SCH (12:00)
[2022-12-16 12:17] LABS: CK-MB VALUE MASS 2.1 NG/ML (<3.6)
[2022-12-16 12:22] LABS: MB/CK RELATIVE INDEX 1.08 (< OR =4)
[2022-12-16] MEDS ORDERED: ISOVUE-370 76% 100ML VIAL As Ordered ONE (12:33)
[2022-12-16] MEDS ORDERED: LABETALOL 100MG/20ML VIAL IV STA (13:10)
[2022-12-16 14:05] LABS: CK-MB VALUE MASS 1.9 NG/ML (<3.6)
[2022-12-16 14:07] LABS: MB/CK RELATIVE INDEX 1.02 (< OR =4)
[2022-12-16 14:16] LABS: AMPHETAMINES LEVEL URINE NEGATIVE (NEGATIVE); BARBITURATES URINE NEGATIVE (NEGATIVE); BENZODIAZEPINES URINE NEGATIVE (NEGATIVE); CANNABINOIDS URINE NEGATIVE (NEGATIVE); COCAINE METABOLITE URINE NEGATIVE (NEGATIVE); METHADONE URINE NEGATIVE (NEGATIVE); OPIATES URINE NEGATIVE (NEGATIVE); PHENCYCLIDINE URINE NEGATIVE (NEGATIVE)
[2022-12-16] MEDS ORDERED: MED REC IN PROGRESS XX SCH (14:20)
[2022-12-16] MEDS ORDERED: LOSA100T46 PO (14:38)
[2022-12-16] MEDS ORDERED: METO1TAB33 PO (14:38)
[2022-12-16] MEDS ORDERED: ATOR1TAB19 PO (14:46)
[2022-12-16 14:54] VITALS: BP 174/98; TEMP 98.2; O2SAT 96
[2022-12-16] MEDS ORDERED: VENTAER INH (14:59)
[2022-12-16] MEDS ORDERED: HOME MED LIST COMPLETE! XX SCH (15:10)
[2022-12-16 15:11] VITALS: BP 188/94; TEMP 98.5
[2022-12-16 15:54] VITALS: BP 182/94; TEMP 98.6; O2SAT 96
[2022-12-16 16:54] VITALS: BP 200/89; TEMP 98.4; O2SAT 96
[2022-12-16] MEDS ORDERED: cloNIDine 0.2 MG TAB PO ONE (17:40)
[2022-12-16] MEDS: **hydrALAZINE** 50 MG TAB PO SCH (17:52)
[2022-12-16 17:54] VITALS: BP 194/105; TEMP 98; O2SAT 96
[2022-12-16] MEDS: ADVAIR HFA 115/21MCG INHALER INH SCH (19:42)
[2022-12-16] MEDS: IPRATROPIUM 0.5MG/ALBUTEROL 2.5MG INH SOL UD 3ML (DUONEB) NEB PRN (19:43)
[2022-12-16 21:46] VITALS: BP 184/103; TEMP 98.3; O2SAT 94
[2022-12-16] MEDS: HEPARIN SOD (PORCINE) 5000UNITS/ML 1ML VIAL/SYRINGE SC SCH (22:00)
[2022-12-16] MEDS: busPIRone 5 MG TAB PO SCH (22:00)
[2022-12-16] MEDS: traZODone 50 MG TAB PO SCH (22:00)
[2022-12-16] MEDS: cloNIDine 0.1MG TABLET PO SCH (22:00)
[2022-12-16] MEDS: ALBUTEROL SULFATE 2.5MG/0.5ML INH NEB SOLN NEB PRN (23:52)
[2022-12-17] VITALS (12 sets, daily range): BP systolic 165–220; BP diastolic 90–108; TEMP 98.1–99.6; O2SAT 93–96
[2022-12-17] MEDS: **hydrALAZINE** 50 MG TAB PO SCH ×5 (00:36→23:54)
[2022-12-17] MEDS: hydrOXYzine 50 MG TAB PO PRN (00:36)
[2022-12-17 00:58] LABS: HEMATOCRIT 27.3 % (42.0-52.0); HEMOGLOBIN 8.6 g/dl (13.5-17.5)
[2022-12-17] MEDS: IPRATROPIUM 0.5MG/ALBUTEROL 2.5MG INH SOL UD 3ML (DUONEB) NEB PRN ×2 (04:28→17:47)
[2022-12-17 05:12] LABS: BASO # 0.1 10^3/uL (0.0-0.2); BASO % 0.7 % (0.0-1.0); EOS # 0.9 10^3/uL (0.0-0.5); EOS % 9.3 % (0.0-3.0); HEMATOCRIT 26.8 % (42.0-52.0); HEMOGLOBIN 8.4 g/dl (13.5-17.5); LYMPH # 1.3 10^3/uL (1.5-5.0); LYMPH % 14.5 % (24.0-44.0); MEAN CORPUSCULAR HEMOGLOBIN 28.9 pg (27.0-33.0); MEAN CORPUSCULAR HGB CONC 31.3 g/dl (32.0-36.5); MEAN CORPUSCULAR VOLUME 92.1 fl (80.0-96.0); MONO # 0.9 10^3/uL (0.0-0.8); NEUTROPHILS % 65.1 % (36.0-66.0); PLATELET COUNT, AUTOMATED 234 10^3/uL (150-450); RED BLOOD COUNT 2.91 10^6/uL (4.30-6.10); WHITE BLOOD COUNT 9.2 10^3/uL (4.0-10.0)
[2022-12-17 05:36] LABS: CREATININE FOR GFR 9.28 MG/DL (0.70-1.30); GLOMERULAR FILTRATION RATE 6.5 (>60)
[2022-12-17] MEDS: busPIRone 5 MG TAB PO SCH ×2 (06:33→20:13)
[2022-12-17] MEDS ORDERED: HEPARIN 1,000UNITS/ML 10ML VIAL (FOR RADIOLOGY & DIALYSIS ONLY) IV PRN (07:15)
[2022-12-17] MEDS ORDERED: LIDOCAINE 1% SDV 5ML VIAL SC PRN (07:15)
[2022-12-17] MEDS ORDERED: HEPARIN 1,000UNITS/ML 10ML VIAL (FOR RADIOLOGY & DIALYSIS ONLY) XX SCH (07:15)
[2022-12-17] MEDS ORDERED: SODIUM CHLORIDE 0.9% 1000ML IV PRN (07:15)
[2022-12-17] MEDS: ADVAIR HFA 115/21MCG INHALER INH SCH ×2 (08:19→19:33)
[2022-12-17] MEDS: LORazepam 1 MG TAB PO SCH (08:38)
[2022-12-17] MEDS ORDERED: LOSARTAN 50MG TABLET PO SCH ×2 (12:00→14:17)
[2022-12-17] MEDS ORDERED: METOPROLOL SUCC (TopROL XL) 100MG *XL* TAB PO SCH ×2 (12:00→14:17)
[2022-12-17] MEDS ORDERED: BUMETANIDE 1 MG TAB PO SCH ×2 (12:00→14:15)
[2022-12-17] MEDS ORDERED: FEBUXOSTAT 40 MG TABLET (ULORIC) PO SCH ×2 (12:00→14:16)
[2022-12-17] MEDS ORDERED: ATORVASTATIN 10 MG TAB PO SCH ×2 (12:00→14:15)
[2022-12-17] MEDS: SUCROFERRIC OXYHYDROXIDE 500MG CHEW TAB (VELPHORO) PO SCH ×3 (12:30→18:24)
[2022-12-17] MEDS: HEPARIN SOD (PORCINE) 5000UNITS/ML 1ML VIAL/SYRINGE SC SCH ×2 (14:43→20:14)
[2022-12-17] MEDS: BUMETANIDE 1 MG TAB PO SCH (14:44)
[2022-12-17] MEDS: LOSARTAN 50MG TABLET PO SCH (14:44)
[2022-12-17] MEDS: MULTIVITAMINS/MINERALS THERAP 1 TAB PO SCH (14:44)
[2022-12-17] MEDS: FEBUXOSTAT 40 MG TABLET (ULORIC) PO SCH (14:45)
[2022-12-17] MEDS: cloNIDine 0.1MG TABLET PO SCH ×3 (14:45→20:14)
[2022-12-17] MEDS: ATORVASTATIN 10 MG TAB PO SCH (14:45)
[2022-12-17] MEDS: METOPROLOL SUCC (TopROL XL) 100MG *XL* TAB PO SCH (14:48)
[2022-12-17] MEDS: traZODone 50 MG TAB PO SCH (20:13)
[2022-12-18] VITALS (9 sets, daily range): BP systolic 163–220; BP diastolic 77–118; TEMP 96.7–98.8; O2SAT 94–98
[2022-12-18] MEDS: hydrOXYzine 50 MG TAB PO PRN (00:31)
[2022-12-18] MEDS: IPRATROPIUM 0.5MG/ALBUTEROL 2.5MG INH SOL UD 3ML (DUONEB) NEB PRN ×2 (01:48→08:50)
[2022-12-18] MEDS ORDERED: LABETALOL 100MG/20ML VIAL IV STA (03:51)
[2022-12-18 05:19] LABS: BASO # 0.1 10^3/uL (0.0-0.2); BASO % 0.9 % (0.0-1.0); EOS # 0.8 10^3/uL (0.0-0.5); EOS % 7.3 % (0.0-3.0); HEMATOCRIT 29.4 % (42.0-52.0); HEMOGLOBIN 9.3 g/dl (13.5-17.5); LYMPH % 9.5 % (24.0-44.0); MEAN CORPUSCULAR HEMOGLOBIN 29.5 pg (27.0-33.0); MEAN CORPUSCULAR HGB CONC 31.6 g/dl (32.0-36.5); MEAN CORPUSCULAR VOLUME 93.3 fl (80.0-96.0); MONO # 1.1 10^3/uL (0.0-0.8); MONO % 10.9 % (2.0-8.0); NEUTROPHILS # 7.4 10^3/uL (1.5-8.5); PLATELET COUNT, AUTOMATED 209 10^3/uL (150-450); RED BLOOD COUNT 3.15 10^6/uL (4.30-6.10); WHITE BLOOD COUNT 10.5 10^3/uL (4.0-10.0)
[2022-12-18] MEDS: **hydrALAZINE** 50 MG TAB PO SCH (05:32)
[2022-12-18 05:53] LABS: CALCIUM LEVEL 9.3 MG/DL (8.5-10.1); CREATININE FOR GFR 7.1 MG/DL (0.70-1.30); GLOMERULAR FILTRATION RATE 8.9 (>60); POTASSIUM SERUM 4.6 MMOL/L (3.5-5.1)
[2022-12-18] MEDS: SUCROFERRIC OXYHYDROXIDE 500MG CHEW TAB (VELPHORO) PO SCH ×3 (06:54→17:29)
[2022-12-18] MEDS: BUMETANIDE 1 MG TAB PO SCH (08:33)
[2022-12-18] MEDS: busPIRone 5 MG TAB PO SCH ×2 (08:33→20:57)
[2022-12-18] MEDS: ATORVASTATIN 10 MG TAB PO SCH (08:34)
[2022-12-18] MEDS: FEBUXOSTAT 40 MG TABLET (ULORIC) PO SCH (08:34)
[2022-12-18] MEDS: cloNIDine 0.1MG TABLET PO SCH ×3 (08:34→21:03)
[2022-12-18] MEDS: LOSARTAN 50MG TABLET PO SCH (08:34)
[2022-12-18] MEDS: MULTIVITAMINS/MINERALS THERAP 1 TAB PO SCH (08:35)
[2022-12-18] MEDS: METOPROLOL SUCC (TopROL XL) 100MG *XL* TAB PO SCH (08:35)
[2022-12-18] MEDS: HEPARIN SOD (PORCINE) 5000UNITS/ML 1ML VIAL/SYRINGE SC SCH ×2 (08:35→21:03)
[2022-12-18] MEDS: ADVAIR HFA 115/21MCG INHALER INH SCH ×2 (08:50→19:13)
[2022-12-18] MEDS: PRAZOSIN 1 MG CAP PO SCH ×2 (09:36→21:03)
[2022-12-18] MEDS ORDERED: SODIUM CHLORIDE 0.9% 1000ML IV PRN (10:40)
[2022-12-18] MEDS ORDERED: HEPARIN 1,000UNITS/ML 10ML VIAL (FOR RADIOLOGY & DIALYSIS ONLY) IV PRN (10:40)
[2022-12-18] MEDS ORDERED: HEPARIN 1,000UNITS/ML 10ML VIAL (FOR RADIOLOGY & DIALYSIS ONLY) XX SCH (10:40)
[2022-12-18] MEDS ORDERED: LIDOCAINE 1% SDV 5ML VIAL SC PRN (10:40)
[2022-12-18] MEDS: **hydrALAZINE HCL** 25 MG TAB PO SCH ×3 (12:04→23:34)
[2022-12-18] MEDS: LORazepam 1 MG TAB PO SCH (12:07)
[2022-12-18] MEDS ORDERED: ACETAMINOPHEN 500 MG TAB PO PRN (17:15)
[2022-12-18] MEDS: traZODone 50 MG TAB PO SCH (21:03)
[2022-12-19] VITALS (7 sets, daily range): BP systolic 146–182; BP diastolic 78–97; TEMP 98.3–98.8; O2SAT 93–99
[2022-12-19 04:48] LABS: BASO # 0.1 10^3/uL (0.0-0.2); BASO % 0.4 % (0.0-1.0); EOS % 8.4 % (0.0-3.0); HEMATOCRIT 30.8 % (42.0-52.0); HEMOGLOBIN 9.9 g/dl (13.5-17.5); LYMPH # 0.9 10^3/uL (1.5-5.0); LYMPH % 7.6 % (24.0-44.0); MEAN CORPUSCULAR HEMOGLOBIN 29.4 pg (27.0-33.0); MEAN CORPUSCULAR HGB CONC 32.1 g/dl (32.0-36.5); MEAN CORPUSCULAR VOLUME 91.4 fl (80.0-96.0); MONO # 1.2 10^3/uL (0.0-0.8); MONO % 10.7 % (2.0-8.0); NEUTROPHILS # 8.3 10^3/uL (1.5-8.5); NEUTROPHILS % 72.6 % (36.0-66.0); PLATELET COUNT, AUTOMATED 201 10^3/uL (150-450); RED BLOOD COUNT 3.37 10^6/uL (4.30-6.10); WHITE BLOOD COUNT 11.5 10^3/uL (4.0-10.0)
[2022-12-19 05:09] LABS: CALCIUM LEVEL 9.3 MG/DL (8.5-10.1); CREATININE FOR GFR 6.02 MG/DL (0.70-1.30); GLOMERULAR FILTRATION RATE 10.7 (>60); POTASSIUM SERUM 4.3 MMOL/L (3.5-5.1)
[2022-12-19] MEDS: ATORVASTATIN 10 MG TAB PO SCH (05:45)
[2022-12-19] MEDS: **hydrALAZINE HCL** 25 MG TAB PO SCH ×4 (05:45→23:21)
[2022-12-19] MEDS: busPIRone 5 MG TAB PO SCH ×2 (05:46→21:22)
[2022-12-19] MEDS: PRAZOSIN 1 MG CAP PO SCH ×2 (05:46→21:25)
[2022-12-19] MEDS: ADVAIR HFA 115/21MCG INHALER INH SCH ×2 (07:02→19:08)
[2022-12-19] MEDS: SUCROFERRIC OXYHYDROXIDE 500MG CHEW TAB (VELPHORO) PO SCH ×3 (08:00→17:37)
[2022-12-19] MEDS: MULTIVITAMINS/MINERALS THERAP 1 TAB PO SCH (08:50)
[2022-12-19] MEDS: HEPARIN SOD (PORCINE) 5000UNITS/ML 1ML VIAL/SYRINGE SC SCH ×2 (08:50→21:25)
[2022-12-19] MEDS: BUMETANIDE 1 MG TAB PO SCH (08:51)
[2022-12-19] MEDS: LOSARTAN 50MG TABLET PO SCH (08:51)
[2022-12-19] MEDS: cloNIDine 0.1MG TABLET PO SCH ×3 (08:52→21:00)
[2022-12-19] MEDS: FEBUXOSTAT 40 MG TABLET (ULORIC) PO SCH (08:52)
[2022-12-19] MEDS: METOPROLOL SUCC (TopROL XL) 100MG *XL* TAB PO SCH (08:57)
[2022-12-19] MEDS ORDERED: SODIUM CHLORIDE 0.9% 1000ML IV PRN (09:15)
[2022-12-19] MEDS ORDERED: LIDOCAINE 1% SDV 5ML VIAL SC PRN (09:15)
[2022-12-19] MEDS ORDERED: HEPARIN 1,000UNITS/ML 10ML VIAL (FOR RADIOLOGY & DIALYSIS ONLY) IV PRN (09:15)
[2022-12-19] MEDS ORDERED: HEPARIN 1,000UNITS/ML 10ML VIAL (FOR RADIOLOGY & DIALYSIS ONLY) XX SCH (09:15)
[2022-12-19] MEDS: LORazepam 1 MG TAB PO SCH (10:27)
[2022-12-19] MEDS: traZODone 50 MG TAB PO SCH (21:25)
[2022-12-20] MEDS: ALBUTEROL SULFATE 2.5MG/0.5ML INH NEB SOLN NEB PRN (04:54)
[2022-12-20 05:00] VITALS: BP 155/95; TEMP 97.9; O2SAT 99
[2022-12-20] MEDS: **hydrALAZINE HCL** 25 MG TAB PO SCH ×2 (06:25→12:00)
[2022-12-20 06:35] LABS: BASO # 0.1 10^3/uL (0.0-0.2); BASO % 0.7 % (0.0-1.0); EOS # 1.2 10^3/uL (0.0-0.5); EOS % 11.7 % (0.0-3.0); HEMATOCRIT 32.5 % (42.0-52.0); HEMOGLOBIN 10.3 g/dl (13.5-17.5); LYMPH # 1.2 10^3/uL (1.5-5.0); MEAN CORPUSCULAR HEMOGLOBIN 29.2 pg (27.0-33.0); MEAN CORPUSCULAR HGB CONC 31.7 g/dl (32.0-36.5); MEAN CORPUSCULAR VOLUME 92.1 fl (80.0-96.0); MONO # 1.1 10^3/uL (0.0-0.8); NEUTROPHILS # 6.5 10^3/uL (1.5-8.5); NEUTROPHILS % 64.3 % (36.0-66.0); PLATELET COUNT, AUTOMATED 204 10^3/uL (150-450); RED BLOOD COUNT 3.53 10^6/uL (4.30-6.10); WHITE BLOOD COUNT 10.1 10^3/uL (4.0-10.0)
[2022-12-20 07:12] LABS: CALCIUM LEVEL 9.6 MG/DL (8.5-10.1); CREATININE FOR GFR 9.03 MG/DL (0.70-1.30); GLOMERULAR FILTRATION RATE 6.7 (>60); POTASSIUM SERUM 4.6 MMOL/L (3.5-5.1)
[2022-12-20] MEDS: ADVAIR HFA 115/21MCG INHALER INH SCH (07:32)
[2022-12-20] MEDS: SUCROFERRIC OXYHYDROXIDE 500MG CHEW TAB (VELPHORO) PO SCH ×2 (08:00→12:30)
[2022-12-20] MEDS: HEPARIN SOD (PORCINE) 5000UNITS/ML 1ML VIAL/SYRINGE SC SCH (09:00)
[2022-12-20] MEDS: FEBUXOSTAT 40 MG TABLET (ULORIC) PO SCH (09:26)
[2022-12-20] MEDS: BUMETANIDE 1 MG TAB PO SCH (09:26)
[2022-12-20] MEDS: PRAZOSIN 1 MG CAP PO SCH (09:27)
[2022-12-20] MEDS: METOPROLOL SUCC (TopROL XL) 100MG *XL* TAB PO SCH (09:27)
[2022-12-20] MEDS: MULTIVITAMINS/MINERALS THERAP 1 TAB PO SCH (09:28)
[2022-12-20] MEDS: busPIRone 5 MG TAB PO SCH (09:28)
[2022-12-20] MEDS: cloNIDine 0.1MG TABLET PO SCH (09:29)
[2022-12-20 09:30] VITALS: BP 156/94
[2022-12-20] MEDS: LOSARTAN 50MG TABLET PO SCH (09:30)
[2022-12-20] MEDS: ATORVASTATIN 10 MG TAB PO SCH (09:30)
[2022-12-20] MEDS ORDERED: HYDR-3911 PO (11:04)
[2022-12-20] MEDS ORDERED: MINI1CAP PO (11:04)
== END 2022-12-20 14:45 | disposition home or self-care (01) | DRG 291 ==
LOC: M ED 09:39 → EDBD 09:39 → M ED INP 15:16 → ENRESERV 20:47 → M PCU 21:45 → M MS5PR 12-19 20:00
PROVIDERS: ADMIT Internal Medicine Nephrology; ATTEND Internal Medicine Nephrology
PROC: 30233N1 Transfusion of Nonautologous Red Blood Cells into Peripheral Vein, Percutaneous Approach (ICD-10-PCS; principal; 2022-12-17)
PROC: 5A1D70Z Performance of Urinary Filtration, Intermittent, Less than 6 Hours Per Day (ICD-10-PCS; 2022-12-18)
DX: I13.2 Hypertensive heart and chronic kidney disease with heart failure and with stage 5 chronic kidney disease, or end stage renal disease (principal); N18.6 End stage renal disease; I50.33 Acute on chronic diastolic (congestive) heart failure; I16.0 Hypertensive urgency; D63.1 Anemia in chronic kidney disease; J45.909 Unspecified asthma, uncomplicated; F41.0 Panic disorder [episodic paroxysmal anxiety]; K76.0 Fatty (change of) liver, not elsewhere classified; F41.1 Generalized anxiety disorder; F32.A Depression, unspecified; I15.0 Renovascular hypertension; M51.36 Other intervertebral disc degeneration, lumbar region; F43.10 Post-traumatic stress disorder, unspecified; K21.9 Gastro-esophageal reflux disease without esophagitis; K44.9 Diaphragmatic hernia without obstruction or gangrene; N25.0 Renal osteodystrophy; Z99.2 Dependence on renal dialysis; Z79.899 Other long term (current) drug therapy; Z88.1 Allergy status to other antibiotic agents; Z88.8 Allergy status to other drugs, medicaments and biological substances; Z20.822 Contact with and (suspected) exposure to COVID-19

== ENCOUNTER 2023-03-28 20:55 | Inpatient (IN) | payer MEDICARE, MEDICAID ==
[~2023-03-28] VITALS: Ht 170.2 cm; Wt 95.0 kg
[~2023-03-28 20:55] MED LIST changes: -CEFD300C41 PO; +CEFD300C42 PO; -FEBU40TA2 PO; +FEBU40TA6 PO; +LOSA100T46 PO; +MINI1CAP PO; +VENTAER INH
[2023-03-28 22:09] LABS: BASO # 0.1 10^3/uL (0.0-0.2); BASO % 0.6 % (0.0-1.0); EOS # 0.6 10^3/uL (0.0-0.5); HEMATOCRIT 40.1 % (42.0-52.0); HEMOGLOBIN 12.6 g/dl (13.5-17.5); LYMPH # 1.4 10^3/uL (1.5-5.0); LYMPH % 12.3 % (24.0-44.0); MEAN CORPUSCULAR HEMOGLOBIN 29.3 pg (27.0-33.0); MEAN CORPUSCULAR HGB CONC 31.4 g/dl (32.0-36.5); MEAN CORPUSCULAR VOLUME 93.3 fl (80.0-96.0); MONO # 0.9 10^3/uL (0.0-0.8); MONO % 8.1 % (2.0-8.0); NEUTROPHILS # 8.3 10^3/uL (1.5-8.5); NEUTROPHILS % 73.7 % (36.0-66.0); PLATELET COUNT, AUTOMATED 234 10^3/uL (150-450); WHITE BLOOD COUNT 11.2 10^3/uL (4.0-10.0)
[2023-03-28 22:45] LABS: CALCIUM LEVEL 9.6 MG/DL (8.5-10.1); CK-MB VALUE MASS 2.7 NG/ML (<3.6); CREATININE FOR GFR 13.61 MG/DL (0.70-1.30); GLOMERULAR FILTRATION RATE 4.2 (>60); MB/CK RELATIVE INDEX 1.86 (< OR =4); POTASSIUM SERUM 7.5 MMOL/L (3.5-5.1)
[2023-03-29] VITALS (11 sets, daily range): BP systolic 119–210; BP diastolic 71–100; PULSE 83–91; TEMP 98–98.2; O2SAT 93–97
[2023-03-29] MEDS ORDERED: NITROGLYCERIN 0.3MG SUBL TAB SL PRN (00:20)
[2023-03-29] MEDS: NITROGLYCERIN 0.4MG SUBL TABLET SL PRN ×3 (00:31→00:54)
[2023-03-29 00:37] LABS: CK-MB VALUE MASS 2.6 NG/ML (<3.6)
[2023-03-29 00:45] LABS: MB/CK RELATIVE INDEX 1.87 (< OR =4)
[2023-03-29] MEDS ORDERED: ACETAMINOPHEN *IV* 1,000 MG in IV 1 EA IV ONE (02:05)
[2023-03-29] MEDS ORDERED: ONDANSETRON 4MG 2ML VIAL IV ONE (02:05)
[2023-03-29] MEDS ORDERED: PATIROMER SORBITEX CALCIUM 8.4 GM POWDER PACKET (VELTASSA) PO ONE (02:40)
[2023-03-29] MEDS ORDERED: CALCIUM GLUCONATE 1,000MG/10ML VIAL (100MG/ML) IV ONE (02:40)
[2023-03-29] MEDS ORDERED: DEXTROSE 50% 50ML SYRINGE IV ONE (02:40)
[2023-03-29] MEDS ORDERED: HumuLIN R (REGULAR) INSULIN (NovoLIN R) **100U/ML** PER UNIT IV ONE (02:40)
[2023-03-29] MEDS ORDERED: SODIUM BICARBONATE 8.4% INJ 50ML SYRINGE IV ONE (02:40)
[2023-03-29] MEDS ORDERED: HOME MED LIST COMPLETE! XX SCH (04:15)
[2023-03-29] MEDS ORDERED: ALBUTEROL 90 MCG/ACT 8GM HFA INHALER INH PRN (05:05)
[2023-03-29] MEDS ORDERED: ISOSORBIDE DIN. (ISORDIL) 20 MG TAB PO ONE (05:10)
[2023-03-29 05:57] LABS: RSV AMPLIFICATION NEGATIVE (NEGATIVE)
[2023-03-29] MEDS ORDERED: HEPARIN SOD (PORCINE) 5000UNITS/ML 1ML VIAL/SYRINGE SC SCH (06:00)
[2023-03-29] MEDS: **hydrALAZINE** 50 MG TAB PO SCH ×3 (06:05→21:09)
[2023-03-29 06:51] LABS: CALCIUM LEVEL 9.6 MG/DL (8.5-10.1); CREATININE FOR GFR 13.87 MG/DL (0.70-1.30); GLOMERULAR FILTRATION RATE 4.1 (>60); POTASSIUM SERUM 5.9 MMOL/L (3.5-5.1)
[2023-03-29] MEDS ORDERED: HEPARIN 1,000UNITS/ML 10ML VIAL (FOR RADIOLOGY & DIALYSIS ONLY) IV PRN (07:15)
[2023-03-29] MEDS ORDERED: SODIUM CHLORIDE 0.9% 1000ML IV PRN (07:15)
[2023-03-29] MEDS ORDERED: HEPARIN 1,000UNITS/ML 10ML VIAL (FOR RADIOLOGY & DIALYSIS ONLY) XX SCH (07:15)
[2023-03-29] MEDS: ADVAIR HFA 115/21MCG INHALER INH SCH ×2 (08:00→20:01)
[2023-03-29] MEDS: SUCROFERRIC OXYHYDROXIDE 500MG CHEW TAB (VELPHORO) PO SCH ×3 (08:00→18:51)
[2023-03-29] MEDS ORDERED: NITROGLYCERIN 0.4MG SUBL TABLET SL PRN (08:50)
[2023-03-29] MEDS ORDERED: ALBUTEROL SULFATE 2.5MG/0.5ML INH NEB SOLN NEB ONE (08:55)
[2023-03-29] MEDS: HEPARIN SOD (PORCINE) 5000UNITS/ML 1ML VIAL/SYRINGE SC SCH ×3 (09:00→19:58)
[2023-03-29] MEDS: ACETAMINOPHEN TAB 650MG DOSE (2X325MG) PO PRN ×2 (09:07→13:07)
[2023-03-29] MEDS: busPIRone 5 MG TAB PO SCH ×2 (09:07→19:48)
[2023-03-29] MEDS: PRAZOSIN 1 MG CAP PO SCH ×2 (09:07→19:48)
[2023-03-29] MEDS ORDERED: NITROGLYCERIN 0.4MG SUBL TABLET SL STA ×2 (11:31→11:50)
[2023-03-29] MEDS: METOPROLOL SUCC (TopROL XL) 100MG *XL* TAB PO SCH (11:37)
[2023-03-29] MEDS: ATORVASTATIN 10 MG TAB PO SCH (11:37)
[2023-03-29] MEDS ORDERED: MULTIVITAMINS/MINERALS THERAP 1 TAB PO SCH (12:00)
[2023-03-29] MEDS: BUMETANIDE 1 MG TAB PO SCH (12:27)
[2023-03-29] MEDS: FEBUXOSTAT 40 MG TABLET (ULORIC) PO SCH (12:27)
[2023-03-29] MEDS: LORazepam 1 MG TAB PO SCH (12:27)
[2023-03-29 12:29] LABS: CK-MB VALUE MASS 2.7 NG/ML (<3.6)
[2023-03-29 12:31] LABS: MB/CK RELATIVE INDEX 1.87 (< OR =4)
[2023-03-29] MEDS ORDERED: oxyCODONE 5MG TAB PO ONE ×2 (13:35→23:00)
[2023-03-29] MEDS ORDERED: traMADol 50 MG TAB PO PRN (20:55)
[2023-03-30] VITALS: BP 154/83; TEMP 98; O2SAT 92
[2023-03-30 01:23] VITALS: BP 152/86; TEMP 99; O2SAT 94
[2023-03-30] MEDS: ONDANSETRON 4MG 2ML VIAL IV PRN ×2 (01:48→13:03)
[2023-03-30] MEDS: **hydrALAZINE** 50 MG TAB PO SCH ×3 (05:58→21:09)
[2023-03-30 06:00] VITALS: BP 172/100; TEMP 99.1; O2SAT 97
[2023-03-30 06:00] LABS: BASO % 0.3 % (0.0-1.0); EOS # 0.3 10^3/uL (0.0-0.5); EOS % 2.8 % (0.0-3.0); HEMATOCRIT 39.6 % (42.0-52.0); HEMOGLOBIN 12.9 g/dl (13.5-17.5); LYMPH % 10.4 % (24.0-44.0); MEAN CORPUSCULAR HEMOGLOBIN 29.9 pg (27.0-33.0); MEAN CORPUSCULAR HGB CONC 32.6 g/dl (32.0-36.5); MEAN CORPUSCULAR VOLUME 91.7 fl (80.0-96.0); MONO # 0.9 10^3/uL (0.0-0.8); MONO % 9.9 % (2.0-8.0); NEUTROPHILS # 7.1 10^3/uL (1.5-8.5); NEUTROPHILS % 76.4 % (36.0-66.0); PLATELET COUNT, AUTOMATED 227 10^3/uL (150-450); RED BLOOD COUNT 4.32 10^6/uL (4.30-6.10); WHITE BLOOD COUNT 9.3 10^3/uL (4.0-10.0)
[2023-03-30 06:32] LABS: CREATININE FOR GFR 10.04 MG/DL (0.70-1.30); POTASSIUM SERUM 6.3 MMOL/L (3.5-5.1)
[2023-03-30] MEDS: ADVAIR HFA 115/21MCG INHALER INH SCH ×2 (07:23→19:19)
[2023-03-30 08:00] VITALS: BP 150/96; TEMP 98.2; O2SAT 93
[2023-03-30] MEDS ORDERED: PATIROMER SORBITEX CALCIUM 8.4 GM POWDER PACKET (VELTASSA) PO ONE (08:00)
[2023-03-30] MEDS: ACETAMINOPHEN TAB 650MG DOSE (2X325MG) PO PRN (08:11)
[2023-03-30] MEDS: SUCROFERRIC OXYHYDROXIDE 500MG CHEW TAB (VELPHORO) PO SCH ×3 (08:11→17:19)
[2023-03-30] MEDS: HEPARIN SOD (PORCINE) 5000UNITS/ML 1ML VIAL/SYRINGE SC SCH ×3 (09:00→21:08)
[2023-03-30] MEDS ORDERED: SODIUM CHLORIDE 0.9% 1000ML IV PRN (09:25)
[2023-03-30] MEDS ORDERED: HEPARIN 1,000UNITS/ML 10ML VIAL (FOR RADIOLOGY & DIALYSIS ONLY) IV PRN (09:25)
[2023-03-30] MEDS ORDERED: HEPARIN 1,000UNITS/ML 10ML VIAL (FOR RADIOLOGY & DIALYSIS ONLY) XX SCH (09:25)
[2023-03-30] MEDS: PRAZOSIN 1 MG CAP PO SCH ×2 (09:38→21:09)
[2023-03-30] MEDS: busPIRone 5 MG TAB PO SCH ×2 (09:38→21:08)
[2023-03-30] MEDS ORDERED: oxyCODONE 5MG TAB PO PRN (09:40)
[2023-03-30] MEDS ORDERED: ALBUTEROL SULFATE 2.5MG/0.5ML INH NEB SOLN NEB ONE (10:00)
[2023-03-30] MEDS ORDERED: KETOROLAC 30 MG/ML 1ML VIAL IV ONE (10:00)
[2023-03-30] MEDS: LORazepam 1 MG TAB PO SCH (10:10)
[2023-03-30 14:15] VITALS: BP 124/80; TEMP 98.1; O2SAT 97
[2023-03-30] MEDS: BUMETANIDE 1 MG TAB PO SCH (14:30)
[2023-03-30] MEDS: LOSARTAN 50MG TABLET PO SCH (14:31)
[2023-03-30] MEDS: FEBUXOSTAT 40 MG TABLET (ULORIC) PO SCH (14:31)
[2023-03-30] MEDS: ATORVASTATIN 10 MG TAB PO SCH (14:31)
[2023-03-30] MEDS: METOPROLOL SUCC (TopROL XL) 100MG *XL* TAB PO SCH (14:36)
[2023-03-30] MEDS: ALBUTEROL SULFATE 2.5MG/0.5ML INH NEB SOLN NEB PRN (19:18)
[2023-03-30 22:00] VITALS: BP 132/80; TEMP 99.1; O2SAT 95
[2023-03-31] MEDS: ONDANSETRON 4MG 2ML VIAL IV PRN (02:59)
[2023-03-31 06:00] VITALS: BP 128/84; TEMP 99; O2SAT 92
[2023-03-31] MEDS ORDERED: HEPARIN 1,000UNITS/ML 10ML VIAL (FOR RADIOLOGY & DIALYSIS ONLY) XX SCH (06:00)
[2023-03-31] MEDS ORDERED: SODIUM CHLORIDE 0.9% 1000ML IV PRN (06:00)
[2023-03-31] MEDS: PRAZOSIN 1 MG CAP PO SCH (06:02)
[2023-03-31] MEDS: **hydrALAZINE** 50 MG TAB PO SCH ×2 (06:02→12:47)
[2023-03-31] MEDS: busPIRone 5 MG TAB PO SCH (06:03)
[2023-03-31] MEDS: SUCROFERRIC OXYHYDROXIDE 500MG CHEW TAB (VELPHORO) PO SCH ×2 (06:03→12:30)
[2023-03-31] MEDS: HEPARIN SOD (PORCINE) 5000UNITS/ML 1ML VIAL/SYRINGE SC SCH (06:03)
[2023-03-31 06:09] LABS: BASO % 0.4 % (0.0-1.0); EOS # 0.2 10^3/uL (0.0-0.5); EOS % 1.6 % (0.0-3.0); HEMATOCRIT 40.8 % (42.0-52.0); HEMOGLOBIN 13.3 g/dl (13.5-17.5); MEAN CORPUSCULAR HEMOGLOBIN 29.6 pg (27.0-33.0); MEAN CORPUSCULAR HGB CONC 32.6 g/dl (32.0-36.5); MEAN CORPUSCULAR VOLUME 90.9 fl (80.0-96.0); MONO # 1.4 10^3/uL (0.0-0.8); MONO % 11.8 % (2.0-8.0); NEUTROPHILS # 8.8 10^3/uL (1.5-8.5); NEUTROPHILS % 76.9 % (36.0-66.0); PLATELET COUNT, AUTOMATED 237 10^3/uL (150-450); RED BLOOD COUNT 4.49 10^6/uL (4.30-6.10); WHITE BLOOD COUNT 11.4 10^3/uL (4.0-10.0)
[2023-03-31 06:39] LABS: CALCIUM LEVEL 10.7 MG/DL (8.5-10.1); CREATININE FOR GFR 8.51 MG/DL (0.70-1.30); GLOMERULAR FILTRATION RATE 7.2 (>60); POTASSIUM SERUM 5.8 MMOL/L (3.5-5.1)
[2023-03-31] MEDS: ADVAIR HFA 115/21MCG INHALER INH SCH (08:04)
[2023-03-31] MEDS: ALBUTEROL SULFATE 2.5MG/0.5ML INH NEB SOLN NEB PRN (08:04)
[2023-03-31] MEDS: LORazepam 1 MG TAB PO SCH (08:11)
[2023-03-31] MEDS ORDERED: ADV250INH INH (10:21)
[2023-03-31] MEDS ORDERED: AMOX500T2 PO (10:21)
[2023-03-31] MEDS ORDERED: OXYC-517 PO (12:02)
[2023-03-31] MEDS: ATORVASTATIN 10 MG TAB PO SCH (12:46)
[2023-03-31] MEDS: FEBUXOSTAT 40 MG TABLET (ULORIC) PO SCH (12:46)
[2023-03-31 12:47] VITALS: BP 120/80
[2023-03-31] MEDS: METOPROLOL SUCC (TopROL XL) 100MG *XL* TAB PO SCH (12:47)
[2023-03-31] MEDS: BUMETANIDE 1 MG TAB PO SCH (12:48)
[2023-03-31] MEDS: LOSARTAN 50MG TABLET PO SCH (12:49)
[2023-04-01] MEDS ORDERED: ADV250INH INH (18:52)
[2023-04-01] MEDS ORDERED: PRAZ1CAP PO (18:52)
[2023-04-01] MEDS ORDERED: HYDR-3911 PO (18:52)
[2023-04-01] MEDS ORDERED: AMOX500T2 PO (18:52)
[2023-04-01] MEDS ORDERED: OXYC-517 PO (18:52)
== END 2023-03-31 14:00 | disposition home or self-care (01) | DRG 640 ==
LOC: M ED 20:55 → EEVIPCON 03-29 03:47 → M ED INP 03-29 03:47 → M ICU 03-29 04:50 → M MSPAV 03-30 01:23
PROVIDERS: ADMIT Internal Medicine; ATTEND Internal Medicine Nephrology
DX: E87.5 Hyperkalemia (principal); I50.33 Acute on chronic diastolic (congestive) heart failure; N18.6 End stage renal disease; I13.2 Hypertensive heart and chronic kidney disease with heart failure and with stage 5 chronic kidney disease, or end stage renal disease; I24.89 Other forms of acute ischemic heart disease; N12 Tubulo-interstitial nephritis, not specified as acute or chronic; E87.70 Fluid overload, unspecified; F41.1 Generalized anxiety disorder; F32.A Depression, unspecified; R07.9 Chest pain, unspecified; J45.909 Unspecified asthma, uncomplicated; K21.9 Gastro-esophageal reflux disease without esophagitis; M10.9 Gout, unspecified; E78.5 Hyperlipidemia, unspecified; I15.0 Renovascular hypertension; I16.0 Hypertensive urgency; D63.1 Anemia in chronic kidney disease; K76.0 Fatty (change of) liver, not elsewhere classified; F43.10 Post-traumatic stress disorder, unspecified; K44.9 Diaphragmatic hernia without obstruction or gangrene; Z91.119 Patient's noncompliance with dietary regimen due to unspecified reason; Z88.8 Allergy status to other drugs, medicaments and biological substances; Z88.0 Allergy status to penicillin; Z79.899 Other long term (current) drug therapy

== ENCOUNTER 2023-04-01 13:41 | Inpatient (IN) | payer MEDICARE, MEDICAID ==
[~2023-04-01] VITALS: Ht 170.2 cm; Wt 91.6 kg
[~2023-04-01 13:41] MED LIST changes: +AMOX500T2 PO
[2023-04-01] MEDS ORDERED: ONDANSETRON 4MG 2ML VIAL IV ONE ×2 (14:05→15:30)
[2023-04-01] MEDS ORDERED: MORPHINE 4 MG/ML 1ML VIAL IV ONE (14:05)
[2023-04-01] MEDS ORDERED: ISOVUE-370 76% 100ML VIAL As Ordered ONE (14:18)
[2023-04-01 14:47] LABS: BLOOD UREA NITROGEN 48 MG/DL (9-23); CALCIUM LEVEL 10.7 MG/DL (8.5-10.1); CARBON DIOXIDE LEVEL 28 MMOL/L (20-31); CHLORIDE LEVEL 95 MMOL/L (98-107); GLOMERULAR FILTRATION RATE 7.1 (>60); GLUCOSE, FASTING 116 MG/DL (60-100); POTASSIUM SERUM 5.1 MMOL/L (3.5-5.1); SODIUM LEVEL 135 MMOL/L (136-145)
[2023-04-01 15:13] LABS: BASO % 0.2 % (0.0-1.0); EOS # 0.1 10^3/uL (0.0-0.5); EOS % 0.8 % (0.0-3.0); HEMOGLOBIN 14.2 g/dl (13.5-17.5); LYMPH # 0.9 10^3/uL (1.5-5.0); LYMPH % 6.2 % (24.0-44.0); MEAN CORPUSCULAR HEMOGLOBIN 29.2 pg (27.0-33.0); MEAN CORPUSCULAR HGB CONC 31.6 g/dl (32.0-36.5); MEAN CORPUSCULAR VOLUME 92.4 fl (80.0-96.0); MONO # 1.5 10^3/uL (0.0-0.8); MONO % 10.3 % (2.0-8.0); NEUTROPHILS # 11.7 10^3/uL (1.5-8.5); NEUTROPHILS % 82.2 % (36.0-66.0); PLATELET COUNT, AUTOMATED 272 10^3/uL (150-450); RED BLOOD COUNT 4.87 10^6/uL (4.30-6.10); WHITE BLOOD COUNT 14.2 10^3/uL (4.0-10.0)
[2023-04-01] MEDS ORDERED: **hydrALAZINE** 50 MG TAB PO ONE (15:15)
[2023-04-01 15:39] LABS: CK-MB VALUE MASS < 1.0 NG/ML (<3.6)
[2023-04-01 15:44] LABS: CREATININE FOR GFR 8.61 MG/DL (0.70-1.30)
[2023-04-01 15:46] LABS: CPK CREATINE PHOSPHOKINASE 70 U/L (46-171); MB/CK RELATIVE INDEX 1.42 (< OR =4)
[2023-04-01 16:28] LABS: CK-MB VALUE MASS < 1.0 NG/ML (<3.6); CPK CREATINE PHOSPHOKINASE 51 U/L (46-171); MB/CK RELATIVE INDEX 1.96 (< OR =4)
[2023-04-01] MEDS ORDERED: FLUID PLACE HOLDER IV ONE (17:00)
[2023-04-01] MEDS ORDERED: VANCOMYCIN HCL IV ONE (17:00)
[2023-04-01] MEDS ORDERED: ACETAMINOPHEN TAB 650MG DOSE (2X325MG) PO PRN (17:20)
[2023-04-01] MEDS ORDERED: MOM 30ML SUSPENSION UDC PO PRN (17:20)
[2023-04-01] MEDS ORDERED: VANCOMYCIN HCL 750 MG, VIAL MATE ADAPTER 1 EACH in D5W 250 ML IV ONE ×6 (17:30)
[2023-04-01] MEDS ORDERED: HYDROMORPHONE HCL 0.5 MG/ 0.5 ML SYRINGE IV PRN ×2 (18:05)
[2023-04-01] MEDS ORDERED: MED REC IN PROGRESS XX SCH (18:25)
[2023-04-01 18:31] LABS: RSV AMPLIFICATION NEGATIVE (NEGATIVE)
[2023-04-01] MEDS ORDERED: PRAZ1CAP PO (18:52)
[2023-04-01] MEDS ORDERED: AMOX500T2 PO (18:52)
[2023-04-01] MEDS ORDERED: ADV250INH INH (18:52)
[2023-04-01] MEDS ORDERED: OXYC-517 PO (18:52)
[2023-04-01] MEDS ORDERED: HYDR-3911 PO (18:52)
[2023-04-01] MEDS ORDERED: HOME MED LIST COMPLETE! XX SCH (18:55)
[2023-04-01 19:16] LABS: ERYTHROCYTE SEDIMENTATION RATE 49 mm/hr (0-15)
[2023-04-01 19:20] LABS: INR 1.14; PROTHROMBIN TIME 14.3 SECONDS (12.5-14.5)
[2023-04-01 19:30] LABS: C REACTIVE PROTEIN QUANTITATIV 17.2 MG/DL (<1.0)
[2023-04-01 19:38] LABS: PROCALCITONIN 1.58 ng/ml
[2023-04-02] MEDS: DOCUSATE SODIUM 100MG CAPSULE PO SCH ×3 (00:58→21:19)
[2023-04-02] MEDS: ONDANSETRON 4MG 2ML VIAL IV PRN (00:58)
[2023-04-02] MEDS: HEPARIN SOD (PORCINE) 5000UNITS/ML 1ML VIAL/SYRINGE SQ SCH ×4 (00:58→21:22)
[2023-04-02] MEDS: **hydrALAZINE** 50 MG TAB PO SCH ×4 (00:59→21:20)
[2023-04-02] MEDS: PRAZOSIN 1 MG CAP PO SCH ×3 (01:00→21:21)
[2023-04-02 04:09] VITALS: BP 145/81; TEMP 98.7; O2SAT 92
[2023-04-02 06:35] LABS: BASO % 0.3 % (0.0-1.0); EOS # 0.2 10^3/uL (0.0-0.5); HEMATOCRIT 39.6 % (42.0-52.0); LYMPH # 0.8 10^3/uL (1.5-5.0); LYMPH % 5.6 % (24.0-44.0); MEAN CORPUSCULAR HEMOGLOBIN 30.1 pg (27.0-33.0); MEAN CORPUSCULAR HGB CONC 32.8 g/dl (32.0-36.5); MEAN CORPUSCULAR VOLUME 91.7 fl (80.0-96.0); MONO # 1.3 10^3/uL (0.0-0.8); MONO % 9.2 % (2.0-8.0); NEUTROPHILS % 83.6 % (36.0-66.0); PLATELET COUNT, AUTOMATED 228 10^3/uL (150-450); RED BLOOD COUNT 4.32 10^6/uL (4.30-6.10); WHITE BLOOD COUNT 14.3 10^3/uL (4.0-10.0)
[2023-04-02 07:01] LABS: CALCIUM LEVEL 10.4 MG/DL (8.5-10.1); CREATININE FOR GFR 10.78 MG/DL (0.70-1.30); GLOMERULAR FILTRATION RATE 5.5 (>60); POTASSIUM SERUM 5.5 MMOL/L (3.5-5.1)
[2023-04-02] MEDS ORDERED: CEFTAROLINE FOSAMIL 300 MG in D5W 50 ML IV SCH (07:05)
[2023-04-02 08:00] VITALS: BP 150/90; TEMP 99; O2SAT 92
[2023-04-02] MEDS ORDERED: HEPARIN 1,000UNITS/ML 10ML VIAL (FOR RADIOLOGY & DIALYSIS ONLY) XX SCH (09:05)
[2023-04-02] MEDS ORDERED: SODIUM CHLORIDE 0.9% 1000ML IV PRN (09:05)
[2023-04-02] MEDS ORDERED: CEFTAROLINE FOSAMIL 200 MG in D5W 50 ML IV SCH (10:00)
[2023-04-02] MEDS ORDERED: oxyCODONE 5MG TAB PO PRN ×2 (10:55→11:00)
[2023-04-02] MEDS ORDERED: KETOROLAC 30 MG/ML 1ML VIAL IV PRN ×2 (10:55)
[2023-04-02] MEDS: LORazepam 1 MG TAB PO PRN (11:36)
[2023-04-02] MEDS: ADVAIR HFA 115/21MCG INHALER INH SCH ×2 (12:05→19:05)
[2023-04-02] MEDS: SUCROFERRIC OXYHYDROXIDE 500MG CHEW TAB (VELPHORO) PO SCH ×2 (12:30→17:13)
[2023-04-02 16:45] VITALS: BP 119/56; TEMP 98.4; O2SAT 90
[2023-04-02] MEDS: CEFTAROLINE FOSAMIL 200 MG in D5W 50 ML IV SCH ×2 (17:09→23:08)
[2023-04-02] MEDS: KETOROLAC 30 MG/ML 1ML VIAL IV PRN ×2 (17:10→23:20)
[2023-04-02] MEDS: ATORVASTATIN 10 MG TAB PO SCH (17:10)
[2023-04-02] MEDS: BUMETANIDE 1 MG TAB PO SCH (17:10)
[2023-04-02] MEDS: METOPROLOL SUCC (TopROL XL) 100MG *XL* TAB PO SCH (17:11)
[2023-04-02] MEDS: MULTIVITAMINS/MINERALS THERAP 1 TAB PO SCH (17:11)
[2023-04-02] MEDS: FEBUXOSTAT 40 MG TABLET (ULORIC) PO SCH (17:11)
[2023-04-02] MEDS: busPIRone 10 MG TAB PO SCH ×2 (17:12→21:20)
[2023-04-02] MEDS: LOSARTAN 50MG TABLET PO SCH (17:12)
[2023-04-02] MEDS: ALBUTEROL 90 MCG/ACT 8GM HFA INHALER INH PRN (17:52)
[2023-04-02 17:54] LABS: LIPASE 27 U/L (12-53)
[2023-04-02 17:55] LABS: AMYLASE 55 U/L (30-118)
[2023-04-02] MEDS: ALBUTEROL SULFATE 2.5MG/0.5ML INH NEB SOLN NEB SCH (19:05)
[2023-04-02 20:00] VITALS: BP 116/58; TEMP 97.9; O2SAT 90
[2023-04-02] MEDS: PANTOPRAZOLE 40MG TAB (PROTONIX) PO SCH (21:20)
[2023-04-02] MEDS: DAPTOmycin 750 MG in NS 50 ML IV SCH (21:22)
[2023-04-03] VITALS (7 sets, daily range): BP systolic 104–141; BP diastolic 58–85; TEMP 97.2–100.2; O2SAT 90–98
[2023-04-03 04:57] LABS: BASO # 0.1 10^3/uL (0.0-0.2); BASO % 0.4 % (0.0-1.0); EOS # 0.4 10^3/uL (0.0-0.5); HEMATOCRIT 39.3 % (42.0-52.0); HEMOGLOBIN 12.8 g/dl (13.5-17.5); LYMPH # 1.3 10^3/uL (1.5-5.0); LYMPH % 10.9 % (24.0-44.0); MEAN CORPUSCULAR HEMOGLOBIN 29.8 pg (27.0-33.0); MEAN CORPUSCULAR HGB CONC 32.6 g/dl (32.0-36.5); MEAN CORPUSCULAR VOLUME 91.6 fl (80.0-96.0); MONO # 1.4 10^3/uL (0.0-0.8); MONO % 11.7 % (2.0-8.0); NEUTROPHILS % 73.8 % (36.0-66.0); PLATELET COUNT, AUTOMATED 261 10^3/uL (150-450); RED BLOOD COUNT 4.29 10^6/uL (4.30-6.10); WHITE BLOOD COUNT 12.2 10^3/uL (4.0-10.0)
[2023-04-03 05:18] LABS: ALBUMIN 3.4 G/DL (3.2-5.2); CALCIUM LEVEL 10.7 MG/DL (8.5-10.1); CREATININE FOR GFR 8.18 MG/DL (0.70-1.30); GLOMERULAR FILTRATION RATE 7.5 (>60); PHOSPHORUS LEVEL 8.9 MG/DL (2.5-4.9); POTASSIUM SERUM 4.7 MMOL/L (3.5-5.1)
[2023-04-03] MEDS: HEPARIN SOD (PORCINE) 5000UNITS/ML 1ML VIAL/SYRINGE SQ SCH ×3 (05:46→21:20)
[2023-04-03] MEDS: **hydrALAZINE** 50 MG TAB PO SCH ×3 (05:48→21:19)
[2023-04-03] MEDS: ALBUTEROL SULFATE 2.5MG/0.5ML INH NEB SOLN NEB SCH ×2 (07:22→19:36)
[2023-04-03] MEDS: ADVAIR HFA 115/21MCG INHALER INH SCH ×2 (07:23→19:36)
[2023-04-03 07:24] LABS: C REACTIVE PROTEIN QUANTITATIV 24.9 MG/DL (<1.0)
[2023-04-03 07:33] LABS: ERYTHROCYTE SEDIMENTATION RATE 92 mm/hr (0-15)
[2023-04-03 07:38] LABS: PROCALCITONIN 3.12 ng/ml
[2023-04-03] MEDS: SUCROFERRIC OXYHYDROXIDE 500MG CHEW TAB (VELPHORO) PO SCH ×3 (08:37→16:58)
[2023-04-03] MEDS: busPIRone 10 MG TAB PO SCH ×2 (08:38→21:19)
[2023-04-03] MEDS: FEBUXOSTAT 40 MG TABLET (ULORIC) PO SCH (08:38)
[2023-04-03] MEDS: PANTOPRAZOLE 40MG TAB (PROTONIX) PO SCH ×2 (08:38→21:19)
[2023-04-03] MEDS: CEFTAROLINE FOSAMIL 200 MG in D5W 50 ML IV SCH ×2 (08:38→17:47)
[2023-04-03] MEDS: PRAZOSIN 1 MG CAP PO SCH ×2 (08:39→21:20)
[2023-04-03] MEDS: MULTIVITAMINS/MINERALS THERAP 1 TAB PO SCH (08:39)
[2023-04-03] MEDS: KETOROLAC 30 MG/ML 1ML VIAL IV PRN (08:39)
[2023-04-03] MEDS: DOCUSATE SODIUM 100MG CAPSULE PO SCH ×2 (08:39→21:19)
[2023-04-03] MEDS: ATORVASTATIN 10 MG TAB PO SCH (08:39)
[2023-04-03] MEDS: LOSARTAN 50MG TABLET PO SCH (12:00)
[2023-04-03] MEDS: BUMETANIDE 1 MG TAB PO SCH (12:00)
[2023-04-03] MEDS: METOPROLOL SUCC (TopROL XL) 100MG *XL* TAB PO SCH (12:00)
[2023-04-03] MEDS ORDERED: CINACALCET 30 MG TAB (SENSIPAR) PO ONE (14:00)
[2023-04-03] MEDS ORDERED: KETOROLAC 30 MG/ML 1ML VIAL IV SCH (15:00)
[2023-04-03] MEDS: KETOROLAC 30 MG/ML 1ML VIAL IV SCH ×2 (15:06→21:19)
[2023-04-03] MEDS: ALBUTEROL 90 MCG/ACT 8GM HFA INHALER INH PRN (15:10)
[2023-04-03] MEDS: ONDANSETRON 4MG 2ML VIAL IV PRN (16:48)
[2023-04-03] MEDS ORDERED: LORazepam 1 MG TAB PO ONE (17:00)
[2023-04-03] MEDS ORDERED: LORazepam 2 MG/ML 1ML VIAL IV ONE (18:00)
[2023-04-03] MEDS ORDERED: ISOVUE-370 76% 100ML VIAL As Ordered ONE (18:33)
[2023-04-03] MEDS: KETOCONAZOLE 2% CREAM TOP SCH (21:17)
[2023-04-04] VITALS: BP 128/77; TEMP 98.1; O2SAT 93
[2023-04-04] MEDS: CEFTAROLINE FOSAMIL 200 MG in D5W 50 ML IV SCH ×3 (00:21→19:46)
[2023-04-04] MEDS: KETOROLAC 30 MG/ML 1ML VIAL IV SCH ×4 (03:00→21:32)
[2023-04-04 03:33] VITALS: BP 108/60; TEMP 98.2; O2SAT 95
[2023-04-04 05:24] LABS: BASO # 0.1 10^3/uL (0.0-0.2); BASO % 0.4 % (0.0-1.0); EOS # 0.6 10^3/uL (0.0-0.5); EOS % 4.3 % (0.0-3.0); HEMATOCRIT 35.9 % (42.0-52.0); HEMOGLOBIN 11.7 g/dl (13.5-17.5); LYMPH % 7.9 % (24.0-44.0); MEAN CORPUSCULAR HEMOGLOBIN 29.5 pg (27.0-33.0); MEAN CORPUSCULAR HGB CONC 32.6 g/dl (32.0-36.5); MEAN CORPUSCULAR VOLUME 90.4 fl (80.0-96.0); MONO # 1.2 10^3/uL (0.0-0.8); MONO % 9.3 % (2.0-8.0); NEUTROPHILS # 10.3 10^3/uL (1.5-8.5); NEUTROPHILS % 77.6 % (36.0-66.0); PLATELET COUNT, AUTOMATED 247 10^3/uL (150-450); RED BLOOD COUNT 3.97 10^6/uL (4.30-6.10); WHITE BLOOD COUNT 13.2 10^3/uL (4.0-10.0)
[2023-04-04 05:55] LABS: ALBUMIN 3.1 G/DL (3.2-5.2); CALCIUM LEVEL 9.1 MG/DL (8.5-10.1); CREATININE FOR GFR 11.12 MG/DL (0.70-1.30); GLOMERULAR FILTRATION RATE 5.3 (>60); PHOSPHORUS LEVEL 8.9 MG/DL (2.5-4.9); POTASSIUM SERUM 4.9 MMOL/L (3.5-5.1)
[2023-04-04] MEDS: **hydrALAZINE** 50 MG TAB PO SCH ×3 (06:00→21:29)
[2023-04-04] MEDS ORDERED: HEPARIN 1,000UNITS/ML 10ML VIAL (FOR RADIOLOGY & DIALYSIS ONLY) IV PRN (06:30)
[2023-04-04] MEDS ORDERED: HEPARIN 1,000UNITS/ML 10ML VIAL (FOR RADIOLOGY & DIALYSIS ONLY) XX SCH (06:30)
[2023-04-04] MEDS ORDERED: SODIUM CHLORIDE 0.9% 1000ML IV PRN (06:30)
[2023-04-04] MEDS ORDERED: LIDOCAINE 1% SDV 5ML VIAL SC PRN (06:30)
[2023-04-04] MEDS: SUCROFERRIC OXYHYDROXIDE 500MG CHEW TAB (VELPHORO) PO SCH ×3 (07:53→19:53)
[2023-04-04] MEDS: ALBUTEROL SULFATE 2.5MG/0.5ML INH NEB SOLN NEB SCH ×2 (07:59→19:29)
[2023-04-04] MEDS: ADVAIR HFA 115/21MCG INHALER INH SCH ×2 (07:59→19:29)
[2023-04-04 08:10] VITALS: BP 126/71; TEMP 98.3; O2SAT 96
[2023-04-04] MEDS: PRAZOSIN 1 MG CAP PO SCH ×2 (09:00→21:00)
[2023-04-04] MEDS ORDERED: CETACAINE SPRAY 5GM As Ordered ONE (09:06)
[2023-04-04] MEDS ORDERED: propofoL 500 MG/50 ML VIAL As Ordered ONE (09:22)
[2023-04-04] MEDS ORDERED: LIDOCAINE 2% 100MG/5ML SDV (FOR ANES.) As Ordered ONE (09:22)
[2023-04-04] MEDS ORDERED: fentaNYL 100 MCG/2 ML INJECTION As Ordered ONE (09:22)
[2023-04-04] MEDS ORDERED: fentaNYL 100 MCG/2 ML INJECTION IV PRN (09:25)
[2023-04-04] MEDS ORDERED: ONDANSETRON 4MG 2ML VIAL IV PRN (09:25)
[2023-04-04 10:07] VITALS: BP 117/62; TEMP 97.7; O2SAT 92
[2023-04-04] MEDS: KETOCONAZOLE 2% CREAM TOP SCH ×2 (10:16→21:32)
[2023-04-04] MEDS: FEBUXOSTAT 40 MG TABLET (ULORIC) PO SCH (10:36)
[2023-04-04] MEDS: CINACALCET 30 MG TAB (SENSIPAR) PO SCH (10:36)
[2023-04-04] MEDS: busPIRone 10 MG TAB PO SCH ×2 (10:37→21:31)
[2023-04-04] MEDS: MULTIVITAMINS/MINERALS THERAP 1 TAB PO SCH (10:37)
[2023-04-04] MEDS: PANTOPRAZOLE 40MG TAB (PROTONIX) PO SCH ×2 (10:37→21:31)
[2023-04-04] MEDS: DOCUSATE SODIUM 100MG CAPSULE PO SCH ×2 (10:37→21:30)
[2023-04-04] MEDS: ATORVASTATIN 10 MG TAB PO SCH (10:38)
[2023-04-04 11:42] VITALS: BP 119/63; TEMP 97.9; O2SAT 92
[2023-04-04] MEDS: METOPROLOL SUCC (TopROL XL) 100MG *XL* TAB PO SCH (12:00)
[2023-04-04] MEDS: LOSARTAN 50MG TABLET PO SCH (12:00)
[2023-04-04] MEDS: BUMETANIDE 1 MG TAB PO SCH (12:00)
[2023-04-04] MEDS: ONDANSETRON 4MG 2ML VIAL IV PRN ×2 (13:12→21:45)
[2023-04-04] MEDS: LORazepam 1 MG TAB PO PRN (13:56)
[2023-04-04 20:00] VITALS: BP 104/60; TEMP 98.4; O2SAT 94
[2023-04-04] MEDS: DAPTOmycin 750 MG in NS 50 ML IV SCH (21:34)
[2023-04-05] VITALS (7 sets, daily range): BP systolic 121–134; BP diastolic 69–83; TEMP 97.6–98.9; O2SAT 89–97
[2023-04-05] MEDS: CEFTAROLINE FOSAMIL 200 MG in D5W 50 ML IV SCH ×3 (00:35→12:55)
[2023-04-05] MEDS: KETOROLAC 30 MG/ML 1ML VIAL IV SCH ×4 (02:28→21:10)
[2023-04-05] MEDS: **hydrALAZINE** 50 MG TAB PO SCH ×3 (05:17→21:11)
[2023-04-05 06:24] LABS: BASO # 0.1 10^3/uL (0.0-0.2); BASO % 0.6 % (0.0-1.0); EOS # 0.7 10^3/uL (0.0-0.5); EOS % 6.4 % (0.0-3.0); HEMATOCRIT 37.8 % (42.0-52.0); LYMPH # 0.9 10^3/uL (1.5-5.0); LYMPH % 8.7 % (24.0-44.0); MEAN CORPUSCULAR HEMOGLOBIN 29.2 pg (27.0-33.0); MEAN CORPUSCULAR HGB CONC 31.7 g/dl (32.0-36.5); MONO # 1.2 10^3/uL (0.0-0.8); MONO % 10.8 % (2.0-8.0); NEUTROPHILS # 7.8 10^3/uL (1.5-8.5); NEUTROPHILS % 73.1 % (36.0-66.0); PLATELET COUNT, AUTOMATED 274 10^3/uL (150-450); RED BLOOD COUNT 4.11 10^6/uL (4.30-6.10); WHITE BLOOD COUNT 10.7 10^3/uL (4.0-10.0)
[2023-04-05 06:48] LABS: ALBUMIN 3.2 G/DL (3.2-5.2); CALCIUM LEVEL 9.2 MG/DL (8.5-10.1); CREATININE FOR GFR 7.83 MG/DL (0.70-1.30); GLOMERULAR FILTRATION RATE 7.9 (>60); POTASSIUM SERUM 4.7 MMOL/L (3.5-5.1)
[2023-04-05] MEDS ORDERED: LORazepam 0.5 MG TAB PO PRN (07:05)
[2023-04-05 07:29] LABS: C REACTIVE PROTEIN QUANTITATIV 20.6 MG/DL (<1.0)
[2023-04-05 07:42] LABS: PROCALCITONIN 2.89 ng/ml
[2023-04-05] MEDS: ADVAIR HFA 115/21MCG INHALER INH SCH ×2 (07:57→19:48)
[2023-04-05] MEDS: ALBUTEROL SULFATE 2.5MG/0.5ML INH NEB SOLN NEB SCH ×2 (07:57→19:48)
[2023-04-05] MEDS: SUCROFERRIC OXYHYDROXIDE 500MG CHEW TAB (VELPHORO) PO SCH ×3 (08:08→18:00)
[2023-04-05] MEDS: FEBUXOSTAT 40 MG TABLET (ULORIC) PO SCH (08:09)
[2023-04-05] MEDS: busPIRone 10 MG TAB PO SCH ×2 (08:09→21:09)
[2023-04-05] MEDS: MULTIVITAMINS/MINERALS THERAP 1 TAB PO SCH (08:09)
[2023-04-05] MEDS: DOCUSATE SODIUM 100MG CAPSULE PO SCH ×2 (08:09→21:09)
[2023-04-05] MEDS: PANTOPRAZOLE 40MG TAB (PROTONIX) PO SCH ×2 (08:09→21:09)
[2023-04-05] MEDS: ATORVASTATIN 10 MG TAB PO SCH (08:09)
[2023-04-05] MEDS: CINACALCET 30 MG TAB (SENSIPAR) PO SCH (08:09)
[2023-04-05] MEDS: PRAZOSIN 1 MG CAP PO SCH ×2 (08:10→21:09)
[2023-04-05] MEDS: KETOCONAZOLE 2% CREAM TOP SCH ×2 (08:16→21:11)
[2023-04-05 08:38] LABS: ERYTHROCYTE SEDIMENTATION RATE 70 mm/hr (0-15)
[2023-04-05] MEDS: METOPROLOL SUCC (TopROL XL) 100MG *XL* TAB PO SCH (12:50)
[2023-04-05] MEDS: LOSARTAN 50MG TABLET PO SCH (12:50)
[2023-04-05] MEDS: BUMETANIDE 1 MG TAB PO SCH (12:51)
[2023-04-05] MEDS ORDERED: VANCOMYCIN HCL 1,000 MG, VIAL MATE ADAPTER 1 EACH in D5W 250 ML IV SCH (15:00)
[2023-04-05] MEDS: ONDANSETRON 4MG 2ML VIAL IV PRN ×2 (15:15→22:45)
[2023-04-05] MEDS ORDERED: VANCOMYCIN HCL 750 MG, VIAL MATE ADAPTER 1 EACH in D5W 250 ML IV ONE (17:00)
[2023-04-05] MEDS ORDERED: VANCOMYCIN HCL 500 MG in D5W MINI-BAG PLUS 100 ML IV ONE (18:00)
[2023-04-06 03:53] VITALS: BP 137/86; TEMP 96.8; O2SAT 91
[2023-04-06] MEDS: KETOROLAC 30 MG/ML 1ML VIAL IV SCH ×3 (04:11→15:00)
[2023-04-06 05:50] VITALS: BP 137/86
[2023-04-06] MEDS: **hydrALAZINE** 50 MG TAB PO SCH ×2 (05:50→14:00)
[2023-04-06 05:52] LABS: BASO # 0.1 10^3/uL (0.0-0.2); BASO % 0.8 % (0.0-1.0); EOS # 0.9 10^3/uL (0.0-0.5); HEMATOCRIT 37.1 % (42.0-52.0); HEMOGLOBIN 11.8 g/dl (13.5-17.5); LYMPH # 1.1 10^3/uL (1.5-5.0); LYMPH % 11.2 % (24.0-44.0); MEAN CORPUSCULAR HEMOGLOBIN 29.3 pg (27.0-33.0); MEAN CORPUSCULAR HGB CONC 31.8 g/dl (32.0-36.5); MEAN CORPUSCULAR VOLUME 92.1 fl (80.0-96.0); MONO # 1.1 10^3/uL (0.0-0.8); MONO % 10.8 % (2.0-8.0); NEUTROPHILS # 6.8 10^3/uL (1.5-8.5); NEUTROPHILS % 67.9 % (36.0-66.0); PLATELET COUNT, AUTOMATED 285 10^3/uL (150-450); RED BLOOD COUNT 4.03 10^6/uL (4.30-6.10); WHITE BLOOD COUNT 10.1 10^3/uL (4.0-10.0)
[2023-04-06 06:17] LABS: ALBUMIN 3.2 G/DL (3.2-5.2); CALCIUM LEVEL 9.3 MG/DL (8.5-10.1); CREATININE FOR GFR 10.56 MG/DL (0.70-1.30); GLOMERULAR FILTRATION RATE 5.6 (>60); PHOSPHORUS LEVEL 6.6 MG/DL (2.5-4.9)
[2023-04-06] MEDS ORDERED: HEPARIN 1,000UNITS/ML 10ML VIAL (FOR RADIOLOGY & DIALYSIS ONLY) IV PRN (06:30)
[2023-04-06] MEDS ORDERED: LIDOCAINE 1% SDV 5ML VIAL SC PRN (06:30)
[2023-04-06] MEDS ORDERED: SODIUM CHLORIDE 0.9% 1000ML IV PRN (06:30)
[2023-04-06] MEDS ORDERED: HEPARIN 1,000UNITS/ML 10ML VIAL (FOR RADIOLOGY & DIALYSIS ONLY) XX SCH (06:30)
[2023-04-06] MEDS: SUCROFERRIC OXYHYDROXIDE 500MG CHEW TAB (VELPHORO) PO SCH ×3 (07:05→18:00)
[2023-04-06] MEDS ORDERED: VANCOMYCIN HCL 500 MG in D5W MINI-BAG PLUS 100 ML IV ONE (07:35)
[2023-04-06 07:38] VITALS: BP 130/77; TEMP 97.2; O2SAT 92
[2023-04-06] MEDS: ALBUTEROL SULFATE 2.5MG/0.5ML INH NEB SOLN NEB SCH (08:20)
[2023-04-06] MEDS: ADVAIR HFA 115/21MCG INHALER INH SCH (08:20)
[2023-04-06] MEDS: CINACALCET 30 MG TAB (SENSIPAR) PO SCH (09:00)
[2023-04-06] MEDS: PRAZOSIN 1 MG CAP PO SCH (09:00)
[2023-04-06] MEDS: PANTOPRAZOLE 40MG TAB (PROTONIX) PO SCH (09:00)
[2023-04-06] MEDS: busPIRone 10 MG TAB PO SCH (09:00)
[2023-04-06] MEDS: DOCUSATE SODIUM 100MG CAPSULE PO SCH (09:00)
[2023-04-06] MEDS: KETOCONAZOLE 2% CREAM TOP SCH (09:00)
[2023-04-06] MEDS: FEBUXOSTAT 40 MG TABLET (ULORIC) PO SCH (09:00)
[2023-04-06 11:48] VITALS: BP 135/77; TEMP 97.1; O2SAT 91
[2023-04-06] MEDS: LOSARTAN 50MG TABLET PO SCH ×2 (12:00→17:48)
[2023-04-06] MEDS: METOPROLOL SUCC (TopROL XL) 100MG *XL* TAB PO SCH (12:00)
[2023-04-06] MEDS: BUMETANIDE 1 MG TAB PO SCH (12:00)
[2023-04-06] MEDS ORDERED: ATIV1TAB10 PO (13:58)
[2023-04-06] MEDS ORDERED: VANCOMYCIN HCL 1,000 MG, VIAL MATE ADAPTER 1 EACH in D5W 250 ML IV SCH (16:00)
[2023-04-06] MEDS: ONDANSETRON 4MG 2ML VIAL IV PRN (16:25)
[2023-04-06 17:20] VITALS: BP 117/77; TEMP 97.1; O2SAT 92
[2023-04-06] MEDS: MULTIVITAMINS/MINERALS THERAP 1 TAB PO SCH (17:48)
[2023-04-06] MEDS: ATORVASTATIN 10 MG TAB PO SCH (17:48)
== END 2023-04-06 18:00 | disposition home or self-care (01) | DRG 871 ==
LOC: M ED 13:41 → EDBD 13:41 → M ED INP 13:42 → M ICU 04-02 04:06 → OBSVTOIN 04-02 15:46 → EEVIPCON 04-02 15:46 → M PCU 04-03 15:32
PROVIDERS: ADMIT Student in an Organized Health Care Education/Training Program; ATTEND Student in an Organized Health Care Education/Training Program
DX: A41.02 Sepsis due to Methicillin resistant Staphylococcus aureus (principal); N18.6 End stage renal disease; J98.51 Mediastinitis; I33.0 Acute and subacute infective endocarditis; I13.2 Hypertensive heart and chronic kidney disease with heart failure and with stage 5 chronic kidney disease, or end stage renal disease; I50.32 Chronic diastolic (congestive) heart failure; I31.9 Disease of pericardium, unspecified; E78.5 Hyperlipidemia, unspecified; K76.0 Fatty (change of) liver, not elsewhere classified; K21.9 Gastro-esophageal reflux disease without esophagitis; F32.89 Other specified depressive episodes; F41.9 Anxiety disorder, unspecified; J45.909 Unspecified asthma, uncomplicated; I27.20 Pulmonary hypertension, unspecified; M10.9 Gout, unspecified; F43.10 Post-traumatic stress disorder, unspecified; N25.0 Renal osteodystrophy; K02.9 Dental caries, unspecified; F40.231 Fear of injections and transfusions; E87.5 Hyperkalemia; R07.89 Other chest pain; R11.2 Nausea with vomiting, unspecified; R91.8 Other nonspecific abnormal finding of lung field; K59.00 Constipation, unspecified; Z99.2 Dependence on renal dialysis; Z79.2 Long term (current) use of antibiotics; Z79.899 Other long term (current) drug therapy; Z88.0 Allergy status to penicillin; Z88.8 Allergy status to other drugs, medicaments and biological substances; Z20.822 Contact with and (suspected) exposure to COVID-19; Z88.6 Allergy status to analgesic agent

== ENCOUNTER → 2023-05-06 | Outpatient (CLI) | payer MEDICARE, MEDICAID ==
[~2023-05-06] MED LIST changes: +CEFD1CAP9 PO; -CEFD300C42 PO; +PRAZ1CAP PO
[2023-05-06 17:52] LABS: BASO # 0.1 10^3/uL (0.0-0.2); EOS # 0.9 10^3/uL (0.0-0.5); EOS % 11.9 % (0.0-3.0); HEMATOCRIT 33.5 % (42.0-52.0); HEMOGLOBIN 10.4 g/dl (13.5-17.5); LYMPH # 1.3 10^3/uL (1.5-5.0); LYMPH % 17.9 % (24.0-44.0); MEAN CORPUSCULAR HEMOGLOBIN 29.5 pg (27.0-33.0); MEAN CORPUSCULAR VOLUME 95.2 fl (80.0-96.0); MONO # 0.8 10^3/uL (0.0-0.8); MONO % 11.5 % (2.0-8.0); NEUTROPHILS # 4.2 10^3/uL (1.5-8.5); NEUTROPHILS % 57.4 % (36.0-66.0); PLATELET COUNT, AUTOMATED 213 10^3/uL (150-450); RED BLOOD COUNT 3.52 10^6/uL (4.30-6.10); WHITE BLOOD COUNT 7.3 10^3/uL (4.0-10.0)
[2023-05-06 18:12] LABS: ERYTHROCYTE SEDIMENTATION RATE 14 mm/hr (0-15)
== END ==
LOC: M PLALAB 14:41
PROVIDERS: ATTEND Internal Medicine Infectious Disease
DX: I05.9 Rheumatic mitral valve disease, unspecified (principal)

== ENCOUNTER → 2023-06-18 | Outpatient (CLI) | payer MEDICARE, MEDICAID ==
[~2023-06-18] MED LIST changes: -HYDR-3911 PO; -HYDR50TA PO; +HYDR50TA46 PO; +HYDR50TA47 PO
== END ==
LOC: M CARPUL 11:05
PROVIDERS: ATTEND Internal Medicine Infectious Disease
DX: I05.1 Rheumatic mitral insufficiency (principal)

== ENCOUNTER → 2023-08-12 | Outpatient (CLI) | payer MEDICARE, MEDICAID ==
[~2023-08-12] MED LIST changes: -LIDO15SO PO; -LIDO15SO SSP; +LIDO15SO8 PO; +LIDO15SO8 SSP
[2023-08-12 13:42] LABS: HEMOGLOBIN A1c 5.1 % (4.0-6.0)
[2023-08-12 14:36] LABS: ALBUMIN 4.1 G/DL (3.2-5.2); BILIRUBIN,TOTAL 0.2 MG/DL (0.3-1.2); CALCIUM LEVEL 8.7 MG/DL (8.5-10.1); CHOLESTEROL RISK RATIO 3.78 (<5); CREATININE FOR GFR 8.7 MG/DL (0.70-1.30); HDL CHOLESTEROL 27.2 MG/DL (>40); LDL CHOLESTEROL 48.8 MG/DL (<100); NON-HDL-C 75.8 MG/DL; POTASSIUM SERUM 4.9 MMOL/L (3.5-5.1); TOTAL PROTEIN 6.9 G/DL (5.7-8.2)
== END ==
LOC: M PLALAB 12:19
PROVIDERS: ATTEND Family Medicine
DX: I13.11 Hypertensive heart and chronic kidney disease without heart failure, with stage 5 chronic kidney disease, or end stage renal disease (principal); K76.0 Fatty (change of) liver, not elsewhere classified; Z76.89 Persons encountering health services in other specified circumstances; Z79.899 Other long term (current) drug therapy

== ENCOUNTER 2023-09-25 17:44 | Emergency (ER) | payer MEDICARE, MEDICAID ==
[~2023-09-25] VITALS: Ht 172.7 cm; Wt 98.8 kg
[~2023-09-25 17:44] MED LIST changes: +FLUO-290; +FLUO-290 PO; -FLUO10CA18; -FLUO10CA18 PO
[2023-09-25] MEDS ORDERED: HYDR50TA70 (18:03)
[2023-09-25 19:01] LABS: BASO % 0.3 % (0.0-1.0); EOS # 0.4 10^3/uL (0.0-0.5); EOS % 4.5 % (0.0-3.0); HEMATOCRIT 28.7 % (42.0-52.0); HEMOGLOBIN 9.3 g/dl (13.5-17.5); LYMPH # 1.2 10^3/uL (1.5-5.0); LYMPH % 13.1 % (24.0-44.0); MEAN CORPUSCULAR HEMOGLOBIN 31.4 pg (27.0-33.0); MEAN CORPUSCULAR HGB CONC 32.4 g/dl (32.0-36.5); MONO # 1.1 10^3/uL (0.0-0.8); MONO % 11.3 % (2.0-8.0); NEUTROPHILS # 6.7 10^3/uL (1.5-8.5); NEUTROPHILS % 70.5 % (36.0-66.0); PLATELET COUNT, AUTOMATED 238 10^3/uL (150-450); RED BLOOD COUNT 2.96 10^6/uL (4.30-6.10); WHITE BLOOD COUNT 9.5 10^3/uL (4.0-10.0)
[2023-09-25 19:43] LABS: ALBUMIN 3.7 G/DL (3.2-5.2); BILIRUBIN,DIRECT 0.1 MG/DL (<0.4); BILIRUBIN,TOTAL 0.2 MG/DL (0.3-1.2); CALCIUM LEVEL 9.4 MG/DL (8.5-10.1); CREATININE FOR GFR 10.18 MG/DL (0.70-1.30); GLOMERULAR FILTRATION RATE 5.8 (>60); POTASSIUM SERUM 4.7 MMOL/L (3.5-5.1); TOTAL PROTEIN 6.6 G/DL (5.7-8.2)
[2023-09-25] MEDS: ACETAMINOPHEN *IV* 1,000 MG in IV 1 EA IV ONE (20:07)
[2023-09-25] MEDS: ONDANSETRON 4MG 2ML VIAL IV ONE (20:38)
[2023-09-25] MEDS: CIPROFLOXACIN 500MG TABLET PO ONE (22:41)
[2023-09-25] MEDS: metroNIDAZOLE (FLAGYL) 500MG TABLET PO ONE (22:41)
[2023-09-25] MEDS ORDERED: METR-265 PO (22:45)
[2023-09-25] MEDS ORDERED: CIPR-249 PO (22:45)
[2023-09-25 22:56] VITALS: BP 200/104; TEMP 98.7; O2SAT 97
== END 2023-09-25 23:12 | disposition home or self-care (01) ==
LOC: M ED 17:44
DX: K57.32 Diverticulitis of large intestine without perforation or abscess without bleeding (principal); N18.6 End stage renal disease; K21.9 Gastro-esophageal reflux disease without esophagitis; I10 Essential (primary) hypertension; K27.9 Peptic ulcer, site unspecified, unspecified as acute or chronic, without hemorrhage or perforation; K44.9 Diaphragmatic hernia without obstruction or gangrene; Z86.79 Personal history of other diseases of the circulatory system; Z88.1 Allergy status to other antibiotic agents; Z88.8 Allergy status to other drugs, medicaments and biological substances; Z79.52 Long term (current) use of systemic steroids; Z79.02 Long term (current) use of antithrombotics/antiplatelets; Z79.811 Long term (current) use of aromatase inhibitors; Z79.899 Other long term (current) drug therapy
CPT/HCPCS: 74176; 80048; 80076; 83690; 85025; 96374; 96375; 99284; J0131; J2405

== ENCOUNTER 2024-01-23 01:37 | Inpatient (IN) | payer MEDICARE, MEDICAID ==
[2024-01-23] VITALS (54 sets, daily range): BP systolic 126–192; BP diastolic 56–96; TEMP 97.8–98.3; O2SAT 93–100
[~2024-01-23] VITALS: Ht 172.7 cm; Wt 99.0 kg
[~2024-01-23 01:37] MED LIST changes: +HYDR50TA70; +METR-265 PO; +ONDA-282; +ONDA-282 SL; -ONDA4TAB6; -ONDA4TAB6 SL
[2024-01-23 02:41] LABS: BASO # 0.1 10^3/uL (0.0-0.2); BASO % 0.7 % (0.0-1.0); EOS # 0.5 10^3/uL (0.0-0.5); EOS % 6.6 % (0.0-3.0); HEMATOCRIT 29.7 % (42.0-52.0); HEMOGLOBIN 9.6 g/dl (13.5-17.5); LYMPH # 1.4 10^3/uL (1.5-5.0); LYMPH % 16.6 % (24.0-44.0); MEAN CORPUSCULAR HEMOGLOBIN 29.7 pg (27.0-33.0); MEAN CORPUSCULAR HGB CONC 32.3 g/dl (32.0-36.5); MONO % 12.6 % (2.0-8.0); NEUTROPHILS # 5.1 10^3/uL (1.5-8.5); NEUTROPHILS % 62.5 % (36.0-66.0); PLATELET COUNT, AUTOMATED 202 10^3/uL (150-450); RED BLOOD COUNT 3.23 10^6/uL (4.30-6.10); WHITE BLOOD COUNT 8.2 10^3/uL (4.0-10.0)
[2024-01-23 03:05] LABS: CK-MB VALUE MASS 3.5 NG/ML (<3.6)
[2024-01-23 03:06] LABS: MB/CK RELATIVE INDEX 1.92 (< OR =4)
[2024-01-23 03:13] LABS: CREATININE FOR GFR 10.38 MG/DL (0.70-1.30); GLOMERULAR FILTRATION RATE 5.7 (>60); POTASSIUM SERUM 4.3 MMOL/L (3.5-5.1)
[2024-01-23] MEDS: LORazepam 2 MG/ML 1ML VIAL IV STA ×2 (03:27→05:38)
[2024-01-23 04:06] LABS: CK-MB VALUE MASS 3.3 NG/ML (<3.6)
[2024-01-23 04:07] LABS: MB/CK RELATIVE INDEX 1.85 (< OR =4)
[2024-01-23] MEDS: hydrALAZINE 20MG/ML 1ML VIAL IV ONE (04:50)
[2024-01-23] MEDS: LABETALOL 100MG/20ML VIAL IV STA (05:39)
[2024-01-23 06:15] LABS: CK-MB VALUE MASS 3.5 NG/ML (<3.6)
[2024-01-23 06:16] LABS: MB/CK RELATIVE INDEX 1.73 (< OR =4)
[2024-01-23] MEDS: niCARdipine IV 40 MG in IV 1 EA IV SCH ×2 (07:12→10:55)
[2024-01-23 12:13] LABS: CK-MB VALUE MASS 4.9 NG/ML (<3.6); MAGNESIUM LEVEL 2.6 MG/DL (1.8-2.4)
[2024-01-23 12:14] LABS: MB/CK RELATIVE INDEX 1.96 (< OR =4)
[2024-01-23] MEDS: PANTOPRAZOLE 40MG VIAL IV SCH (12:26)
[2024-01-23] MEDS: IPRATROPIUM 0.5MG/ALBUTEROL 2.5MG INH SOL UD 3ML (DUONEB) NEB SCH (12:28)
[2024-01-23] MEDS: ASPIRIN 325 MG TAB PO STA (13:33)
[2024-01-23] MEDS ORDERED: MULT-40 PO (14:08)
[2024-01-23] MEDS: METOPROLOL SUCC (TopROL XL) 100MG *XL* TAB PO SCH (14:10)
[2024-01-23] MEDS: **hydrALAZINE** 50 MG TAB PO SCH (14:11)
[2024-01-23] MEDS ORDERED: LORA1TAB23 PO (14:14)
[2024-01-23] MEDS ORDERED: CLON-412 PO (14:17)
[2024-01-23] MEDS ORDERED: HOME MED LIST COMPLETE! XX SCH (14:20)
[2024-01-23] MEDS: HEPARIN SOD (PORCINE) 5000UNITS/ML 1ML VIAL/SYRINGE SC SCH (15:10)
[2024-01-23 17:56] LABS: CALCIUM LEVEL 10.1 MG/DL (8.5-10.1); CK-MB VALUE MASS 5.2 NG/ML (<3.6); CREATININE FOR GFR 11.45 MG/DL (0.70-1.30); GLOMERULAR FILTRATION RATE 5.1 (>60); MAGNESIUM LEVEL 2.6 MG/DL (1.8-2.4); MB/CK RELATIVE INDEX 2.05 (< OR =4); POTASSIUM SERUM 4.4 MMOL/L (3.5-5.1)
[2024-01-23] MEDS: LOSARTAN 50MG TABLET PO SCH (18:25)
[2024-01-24] VITALS (76 sets, daily range): BP systolic 120–189; BP diastolic 57–97; TEMP 97.9–98.7; O2SAT 89–100
[2024-01-24] MEDS: LORazepam 1 MG TAB PO PRN (02:18)
[2024-01-24 05:26] LABS: BASO % 0.5 % (0.0-1.0); EOS # 0.4 10^3/uL (0.0-0.5); EOS % 5.2 % (0.0-3.0); HEMOGLOBIN 8.9 g/dl (13.5-17.5); LYMPH # 1.3 10^3/uL (1.5-5.0); LYMPH % 14.9 % (24.0-44.0); MEAN CORPUSCULAR HGB CONC 31.8 g/dl (32.0-36.5); MEAN CORPUSCULAR VOLUME 91.2 fl (80.0-96.0); MONO # 0.9 10^3/uL (0.0-0.8); MONO % 10.1 % (2.0-8.0); NEUTROPHILS # 5.9 10^3/uL (1.5-8.5); NEUTROPHILS % 68.9 % (36.0-66.0); PLATELET COUNT, AUTOMATED 202 10^3/uL (150-450); RED BLOOD COUNT 3.07 10^6/uL (4.30-6.10); WHITE BLOOD COUNT 8.5 10^3/uL (4.0-10.0)
[2024-01-24 05:55] LABS: CK-MB VALUE MASS 5.6 NG/ML (<3.6)
[2024-01-24 05:57] LABS: MB/CK RELATIVE INDEX 3.23 (< OR =4)
[2024-01-24 06:04] LABS: ALBUMIN 3.7 G/DL (3.2-5.2); BILIRUBIN,TOTAL 0.2 MG/DL (0.3-1.2); CALCIUM LEVEL 10.2 MG/DL (8.5-10.1); CREATININE FOR GFR 12.7 MG/DL (0.70-1.30); GLOMERULAR FILTRATION RATE 4.5 (>60); MAGNESIUM LEVEL 2.6 MG/DL (1.8-2.4); POTASSIUM SERUM 4.7 MMOL/L (3.5-5.1); TOTAL PROTEIN 6.4 G/DL (5.7-8.2)
[2024-01-24] MEDS: PANTOPRAZOLE 40MG TAB (PROTONIX) PO SCH (08:42)
[2024-01-24] MEDS: ACETAMINOPHEN TAB 650MG DOSE (2X325MG) PO PRN (08:45)
[2024-01-24] MEDS ORDERED: SODIUM CHLORIDE 0.9% 1000ML IV PRN (10:20)
[2024-01-24] MEDS ORDERED: HEPARIN 1,000UNITS/ML 10ML VIAL (FOR RADIOLOGY & DIALYSIS ONLY) IV PRN (10:20)
[2024-01-24] MEDS: LIDOCAINE 1% SDV 5ML VIAL SC PRN (14:08)
[2024-01-24] MEDS: HEPARIN 1,000UNITS/ML 10ML VIAL (FOR RADIOLOGY & DIALYSIS ONLY) XX SCH (14:09)
[2024-01-24] MEDS: cloNIDine HCL 0.1 MG/24 HR PATCH TOP SCH (20:56)
[2024-01-25] VITALS (28 sets, daily range): BP systolic 147–237; BP diastolic 67–124; TEMP 97.9–99.5; O2SAT 92–100
[2024-01-25] MEDS: cloNIDine 0.1MG TABLET PO SCH (03:43)
[2024-01-25] MEDS: LORazepam 0.5 MG TAB PO PRN (03:43)
[2024-01-25] MEDS: LABETALOL 100MG/20ML VIAL IV STA (05:14)
[2024-01-25] MEDS ORDERED: niCARdipine IV 40 MG in IV 1 EA IV SCH (06:00)
[2024-01-25] MEDS: LORazepam 1 MG TAB PO PRN (06:04)
[2024-01-25 08:49] LABS: BASO % 0.6 % (0.0-1.0); EOS # 0.4 10^3/uL (0.0-0.5); EOS % 5.5 % (0.0-3.0); HEMATOCRIT 27.3 % (42.0-52.0); HEMOGLOBIN 8.8 g/dl (13.5-17.5); LYMPH # 1.3 10^3/uL (1.5-5.0); LYMPH % 18.1 % (24.0-44.0); MEAN CORPUSCULAR HEMOGLOBIN 29.6 pg (27.0-33.0); MEAN CORPUSCULAR HGB CONC 32.2 g/dl (32.0-36.5); MEAN CORPUSCULAR VOLUME 91.9 fl (80.0-96.0); MONO # 0.9 10^3/uL (0.0-0.8); MONO % 12.8 % (2.0-8.0); NEUTROPHILS # 4.5 10^3/uL (1.5-8.5); NEUTROPHILS % 62.3 % (36.0-66.0); PLATELET COUNT, AUTOMATED 221 10^3/uL (150-450); RED BLOOD COUNT 2.97 10^6/uL (4.30-6.10); WHITE BLOOD COUNT 7.2 10^3/uL (4.0-10.0)
[2024-01-25 09:11] LABS: CK-MB VALUE MASS 2.1 NG/ML (<3.6)
[2024-01-25 09:12] LABS: MB/CK RELATIVE INDEX 1.69 (< OR =4)
[2024-01-25 09:20] LABS: ALBUMIN 3.6 G/DL (3.2-5.2); BILIRUBIN,TOTAL 0.2 MG/DL (0.3-1.2); CALCIUM LEVEL 11.1 MG/DL (8.5-10.1); CREATININE FOR GFR 8.69 MG/DL (0.70-1.30); POTASSIUM SERUM 4.1 MMOL/L (3.5-5.1); TOTAL PROTEIN 6.4 G/DL (5.7-8.2)
[2024-01-25] MEDS ORDERED: SODIUM CHLORIDE 0.9% 1000ML IV PRN (09:45)
[2024-01-25] MEDS ORDERED: HEPARIN 1,000UNITS/ML 10ML VIAL (FOR RADIOLOGY & DIALYSIS ONLY) IV PRN (09:45)
[2024-01-25] MEDS: ASPIRIN 325 MG TAB PO SCH (10:06)
[2024-01-25] MEDS: cloNIDine 0.2 MG TAB PO SCH (10:09)
[2024-01-25] MEDS: METOPROLOL SUCC (TopROL XL) 100MG *XL* TAB PO SCH (10:20)
[2024-01-25] MEDS: LIDOCAINE 1% SDV 5ML VIAL SC PRN (12:00)
[2024-01-25] MEDS: HEPARIN 1,000UNITS/ML 10ML VIAL (FOR RADIOLOGY & DIALYSIS ONLY) XX SCH (12:01)
[2024-01-25] MEDS: (RENVELA) SEVELAMER **CARBONate** 800 MG TAB PO SCH (16:14)
[2024-01-25] MEDS ORDERED: cloNIDine 0.2 MG TAB PO SCH (21:00)
[2024-01-26] MEDS: ALBUTEROL SULFATE 2.5MG/0.5ML INH NEB SOLN NEB PRN (01:04)
[2024-01-26 03:46] VITALS: BP 160/96; TEMP 98.1; O2SAT 96
[2024-01-26 05:26] LABS: BASO # 0.1 10^3/uL (0.0-0.2); BASO % 0.9 % (0.0-1.0); EOS # 0.5 10^3/uL (0.0-0.5); EOS % 6.2 % (0.0-3.0); HEMATOCRIT 31.6 % (42.0-52.0); HEMOGLOBIN 9.9 g/dl (13.5-17.5); LYMPH # 1.4 10^3/uL (1.5-5.0); LYMPH % 17.6 % (24.0-44.0); MEAN CORPUSCULAR HEMOGLOBIN 29.1 pg (27.0-33.0); MEAN CORPUSCULAR HGB CONC 31.3 g/dl (32.0-36.5); MEAN CORPUSCULAR VOLUME 92.9 fl (80.0-96.0); MONO # 1.1 10^3/uL (0.0-0.8); MONO % 13.3 % (2.0-8.0); NEUTROPHILS # 4.9 10^3/uL (1.5-8.5); NEUTROPHILS % 61.1 % (36.0-66.0); PLATELET COUNT, AUTOMATED 258 10^3/uL (150-450)
[2024-01-26 06:02] LABS: ALBUMIN 3.9 G/DL (3.2-5.2); BILIRUBIN,TOTAL 0.3 MG/DL (0.3-1.2); CREATININE FOR GFR 6.51 MG/DL (0.70-1.30); GLOMERULAR FILTRATION RATE 9.8 (>60); MAGNESIUM LEVEL 2.2 MG/DL (1.8-2.4); PHOSPHORUS LEVEL 5.5 MG/DL (2.5-4.9); POTASSIUM SERUM 4.6 MMOL/L (3.5-5.1); TOTAL PROTEIN 6.8 G/DL (5.7-8.2)
[2024-01-26] MEDS ORDERED: HEPARIN 1,000UNITS/ML 10ML VIAL (FOR RADIOLOGY & DIALYSIS ONLY) IV PRN (06:10)
[2024-01-26] MEDS ORDERED: HEPARIN 1,000UNITS/ML 10ML VIAL (FOR RADIOLOGY & DIALYSIS ONLY) XX SCH (06:10)
[2024-01-26] MEDS ORDERED: SODIUM CHLORIDE 0.9% 1000ML IV PRN (06:10)
[2024-01-26] MEDS: LIDOCAINE 1% SDV 5ML VIAL SC PRN (08:54)
[2024-01-26] MEDS ORDERED: METOPROLOL SUCC (TopROL XL) 100MG *XL* TAB PO SCH (09:00)
[2024-01-26 12:25] VITALS: BP 166/90; TEMP 97.9; O2SAT 96
[2024-01-26] MEDS ORDERED: RENV2TAB PO (13:33)
[2024-01-26] MEDS ORDERED: ASPI-1 PO (13:33)
[2024-01-26] MEDS ORDERED: CLONI1TA PO (13:33)
[2024-01-26] MEDS ORDERED: TOPR200T PO (13:33)
[2024-01-26 14:00] VITALS: BP 166/90
== END 2024-01-26 14:17 | disposition home or self-care (01) | DRG 304 ==
LOC: M ED 01:37 → EEVIPCON 08:57 → M ED INP 08:57 → M ICU 09:57 → M MSPAV 01-25 22:22
PROVIDERS: ADMIT Internal Medicine Critical Care Medicine; ATTEND Internal Medicine
PROC: 5A1D70Z Performance of Urinary Filtration, Intermittent, Less than 6 Hours Per Day (ICD-10-PCS; principal; 2024-01-26)
DX: I16.0 Hypertensive urgency (principal); N18.6 End stage renal disease; I50.32 Chronic diastolic (congestive) heart failure; I13.2 Hypertensive heart and chronic kidney disease with heart failure and with stage 5 chronic kidney disease, or end stage renal disease; K76.0 Fatty (change of) liver, not elsewhere classified; K21.9 Gastro-esophageal reflux disease without esophagitis; F41.9 Anxiety disorder, unspecified; F32.A Depression, unspecified; Z79.899 Other long term (current) drug therapy; Z88.1 Allergy status to other antibiotic agents; Z88.8 Allergy status to other drugs, medicaments and biological substances; Z99.2 Dependence on renal dialysis; G47.33 Obstructive sleep apnea (adult) (pediatric); J45.909 Unspecified asthma, uncomplicated; E21.1 Secondary hyperparathyroidism, not elsewhere classified

== ENCOUNTER 2024-02-09 04:57 | Emergency (ER) | payer MEDICARE, MEDICAID ==
[~2024-02-09] VITALS: Ht 172.7 cm; Wt 100.2 kg
[~2024-02-09 04:57] MED LIST changes: +ASPI-1 PO; +MULT-40 PO; +TOPR200T PO
[2024-02-09] MEDS ORDERED: ISOVUE-370 76% 100ML VIAL As Ordered ONE (05:31)
[2024-02-09 05:35] LABS: BASO # 0.1 10^3/uL (0.0-0.2); BASO % 0.6 % (0.0-1.0); EOS % 10.4 % (0.0-3.0); HEMATOCRIT 30.9 % (42.0-52.0); HEMOGLOBIN 9.7 g/dl (13.5-17.5); LYMPH # 1.5 10^3/uL (1.5-5.0); LYMPH % 15.6 % (24.0-44.0); MEAN CORPUSCULAR HEMOGLOBIN 29.3 pg (27.0-33.0); MEAN CORPUSCULAR HGB CONC 31.4 g/dl (32.0-36.5); MEAN CORPUSCULAR VOLUME 93.4 fl (80.0-96.0); MONO % 10.2 % (2.0-8.0); NEUTROPHILS # 6.1 10^3/uL (1.5-8.5); NEUTROPHILS % 62.9 % (36.0-66.0); PLATELET COUNT, AUTOMATED 242 10^3/uL (150-450); RED BLOOD COUNT 3.31 10^6/uL (4.30-6.10); WHITE BLOOD COUNT 9.6 10^3/uL (4.0-10.0)
[2024-02-09] MEDS: ASPIRIN 81MG CHEW TABLET PO ONE (05:53)
[2024-02-09] MEDS: NITROGLYCERIN 0.4MG SUBL TABLET SL PRN (05:53)
[2024-02-09] MEDS: ACETAMINOPHEN TAB 650MG DOSE (2X325MG) PO ONE (06:05)
[2024-02-09 06:18] LABS: CK-MB VALUE MASS 1.9 NG/ML (<3.6); CREATININE FOR GFR 9.92 MG/DL (0.70-1.30); MB/CK RELATIVE INDEX 1.53 (< OR =4); POTASSIUM SERUM 4.4 MMOL/L (3.5-5.1)
[2024-02-09 07:29] LABS: CK-MB VALUE MASS 1.9 NG/ML (<3.6)
[2024-02-09 07:33] LABS: MB/CK RELATIVE INDEX 1.77 (< OR =4)
[2024-02-09] MEDS ORDERED: **hydrALAZINE** 50 MG TAB PO ONE (07:40)
[2024-02-09] MEDS ORDERED: VELP5CHW PO (07:47)
[2024-02-09 07:54] VITALS: BP 188/102
[2024-02-09] MEDS: **hydrALAZINE** 50 MG TAB PO ONE (07:54)
[2024-02-09] MEDS: METOPROLOL SUCC (TopROL XL) 100MG *XL* TAB PO ONE (07:55)
[2024-02-09 09:35] VITALS: BP 194/112; TEMP 96.6; O2SAT 95
== END 2024-02-09 09:43 | disposition home or self-care (01) ==
LOC: M ED 04:57
DX: R07.9 Chest pain, unspecified (principal); I10 Essential (primary) hypertension; N18.6 End stage renal disease; I45.10 Unspecified right bundle-branch block; I44.4 Left anterior fascicular block; K21.9 Gastro-esophageal reflux disease without esophagitis; E78.5 Hyperlipidemia, unspecified; Z86.711 Personal history of pulmonary embolism; Z88.1 Allergy status to other antibiotic agents; Z88.8 Allergy status to other drugs, medicaments and biological substances; Z79.52 Long term (current) use of systemic steroids; Z79.82 Long term (current) use of aspirin; Z79.02 Long term (current) use of antithrombotics/antiplatelets; Z79.899 Other long term (current) drug therapy
CPT/HCPCS: 36415; 71045; 71275; 80048; 82550; 82553; 84484; 85025; 93005; 93041; 94760; 99285; Q9967

== ENCOUNTER 2024-03-21 13:22 | Observation (INO) | payer MEDICARE, MEDICAID ==
[~2024-03-21] VITALS: Ht 170.2 cm; Wt 93.3 kg
[~2024-03-21 13:22] MED LIST changes: +LEVA15HF2 INH; -LEVAINH INH
[2024-03-21] MEDS ORDERED: LEVA1.2519 NEB (13:34)
[2024-03-21 14:07] LABS: VENOUS BASE EXCESS 2.3 (-2.0-2.0); VENOUS HCO3 27.4 MMOL/L (23.0-27.0); VENOUS O2 SATURATION 87.8 % (60.0-80.0); VENOUS PARTIAL PRESSURE CO2 44.7 mmHg (38.0-50.0); VENOUS PARTIAL PRESSURE O2 55.1 mmHg (30.0-50.0); VENOUS PH 7.405 UNITS (7.330-7.430); VENOUS STANDARD HCO3 26.3 MMOL/L; VENOUS TOTAL CO2 28.8 MMOL/L (24.0-28.0)
[2024-03-21] MEDS: hydrALAZINE 20MG/ML 1ML VIAL IV STA ×2 (14:10→16:05)
[2024-03-21 14:13] LABS: BASO # 0.1 10^3/uL (0.0-0.2); BASO % 0.4 % (0.0-1.0); EOS # 0.5 10^3/uL (0.0-0.5); EOS % 3.8 % (0.0-3.0); HEMATOCRIT 30.1 % (42.0-52.0); HEMOGLOBIN 9.2 g/dl (13.5-17.5); LYMPH # 1.1 10^3/uL (1.5-5.0); LYMPH % 8.8 % (24.0-44.0); MEAN CORPUSCULAR HEMOGLOBIN 28.5 pg (27.0-33.0); MEAN CORPUSCULAR HGB CONC 30.6 g/dl (32.0-36.5); MEAN CORPUSCULAR VOLUME 93.2 fl (80.0-96.0); MONO # 1.2 10^3/uL (0.0-0.8); MONO % 9.2 % (2.0-8.0); NEUTROPHILS % 77.1 % (36.0-66.0); PLATELET COUNT, AUTOMATED 253 10^3/uL (150-450); RED BLOOD COUNT 3.23 10^6/uL (4.30-6.10); WHITE BLOOD COUNT 12.9 10^3/uL (4.0-10.0)
[2024-03-21] MEDS: IPRATROPIUM 0.5MG/ALBUTEROL 2.5MG INH SOL UD 3ML (DUONEB) NEB ONE (14:16)
[2024-03-21 14:44] LABS: CK-MB VALUE MASS 4.2 NG/ML (<3.6)
[2024-03-21 14:47] LABS: THYROID STIMULATING HORMONE 3.134 uIU/ML (0.55-4.78)
[2024-03-21 15:01] LABS: ALBUMIN 3.8 G/DL (3.2-5.2); BILIRUBIN,DIRECT 0.1 MG/DL (<0.4); BILIRUBIN,TOTAL 0.3 MG/DL (0.3-1.2); CREATININE FOR GFR 9.91 MG/DL (0.70-1.30); MB/CK RELATIVE INDEX 1.77 (< OR =4); POTASSIUM SERUM 5.1 MMOL/L (3.5-5.1)
[2024-03-21] MEDS: **hydrALAZINE** 50 MG TAB PO ONE (15:19)
[2024-03-21] MEDS: LABETALOL 100MG/20ML VIAL IV STA (15:20)
[2024-03-21] MEDS: LORazepam 1 MG TAB PO ONE (16:22)
[2024-03-21] MEDS: FUROSEMIDE 40MG/4ML VIAL IV ONE (16:23)
[2024-03-21] MEDS ORDERED: METO200T15 PO (16:52)
[2024-03-21] MEDS ORDERED: ASPI81TA26 PO (16:52)
[2024-03-21] MEDS ORDERED: HOME MED LIST COMPLETE! XX SCH (16:55)
[2024-03-21] MEDS ORDERED: PILL CUTTER 1 EACH XX PRN (17:25)
[2024-03-21 17:38] VITALS: BP_SYST 180; BP_SYST 184; BP_DIAS 100; TEMP 97.6; TEMP 97.8; O2SAT 93
[2024-03-21 18:24] VITALS: BP 180/110
[2024-03-21] MEDS: ALBUTEROL 90 MCG/ACT 8GM HFA INHALER INH PRN (18:27)
[2024-03-21 19:13] VITALS: BP 184/103; TEMP 97.4; O2SAT 92
[2024-03-21] MEDS: ADVAIR HFA 115/21MCG INHALER INH SCH (19:24)
[2024-03-21] MEDS ORDERED: SODIUM CHLORIDE 0.9% 1000 ML IV PRN (20:20)
[2024-03-21] MEDS ORDERED: LIDOCAINE 1% SDV 5ML VIAL SC PRN (20:20)
[2024-03-21] MEDS ORDERED: HEPARIN 1,000UNITS/ML 10ML VIAL (FOR RADIOLOGY & DIALYSIS ONLY) IV PRN (20:20)
[2024-03-21] MEDS: hydrOXYzine 50 MG TAB PO SCH (20:29)
[2024-03-21] MEDS: busPIRone 5 MG TAB PO SCH (20:30)
[2024-03-21] MEDS: **hydrALAZINE** 50 MG TAB PO SCH (20:36)
[2024-03-21] MEDS: PRAZOSIN 1 MG CAP PO SCH (20:38)
[2024-03-21] MEDS: HEPARIN 1,000UNITS/ML 10ML VIAL (FOR RADIOLOGY & DIALYSIS ONLY) XX SCH (22:25)
[2024-03-22] VITALS (10 sets, daily range): BP systolic 178–198; BP diastolic 90–108; TEMP 97.4–99.3; O2SAT 92–98
[2024-03-22] MEDS: hydrALAZINE 20MG/ML 1ML VIAL IV PRN (01:10)
[2024-03-22] MEDS: ACETAMINOPHEN 325 MG TAB PO PRN (03:12)
[2024-03-22] MEDS: LABETALOL 100MG/20ML VIAL IV PRN (03:13)
[2024-03-22] MEDS: HEPARIN SOD (PORCINE) 5000UNITS/ML 1ML VIAL/SYRINGE SC SCH (05:45)
[2024-03-22] MEDS ORDERED: HEPARIN 1,000UNITS/ML 10ML VIAL (FOR RADIOLOGY & DIALYSIS ONLY) IV PRN (06:00)
[2024-03-22] MEDS ORDERED: LIDOCAINE 1% SDV 5ML VIAL SC PRN (06:00)
[2024-03-22] MEDS ORDERED: HEPARIN 1,000UNITS/ML 10ML VIAL (FOR RADIOLOGY & DIALYSIS ONLY) XX SCH (06:00)
[2024-03-22] MEDS ORDERED: SODIUM CHLORIDE 0.9% 1000 ML IV PRN (06:00)
[2024-03-22 07:45] LABS: HEMATOCRIT 28.3 % (42.0-52.0); HEMOGLOBIN 8.7 g/dl (13.5-17.5); MEAN CORPUSCULAR HEMOGLOBIN 28.6 pg (27.0-33.0); MEAN CORPUSCULAR HGB CONC 30.7 g/dl (32.0-36.5); MEAN CORPUSCULAR VOLUME 93.1 fl (80.0-96.0); PLATELET COUNT, AUTOMATED 240 10^3/uL (150-450); RED BLOOD COUNT 3.04 10^6/uL (4.30-6.10); WHITE BLOOD COUNT 10.2 10^3/uL (4.0-10.0)
[2024-03-22] MEDS: IPRATROPIUM 0.5MG/ALBUTEROL 2.5MG INH SOL UD 3ML (DUONEB) NEB PRN (07:47)
[2024-03-22 08:03] LABS: CALCIUM LEVEL 10.1 MG/DL (8.5-10.1); CREATININE FOR GFR 7.14 MG/DL (0.70-1.30); GLOMERULAR FILTRATION RATE 8.8 (>60); POTASSIUM SERUM 4.6 MMOL/L (3.5-5.1)
[2024-03-22] MEDS: ASPIRIN 81MG ENTERIC TABLET PO SCH (09:14)
[2024-03-22 11:31] LABS: PHOSPHORUS LEVEL 3.9 MG/DL (2.5-4.9)
[2024-03-22 11:35] LABS: PROCALCITONIN 0.95 ng/ml
[2024-03-22] MEDS: LORazepam 1 MG TAB PO PRN (11:43)
[2024-03-22] MEDS: METOPROLOL SUCC (TopROL XL) 100MG *XL* TAB PO SCH (11:44)
[2024-03-22] MEDS: ATORVASTATIN 10 MG TAB PO SCH (11:44)
[2024-03-22] MEDS: FEBUXOSTAT 40 MG TABLET (ULORIC) PO SCH (11:44)
[2024-03-22] MEDS: LOSARTAN 50MG TABLET PO SCH (11:45)
[2024-03-22] MEDS: CEFDINIR 300 MG CAP (OMNICEF) PO SCH (18:09)
[2024-03-22] MEDS: SCOPOLAMINE 1MG TRANSDERMAL PATCH TOP ONE (22:11)
[2024-03-23 03:07] VITALS: BP 194/104; TEMP 98; O2SAT 99
[2024-03-23 04:08] VITALS: BP 188/102
[2024-03-23 05:25] VITALS: BP 166/100
[2024-03-23 08:29] VITALS: BP 178/98; TEMP 98.3; O2SAT 95
[2024-03-23] MEDS ORDERED: HEPARIN 1,000UNITS/ML 10ML VIAL (FOR RADIOLOGY & DIALYSIS ONLY) IV PRN (08:35)
[2024-03-23] MEDS ORDERED: LIDOCAINE 1% SDV 5ML VIAL SC PRN (08:35)
[2024-03-23] MEDS ORDERED: SODIUM CHLORIDE 0.9% 1000 ML IV PRN (08:35)
[2024-03-23] MEDS: HEPARIN 1,000UNITS/ML 10ML VIAL (FOR RADIOLOGY & DIALYSIS ONLY) XX SCH (10:01)
[2024-03-23] MEDS: ONDANSETRON 4MG 2ML VIAL IV ONE (12:11)
[2024-03-23 12:53] VITALS: BP 135/60; TEMP 98.3; O2SAT 94
[2024-03-23 13:20] VITALS: BP 135/60
== END 2024-03-23 15:14 | disposition home or self-care (01) ==
LOC: M ED 13:22 → M ED INP 13:23 → M PCU 17:27
PROVIDERS: ADMIT Internal Medicine; ATTEND Internal Medicine
DX: I16.0 Hypertensive urgency (principal); J81.0 Acute pulmonary edema; N18.6 End stage renal disease; E78.5 Hyperlipidemia, unspecified; I12.0 Hypertensive chronic kidney disease with stage 5 chronic kidney disease or end stage renal disease; K76.0 Fatty (change of) liver, not elsewhere classified; K21.9 Gastro-esophageal reflux disease without esophagitis; J45.909 Unspecified asthma, uncomplicated; M10.9 Gout, unspecified; F41.9 Anxiety disorder, unspecified; F32.9 Major depressive disorder, single episode, unspecified; D64.9 Anemia, unspecified; Z88.0 Allergy status to penicillin; Z88.8 Allergy status to other drugs, medicaments and biological substances; Z79.899 Other long term (current) drug therapy; Z79.82 Long term (current) use of aspirin
CPT/HCPCS: 36415; 71046; 80048; 80076; 82550; 82553; 82803; 83880; 84100; 84145; 84443; 84484; 85025; 85027; 87486; 87581; 87633; 87798; 90935; 93005; 93041; 94640; 94760; 96374; 96375; 96376; 99285; G0257; G0378; J0360; J1920; J1940; J2405

== ENCOUNTER 2024-06-28 07:14 | Emergency (ER) | payer MEDICARE, MEDICAID ==
[~2024-06-28] VITALS: Ht 172.7 cm; Wt 105.4 kg
[~2024-06-28 07:14] MED LIST changes: -ADV250INH INH; +ADVA1AER9 INH; +ASPI81TA26 PO; +LEVA1.2526 NEB; +METO200T15 PO
[2024-06-28] MEDS ORDERED: MORPHINE 2 MG/ML 1ML VIAL IV ONE (08:00)
[2024-06-28] MEDS: PERCOCET 5MG/325MG TAB PO ONE (08:13)
[2024-06-28] MEDS: LIDOCAINE 5% OINT 30GM TUBE TOP SCH (08:14)
[2024-06-28 08:29] VITALS: BP 184/94; TEMP 97; O2SAT 97
== END 2024-06-28 08:39 | disposition home or self-care (01) ==
LOC: M ED 07:14
DX: K64.5 Perianal venous thrombosis (principal); I13.0 Hypertensive heart and chronic kidney disease with heart failure and stage 1 through stage 4 chronic kidney disease, or unspecified chronic kidney disease; I50.9 Heart failure, unspecified; I38 Endocarditis, valve unspecified; Z88.1 Allergy status to other antibiotic agents; Z88.8 Allergy status to other drugs, medicaments and biological substances; Z79.899 Other long term (current) drug therapy

== ENCOUNTER 2024-06-28 20:40 | Inpatient (IN) | payer MEDICARE, MEDICAID ==
[~2024-06-28] VITALS: Ht 172.7 cm; Wt 97.0 kg
[2024-06-28 21:26] LABS: BASO % 0.5 % (0.0-1.0); EOS # 0.5 10^3/uL (0.0-0.5); EOS % 6.6 % (0.0-3.0); HEMOGLOBIN 9.3 g/dl (13.5-17.5); LYMPH # 1.5 10^3/uL (1.5-5.0); LYMPH % 19.2 % (24.0-44.0); MEAN CORPUSCULAR HEMOGLOBIN 27.4 pg (27.0-33.0); MEAN CORPUSCULAR VOLUME 91.2 fl (80.0-96.0); MONO # 0.8 10^3/uL (0.0-0.8); MONO % 10.2 % (2.0-8.0); NEUTROPHILS # 4.9 10^3/uL (1.5-8.5); NEUTROPHILS % 62.9 % (36.0-66.0); PLATELET COUNT, AUTOMATED 234 10^3/uL (150-450); WHITE BLOOD COUNT 7.9 10^3/uL (4.0-10.0)
[2024-06-28 22:11] LABS: CALCIUM LEVEL 9.1 MG/DL (8.5-10.1); CREATININE FOR GFR 12.05 MG/DL (0.70-1.30); GLOMERULAR FILTRATION RATE 4.8 (>60); POTASSIUM SERUM 7.3 MMOL/L (3.5-5.1)
[2024-06-28] MEDS: ALBUTEROL SULFATE 2.5MG/0.5ML INH NEB SOLN INH ONE (22:29)
[2024-06-28] MEDS: CALCIUM GLUCONATE 1,000MG/10ML VIAL (100MG/ML) IV ONE (23:10)
[2024-06-28] MEDS: DEXTROSE 50% 50ML SYRINGE IV ONE (23:10)
[2024-06-28] MEDS: ONDANSETRON 4MG ORAL DISINTEGRATING TAB PO ONE (23:10)
[2024-06-28] MEDS: HumuLIN R (REGULAR) INSULIN (NovoLIN R) **100U/ML** PER UNIT IV ONE (23:11)
[2024-06-29] MEDS: LOSARTAN 50MG TABLET PO ONE (00:23)
[2024-06-29] MEDS: PATIROMER SORBITEX CALCIUM 8.4 GM POWDER PACKET (VELTASSA) PO ONE ×3 (00:23→11:30)
[2024-06-29] MEDS: **hydrALAZINE** 50 MG TAB PO ONE (00:24)
[2024-06-29] MEDS: ANEXSIA, NORCO 7.5MG/325MG TABLET(HYDROCODONE/APAP) PO ONE (01:12)
[2024-06-29 01:16] LABS: VENOUS BASE EXCESS -2.5 (-2.0-2.0); VENOUS HCO3 23.5 MMOL/L (23.0-27.0); VENOUS O2 SATURATION 96.6 % (60.0-80.0); VENOUS PARTIAL PRESSURE CO2 46.4 mmHg (38.0-50.0); VENOUS PARTIAL PRESSURE O2 101.5 mmHg (30.0-50.0); VENOUS PH 7.323 UNITS (7.330-7.430); VENOUS STANDARD HCO3 22.3 MMOL/L
[2024-06-29 02:19] LABS: CALCIUM LEVEL 9.6 MG/DL (8.5-10.1); CREATININE FOR GFR 12.28 MG/DL (0.70-1.30); GLOMERULAR FILTRATION RATE 4.7 (>60); POTASSIUM SERUM 5.4 MMOL/L (3.5-5.1)
[2024-06-29] MEDS: LABETALOL 100MG/20ML VIAL IV STA ×2 (02:22→05:54)
[2024-06-29] MEDS ORDERED: ACETAMINOPHEN 325 MG TAB PO PRN (08:05)
[2024-06-29] MEDS ORDERED: MOM 30ML SUSPENSION UDC PO PRN (08:05)
[2024-06-29] MEDS: DOCUSATE SODIUM 100MG CAPSULE PO SCH (08:28)
[2024-06-29] MEDS: cloNIDine 0.2 MG TAB PO SCH (08:28)
[2024-06-29] MEDS ORDERED: HEPARIN 1,000UNITS/ML 10ML VIAL (FOR RADIOLOGY & DIALYSIS ONLY) XX SCH (09:35)
[2024-06-29] MEDS ORDERED: LIDOCAINE 1% SDV 5ML VIAL SC PRN (09:35)
[2024-06-29] MEDS ORDERED: SODIUM CHLORIDE 0.9% 1000 ML IV PRN (09:35)
[2024-06-29] MEDS ORDERED: HEPARIN 1,000UNITS/ML 10ML VIAL (FOR RADIOLOGY & DIALYSIS ONLY) IV PRN (09:35)
[2024-06-29 09:39] LABS: ALBUMIN 3.6 G/DL (3.2-5.2); BILIRUBIN,TOTAL 0.2 MG/DL (0.3-1.2); CALCIUM LEVEL 9.7 MG/DL (8.5-10.1); CREATININE FOR GFR 13.02 MG/DL (0.70-1.30); GLOMERULAR FILTRATION RATE 4.4 (>60); POTASSIUM SERUM 6.9 MMOL/L (3.5-5.1); TOTAL PROTEIN 6.5 G/DL (5.7-8.2)
[2024-06-29] MEDS ORDERED: HOME MED LIST COMPLETE! XX SCH (10:05)
[2024-06-29] MEDS: PRAZOSIN 1 MG CAP PO SCH (10:40)
[2024-06-29] MEDS ORDERED: HumuLIN R (REGULAR) INSULIN (NovoLIN R) **100U/ML** PER UNIT IV STA (11:04)
[2024-06-29] MEDS: HumuLIN R (REGULAR) INSULIN (NovoLIN R) **100U/ML** PER UNIT IV STA (11:30)
[2024-06-29] MEDS: DEXTROSE 50% 50ML SYRINGE IV STA (11:31)
[2024-06-29] MEDS: LORazepam 0.5 MG TAB PO ONE (12:14)
[2024-06-29] MEDS: DARBEPOETIN 100MCG/0.5ML *DIALYSIS* SYRINGE IV SCH (13:43)
[2024-06-29 15:58] VITALS: BP 177/84; TEMP 98.5; O2SAT 97
[2024-06-29] MEDS: METOPROLOL SUCC (TopROL XL) 100MG *XL* TAB PO SCH (16:17)
[2024-06-29 16:18] VITALS: BP 177/84
[2024-06-29] MEDS: **hydrALAZINE** 50 MG TAB PO SCH (16:18)
[2024-06-29] MEDS: BUMETANIDE 1 MG TAB PO SCH (17:31)
[2024-06-29] MEDS: IPRATROPIUM 0.5MG/ALBUTEROL 2.5MG INH SOL UD 3ML (DUONEB) NEB PRN (19:15)
[2024-06-30] MEDS ORDERED: cloNIDine 0.1MG TABLET PO SCH (09:00)
== END 2024-06-29 20:10 | disposition left against medical advice (07) | DRG 640 ==
LOC: M ED 20:40 → EDBD 20:40 → M ED INP 06-29 08:03 → M PCU 06-29 15:44
PROVIDERS: ADMIT Student in an Organized Health Care Education/Training Program; ATTEND Student in an Organized Health Care Education/Training Program
PROC: 5A1D70Z Performance of Urinary Filtration, Intermittent, Less than 6 Hours Per Day (ICD-10-PCS; principal; 2024-06-29)
DX: E87.5 Hyperkalemia (principal); N18.6 End stage renal disease; I12.0 Hypertensive chronic kidney disease with stage 5 chronic kidney disease or end stage renal disease; K64.5 Perianal venous thrombosis; D63.1 Anemia in chronic kidney disease; E78.5 Hyperlipidemia, unspecified; Z99.2 Dependence on renal dialysis; K21.9 Gastro-esophageal reflux disease without esophagitis; F32.A Depression, unspecified; F41.9 Anxiety disorder, unspecified; I16.0 Hypertensive urgency; M10.9 Gout, unspecified; J45.909 Unspecified asthma, uncomplicated; Z79.82 Long term (current) use of aspirin; Z79.899 Other long term (current) drug therapy; Z88.1 Allergy status to other antibiotic agents; Z88.8 Allergy status to other drugs, medicaments and biological substances

== ENCOUNTER 2024-09-05 05:13 | Emergency (ER) | payer MEDICARE, MEDICAID ==
[~2024-09-05] VITALS: Ht 172.7 cm; Wt 97.7 kg
[2024-09-05 06:57] VITALS: BP 170/81
[2024-09-05] MEDS: **hydrALAZINE** 50 MG TAB PO ONE (06:57)
[2024-09-05] MEDS: LEVALBUTEROL 1.25 MG 0.5ML CONCENTRATE NEB NEB ONE (07:49)
[2024-09-05] MEDS ORDERED: PRED20TA PO (08:30)
[2024-09-05] MEDS ORDERED: DOXY-442 PO (08:33)
[2024-09-05 08:51] VITALS: BP 180/85; TEMP 98; O2SAT 97
== END 2024-09-05 08:53 | disposition home or self-care (01) ==
LOC: EDBD 05:13 → M ED 05:13
DX: T82.838A Hemorrhage due to vascular prosthetic devices, implants and grafts, initial encounter (principal); Z99.2 Dependence on renal dialysis; I10 Essential (primary) hypertension; E78.5 Hyperlipidemia, unspecified; F41.9 Anxiety disorder, unspecified; F90.9 Attention-deficit hyperactivity disorder, unspecified type; F43.10 Post-traumatic stress disorder, unspecified; F17.200 Nicotine dependence, unspecified, uncomplicated; Z79.82 Long term (current) use of aspirin; Z79.899 Other long term (current) drug therapy; Z88.0 Allergy status to penicillin; Z88.8 Allergy status to other drugs, medicaments and biological substances

== ENCOUNTER 2024-09-06 19:25 | Inpatient (IN) | payer MEDICARE, MEDICAID ==
[~2024-09-06] VITALS: Ht 172.7 cm; Wt 100.9 kg
[~2024-09-06 19:25] MED LIST changes: +DOXY-442 PO
[2024-09-06 19:59] LABS: BASO % 0.1 % (0.0-1.0); HEMATOCRIT 33.8 % (42.0-52.0); HEMOGLOBIN 10.6 g/dl (13.5-17.5); LYMPH # 0.4 10^3/uL (1.5-5.0); LYMPH % 3.4 % (24.0-44.0); MEAN CORPUSCULAR HEMOGLOBIN 26.7 pg (27.0-33.0); MEAN CORPUSCULAR HGB CONC 31.4 g/dl (32.0-36.5); MEAN CORPUSCULAR VOLUME 85.1 fl (80.0-96.0); MONO # 0.4 10^3/uL (0.0-0.8); NEUTROPHILS # 11.2 10^3/uL (1.5-8.5); NEUTROPHILS % 92.7 % (36.0-66.0); PLATELET COUNT, AUTOMATED 183 10^3/uL (150-450); RED BLOOD COUNT 3.97 10^6/uL (4.30-6.10); WHITE BLOOD COUNT 12.1 10^3/uL (4.0-10.0)
[2024-09-06 20:34] LABS: CK-MB VALUE MASS 3.3 NG/ML (<3.6)
[2024-09-06] MEDS: METOCLOPRAMIDE INJ 10MG/2ML VIAL IV ONE (20:35)
[2024-09-06 20:36] LABS: CPK CREATINE PHOSPHOKINASE 264 U/L (46-171); MB/CK RELATIVE INDEX 1.25 (< OR =4)
[2024-09-06 20:38] LABS: BLOOD UREA NITROGEN 74 MG/DL (9-23); CALCIUM LEVEL 9.7 MG/DL (8.5-10.1); CARBON DIOXIDE LEVEL 26 MMOL/L (20-31); CHLORIDE LEVEL 93 MMOL/L (98-107); CREATININE FOR GFR 12.71 MG/DL (0.70-1.30); GLOMERULAR FILTRATION RATE 4.4 (>60); GLUCOSE, FASTING 145 MG/DL (60-100); POTASSIUM SERUM 5.9 MMOL/L (3.5-5.1); SODIUM LEVEL 136 MMOL/L (136-145)
[2024-09-06] MEDS ORDERED: ISOVUE-370 76% 100ML VIAL As Ordered ONE (20:52)
[2024-09-06 21:09] LABS: ALBUMIN 3.8 G/DL (3.2-5.2); ALKALINE PHOSPHATASE 97 U/L (40-129); ALT/SGPT 20 U/L (7.0-40); AST/SGOT 20 U/L (<34); BILIRUBIN,DIRECT < 0.1 MG/DL (<0.4); BILIRUBIN,TOTAL 0.2 MG/DL (0.3-1.2); MAGNESIUM LEVEL 2.2 MG/DL (1.8-2.4)
[2024-09-06] MEDS: HYDROMORPHONE HCL 0.5 MG/ 0.5 ML SYRINGE IV PRN (21:16)
[2024-09-06] MEDS: PATIROMER SORBITEX CALCIUM 8.4 GM POWDER PACKET (VELTASSA) PO ONE (21:16)
[2024-09-06 21:37] LABS: CK-MB VALUE MASS 3.3 NG/ML (<3.6)
[2024-09-06 21:39] LABS: MB/CK RELATIVE INDEX 1.18 (< OR =4)
[2024-09-06] MEDS: LOSARTAN 50MG TABLET PO ONE (22:52)
[2024-09-06] MEDS: hydrALAZINE 20MG/ML 1ML VIAL IV STA (22:52)
[2024-09-06 23:49] LABS: CALCIUM LEVEL 9.6 MG/DL (8.5-10.1); CREATININE FOR GFR 12.62 MG/DL (0.70-1.30); GLOMERULAR FILTRATION RATE 4.4 (>60); POTASSIUM SERUM 7.1 MMOL/L (3.5-5.1)
[2024-09-06] MEDS: ALPRAZolam 0.5 MG TAB PO ONE (23:55)
[2024-09-07] VITALS (14 sets, daily range): BP systolic 142–223; BP diastolic 67–110; TEMP 98–103; O2SAT 92–97
[2024-09-07] MEDS: CALCIUM GLUCONATE 1,000MG/10ML VIAL (100MG/ML) IV ONE (00:09)
[2024-09-07] MEDS: DEXTROSE 50% 50ML SYRINGE IV ONE (00:09)
[2024-09-07] MEDS: HumuLIN R (REGULAR) INSULIN (NovoLIN R) **100U/ML** PER UNIT IV ONE (00:10)
[2024-09-07] MEDS: SODIUM BICARBONATE 8.4% INJ 50ML SYRINGE IV ONE (00:10)
[2024-09-07] MEDS: niCARdipine IV 40 MG in IV 1 EA IV SCH ×2 (00:50→05:02)
[2024-09-07] MEDS: PATIROMER SORBITEX CALCIUM 8.4 GM POWDER PACKET (VELTASSA) PO ONE (01:00)
[2024-09-07] MEDS ORDERED: ACETAMINOPHEN 1000MG/100ML IV BAG As Ordered ONE (01:58)
[2024-09-07] MEDS ORDERED: MOM 30ML SUSPENSION UDC PO PRN (03:05)
[2024-09-07 04:11] LABS: VENOUS BASE EXCESS 0.4 (-2.0-2.0); VENOUS HCO3 25.3 MMOL/L (23.0-27.0); VENOUS PARTIAL PRESSURE O2 131.6 mmHg (30.0-50.0); VENOUS PH 7.398 UNITS (7.330-7.430); VENOUS STANDARD HCO3 24.9 MMOL/L; VENOUS TOTAL CO2 26.6 MMOL/L (24.0-28.0)
[2024-09-07 04:12] LABS: VENOUS O2 SATURATION 98.5 % (60.0-80.0)
[2024-09-07 04:30] LABS: CALCIUM LEVEL 10.1 MG/DL (8.5-10.1); CREATININE FOR GFR 12.77 MG/DL (0.70-1.30); GLOMERULAR FILTRATION RATE 4.4 (>60); MAGNESIUM LEVEL 2.2 MG/DL (1.8-2.4); MB/CK RELATIVE INDEX 1.36 (< OR =4); POTASSIUM SERUM 5.3 MMOL/L (3.5-5.1)
[2024-09-07] MEDS: ACETAMINOPHEN 325 MG TAB PO ONE (07:46)
[2024-09-07] MEDS: BUDESONIDE 0.5 MG/2 ML INHALATION SUSPENSION NEB SCH (08:00)
[2024-09-07] MEDS: FORMOTEROL FUMARATE 20 MCG/2 ML INHALATION SOLUTION (PERFOROMIST) INH SCH (08:00)
[2024-09-07] MEDS: SYMBICORT 160/4.5MCG INHALER 6GM INH SCH (08:00)
[2024-09-07] MEDS ORDERED: SODIUM CHLORIDE 0.9% 1000 ML IV PRN (08:45)
[2024-09-07] MEDS ORDERED: HEPARIN 1,000UNITS/ML 10ML VIAL (FOR RADIOLOGY & DIALYSIS ONLY) IV PRN (08:45)
[2024-09-07] MEDS ORDERED: LIDOCAINE 1% SDV 5ML VIAL SC PRN (08:45)
[2024-09-07] MEDS ORDERED: HEPARIN 1,000UNITS/ML 10ML VIAL (FOR RADIOLOGY & DIALYSIS ONLY) XX SCH (08:45)
[2024-09-07 09:02] LABS: HEMATOCRIT 32.9 % (42.0-52.0); HEMOGLOBIN 10.1 g/dl (13.5-17.5); MEAN CORPUSCULAR HGB CONC 30.7 g/dl (32.0-36.5); MEAN CORPUSCULAR VOLUME 84.6 fl (80.0-96.0); PLATELET COUNT, AUTOMATED 182 10^3/uL (150-450); RED BLOOD COUNT 3.89 10^6/uL (4.30-6.10); WHITE BLOOD COUNT 21.4 10^3/uL (4.0-10.0)
[2024-09-07 09:44] LABS: ALBUMIN 3.6 G/DL (3.2-5.2); BILIRUBIN,TOTAL 0.2 MG/DL (0.3-1.2); CALCIUM LEVEL 9.5 MG/DL (8.5-10.1); CREATININE FOR GFR 13.24 MG/DL (0.70-1.30); GLOMERULAR FILTRATION RATE 4.2 (>60); POTASSIUM SERUM 6.2 MMOL/L (3.5-5.1); TOTAL PROTEIN 6.6 G/DL (5.7-8.2)
[2024-09-07] MEDS: oxyCODONE 5MG TAB PO ONE (09:50)
[2024-09-07 16:28] LABS: ALBUMIN 3.6 G/DL (3.2-5.2); CALCIUM LEVEL 9.8 MG/DL (8.5-10.1); CK-MB VALUE MASS 5.2 NG/ML (<3.6); CREATININE FOR GFR 7.06 MG/DL (0.70-1.30); GLOMERULAR FILTRATION RATE 8.9 (>60); MB/CK RELATIVE INDEX 3.44 (< OR =4); PHOSPHORUS LEVEL 6.3 MG/DL (2.5-4.9); POTASSIUM SERUM 4.4 MMOL/L (3.5-5.1)
[2024-09-07] MEDS ORDERED: DOXY-441 PO (16:28)
[2024-09-07] MEDS ORDERED: PRED20TA PO (16:28)
[2024-09-07] MEDS ORDERED: ONDA-282 PO (16:30)
[2024-09-07] MEDS ORDERED: HOME MED LIST COMPLETE! XX SCH (16:30)
[2024-09-07] MEDS ORDERED: ALBUTEROL 90 MCG/ACT 8GM HFA INHALER INH PRN (16:35)
[2024-09-07] MEDS ORDERED: hydrOXYzine 50 MG TAB PO PRN (16:35)
[2024-09-07] MEDS ORDERED: LEVALBUTEROL 1.25 MG 0.5ML CONCENTRATE NEB INH PRN (16:35)
[2024-09-07] MEDS ORDERED: LORazepam 1 MG TAB PO PRN (16:35)
[2024-09-07] MEDS ORDERED: ONDANSETRON 4MG ORAL DISINTEGRATING TAB PO PRN (16:35)
[2024-09-07] MEDS ORDERED: ONDANSETRON 4MG 2ML VIAL IV PRN (17:10)
[2024-09-07] MEDS ORDERED: VANCOMYCIN HCL 1 MG in IV FLUID PLACE HOLDER 1 EA IV SCH (17:10)
[2024-09-07] MEDS: ASPIRIN 325 MG TAB PO STA (17:21)
[2024-09-07] MEDS: ONDANSETRON 4MG 2ML VIAL IV SCH (17:21)
[2024-09-07] MEDS: ATORVASTATIN 20 MG TAB PO STA (17:22)
[2024-09-07] MEDS: CLOPIDOGREL 300 MG TAB (PLAVIX) PO STA (17:22)
[2024-09-07] MEDS ORDERED: HEPARIN SOD (PORCINE) 5000UNITS/ML 1ML VIAL/SYRINGE IV PRN (17:35)
[2024-09-07 17:37] LABS: CK-MB VALUE MASS 6.7 NG/ML (<3.6)
[2024-09-07] MEDS: cefTRIAXone SOD 2 GM in DEXTROSE 5% (D5W) ADV/MINI-BAG 50 ML IV SCH (17:57)
[2024-09-07 17:58] LABS: CPK CREATINE PHOSPHOKINASE 172 U/L (46-171); MB/CK RELATIVE INDEX 3.89 (< OR =4)
[2024-09-07 18:12] LABS: PROCALCITONIN >50.00 ng/ml
[2024-09-07] MEDS ORDERED: GLUCAGON INJ 1MG VIAL SC PRN (18:15)
[2024-09-07] MEDS ORDERED: DEXTROSE 50% 50ML SYRINGE IV PRN (18:15)
[2024-09-07] MEDS ORDERED: GLUCOSE 4 GM CHEW PO PRN (18:15)
[2024-09-07] MEDS ORDERED: NITROGLYCERIN 0.4MG SUBL TABLET As Ordered ONE (18:20)
[2024-09-07] MEDS: NITROGLYCERIN 0.4MG SUBL TABLET SL STA (18:22)
[2024-09-07] MEDS: ACETAMINOPHEN *IV* 1,000 MG in IV 1 EA IV ONE (18:24)
[2024-09-07] MEDS ORDERED: ACETAMINOPHEN 325 MG TAB PO PRN (18:35)
[2024-09-07] MEDS: HEPARIN DRIP 25,000 UNITS in IV 1 EA IV SCH (18:54)
[2024-09-07 19:02] LABS: INR 1.14; PARTIAL THROMBOPLASTIN TIME 32.5 SECONDS (24.8-34.2); PROTHROMBIN TIME 14.9 SECONDS (12.5-14.5)
[2024-09-07] MEDS: HEPARIN SOD (PORCINE) 5000UNITS/ML 1ML VIAL/SYRINGE IV ONE (19:06)
[2024-09-07] MEDS: VANCOMYCIN HCL 1,500 MG, VIAL MATE ADAPTER 1 EACH in NS 500 ML IV ONE (19:14)
[2024-09-07] MEDS: NITROGLYCERIN 2% OINT 1 GM *U/D* PKT TOP ONE (19:15)
[2024-09-07] MEDS: ADVAIR HFA 115/21MCG INHALER INH SCH (19:17)
[2024-09-07] MEDS: MORPHINE 2 MG/ML 1ML VIAL IV ONE (19:36)
[2024-09-07] MEDS: busPIRone 5 MG TAB PO SCH (21:28)
[2024-09-07] MEDS: PRAZOSIN 1 MG CAP PO SCH (21:28)
[2024-09-07] MEDS: **hydrALAZINE** 50 MG TAB PO SCH (21:29)
[2024-09-07] MEDS: hydrALAZINE 20MG/ML 1ML VIAL IV PRN (22:29)
[2024-09-08] MEDS ORDERED: HEPARIN 1,000UNITS/ML 10ML VIAL (FOR RADIOLOGY & DIALYSIS ONLY) IV PRN (06:00)
[2024-09-08] MEDS ORDERED: LIDOCAINE 1% SDV 5ML VIAL SC PRN (06:00)
[2024-09-08] MEDS ORDERED: SODIUM CHLORIDE 0.9% 1000 ML IV PRN (06:00)
[2024-09-08] MEDS ORDERED: HEPARIN SOD (PORCINE) 5000UNITS/ML 1ML VIAL/SYRINGE SC SCH (06:00)
[2024-09-08] MEDS ORDERED: HEPARIN 1,000UNITS/ML 10ML VIAL (FOR RADIOLOGY & DIALYSIS ONLY) XX SCH (06:00)
[2024-09-08] MEDS ORDERED: METOPROLOL SUCC (TopROL XL) 100MG *XL* TAB PO SCH (09:00)
[2024-09-08] MEDS ORDERED: ASPIRIN 81MG ENTERIC TABLET PO SCH (09:00)
[2024-09-08] MEDS ORDERED: FEBUXOSTAT 40 MG TABLET (ULORIC) PO SCH (12:00)
[2024-09-08] MEDS ORDERED: ATORVASTATIN 10 MG TAB PO SCH (12:00)
[2024-09-08] MEDS ORDERED: LOSARTAN 50MG TABLET PO SCH (12:00)
[2024-09-08] MEDS ORDERED: BUMETANIDE 1 MG TAB PO SCH (12:00)
[2024-09-08] MEDS ORDERED: VANCOMYCIN HCL 1,000 MG, VIAL MATE ADAPTER 1 EACH in NS 250 ML IV SCH (16:00)
== END 2024-09-07 23:10 | disposition short-term general hospital (02) | DRG 280 ==
LOC: M ED 19:25 → M ED INP 09-07 03:01 → M ICU 09-07 04:07 → M PCU 09-07 11:16
PROVIDERS: ADMIT Internal Medicine Pulmonary Disease; ATTEND Internal Medicine
PROC: 5A1D70Z Performance of Urinary Filtration, Intermittent, Less than 6 Hours Per Day (ICD-10-PCS; principal; 2024-09-07)
DX: I16.9 Hypertensive crisis, unspecified (principal); I21.A1 Myocardial infarction type 2; N18.6 End stage renal disease; R07.89 Other chest pain; F32.A Depression, unspecified; E78.5 Hyperlipidemia, unspecified; K21.9 Gastro-esophageal reflux disease without esophagitis; J45.909 Unspecified asthma, uncomplicated; E87.5 Hyperkalemia; D64.9 Anemia, unspecified; E87.70 Fluid overload, unspecified; I12.0 Hypertensive chronic kidney disease with stage 5 chronic kidney disease or end stage renal disease; B34.8 Other viral infections of unspecified site; Z99.2 Dependence on renal dialysis; Z88.0 Allergy status to penicillin; Z88.8 Allergy status to other drugs, medicaments and biological substances; Z79.899 Other long term (current) drug therapy; Z79.82 Long term (current) use of aspirin; M10.9 Gout, unspecified; F41.9 Anxiety disorder, unspecified; F43.10 Post-traumatic stress disorder, unspecified; F12.90 Cannabis use, unspecified, uncomplicated; Z79.52 Long term (current) use of systemic steroids